=== PATIENT | male | born 1960 | race Caucasian/White ===

== ENCOUNTER → 2016-04-21 | Outpatient (CLI) | payer OTHER ==
[2016-04-21 07:26] LABS: EKG EKG PERFORMED
[2016-04-21 08:17] LABS: Basophils # (A) 0.2 k/uL (0-0.2); Basophils % (A) 2 %; CHCM 33.8; Eosinophils # (A) 0.2 k/uL (0-0.7); Eosinophils % (A) 2 %; HCT 49.3 % (39.0-53.0); HDW 2.19; HGB 16.2 gm/dL (13.0-17.5); Luc # (Auto) 0.16; Luc % (Auto) 2; Lymphocytes # (A) 2.9 k/uL (1.0-4.8); Lymphocytes % (A) 37 %; MCH 31.3 pg (25.0-35.0); MCHC 32.9 g/dL (31.0-37.0); MCV 95.2 fL (80.0-100.0); Mean Platelet Volume 7.8; Monocytes # (A) 0.5 k/uL (0-1.0); Monocytes % (A) 7 %; Neutrophils % (A) 51 %; RBC 5.18 m/uL (4.30-5.90); RDW 13.6 % (11.5-15.5); WBC 7.8 k/uL (3.8-10.6); WBC (Perox) 7.91
[2016-04-21 08:26] LABS: ALT 40 U/L (21-72); AST 30 U/L (17-59); Alkaline Phosphatase 86 U/L (38-126); Anion Gap 11 mmol/L; Blood Urea Nitrogen 9 mg/dL (9-20); Calcium 9.6 mg/dL (8.4-10.2); Carbon Dioxide 26 mmol/L (22-30); Chloride 100 mmol/L (98-107); Glucose 86 mg/dL (74-99); Non-African American GFR(MDRD) >60 (>60 ml/min/1.73 sqM); Potassium 5.2 mmol/L (3.5-5.1); Sodium 137 mmol/L (137-145); Total Bilirubin 0.8 mg/dL (0.2-1.3); Total Protein 7.4 g/dL (6.3-8.2)
[2016-04-21 08:29] LABS: INR 1.1 (<1.1); Partial Thromboplastin Time 26.1 sec (22.0-30.0); Prothrombin Time 10.7 sec (9.0-12.0)
== END | disposition home or self-care (01) ==
LOC: LABPAT 07:13
PROVIDERS: ATTEND Orthopaedic Surgery
DX: Z01.810 Encounter for preprocedural cardiovascular examination (principal); Z01.812 Encounter for preprocedural laboratory examination
CPT/HCPCS: 36415; 80053; 85025; 85610; 85730; 87070; 93005

== ENCOUNTER → 2016-04-22 | Outpatient (CLI) | payer OTHER ==
[2016-04-22 13:19] LABS: Appearance,Urine Clear (Clear); Bilirubin,Urine Negative (Negative); Glucose,Urine (UA) Negative (Negative); Ketones,Urine Negative (Negative); Leukocyte Esterase,Urine Negative (Negative); Nitrite,Urine Negative (Negative); PH, Urine 5.5 (5.0-8.0); Protein,Urine Negative (Negative); Specific Gravity,Urine 1.011 (1.001-1.035); UA Billing (MACRO vs. MICRO) CHEM
== END | disposition home or self-care (01) ==
LOC: EDSTATUS 09:19 → LABWHC1 12:46 → LABPAT 12:46
PROVIDERS: ATTEND Orthopaedic Surgery
DX: Z01.818 Encounter for other preprocedural examination (principal)
CPT/HCPCS: 81003

== ENCOUNTER 2016-05-01 07:54 | Inpatient (IN) | payer OTHER ==
[2016-04-21 14:17] VITALS: BMI 25.1
[~2016-05-01 07:54] MED LIST: ACETAMINOPHEN TAB 500 MG TAB PO ONE; CLINDAMYCIN 900 MG in DEXTROSE 5% IN WATER 50 ML IVPB ONE; DEXAMETHASONE SOD PHOSPHATE 10 MG/ML 1 ML VIAL IV ONE; HYDROmorphone 1 MG/ML 1 ML SYRINGE IVP PRN; LIDOCAINE 1% 20 ML VIAL (10MG/ML) FOR IV START INTRADERMA PRN; MELOXICAM 7.5 MG TAB PO ONE; MIDAZOLAM 2 MG/2 ML VIAL IV PRN; ONDANSETRON 4 MG/2 ML VIAL IVP ONE; SCOPOLAMINE 1.5MG/72HR PATCH TRANSDERM ONE; TRANEXAMIC ACID 1,000 MG in SODIUM CHLORIDE 0.9% 100 ML IVPB ONE
[2016-05-01] MEDS: LACTATED RINGERS 1,000 ML IV SCH ×3 (08:38→20:27)
[2016-05-01] MEDS ORDERED: ROPIVACAINE 246.25 MG, EPINEPHrine 0.5 MG, KETOROLAC 30 MG, cloNIDine HCL/PF 80 MCG, WA... MISCELLANE ONE ×5 (09:29)
[2016-05-01] MEDS ORDERED: MIDAZOLAM 2 MG/2 ML VIAL ONE (10:08)
[2016-05-01] MEDS ORDERED: fentaNYL (PF) 50 MCG/ML 2 ML AMP ONE (10:08)
[2016-05-01] MEDS ORDERED: SODIUM CHLORIDE 0.9% 100 ML BAG ONE (10:08)
[2016-05-01] MEDS ORDERED: TRANEXAMIC ACID 1,000 MG/10 ML VIAL ONE (10:08)
[2016-05-01] MEDS ORDERED: PROPOFOL 10 MG/ML 20 ML VIAL IV ONE (10:08)
[2016-05-01] MEDS ORDERED: LACTATED RINGERS 1,000 ML IV ONE (10:48)
[2016-05-01] MEDS ORDERED: CLINDAMYCIN 1,800 MG in SODIUM CHLORIDE 0.9% IRRIGATIO 3,000 ML IRRIGATION ONE (10:59)
[2016-05-01] MEDS ORDERED: HYDROcodone/APAP 5-325MG 1 EACH TAB PO PRN (12:02)
[2016-05-01] MEDS ORDERED: NALOXONE 0.4 MG/ML 1 ML VIAL IV PRN (12:02)
[2016-05-01] MEDS ORDERED: MAGNESIUM HYDROXIDE 2,400 MG/10 ML CUP PO PRN (12:02)
[2016-05-01] MEDS ORDERED: HYDROmorphone 1 MG/ML 1 ML SYRINGE IVP PRN ×3 (12:02)
[2016-05-01] MEDS ORDERED: TEMAZEPAM 15 MG CAP PO PRN (12:02)
--- NOTE | 2016-05-01 12:39 | XR ---
EXAMINATION TYPE: XR Hip Limited RT DATE OF EXAM: 05/01/2016 12:32 PM COMPARISON: NONE HISTORY: Postop There is a prosthetic hip in near anatomic alignment. There is soft tissue edema and emphysema. Vasc ular calcifications noted. IMPRESSION: 1. Postoperative change. Appears in near-anatomic alignment.
[2016-05-01] MEDS: HYDROcodone/APAP 5-325MG 1 EACH TAB PO PRN ×2 (15:32→20:34)
[2016-05-01] MEDS ORDERED: ceFAZolin 2 GM in SODIUM CHLORIDE 0.9% 100 ML IVPB SCH (16:00)
[2016-05-01] MEDS: CLINDAMYCIN 900 MG in DEXTROSE 5% IN WATER 50 ML IVPB SCH ×2 (17:56)
[2016-05-01] MEDS: ASPIRIN 325 MG TAB PO SCH (20:27)
[2016-05-01] MEDS: SENNOSIDES-DOCUSATE SODIUM 1 EACH TAB PO SCH (20:27)
[2016-05-02] MEDS: LACTATED RINGERS 1,000 ML IV SCH ×2 (01:03→10:18)
[2016-05-02] MEDS: CLINDAMYCIN 900 MG in DEXTROSE 5% IN WATER 50 ML IVPB SCH ×2 (01:06)
[2016-05-02] MEDS: HYDROcodone/APAP 5-325MG 1 EACH TAB PO PRN ×5 (01:36→22:33)
[2016-05-02] MEDS: MULTIVITAMINS, THERA 1 EACH TAB PO SCH (07:37)
[2016-05-02] MEDS: MELOXICAM 7.5 MG TAB PO SCH (07:37)
[2016-05-02] MEDS: ASPIRIN 325 MG TAB PO SCH ×2 (07:38→20:45)
--- NOTE | 2016-05-02 08:09 | P.OP ---
Date of Procedure: 05/01/16 Procedure(s) Performed: PREOPERATIVE DIAGNOSIS: Right hip severe osteoarthritis POSTOPERATIVE DIAGNOSIS: Right hip severe osteoarthritis OPERATION: Right hip total replacement arthroplasty (uncemented implantation with ceramic on polyethylene articulation). ANESTHESIA: Spinal ESTIMATED BLOOD LOSS: 200 ml. MILL MANAGER: Catrina Randle PA-C (assistance with: patient positioning, retraction, exposure, hemostasis, leg positioning, implantation, irrigation, closure, dressing) COMPLICATIONS: None apparent. COMPONENTS IMPLANTED: Mirna Continuum acetabular cup with cluster holes; Continuum longevity 15 elevated liner, 32 mm id; Mirna VerSys Fiber Metal stem ; VerSys 32 mm femoral head with +3.5 mm neck length extension INDICATIONS: Mr. Dudley is a 56-year-old male with significant end-stage osteoarthritis involving the right hip and commensurate severe symptoms. He presents to the operating room today for total hip replacement. I have discussed the steps of the operation as well as potential risks and complications as being inclusive of, but not limited to: Leading, infection, scarring, discomfort, or vessel and/or nerve damage, need for further surgery, loosening, dislocation, wear, osteolysis, limb length inequality, fracture, blood clot, pulmonary embolism, , persistent limp, and other risks. The patient is aware these risks and wishes to proceed with surgery and has signed a consent form. PROCEDURE: After appropriate consent was obtained, the patient was taken to the operating room and placed in supine position. Spinal anesthetic was administered and after confirmation of adequate anesthesia, the patient was placed into the lateral decubitus position with the right side up. Care was taken to make sure that all pressure points were adequately padded and he was stabilized to the table with a Marion hip positioner. The right hip was prepped and draped in the usual aseptic fashion using a combination of ChloraPrep and alcohol. Ioban drape was used for the case and the patient received intravenous antibiotics prior to the incision. "Time out" was called , confirming patient identity, side, procedure, availability of implants and administration of antibiotics. The incision was created directly over the greater trochanter and carried slightly posteriorly for a posterior approach to the hip. The incision was then deepened down to subcutaneous tissue and fascia rosie. Fascia rosie was split in line with the incision and split proximally along the fibers of the gluteus dot. The underlying fibers of the muscle were teased apart using finger dissection and bleeding vessels were picked up and coagulated. Retractor was then placed posteriorly consisting of a blunt Anita. The short external rotators and capsule were exposed using good visualization of the attachment of the external rotators to the femur was established. The short external rotators and capsule were released using electrocautery from their femoral attachments. A hockey stick shaped incision was created in the capsule. Joint fluid was evacuated and the patient's hip was able to be dislocated fairly easily. The patient's femoral head was severely arthritic with eburnated bone present and a 360 degrees park of osteophytes. The femoral neck cut was created approximately 1 cm superior to the lesser trochanter using a reciprocating saw. The femoral head and neck fragment was removed and attention was then directed to the acetabulum. An anterior acetabular retractor was applied followed by posterior retraction of the capsule with a Meyerding retractor. This afforded good visualization into the acetabular cavity. Soft tissue was removed and residual cartilage within the acetabular vault was removed using a curette. Labrum was removed using a long-handled knife. Attention was then directed to reaming. The size 44 reamer was used first, followed by increasing increments until the final size reamer was used. Please see the implantation sheet for exact sizes used for the components. Once the final reamer had been utilized to expand the socket it was noted that there was a good supportive bone around the acetabular socket and no further reaming needed to be performed. The trial the same size as the last reamer used was then impacted into the acetabular vault and found to have good fit. The acetabular component, one size (2mm) greater than the trial was then called for. The cluster holes were placed posteriorly and the component was impacted in a position of approximately 40 degrees abduction and 20 degrees anteversion. This matched this patient's ekwok anteversion and it was noted that the cup had excellent stability without need for additional screw fixation. Attention was then directed to the acetabular liner. The anteversion and abduction angle of the component was noted to be very good. A 15 elevated liner was used and locked into position with the elevation posterior superior. Osteophytes around the posterior and inferior aspect of the acetabulum were trimmed as necessary to prevent any impingement. Attention was then directed back to the proximal femur. Retractors were placed around the proximal femur and box osteotome was used followed by canal finder and trochanteric reamer. Cylindrical reaming was performed. Progressive broaching was then performed starting with a #10 broach and progressing final size, in a position of 15 degrees anteversion. [place] anteversion was within 5 degrees of stem position. The final size broach had excellent fit and fill of the patient's metaphysis and diaphysis. Trial reduction was then performed starting with size 32 mm femoral head and various neck combination of stability , limb length equality, and soft tissue tension. Trial components were then removed. The canal was lavaged and the final size femoral stem component was impacted into position. The implant fit very well and had excellent stability. The femoral head was then impacted onto the Turner taper. Blood and debris were removed from the acetabular component and the hip was then reduced and checked for stability, limb length and soft tissue tension. These parameters found to be satisfactory, the wound was then thoroughly irrigated with normal saline. Final hemostasis was obtained using electrocautery and IV tranexamic acid, 1 g given at the time of prepping and draping, and another 1 g given at the time of closure. Local anesthetic solution consisting of ropivacaine with epinephrine, clonidine, and ketorolac was also used throughout the case targeting the capsule , fascia, and skin. Closure of the capsule was performed meticulously using #3 Vicryl suture. Four [id number] sutures were placed in the posterior capsule along with repair of the external rotators. The fascia rosie was then repaired using combination of #3 Vicryl suture in interrupted fashion and Quill and running fashion. 2-0 Vicryl suture was used for the subcutaneous tissues and 3-0 Quill for the skin. Dermabond or Steri-Strips were then applied. The patient tolerated the procedure well. There were no complications and the wound bed was dry and there was no need for drain placement. Sterile dressing was then applied and the patient was carefully removed from the operating room table , placed on the stretcher and was taken to the recovery room in stable condition. Sponge and needle counts were correct.
[2016-05-02 08:10] LABS: Basophils % (A) 0 %; CHCM 34.3; Eosinophils % (A) 1 %; HCT 35.6 % (39.0-53.0); HDW 2.32; Luc # (Auto) 0.07; Luc % (Auto) 1; Lymphocytes # (A) 1.9 k/uL (1.0-4.8); Lymphocytes % (A) 21 %; MCH 31.6 pg (25.0-35.0); MCHC 33.7 g/dL (31.0-37.0); MCV 93.6 fL (80.0-100.0); Mean Platelet Volume 8.3; Monocytes # (A) 0.7 k/uL (0-1.0); Monocytes % (A) 8 %; Neutrophils # (A) 6.3 k/uL (1.3-7.7); Neutrophils % (A) 69 %; RDW 13.2 % (11.5-15.5); WBC (Perox) 8.97
--- NOTE | 2016-05-02 09:03 | P.CONS ---
History of Present Illness - Reason for Consult Consult date: 05/01/16 Heterotopic ossification prophylaxis Requesting physician: Ben Baugh - Chief Complaint right hip osteoarthritis - History of Present Illness 56 year old male with history of severe right hip osteoarthritis. He has required a cane for ambulation and has not been working recently secondary to this problem. The patient elected to undergo a right ZENIA under the care of Dr. Baugh. He underwent surgery on 05/01/2016 and tolerated the operation without difficulty. Intraoperatively, Dr. Baugh noted that the femoral head had intra- operative eburnated bone and [address] Baugh discussed with the patient that he may be at risk for heterotopic ossification post- operatively and requested our consultation. At the time of our consultation the patient was sitting in a chair and notes his pain is well controlled. Review of Systems All systems: negative Constitutional: Denies chills, Denies fever Eyes: denies blurred vision, denies pain Ears, nose, mouth and throat: Denies headache, Denies sore throat Cardiovascular: Denies chest pain, Denies shortness of breath Respiratory: Denies cough Gastrointestinal: Denies abdominal pain, Denies diarrhea, Denies nausea, Denies vomiting Musculoskeletal: Denies myalgias Integumentary: Denies pruritus, Denies rash Neurological: Denies numbness, Denies weakness Psychiatric: Denies anxiety, Denies depression Endocrine: Denies fatigue, Denies weight change Past Medical History Past Medical History: Osteoarthritis (OA) History of Any Multi-Drug Resistant Organisms: None Reported Past Surgical History: Appendectomy Additional Past Surgical History / Comment(s): ORIF RT HAND, right hip replacement. Past Anesthesia/Blood Transfusion Reactions: No Reported Reaction Past Psychological History: No Psychological Hx Reported Smoking Status: Former smoker Past Alcohol Use History: Daily Additional Past Alcohol Use History / Comment(s): QUIT SMOKING 2014 Past Drug Use History: None Reported - Past Family History Brother(s) Family Medical History: Cancer Medications and Allergies Allergies Allergy/AdvReac Type Severity Reaction Status Date / Time venom-honey bee Allergy Anaphylaxis Verified 05/01/16 08:06 Penicillins AdvReac Swelling Verified 05/01/16 08:06 Physical Exam Vitals: Vital Signs Temp Pulse Pulse Resp BP Pulse Ox 05/02/16 07:34 98.7 F 59 L 16 109/65 99 05/02/16 03:28 16 05/02/16 02:32 97.9 F 55 L 16 131/69 96 05/02/16 00:00 16 05/01/16 20:00 97.4 F L 61 16 138/79 96 05/01/16 14:30 52 L 130/72 05/01/16 14:15 54 L 133/74 05/01/16 14:00 52 L 135/75 05/01/16 13:45 54 L 139/74 05/01/16 13:30 64 138/88 05/01/16 13:15 62 131/78 05/01/16 13:00 50 L 130/79 05/01/16 12:45 64 131/78 05/01/16 12:30 97.7 F 57 L 55 L 16 130/79 97 05/01/16 12:15 53 L 16 116/65 96 05/01/16 12:02 55 L 05/01/16 12:00 98.0 F 63 16 125/68 97 Intake and Output 05/01/16 05/02/16 05/02/16 22:59 06:59 14:59 Intake Total 240 Output Total 1500 2000 200 Balance -1260 -2000 -200 Intake: Oral 240 Output: Urine 1500 1999 200 Uretheral (Weinberg) 1500 2000 200 Other: Voiding Method Indwelling Catheter Indwelling Catheter - Constitutional General appearance: average body habitus - EENT Eyes: PERRLA - Neck Neck: no rigidity - Respiratory Respiratory: bilateral: CTA - Cardiovascular Rhythm: regular - Gastrointestinal General gastrointestinal: normal bowel sounds, no tenderness - Integumentary Integumentary: no cellulitis, no jaundiced - Neurologic Neurologic: CNII-XII intact - Psychiatric Psychiatric: A&O x's 3, appropriate affect Results CBC & Chem 7: 05/02/16 06:51 Labs: Abnormal Lab Results - Last 24 Hours (Table) 05/02/16 Range/Units 06:51 RBC 3.80 L (4.30-5.90) m/uL Hgb 12.0 L D (13.0-17.5) gm/dL Hct 35.6 L (39.0-53.0) % Assessment and Plan (1) Osteoarthritis of right hip Status: Acute Plan: I discussed with the patient that a single dose of radiotherapy within 72 hours after his ZENIA would decrease the risk of developing heterotopic ossification. Dr. Baugh expressed some concern that the patient would be at risk for this considering the advanced nature of his osteoarthritis at the time of treatment. I explained to the patient that this type of ossification is associated with decreased range of motion, pain and decreased life of the joint replacement. I recommended the patient undergo a single fraction of radiation directed to the right hip. I explained to the patient he would need a CT simulation for treatment planning which would be done tomorrow at 9 AM. I explained that the side effects of radiotherapy would likely be very minimal, but he may experience mild erythema of the skin, reversible azoospermia with no significant risk of secondary malignancy. The patient expressed understanding of these recommendations and will undergo treatment on post-operative day #1 as discussed above. Time with Patient: Greater than 30
--- NOTE | 2016-05-02 10:29 | P.PN ---
Subjective Principal diagnosis: Status post right total hip arthroplasty Patient is a pleasant 56-year-old male seen today where he is postop day #1 from a right total hip arthroplasty performed by Dr. Baugh. He has controlled postoperative pain at the surgical site as expected. He has no new complaints. He denies numbness, tingling or calf pain. Review of systems is negative for fever, chills, chest pain, shortness breath, nausea, vomiting, dizziness, headaches, slurred speech or other. Objective - Vital Signs Vital signs: Vital Signs Temp 98.7 F 05/02/16 07:34 Pulse 59 L 05/02/16 07:34 Resp 16 05/02/16 07:34 BP 109/65 05/02/16 07:34 Pulse Ox 99 05/02/16 07:34 Intake & Output 05/01/16 05/02/16 05/02/16 18:59 06:59 18:59 Intake Total 2297 Output Total 300 3500 200 Balance 1996 Weight 68.49 kg Intake: IV 1956 Intake, IV Titration 100 Amount Lactated Ringers 1,000 ml 100 @ 100 mls/hr IV .Q10H RANDY Rx#:[id number] Oral 240 Output: Urine 100 3500 200 Uretheral (Weinberg) 3500 200 Estimated Blood Loss 200 Other: Voiding Method Indwelling Catheter Indwelling Catheter - Exam Inspection of the surgical site we will reveals a benign intact surgical wound with no active bleeding, dehiscence or drainage. There is no erythema. His neurovascular status is intact with motor and sensation throughout the right lower extremity. His calf is soft and nontender. He has 2+ dorsalis pedis pulses and less than 2 second cap refill. - Constitutional General appearance: Present: no acute distress - Psychiatric Psychiatric: Present: A&O x's 3, appropriate affect, intact judgment & insight - Labs CBC & Chem 7: 05/02/16 06:51 Labs: Abnormal Lab Results - Last 24 Hours (Table) 05/02/16 Range/Units 06:51 RBC 3.80 L (4.30-5.90) m/uL Hgb 12.0 L D (13.0-17.5) gm/dL Hct 35.6 L (39.0-53.0) % Assessment and Plan (1) Osteoarthritis of right hip Narrative/Plan: He'll continue with routine postop orthopedic protocol including pain management , wound care, physical therapy, DVT prophylaxis and medical management. Expect that he'll discharge tomorrow 05/03/2016 to either an extended care facility or to home with home health services. Status: Acute Time with Patient: Less than 30
--- NOTE | 2016-05-02 17:10 | XR ---
EXAMINATION TYPE: XR chest 2V DATE OF EXAM: 05/02/2016 3:16 PM COMPARISON: Prior chest x-ray 04 February 2015 HISTORY: Extended-care facility placement TECHNIQUE: Frontal and lateral views of the chest are obtained. FINDINGS: There is no focal air space opacity, pleural effusion, or pneumothorax seen. The cardiac silhouette size is within normal limits. Prominent lung volume could be indicative of underlying COPD . The osseous structures are stable, old right-sided rib fractures are noted.. IMPRESSION: No acute cardiopulmonary process.
[2016-05-02] MEDS: SENNOSIDES-DOCUSATE SODIUM 1 EACH TAB PO SCH (20:45)
[2016-05-02] MEDS: hydrOXYzine PAMOATE 25 MG CAP PO PRN (22:33)
--- NOTE | 2016-05-02 23:21 | P.CONS ---
History of Present Illness - Reason for Consult Consult date: 05/02/16 Medical management Requesting physician: Ben Baugh - Chief Complaint Right total hip arthroplasty, osteoarthritis, BPH, GERD - History of Present Illness 56-year-old male [address] Evans patient with past medical history of severe osteoarthritis with severe arthritis in both hip worse in the right side than the left side for more than 3 years has become much worse in the last few months with failure to conservative management and not been able to function well. Patient ended up seen orthopedic and scheduled for elective total hip arthroplasty. Surgery was done yesterday successfully and and up having one dose of radiation afterward. Patient is very stable hemodynamically he lives at home alone and he will require help most likely need rehabilitation when he the hospital. Review of Systems Constitutional: Reports anorexia, Reports fatigue, Reports lethargy, Reports malaise, Reports weakness, Denies as per HPI, Denies chills, Denies chronic headaches, Denies chronic pain, Denies daytime sleepiness, Denies fever, Denies night sweats, Denies poor appetite, Denies sweats, Denies weight gain, Denies weight loss Eyes: bilateral as per HPI Ears: bilateral: decreased hearing Ears, nose, mouth and throat: Reports sinus pressure, Reports swelling in mouth , Reports swelling in throat, Reports sore throat, Denies as per HPI, Denies ant. neck pain, Denies bleeding gums, Denies dental pain, Denies dysphagia, Denies epistaxis, Denies headache, Denies hoarseness, Denies mouth pain, Denies nasal congestion, Denies nasal discharge, Denies neck fullness/pressure, Denies neck lump, Denies nose pain, Denies odynophagia, Denies post-nasal drip, Denies sinus pain, Denies vertigo, Denies voice changes Breasts: bilateral: as per HPI Cardiovascular: Reports chest pain, Reports dyspnea on exertion, Reports high blood pressure, Reports leg edema, Reports lightheadedness, Reports orthopnea, Denies as per HPI, Denies claudication, Denies decreased exercise tolerance, Denies edema, Denies irregular heart beat, Denies palpitations, Denies paroxysmal nocturnal dyspnea, Denies phlebitis, Denies rapid heart beat, Denies shortness of breath, Denies syncope Respiratory: Reports congestion, Reports cough with sputum, Reports dyspnea, Denies as per HPI, Denies cough, Denies excessive sputum, Denies hemoptysis, Denies home oxygen, Denies pain, Denies pain on inspiration, Denies pleurisy, Denies respiratory infections, Denies sleep apnea, Denies snoring, Denies wheezing Gastrointestinal: Reports abdominal pain, Reports bloating, Reports dyspepsia, Reports indigestion, Reports nausea, Denies as per HPI, Denies belching, Denies BRBPR, Denies change in bowel habits, Denies coffee ground emesis, Denies constipation, Denies diarrhea, Denies early satiety, Denies excessive gas, Denies heartburn, Denies hematemesis, Denies hematochezia, Denies jaundice, Denies lactose intolerance, Denies loss of appetite, Denies melena, Denies vomiting Genitourinary: Denies as per HPI, Denies decreased libido, Denies difficulties fathering child, Denies discharge, Denies dysuria, Denies erectile dysfunction, Denies flank pain, Denies genital pain, Denies genital sores, Denies hematuria, Denies impotence, Denies incontinence, Denies kidney stones, Denies nocturia, Denies polyuria, Denies testicular lump, Denies testicular pain, Denies urinary frequency, Denies urinary hesitancy, Denies urinary retention Musculoskeletal: Reports arm numbness/tingling, Reports leg numbness/tingling, Reports limitation of motion, Reports low back pain, Reports myalgias, Reports neck pain, Reports neck stiffness, Denies as per HPI, Denies atrophy, Denies fractures, Denies frequent falls, Denies gait dysfunction, Denies hot joints, Denies loss of height, Denies morning stiffness, Denies muscle cramps, Denies muscle weakness, Denies prior amputations, Denies redness of joints, Denies shooting arm pain, Denies shooting leg pain Musculoskeletal: bilateral: ankle pain, ankle stiffness Integumentary: Reports pruritus, Reports rash, Denies as per HPI, Denies acne, Denies boils, Denies brittle nails, Denies change in hair/nails, Denies color changes, Denies darkening of skin, Denies depigmentation, Denies dryness, Denies foot/leg ulcers, Denies growths, Denies hirsutism, Denies lesions, Denies onychomycosis, Denies sores, Denies striae, Denies unusual bruising, Denies wounds Neurological: Reports aphasia, Reports change in mentation, Reports confusion, Reports memory loss, Reports motor disturbance, Reports tingling, Reports tremors, Denies as per HPI, Denies ataxia, Denies balance difficulties, Denies burning pain, Denies change in smell/taste, Denies change in speech, Denies convulsions, Denies double vision, Denies gait dysfunction, Denies head injury, Denies headaches, Denies hearing difficulties, Denies lack of coordination, Denies loss of vision, Denies migraines, Denies numbness, Denies paralysis, Denies paresthesias, Denies seizures, Denies sensory deficit, Denies spasticity , Denies syncope, Denies tic, Denies transient paralysis, Denies vertigo, Denies weakness, Denies visual changes Psychiatric: Reports anhedonia, Reports anxiety attacks, Reports depression, Reports mood swings, Denies as per HPI, Denies anxiety, Denies change in appetite, Denies change in libido, Denies change in sleep habits, Denies confusion, Denies difficulty concentrating, Denies disorientation, Denies hallucinations, Denies hopelessness, Denies hypersomnia, Denies insomnia, Denies irritability, Denies memory loss, Denies paranoia, Denies sadness/ tearfulness, Denies sleep disturbances, Denies suicidal ideation Endocrine: Reports cold intolerance, Reports polyuria, Denies as per HPI, Denies deepening of the voice, Denies excessive sweating, Denies excessive thirst, Denies fatigue, Denies flushing, Denies heat intolerance, Denies high blood sugars, Denies increase in ring/shoe/hat size, Denies low blood sugars, Denies nocturia, Denies palpitations, Denies polydipsia, Denies polyphagia, Denies proptosis, Denies recent glucocorticoid use, Denies thyroid mass, Denies weight change Hematologic/Lymphatic: Reports easy bleeding, Reports easy bruising, Denies as per HPI, Denies lymphadenopathy, Denies lymphedema, Denies thrombophilia Allergic/Immunologic: Reports as per HPI, Denies allergic rhinitis, Denies anaphylaxis, Denies angioedema, Denies gluten intolerance, Denies persistent infections, Denies seasonal allergies, Denies urticaria, Denies wheezing Past Medical History Past Medical History: Osteoarthritis (OA) History of Any Multi-Drug Resistant Organisms: None Reported Past Surgical History: Appendectomy Additional Past Surgical History / Comment(s): ORIF RT HAND, right hip replacement. Past Anesthesia/Blood Transfusion Reactions: No Reported Reaction Past Psychological History: No Psychological Hx Reported Smoking Status: Former smoker Past Alcohol Use History: Daily Additional Past Alcohol Use History / Comment(s): QUIT SMOKING 2014 Past Drug Use History: None Reported - Past Family History Brother(s) Family Medical History: Cancer Medications and Allergies Allergies Allergy/AdvReac Type Severity Reaction Status Date / Time venom-honey bee Allergy Anaphylaxis Verified 05/01/16 08:06 Penicillins AdvReac Swelling Verified 05/01/16 08:06 Physical Exam Vitals: Vital Signs Temp Pulse Resp BP Pulse Ox 05/02/16 14:40 98.6 F 66 16 125/69 97 05/02/16 07:34 98.7 F 59 L 16 109/65 99 05/02/16 03:28 16 05/02/16 02:32 97.9 F 55 L 16 131/69 96 05/02/16 00:00 16 05/01/16 20:00 97.4 F L 61 16 138/79 96 Intake and Output 05/02/16 05/02/16 05/02/16 06:59 14:59 22:59 Intake Total 360 Output Total 1999 Balance -1999 - 360 Intake: Oral 360 Output: Urine 1999 200 Uretheral (Weinberg) 1999 200 Other: Voiding Method Indwelling Catheter # Voids 1 - Constitutional General appearance: no average body habitus, cooperative, no disheveled, no mild distress, no morbidly obese, no no acute distress, no obese, no severe distress, thin - EENT Eyes: no abnormal pupil, no anicteric sclerae, no disc margins sharp, no edentulous, no EOMI, no PERRLA, no fundus normal, no photophobia, no dentition normal, no poor dentition, no ptosis, no scleral icterus, normal appearance ENT: no hard of hearing, no hearing grossly normal, no NA/AT, normal oropharynx , no other, no pharyngeal erythema, no thrush, no tonsillar exudates, no tonsillar swelling Ears: bilateral: normal - Neck Neck: normal ROM Carotids: bilateral: upstroke normal Thyroid: bilateral: normal size - Respiratory Respiratory: bilateral: CTA, diminished - Cardiovascular Rhythm: regular Heart sounds: normal: S1, S2 Abnormal Heart Sounds: systolic murmur, S3 Gallop - Gastrointestinal General gastrointestinal: no absent bowel sounds, decreased bowel sounds, no distended, no hepatomegaly, no hyperactive bowel sounds, no normal bowel sounds , no organomegaly, no rigid, no scaphoid, soft, no splenomegaly, no tenderness, no umbilical hernia, no ventral hernia - Integumentary Integumentary: no calor, no cellulitis, cyanotic, no decreased turgor, no flushed, jaundiced, normal, no normal turgor, no pale, no rash, no ulcer - Neurologic Neurologic: CNII-XII intact - Musculoskeletal Musculoskeletal: gait normal, generalized weakness, strength equal bilaterally - Psychiatric Psychiatric: appropriate affect Results CBC & Chem 7: 05/02/16 06:51 Labs: Abnormal Lab Results - Last 24 Hours (Table) 05/02/16 Range/Units 06:51 RBC 3.80 L (4.30-5.90) m/uL Hgb 12.0 L D (13.0-17.5) gm/dL Hct 35.6 L (39.0-53.0) % Assessment and Plan Plan: 1 post right total hip arthroplasty: Stable doing well advanced physical therapy gradually continue anticoagulation, DVT and GI prophylaxis. 2 GERD: Patient will be on Pepcid 20 mg daily. 3 BPH: Watch for any urinary retention if need was start patient on Flomax. 4 pain management: Patient is on hydrocodone as needed. 5 DVT prophylaxis: Patient was started on aspirin 325 mg twice a day. CODE STATUS: Full code. Dr. Amauri renee for the consult psych and be any further help to please let me know thank you.
[2016-05-03] MEDS: HYDROcodone/APAP 5-325MG 1 EACH TAB PO PRN ×3 (07:18→21:33)
[2016-05-03] MEDS: hydrOXYzine PAMOATE 25 MG CAP PO PRN ×3 (07:18→21:32)
[2016-05-03] MEDS: ASPIRIN 325 MG TAB PO SCH ×2 (08:57→21:32)
[2016-05-03] MEDS: MELOXICAM 7.5 MG TAB PO SCH (08:57)
--- NOTE | 2016-05-03 09:27 | P.DS ---
Providers Date of admission: 05/01/16 07:54 Expected date of discharge: 05/03/16 Attending physician: Ben Baugh Consults: 05/01/16 12:02 Consult Physician Routine Consulting Provider: Alek Jones Consult Reason/Comments: medical management Do you want consulting provider notified?: Yes 05/01/16 12:15 Consult Physician Urgent Consulting Provider: Andrew Lemos Consult Reason/Comments: radiation tx right hip, s/p ZENIA Do you want consulting provider notified?: Yes Primary care physician: Marcial Evans - Discharge Diagnosis(es) (1) Status post total hip replacement, right Current Visit: Yes Status: Acute (2) Osteoarthritis of right hip Current Visit: Yes Status: Acute Priority: Medium Hospital Course: This is a 56-year-old male with known history of degenerative arthritis of the right hip. The patient presents for evaluation. After discussion and consideration patient elects to proceed with total hip arthroplasty. The patient is seen preoperatively by Dr. Evans and cleared for surgery. Patient is admitted to [facility] on 05/01/2016 for total hip arthroplasty. The procedures performed without complication or sequelae. The patient is doing well postoperatively. Labs and vital signs are stable on day of discharge. On day of discharge patient's hip incision is healing well. There is minimal erythema. There is no drainage noted at this time. There is minimal soft tissue swelling to the hip and thigh. Patient has full foot and ankle motion without difficulty or pain. Neurovascular status to the right lower extremity is intact. The patient would like to go to rehab because he is alone at home. However, he is walking independently without difficulty. Patient is discharged to home versus rehab in good condition. Plan - Discharge Summary New Discharge Prescriptions: Aspirin 325 mg PO BID #120 tab HYDROcodone/APAP 5-325MG [Hudson 5] 1 - 2 each PO Q4-6H PRN #90 tab PRN Reason: Pain Sennosides-Docusate Sodium [Senokot-S] 1 tab PO BID #60 tablet Discharge Medication List Aspirin 325 mg PO BID #120 tab 05/01/16 [Rx] HYDROcodone/APAP 5-325MG [Hudson 5] 1 - 2 each PO Q4-6H PRN #90 tab 05/01/16 [Rx] Sennosides-Docusate Sodium [Senokot-S] 1 tab PO BID #60 tablet 05/01/16 [Rx] Follow up Appointment(s)/Referral(s): Catrina Randle, PAC [[employer]YSIC[facility] [employer]] - 2 Weeks Activity/Diet/Wound Care/Special Instructions: May shower if no drainage from incision. 50% wt bearing RLE w walker. Discharge Disposition: HOME WITH HOME HEALTH SERVICES
[2016-05-03] MEDS: MULTIVITAMINS, THERA 1 EACH TAB PO SCH (11:59)
--- NOTE | 2016-05-03 15:15 | P.PN ---
Subjective 56-year-old male [address] Evans patient with past medical history of severe osteoarthritis with severe arthritis in both hip worse in the right side than the left side for more than 3 years has become much worse in the last few months with failure to conservative management and not been able to function well. Patient ended up seen orthopedic and scheduled for elective total hip arthroplasty. Surgery was done yesterday successfully and and up having one dose of radiation afterward. Patient is very stable hemodynamically he lives at home alone and he will require help most likely need rehabilitation when he the hospital. 05/03: Patient is scheduled for discharge today. Awaiting insurance authorization for discharge to subacute rehab at [facility]. Backup plan is home with homecare. Objective - Vital Signs Vital signs: Vital Signs Temp 98.9 F 05/03/16 07:00 Pulse 67 05/03/16 08:00 Resp 16 05/03/16 08:00 BP 141/74 05/03/16 07:00 Pulse Ox 100 05/03/16 07:00 Intake & Output 05/02/16 05/03/16 05/03/16 18:59 06:59 18:59 Intake Total 360 450 Output Total 200 50 Balance 160 450 -50 Weight 68.49 kg Intake: Oral 360 450 Output: Urine 200 50 Uretheral (Weinberg) 200 Other: Voiding Method Toilet Toilet # Voids 1 2 1 - Exam General appearance: no average body habitus, cooperative, no disheveled, no mild distress, no morbidly obese, no no acute distress, no obese, no severe distress, thin - EENT Eyes: no abnormal pupil, no anicteric sclerae, no disc margins sharp, no edentulous, no EOMI, no PERRLA, no fundus normal, no photophobia, no dentition normal, no poor dentition, no ptosis, no scleral icterus, normal appearance ENT: no hard of hearing, no hearing grossly normal, no NA/AT, normal oropharynx , no other, no pharyngeal erythema, no thrush, no tonsillar exudates, no tonsillar swelling Ears: bilateral: normal - Neck Neck: normal ROM Carotids: bilateral: upstroke normal Thyroid: bilateral: normal size - Respiratory Respiratory: bilateral: CTA, diminished - Cardiovascular Rhythm: regular Heart sounds: normal: S1, S2 Abnormal Heart Sounds: systolic murmur, S3 Gallop - Gastrointestinal General gastrointestinal: no absent bowel sounds, decreased bowel sounds, no distended, no hepatomegaly, no hyperactive bowel sounds, no normal bowel sounds , no organomegaly, no rigid, no scaphoid, soft, no splenomegaly, no tenderness, no umbilical hernia, no ventral hernia - Integumentary Integumentary: no calor, no cellulitis, cyanotic, no decreased turgor, no flushed, jaundiced, normal, no normal turgor, no pale, no rash, no ulcer - Neurologic Neurologic: CNII-XII intact - Musculoskeletal Musculoskeletal: gait normal, generalized weakness, strength equal bilaterally - Psychiatric Psychiatric: appropriate affect - Labs CBC & Chem 7: 05/02/16 06:51 Assessment and Plan Plan: 1 post right total hip arthroplasty: Stable doing well advanced physical therapy gradually continue anticoagulation, DVT and GI prophylaxis. 2 GERD: Patient will be on Pepcid 20 mg daily. 3 BPH: Watch for any urinary retention if need was start patient on Flomax. 4 pain management: Patient is on hydrocodone as needed. 5 DVT prophylaxis: Patient was started on aspirin 325 mg twice a day. CODE STATUS: Full code. Discharge plan: [facility] or home with home care Impression and plan of care have been directed as dictated by the signing physician. Shavon Hernandez nurse practitioner acting as scribe for signing physician. Cc: Dr. Marcial Evans Time with Patient: Greater than 30
[2016-05-03] MEDS: SENNOSIDES-DOCUSATE SODIUM 1 EACH TAB PO SCH (21:32)
[2016-05-04] MEDS: hydrOXYzine PAMOATE 25 MG CAP PO PRN (02:55)
[2016-05-04] MEDS: HYDROcodone/APAP 5-325MG 1 EACH TAB PO PRN ×2 (02:56→20:00)
--- NOTE | 2016-05-04 08:23 | P.PN ---
Subjective Principal diagnosis: Status post total right hip arthroplasty Is a 56-year-old male who is status post total hip arthroplasty. He was to be discharged to rehab versus home yesterday. There is some authorization still pending. The patient still would like to go to inpatient rehab. He is independent with ADLs. He is ambulating fairly independently. He does have some difficulty getting in and out of bed. Objective - Vital Signs Vital signs: Vital Signs Temp 97.4 F L 05/04/16 02:53 Pulse 72 05/04/16 02:53 Resp 16 05/04/16 02:53 BP 123/70 05/04/16 02:53 Pulse Ox 99 05/04/16 02:53 Intake & Output 05/03/16 05/04/16 05/04/16 18:59 06:59 18:59 Intake Total 480 400 Output Total 50 Balance 430 400 Weight 68.49 kg Intake: Oral 480 400 Output: Urine 50 Other: Voiding Method Toilet Toilet # Voids 2 2 - Exam This is a pleasant 56-year-old male in no acute distress. He is alert and oriented 3. Exam of the right lower extremity reveals that his resting is clean, dry and intact. He has full foot and ankle motion without difficulty or pain. Neurovascular status to the right lower extremity is intact. - Labs CBC & Chem 7: 05/02/16 06:51 Assessment and Plan (1) Status post total hip replacement, right Status: Acute (2) Osteoarthritis of right hip Status: Acute Plan: Patient may be discharged to home versus rehab today. Please see previous discharge summary.
[2016-05-04 08:33] LABS: Basophils % (A) 1 %; CH 31.4; CHCM 32.7; Eosinophils # (A) 0.1 k/uL (0-0.7); Eosinophils % (A) 2 %; HCT 36.8 % (39.0-53.0); HDW 2.15; HGB 12.4 gm/dL (13.0-17.5); Luc # (Auto) 0.11; Luc % (Auto) 2; Lymphocytes % (A) 30 %; MCH 32.4 pg (25.0-35.0); MCHC 33.6 g/dL (31.0-37.0); MCV 96.3 fL (80.0-100.0); Mean Platelet Volume 7.6; Monocytes # (A) 0.4 k/uL (0-1.0); Monocytes % (A) 6 %; Neutrophils # (A) 4.1 k/uL (1.3-7.7); Neutrophils % (A) 60 %; RBC 3.82 m/uL (4.30-5.90); RDW 13.2 % (11.5-15.5); WBC 6.8 k/uL (3.8-10.6); WBC (Perox) 7.28
[2016-05-04] MEDS: ASPIRIN 325 MG TAB PO SCH ×2 (09:30→20:01)
[2016-05-04] MEDS: MELOXICAM 7.5 MG TAB PO SCH (09:31)
[2016-05-04] MEDS: MULTIVITAMINS, THERA 1 EACH TAB PO SCH (12:44)
--- NOTE | 2016-05-04 14:22 | P.PN ---
Subjective 56-year-old male [address] Evans patient with past medical history of severe osteoarthritis with severe arthritis in both hip worse in the right side than the left side for more than 3 years has become much worse in the last few months with failure to conservative management and not been able to function well. Patient ended up seen orthopedic and scheduled for elective total hip arthroplasty. Surgery was done yesterday successfully and and up having one dose of radiation afterward. Patient is very stable hemodynamically he lives at home alone and he will require help most likely need rehabilitation when he the hospital. 05/03: Patient is scheduled for discharge today. Awaiting insurance authorization for discharge to subacute rehab at [facility]. Backup plan is home with homecare. 05/04: Patient denies any new complaints. Pain is well controlled. He is waiting for insurance authorization for subacute rehab. This may take up to 3 days. Objective - Vital Signs Vital signs: Vital Signs Temp 98.2 F 05/04/16 07:00 Pulse 70 05/04/16 07:00 Resp 16 05/04/16 07:00 BP 113/76 05/04/16 07:00 Pulse Ox 97 05/04/16 08:34 Intake & Output 05/03/16 05/04/16 05/04/16 18:59 06:59 18:59 Intake Total 480 400 480 Output Total 50 Balance 430 400 480 Weight 68.49 kg Intake: Oral 480 400 480 Output: Urine 50 Other: Voiding Method Toilet Toilet Toilet # Voids 2 2 - Exam General appearance: no average body habitus, cooperative, no disheveled, no mild distress, no morbidly obese, no no acute distress, no obese, no severe distress, thin - EENT Eyes: no abnormal pupil, no anicteric sclerae, no disc margins sharp, no edentulous, no EOMI, no PERRLA, no fundus normal, no photophobia, no dentition normal, no poor dentition, no ptosis, no scleral icterus, normal appearance ENT: no hard of hearing, no hearing grossly normal, no NA/AT, normal oropharynx , no other, no pharyngeal erythema, no thrush, no tonsillar exudates, no tonsillar swelling Ears: bilateral: normal - Neck Neck: normal ROM Carotids: bilateral: upstroke normal Thyroid: bilateral: normal size - Respiratory Respiratory: bilateral: CTA, diminished - Cardiovascular Rhythm: regular Heart sounds: normal: S1, S2 Abnormal Heart Sounds: systolic murmur, S3 Gallop - Gastrointestinal General gastrointestinal: no absent bowel sounds, decreased bowel sounds, no distended, no hepatomegaly, no hyperactive bowel sounds, no normal bowel sounds , no organomegaly, no rigid, no scaphoid, soft, no splenomegaly, no tenderness, no umbilical hernia, no ventral hernia - Integumentary Integumentary: no calor, no cellulitis, cyanotic, no decreased turgor, no flushed, jaundiced, normal, no normal turgor, no pale, no rash, no ulcer - Neurologic Neurologic: CNII-XII intact - Musculoskeletal Musculoskeletal: gait normal, generalized weakness, strength equal bilaterally - Psychiatric Psychiatric: appropriate affect - Labs CBC & Chem 7: 05/04/16 07:06 Labs: Abnormal Lab Results - Last 24 Hours (Table) 05/04/16 Range/Units 07:06 RBC 3.82 L (4.30-5.90) m/uL Hgb 12.4 L (13.0-17.5) gm/dL Hct 36.8 L (39.0-53.0) % Assessment and Plan Plan: 1 post right total hip arthroplasty: Stable doing well advanced physical therapy gradually continue anticoagulation, DVT and GI prophylaxis. 2 GERD: Patient will be on Pepcid 20 mg daily. 3 BPH: Watch for any urinary retention if need was start patient on Flomax. 4 pain management: Patient is on hydrocodone as needed. 5 DVT prophylaxis: Patient was started on aspirin 325 mg twice a day. CODE STATUS: Full code. Discharge plan: [facility] or home with home care Impression and plan of care have been directed as dictated by the signing physician. Shavon Hernandez nurse practitioner acting as scribe for signing physician. Time with Patient: Greater than 30
[2016-05-04] MEDS: SENNOSIDES-DOCUSATE SODIUM 1 EACH TAB PO SCH (20:01)
[2016-05-05] MEDS: HYDROcodone/APAP 5-325MG 1 EACH TAB PO PRN ×2 (03:01→11:08)
[2016-05-05 07:09] VITALS: BP 135/76; PULSE 65; RESP 16; TEMP 97.5
[2016-05-05] MEDS: ASPIRIN 325 MG TAB PO SCH (08:17)
[2016-05-05] MEDS: MELOXICAM 7.5 MG TAB PO SCH (08:17)
--- NOTE | 2016-05-05 09:05 | P.DS ---
Providers Date of admission: 05/01/16 07:54 Expected date of discharge: 05/05/16 Attending physician: Ben Baugh Consults: 05/01/16 12:02 Consult Physician Routine Consulting Provider: Alek Jones Consult Reason/Comments: medical management Do you want consulting provider notified?: Yes 05/01/16 12:15 Consult Physician Urgent Consulting Provider: Andrew Lemos Consult Reason/Comments: radiation tx right hip, s/p ZENIA Do you want consulting provider notified?: Yes Primary care physician: Marcial Evans - Discharge Diagnosis(es) (1) Osteoarthritis of right hip Current Visit: Yes Status: Acute Priority: Medium (2) Status post total hip replacement, right Current Visit: Yes Status: Acute Hospital Course: This is a 56-year-old male with known history of degenerative arthritis of the right hip. The patient presents for evaluation. After discussion and consideration patient elects to proceed with total hip arthroplasty. The patient is seen preoperatively by Dr. Evans and cleared for surgery. Patient is admitted to [facility] on 05/01/2016 for total hip arthroplasty. The procedures performed without complication or sequelae. The patient is doing well postoperatively. Labs and vital signs are stable on day of discharge. On day of discharge patient's hip incision is healing well. There is minimal erythema. There is no drainage noted at this time. There is minimal soft tissue swelling to the hip and thigh. Patient has full foot and ankle motion without difficulty or pain. Neurovascular status to the right lower extremity is intact. Patient is discharged to home or skilled rehab in stable condition. Pertinent Studies: Laboratory Tests 05/04/16 07:06 WBC 6.8 RBC 3.82 L Hgb 12.4 L Hct 36.8 L Patient Condition at Discharge: Stable Plan - Discharge Summary New Discharge Prescriptions: Aspirin 325 mg PO BID #120 tab HYDROcodone/APAP 5-325MG [[place] 5] 1 - 2 each PO Q4-6H PRN #90 tab PRN Reason: Pain Sennosides-Docusate Sodium [Senokot-S] 1 tab PO BID #60 tablet Discharge Medication List Aspirin 325 mg PO BID #120 tab 05/01/16 [Rx] HYDROcodone/APAP 5-325MG [[place] 5] 1 - 2 each PO Q4-6H PRN #90 tab 05/01/16 [Rx] Sennosides-Docusate Sodium [Senokot-S] 1 tab PO BID #60 tablet 05/01/16 [Rx] Follow up Appointment(s)/Referral(s): Catrina Randle PAC [PHYSICIAN STREAM CONTROL OFFICER] - 05/18/16 1:15 pm Activity/Diet/Wound Care/Special Instructions: May shower if no drainage from incision. 50% wt bearing RLE w walker. Discharge Disposition: HOME WITH HOME HEALTH SERVICES
[2016-05-05] MEDS: MULTIVITAMINS, THERA 1 EACH TAB PO SCH (11:08)
--- NOTE | 2016-05-05 14:50 | P.PN ---
Subjective 56-year-old male [address] Evans patient with past medical history of severe osteoarthritis with severe arthritis in both hip worse in the right side than the left side for more than 3 years has become much worse in the last few months with failure to conservative management and not been able to function well. Patient ended up seen orthopedic and scheduled for elective total hip arthroplasty. Surgery was done yesterday successfully and and up having one dose of radiation afterward. Patient is very stable hemodynamically he lives at home alone and he will require help most likely need rehabilitation when he the hospital. 05/03: Patient is scheduled for discharge today. Awaiting insurance authorization for discharge to subacute rehab at [facility]. Backup plan is home with homecare. 05/04: Patient denies any new complaints. Pain is well controlled. He is waiting for insurance authorization for subacute rehab. This may take up to 3 days. 05/05: Patient denies any new complaints. He is ambulating in the hallway with walker and appears to be doing well. He continues to wait for insurance authorization for subacute rehab. He is on aspirin for DVT prophylaxis. Objective - Vital Signs Vital signs: Vital Signs Temp 97.5 F L 05/05/16 07:08 Pulse 65 05/05/16 07:08 Resp 16 05/05/16 07:08 BP 135/76 05/05/16 07:08 Pulse Ox 97 05/05/16 07:08 Intake & Output 05/04/16 05/05/16 05/05/16 18:59 06:59 18:59 Intake Total 1320 720 Balance 1320 720 Intake: Oral 1320 720 Other: Voiding Method Toilet Toilet # Voids 3 2 - Exam General appearance: no average body habitus, cooperative, no disheveled, no mild distress, no morbidly obese, no no acute distress, no obese, no severe distress, thin - EENT Eyes: no abnormal pupil, no anicteric sclerae, no disc margins sharp, no edentulous, no EOMI, no PERRLA, no fundus normal, no photophobia, no dentition normal, no poor dentition, no ptosis, no scleral icterus, normal appearance ENT: no hard of hearing, no hearing grossly normal, no NA/AT, normal oropharynx , no other, no pharyngeal erythema, no thrush, no tonsillar exudates, no tonsillar swelling Ears: bilateral: normal - Neck Neck: normal ROM Carotids: bilateral: upstroke normal Thyroid: bilateral: normal size - Respiratory Respiratory: bilateral: CTA, diminished - Cardiovascular Rhythm: regular Heart sounds: normal: S1, S2 Abnormal Heart Sounds: systolic murmur, S3 Gallop - Gastrointestinal General gastrointestinal: no absent bowel sounds, decreased bowel sounds, no distended, no hepatomegaly, no hyperactive bowel sounds, no normal bowel sounds , no organomegaly, no rigid, no scaphoid, soft, no splenomegaly, no tenderness, no umbilical hernia, no ventral hernia - Integumentary Integumentary: no calor, no cellulitis, cyanotic, no decreased turgor, no flushed, jaundiced, normal, no normal turgor, no pale, no rash, no ulcer - Neurologic Neurologic: CNII-XII intact - Musculoskeletal Musculoskeletal: gait normal, generalized weakness, strength equal bilaterally - Psychiatric Psychiatric: appropriate affect - Labs CBC & Chem 7: 05/04/16 07:06 Assessment and Plan Plan: 1 post right total hip arthroplasty: Stable doing well advanced physical therapy gradually continue anticoagulation, DVT and GI prophylaxis. 2 GERD: Patient will be on Pepcid 20 mg daily. 3 BPH: Watch for any urinary retention if need was start patient on Flomax. 4 pain management: Patient is on hydrocodone as needed. 5 DVT prophylaxis: Patient was started on aspirin 325 mg twice a day. CODE STATUS: Full code. Discharge plan: [facility] or home with home care Impression and plan of care have been directed as dictated by the signing physician. Shavon Hernandez nurse practitioner acting as scribe for signing physician. Time with Patient: Greater than 30
== END 2016-05-05 14:30 | disposition home health service (06) | DRG 470 ==
LOC: 2ORMAIN 07:54 → 3SUR 11:57
PROVIDERS: ADMIT Orthopaedic Surgery; ATTEND Orthopaedic Surgery
PROC: 0SR904A Replacement of Right Hip Joint with Ceramic on Polyethylene Synthetic Substitute, Uncemented, Open Approach (ICD-10-PCS; principal; 2016-05-01 09:35)
DX: M16.11 Unilateral primary osteoarthritis, right hip (principal); M87.051 Idiopathic aseptic necrosis of right femur; M21.861 Other specified acquired deformities of right lower leg; Z88.0 Allergy status to penicillin; Z87.891 Personal history of nicotine dependence; K21.9 Gastro-esophageal reflux disease without esophagitis; N40.0 Benign prostatic hyperplasia without lower urinary tract symptoms
CPT/HCPCS: 71020; 73501; 77280; 77295; 77300; 77331; 77334; 77412; 77470; 85025; 86850; 86900; 86901; 88300; 94760

== ENCOUNTER → 2016-08-28 | Outpatient (CLI) | payer OTHER ==
--- NOTE | 2016-08-28 15:53 | US ---
EXAMINATION TYPE: US venous doppler duplex LE RT DATE OF EXAM: 08/28/2016 3:19 PM COMPARISON: NONE CLINICAL HISTORY: Right hip post op right lowe swelling Z47.1,M79.661,M54.5. Rt hip replacement on n 2016. No hx of blood clots or on blood thinners. Right leg swelling. SIDE PERFORMED: Right TECHNIQUE: The lower extremity deep venous system is examined utilizing real time linear array sonog crowin with graded compression, doppler sonography and color-flow sonography. VESSELS IMAGED: External Iliac Vein (EIV) Common Femoral Vein Deep Femoral Vein Greater Saphenous Vein * Femoral Vein Popliteal Vein Small Saphenous Vein * Proximal Calf Veins (* superficial vessels) Right Leg: Appears negative for DVT No popliteal fossa lesion is seen. IMPRESSION: THIS EXAMINATION IS NEGATIVE FOR DVT WITHIN THE RIGHT LEG.
== END | disposition home or self-care (01) ==
LOC: RADUSWWP 14:48
PROVIDERS: ATTEND Orthopaedic Surgery
DX: M79.661 Pain in right lower leg (principal); I80.9 Phlebitis and thrombophlebitis of unspecified site; M54.5 Low back pain; R60.0 Localized edema

== ENCOUNTER → 2016-11-11 | Outpatient (CLI) | payer OTHER ==
--- NOTE | 2016-11-11 08:40 | MR ---
MR lumbar spine wo con LBP, RLE radic x 6 mos Multiplanar, multiecho imaging of the lumbar spine was obtained without contrast on a 3 [place] magnet. REFERENCE:None. FINDINGS: Paraspinal soft tissues are normal. Vertebral body height and alignment are maintained. The cord ends above the level of the first slice of the study. At T12-L1, no definite abnormality is seen. At L1-2, there is capsulitis within the facets. At L2-3, there is disc space loss. There is a broad-based disc displacement. Intervertebral foramina appear well maintained. There is mild hypertrophic change and capsulitis within the facets. At L3-4, there is disc space loss. The intervertebral foramina are well maintained. There is a diffus e disc displacement. There are mild hypertrophic changes and capsulitis within the facets. At L4-5, there is disc space loss. There is a diffuse disc displacement. Intervertebral foramina are well maintained. There is hypertrophic change and capsulitis within the facets. At L5-S1, there is severe disc space loss. This hypertrophic spurring present both anteriorly and pos teriorly. Intervertebral foramina are well maintained. There is no definite neural compression. There is mild hypertrophic changes in the facets. IMPRESSION: 1. DIFFUSE DEGENERATIVE DISC DISEASE AND FACET ARTHROPATHY. 2. NO SIGNIFICANT COMPRESSIVE DISCOPATHY OR NEURAL COMPRESSION.
== END | disposition home or self-care (01) ==
LOC: RADMRIMAIN 07:39
PROVIDERS: ATTEND Psychiatry & Neurology Neurology
DX: M51.36 Other intervertebral disc degeneration, lumbar region (principal); M12.88 Other specific arthropathies, not elsewhere classified, other specified site
CPT/HCPCS: 72148

== ENCOUNTER → 2017-12-05 | Outpatient (CLI) | payer OTHER ==
--- NOTE | 2017-12-05 17:02 | US ---
EXAMINATION TYPE: US liver DATE OF EXAM: 12/05/2017 COMPARISON: NONE CLINICAL HISTORY: R94.5 Abnormal Liver Test. no symptoms EXAM MEASUREMENTS: Liver Length: 17.7 cm Gallbladder Wall: 0.3 cm CBD: 0.4 cm Right Kidney: 10.1 x 4.6 x 4.9 cm bowel gas limits exam Pancreas: limited views appear wnl Liver: difficult to penetrate and slightly heterogeneous Gallbladder: wnl Evidence for sonographic Bonner's sign: no CBD: wnl Right Kidney: wnl IMPRESSION: 1. Visualized portions of the right upper quadrant are unremarkable. 2. There is some limitation of the liver evaluation with suggestion of mild fatty infiltration.
== END | disposition home or self-care (01) ==
LOC: RADUSWWP 12:10
PROVIDERS: ATTEND Internal Medicine
DX: R94.5 Abnormal results of liver function studies (principal); Z88.0 Allergy status to penicillin
CPT/HCPCS: 76705

== ENCOUNTER 2018-10-22 05:49 | Day surgery (SDC) | payer OTHER ==
[~2018-10-22 05:49] MED LIST changes: -ACETAMINOPHEN TAB 500 MG TAB PO ONE; -DEXAMETHASONE SOD PHOSPHATE 10 MG/ML 1 ML VIAL IV ONE; +HYDROmorphone 0.5 MG/0.5 ML SYRINGE IVP PRN; -HYDROmorphone 1 MG/ML 1 ML SYRINGE IVP PRN; +KETOROLAC 30 MG/ML 1 ML VIAL IVP SCH; +LACTATED RINGERS 1,000 ML IV SCH; -MELOXICAM 7.5 MG TAB PO ONE; -MIDAZOLAM 2 MG/2 ML VIAL IV PRN; +ONDANSETRON 4 MG/2 ML VIAL IVP PRN; -TRANEXAMIC ACID 1,000 MG in SODIUM CHLORIDE 0.9% 100 ML IVPB ONE
[2018-10-22 06:34] VITALS: TEMP 97.9
[2018-10-22] MEDS ORDERED: DEXAMETHASONE SOD PHOSPHATE 10 MG/ML 1 ML VIAL IV ONE (06:41)
[2018-10-22] MEDS ORDERED: MIDAZOLAM (PF) 2 MG/2 ML VIAL IV ONE (06:49)
[2018-10-22] MEDS ORDERED: fentaNYL (PF) 50 MCG/ML 2 ML AMP ONE (07:25)
[2018-10-22] MEDS ORDERED: HYDROmorphone (PF) 1 MG/ML ONE (07:25)
[2018-10-22] MEDS ORDERED: ROPIVACAINE 5 MG/ML 30 ML VIAL ONE (07:25)
[2018-10-22] MEDS ORDERED: SUCCINYLCHOLINE CHLORIDE 100 MG/5 ML SYR IV ONE (07:25)
[2018-10-22] MEDS ORDERED: LIDOCAINE 1% INJ 10MG/ML (20 ML MDV) ONE (07:25)
[2018-10-22] MEDS ORDERED: DEXAMETHASONE SOD PHOSPHATE 4 MG/ML 1 ML VIAL ONE (07:25)
[2018-10-22] MEDS ORDERED: PROPOFOL 10 MG/ML 20 ML VIAL IV ONE (07:25)
[2018-10-22] MEDS ORDERED: MIDAZOLAM 2 MG/2 ML VIAL ONE (07:25)
[2018-10-22] MEDS ORDERED: ePHEDrine SULFATE/0.9% NACL/PF 50 MG/5 ML SYRINGE IV ONE (07:25)
[2018-10-22] MEDS ORDERED: LACTATED RINGERS 1,000 ML IV ONE ×2 (08:52→12:27)
--- NOTE | 2018-10-22 09:19 | P.ANPRN ---
Procedure Note - Anesthesia - Nerve Block Performed Left Infraclavicular Single Time Out Performed: Yes Date of Procedure: 10/22/18 Procedure Start Time: 06:50 Procedure Stop Time: 07:02 Location of Patient Procedure: PreOp Indication: Acute Post-Operative Pain, Requested by physician Sedation Type: Sedate with meaningful contact maintained Preparation: Sterile Prep, Sterile Dressing Position: Supine Needle Types: Pajunk Needle Gauge: 21 Technique: Ultrasound (ropi .5% 30 cc plus dexamethasone 4mg) Blood Aspirated: No Pain Paresthesia on Injection Noted: No Resistance on Injection: Normal Events: Uneventful and Well Tolerated
--- NOTE | 2018-10-22 11:48 | XR ---
EXAMINATION TYPE: XR wrist limited LT DATE OF EXAM: 10/22/2018 COMPARISON: NONE TECHNIQUE: One view submitted HISTORY: Post op FINDINGS: There is a limited resolution of the wrist. IMPRESSION: 1. Postoperative change
--- NOTE | 2018-10-22 11:49 | FL ---
EXAMINATION TYPE: FL guidance operating room DATE OF EXAM: 10/22/2018 HISTORY: Flouroscopy time 15 seconds of fluoroscopy provided. IMPRESSION: 1. Fluoroscopy time.
[2018-10-22] MEDS ORDERED: BUPIVACAINE (PF) 0.25% 30 ML VIAL SQ ONE (11:53)
[2018-10-22] MEDS ORDERED: LIDOCAINE 1%-EPI 1:100,000 20 ML VIAL SQ ONE (11:53)
[2018-10-22 12:44] VITALS: RESP 16
[2018-10-22] MEDS ORDERED: HYDROcodone/APAP 5-325MG 1 EACH TAB PO ONE (14:05)
[2018-10-22 15:06] VITALS: BP 139/82; PULSE 81
--- NOTE | 2018-10-24 07:57 | P.OP ---
Date of Procedure: 10/22/18 Preoperative Diagnosis: 1. 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 2. Spontaneous ruptures of the left middle, ring and small finger extensor tendons. Postoperative Diagnosis: 1. 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 2. Spontaneous ruptures of the left middle, ring and small finger extensor tendons, zone 7. Procedure(s) Performed: 1. Left distal ulna excision ([place]). 2. Stabilization of left distal ulna 3. Extensor tendon reconstruction of the left middle finger with tendon transfer of the extensor indicis proprius (EIP) 4. Extensor tendon reconstruction of the left ring and small fingers with tendon transfer of the flexor carpi radialis (FCR) with intercalary palmaris longus autograft. 5. PIN (posterior interosseous nerve) neurectomy Implants: Semitendinosis interposition allograft and 3 Arthrex micro-corkscrew anchors Anesthesia: GETA, regional, local Surgeon: Diego Manzano [employer] Consultant #1: Ivory Judd Estimated Blood Loss (ml): 35 Condition: stable Disposition: PACU Indications for Procedure: Mr. Dudley is a pleasant 58-year-old male who was diagnosed with attritional ruptures of his left middle, ring and small fingers secondary to advanced DRUJ arthritis. Treatment options were discussed in the office and he elected to proceed with surgical excision of the distal ulna followed by extensor tendon repair with tendon transfers. Risks and benefits were reviewed in the office and again preoperatively. The patient had no additional questions, expressed understanding with the surgical and postoperative plan and wished to proceed with surgery. The operative sites were confirmed and marked. Consent forms were signed. Description of Procedure: The patient was administered a regional nerve block by the anesthesia team and then was brought to the operating suite and positioned supine with the operative limb on an armboard. The tourniquet was placed on the left upper extremity, which was then prepped and draped in standard, sterile fashion. A time-out was performed, confirming patient identifiers, the operative side, sites and procedures to be performed: all team members expressed agreement. The limb was exsanguinated with an Esmarch and the tourniquet was inflated. A midline longitudinal dorsal incision was marked. The skin was sharply excised and full-thickness skin flaps were elevated. A large dorsal branch of the radial sensory nerve was identified and protected throughout the case. The extensor tendons of the middle, ring, and small fingers were identified at the level of the metacarpal bases. Attention was then turned to the distal ulna. Opposing radial and ulnar based flaps of the extensor retinaculum were outlined and sharply elevated. The fourth and fifth dorsal compartments were elevated to expose the DRUJ capsule. The PIN was identified in the floor the fourth compartment and a 1 cm section was sharply resected. A full-thickness longitudinal capsulotomy was made and extended to the edge of the dorsal radioulnar ligament. The ulnar head was circumferentially exposed subperiosteally. There were large osteophytes around the head and complete eburnation of the distal articular surface of the triquetrum. The osteotomy site was marked at the inferior edge of the sigmoid notch and confirmed with intraoperative imaging. A reciprocating saw was used to osteotomize the distal ulna. The remaining soft tissue attachments were sharply released and the ulnar head was excised. A semitendinosus allograft was used for an interposition. The graft was folded on itself and tied together with 2-0 Ethibond sutures. Two micro-corkscrew anchors were drilled into the radial shaft below the sigmoid notch with a third anchor into the radial border of the distal ulna. The graft was inserted between the distal radius and ulna and sutured in place with the 2-0 FiberWire sutures from the anchors. Stress testing with compression of the distal radius and ulna showed no impingement. There was no gross laxity with piano-almazan testing. The joint was thoroughly irrigated with normal saline. The capsule was repaired with 3-0 FiberWire sutures. The proximal limb of the extensor retinacular flap was sutured over the dorsal capsule to provide additional protection for the extensor tendons. Attention was turned to the tendon transfers. The EIP tendon was identified ulnar to the index EDC tendon. This was confirmed by identifying the distal muscle belly at the level of the distal forearm. The EIP and index EDC tendons were sutured together in a [id number]-il-[id number] fashion with 3-0 FiberWire sutures and the EIP tendon was transected just proximal to the extensor david. The distal tendinous attachments/adhesions were released. A small chevron incision was made over the FCR tendon at the wrist crease. The skin was incised and spreading dissection was used to expose the tendon. Two small transverse incisions were made in the mid and proximal forearm. The tendon was identified through these incisions and confirmed with traction on the tendon distally. The tendon was sharply transected near its insertion. The tendon was mobilized. A hemostat was used to create a subcutaneous tunnel around the radial side of the wrist, staying deep to the superficial radial sensory nerve. The tendon was routed around to the dorsal aspect of the hand. The FCR tendon did not have the excursion to reach the ruptured tendons and the decision was made to harvest a palmaris longus autograft. The tendon was identified at its insertion as well as proximally through the previously made incisions. This was sharply released at its insertion. Proximal attachments were released and the tendon was transected at the musculotendinous junction. A palmaris allograft was inserted through the end of the FCR tendon through a small split. It was folded in half and sutured together at each and with [id number] sutures of 2-0 Ethibond. The distal end of the graft was inserted through the stump of the ring and small finger EDC tendons. The EIP tendon was inserted into the stump of the middle finger EDC tendon through a small incision. Tension was set and the grafts were provisionally secured with 2-0 Vicryl. Appropriate tension was confirmed with motion testing. The transfers were secured in a [id number]-[id number] fashion with multiple interrupted 2-0 Ethibond bzmrls-el-pahir sutures at each junction, creating very strong repairs. Passive motion showed no gapping. Excellent passive motion with tenodesis was achieved and the fingers all rested in their normal positions within the casc devorah. The tourniquet was released after 121 minutes at 250 mmHg. Good hemostasis was obtained with pressure and electrocautery. The remaining flap of the extensor retinaculum was sutured over the EIP tendon without tension or tethering. The transferred FCR was left superficial. Subcutaneous tissues were reapproximated with interrupted 2-0 Vicryl sutures. The incisions were closed with interrupted 4-0 nylon sutures. Additional local anesthetic with epinephrine was injected for an adjunctive postoperative pain control and hemostasis. Sterile dressings were applied. The patient was placed in a sugar-tong plaster splint in a neutral rotation with the wrist and MCP joints in extension. All sponge, needle, and instrument counts were correct at the end of the case. The patient tolerated the procedure well and was transferred to recovery in stable condition.
== END 2018-10-22 15:20 | disposition home or self-care (01) ==
LOC: OR 05:49
PROVIDERS: ATTEND Orthopaedic Surgery
DX: M66.242 Spontaneous rupture of extensor tendons, left hand (principal); M25.732 Osteophyte, left wrist; M19.032 Primary osteoarthritis, left wrist; I10 Essential (primary) hypertension; E03.9 Hypothyroidism, unspecified; J44.9 Chronic obstructive pulmonary disease, unspecified; Z79.890 Hormone replacement therapy; Z82.49 Family history of ischemic heart disease and other diseases of the circulatory system; Z79.1 Long term (current) use of non-steroidal anti-inflammatories (NSAID); Z79.891 Long term (current) use of opiate analgesic; Z79.899 Other long term (current) drug therapy; Z88.0 Allergy status to penicillin; Z91.030 Bee allergy status
CPT/HCPCS: 25240; 25310 ×3; 64415; 73100; C1713; J2250 ×2; J1100 ×2; J2405; J2001; J3010; J1170; J2795; J0330; J2704

== ENCOUNTER 2019-12-05 09:55 | Day surgery (SDC) | payer OTHER ==
[2019-12-02 10:37] VITALS: BMI 36.9
[~2019-12-05 09:55] MED LIST changes: -CLINDAMYCIN 900 MG in DEXTROSE 5% IN WATER 50 ML IVPB ONE; +DEXAMETHASONE SOD PHOSPHATE 10 MG/ML 1 ML VIAL IV ONE; -KETOROLAC 30 MG/ML 1 ML VIAL IVP SCH; +LIDOCAINE 1% (10MG/ML) FOR IV START INTRADERMA PRN; -LIDOCAINE 1% 20 ML VIAL (10MG/ML) FOR IV START INTRADERMA PRN; +MIDAZOLAM 2 MG/2 ML VIAL IV PRN; -ONDANSETRON 4 MG/2 ML VIAL IVP PRN; +Pre Op ABX Message 1 EACH MISC MISCELLANE ONE; -SCOPOLAMINE 1.5MG/72HR PATCH TRANSDERM ONE
[2019-12-05 10:18] VITALS: RESP 16; TEMP 96.4
[2019-12-05] MEDS ORDERED: ONDANSETRON 4 MG/2 ML VIAL ONE (10:25)
[2019-12-05] MEDS ORDERED: SODIUM BICARB 8.4% 10 ML VIAL (1 MEQ/ML) ONE (10:46)
[2019-12-05] MEDS ORDERED: LIDOCAINE 1%-EPI 1:100,000 20 ML VIAL ONE (11:09)
[2019-12-05 12:08] VITALS: BP 124/76; PULSE 64
--- NOTE | 2019-12-15 17:04 | P.OP ---
Date of Procedure: 12/05/19 Preoperative Diagnosis: 1. Chronic, draining left hand wound. 2. Post-operative extensor tendon adhesions status post left distal ulna excision with tendon transfers. Postoperative Diagnosis: 1. Chronic, draining left hand wound. 2. Post-operative extensor tendon adhesions status post left distal ulna excision with tendon transfers. Procedure(s) Performed: 1. Sharp excisional debridement and closure of left hand wound. 2. Extensor tenolysis of the extensor digitorum comminus (EDC) tendons to the left index, middle, ring and small fingers. Anesthesia: local Surgeon: Diego Manzano Estimated Blood Loss (ml): 3 Condition: stable Disposition: same day Indications for Procedure: The patient is a 59-year-old male with a history of advanced DRUJ arthritis and resultant spontaneous extensor tendon ruptures. He previously underwent distal ulna excision and extensor tendon transfers. He had some wound healing difficulty initially, but these eventually closed with local wound care. Recently, he noticed a new wound with some protruding suture and intermittent drainage. On exam, he also had some residual extensor tendon adhesions. Treatment options were discussed in the office, along with associated risks and benefits; the patient elected surgical treatment. In preop, additional questions were addressed and the patient wished to proceed with surgery. Consent forms were signed. The operative site was confirmed and marked in preop. Description of Procedure: After consent was obtained, lidocaine with epinephrine was injected around the planned incision/surgical site in preop, using aseptic technique. After an appropriate interval of time, the patient was brought to the OR and positioned supine with the operative limb on a hand table. The left upper extremity was then prepped and draped in standard, sterile fashion. A time-out was performed, confirming patient identifiers, the operative side, the site and the procedure to be performed: all team members expressed agreement. Loupe magnification was utilized throughout the case for optimum visualization. There was a small piece of braided suture protruding from the central aspect of the prior incision. The skin surrounding this wound was incorporated into the planned incision in an elliptical fashion. The skin was sharply incised and skin flaps were developed proximally and distally. The skin was adherent to the subcutaneous tissues centrally, near the wound. This was sharply dissected off the underlying tendons and adjacent tissues. A full-thickness segment of skin and subcutaneous tissue (~6 mm x 11 mm) was resected, which included the entire wound tract and protruding suture fragment. There is no gross purulence or obvious sign of infection. Of note, two retained fragments of nylon suture were identified within the dermis on the proximal aspect of the incision. A sharp excisional debridement was performed, utilizing scalpels, scissors, curettes and rongeurs to resect potentially contaminated and/or unhealthy- appearing tissues: this included skin, subcutaneous tissue, fat and fascia. Resection proceeded until healthy-appearing tissues with bleeding edges were obtained. The total area of debridement measured ~4 cm x 6 cm. The repairs of the transferred tendons appeared completely healed but were somewhat scarred in (both to the skin and to the metacarpals). A tenolysis was performed, carefully releasing and mobilizing the digital extensor tendons to the index, middle, ring and small fingers. Preoperatively, there was visible tethering and subjective restriction to active motion. The patient was asked to actively flex and extend the fingers: He reported subjectively improved motion and he was no longer able to detect any discrete tendon restriction. Good hemostasis was maintained throughout the case without the need for a tourniquet. The wound was thoroughly irrigated with normal saline. The incision (including the excisional wound) was closed with interrupted non-absorbable sutures. A soft, sterile dressing was applied. All sponge, needle and instrument counts were correct at the end of the case. No complications were identified. The patient tolerated the procedure well and was transferred to recovery in stable condition.
== END 2019-12-05 12:33 | disposition home or self-care (01) ==
LOC: OR 09:55
PROVIDERS: ATTEND Orthopaedic Surgery
DX: K66.0 Peritoneal adhesions (postprocedural) (postinfection) (principal); L08.9 Local infection of the skin and subcutaneous tissue, unspecified; M25.642 Stiffness of left hand, not elsewhere classified; I10 Essential (primary) hypertension; E03.9 Hypothyroidism, unspecified; Z87.891 Personal history of nicotine dependence; Z79.1 Long term (current) use of non-steroidal anti-inflammatories (NSAID); Z79.890 Hormone replacement therapy; Z79.899 Other long term (current) drug therapy; Z88.0 Allergy status to penicillin; Z91.030 Bee allergy status; Z79.891 Long term (current) use of opiate analgesic
CPT/HCPCS: 11043; 11046; 26445 ×4; J1100; J2405

== ENCOUNTER 2021-10-24 13:02 | Emergency (ER) | payer OTHER ==
[2021-10-24 13:18] VITALS: TEMP 98.1
[2021-10-24] MEDS ORDERED: APIXABAN 5 MG TAB PO STA (14:02)
--- NOTE | 2021-10-24 14:02 | ED ---
Extremity Problem HPI - General Chief complaint: Extremity Problem,Nontraumatic Stated complaint: left leg blood blot per us today Time Seen by Provider: 10/24/21 13:22 Source: patient, RN notes reviewed Mode of arrival: ambulatory Limitations: no limitations - History of Present Illness Initial comments: 61-year-old male presented from chief complaint left leg pain. Patient was sent in from outpatient ultrasound. Patient states he's been having pain last couple weeks. Patient was sent for an ultrasound today which was positive for DVT patient has no history DVT denies any chest pain or shortness of breath. He states he only has small amount pain behind his left knee. Patient has no paresthesias patient offers no complaints. - Related Data Home Medications Medication Instructions Recorded Confirmed Ibuprofen [Motrin] 800 mg PO DAILY PRN 10/18/18 12/02/19 Ipratropium/Albuterol Sulfate 2 puff INHALATION Q6H PRN 10/18/18 12/02/19 [Combivent Respimat Inhaler] Levothyroxine Sodium 12.5 mcg PO QAM 10/18/18 12/02/19 amLODIPine BESYLATE/BENAZEPRIL 1 cap PO QAM 10/18/18 12/02/19 [amLODIPine BESYLATE/BENAZEPRIL 5-20 MG] Previous Rx's Medication Instructions Recorded Apixaban [Eliquis Starter Pack 0 mg PO DIRECTED 30 Days #1 10/24/21 (for VTE)] packet Allergies Allergy/AdvReac Type Severity Reaction Status Date / Time venom-honey bee Allergy Anaphylaxis Verified 10/24/21 13:18 Penicillins AdvReac Swelling Verified 10/24/21 13:18 Review of Systems ROS Statement: Those systems with pertinent positive or pertinent negative responses have been documented in the HPI. ROS Other: All systems not noted in ROS Statement are negative. Past Medical History Past Medical History: COPD, Hypertension, Osteoarthritis (OA), Thyroid Disorder History of Any Multi-Drug Resistant Organisms: None Reported Past Surgical History: Appendectomy, Joint Replacement Additional Past Surgical History / Comment(s): ORIF LT HAND, right hip replacement, Past Anesthesia/Blood Transfusion Reactions: No Reported Reaction Past Psychological History: No Psychological Hx Reported Smoking Status: Former smoker Past Alcohol Use History: Daily Past Drug Use History: Marijuana - Past Family History Brother(s) Family Medical History: Cancer General Exam Limitations: no limitations General appearance: alert, in no apparent distress Head exam: Present: atraumatic, normocephalic, normal inspection Eye exam: Present: normal appearance, PERRL, EOMI. Absent: scleral icterus, conjunctival injection, periorbital swelling Respiratory exam: Present: normal lung sounds bilaterally. Absent: respiratory distress, wheezes, rales, rhonchi, stridor Cardiovascular Exam: Present: regular rate, normal rhythm, normal heart sounds. Absent: systolic murmur, diastolic murmur, rubs, gallop, clicks Extremities exam: Present: other (There is mild swelling to the left leg mild erythema, there is some excoriations noted, tenderness the popliteal region is pulses.) Course Vital Signs 10/24/21 10/24/21 13:15 14:08 Temperature 98.1 F Pulse Rate 71 72 Respiratory 20 18 Rate Blood Pressure 134/78 132/81 O2 Sat by Pulse 96 96 Oximetry Medical Decision Making - Medical Decision Making IS POSITIVE FOR POPLITEAL VEIN DVT. PATIENT WAS STARTED ON eliquis INITIAL DOSES GIVEN WE DID GIVE THE PATIENT STRICT RETURN PARAMETERS AND PRECAUTIONS. PATIENT UNDERSTANDS ALONG WITH FAMILY. RETURN PARAMETERS WERE DISCUSSED. Disposition Clinical Impression: Left leg DVT Disposition: HOME SELF-CARE Condition: Stable Instructions (If sedation given, give patient instructions): Deep Vein Thrombosis (ED) Additional Instructions: Please return to the Emergency Department if symptoms worsen or any other concerns. Prescriptions: Apixaban [Eliquis Starter Pack (for VTE)] 0 mg PO DIRECTED 30 Days #1 packet Is patient prescribed a controlled substance at d/c from ED?: No Referrals: Dionne Herrera MD [Primary Care Provider] - 1-2 days Time of Disposition: 14:02
[2021-10-24 14:09] VITALS: BP 132/81; PULSE 72; RESP 18
== END 2021-10-24 14:10 | disposition home or self-care (01) ==
LOC: EC 13:02
DX: I82.402 Acute embolism and thrombosis of unspecified deep veins of left lower extremity (principal); I10 Essential (primary) hypertension; J44.9 Chronic obstructive pulmonary disease, unspecified; M19.90 Unspecified osteoarthritis, unspecified site; E07.9 Disorder of thyroid, unspecified; F12.90 Cannabis use, unspecified, uncomplicated; Z87.891 Personal history of nicotine dependence; Z79.890 Hormone replacement therapy; Z79.899 Other long term (current) drug therapy
CPT/HCPCS: 99283

== ENCOUNTER → 2021-10-24 | Outpatient (CLI) | payer OTHER ==
--- NOTE | 2021-10-24 13:50 | US ---
EXAMINATION TYPE: US venous doppler duplex LE DATE OF EXAM: 10/24/2021 12:46 PM COMPARISON: NONE CLINICAL HISTORY: M79.89 OTHER SPECIFIED SOFT TISSUE DISORDERS. edema SIDE PERFORMED: Bilateral TECHNIQUE: The lower extremity deep venous system is examined utilizing real time linear array sonog [place] with graded compression, doppler sonography and color-flow sonography. VESSELS IMAGED: Common Femoral Vein Deep Femoral Vein Greater Saphenous Vein * Femoral Vein Popliteal Vein Small Saphenous Vein * Proximal Calf Veins (* superficial vessels) Right Leg: Negative for DVT Left Leg: Positive for DVT Popliteal Vein. IMPRESSION: Findings are compatible with acute DVT left lower extremity In the region of the popliteal vein.
== END | disposition home or self-care (01) ==
LOC: RADUSWWP 12:21
PROVIDERS: ATTEND Family Medicine
DX: I82.432 Acute embolism and thrombosis of left popliteal vein (principal)
CPT/HCPCS: 93970

== ENCOUNTER → 2021-12-06 | Outpatient (CLI) | payer OTHER ==
[2021-12-06 20:38] LABS: Cardiolipin Ab IgG Interp NEGATIVE (NEGATIVE); Cardiolipin Ab IgM Interp NEGATIVE (NEGATIVE); Cardiolipin IgM Antibody <1.5 U/mL
[2021-12-07 12:06] LABS: APTT 57 Sec(s) (<43); APTT 1:1 Mix 46 Sec(s) (<43); DRVVT 1:1 Mix 54 Sec(s) (<44); DRVVT Confirmation Positive (Negative); Dilute Russell Viper Venom 81 Sec(s) (<44); Hexagonal Phase Neutralization Negative (Negative)
[2021-12-07 13:18] LABS: Prothrombin 20210A Mutation Negative
== END | disposition home or self-care (01) ==
LOC: LABWHC1 13:56
PROVIDERS: ATTEND Internal Medicine Hematology & Oncology
DX: I82.5Z9 Chronic embolism and thrombosis of unspecified deep veins of unspecified distal lower extremity (principal); D68.59 Other primary thrombophilia; M12.9 Arthropathy, unspecified; E78.5 Hyperlipidemia, unspecified
CPT/HCPCS: 36415; 81240; 82232; 85300; 85303; 85306; 85598; 85613; 85730; 85732; 86147

== ENCOUNTER → 2021-12-06 | Outpatient (CLI) | payer OTHER | LOC: CPPFTMAIN 12:44 | PROVIDERS: ATTEND Family Medicine | DX: Z72.0 Tobacco use (principal); I10 Essential (primary) hypertension; Z87.09 Personal history of other diseases of the respiratory system; Z88.0 Allergy status to penicillin; Z91.030 Bee allergy status | CPT/HCPCS: 94060; 94726; 94729 ==

== ENCOUNTER 2022-01-14 21:14 | Emergency (ER) | payer OTHER ==
[2022-01-14 21:51] VITALS: BP 179/83; PULSE 69; RESP 18; TEMP 97.6
[2022-01-14 22:13] LABS: Appearance,Urine Clear (Clear); Bilirubin,Urine Negative (Negative); Blood,Urine Negative (Negative); Color,Urine Colorless; Glucose,Urine (UA) Negative (Negative); Ketones,Urine Negative (Negative); Leukocyte Esterase,Urine Negative (Negative); Nitrite,Urine Negative (Negative); Protein,Urine Negative (Negative); Specific Gravity,Urine 1.004 (1.001-1.035); Urobilinogen,Urine <2.0 mg/dL (<2.0)
[2022-01-15] MEDS ORDERED: HYDROmorphone 1 MG/ML 1 ML SYRINGE IM STA (01:32)
[2022-01-15] MEDS ORDERED: IBUPROFEN 600 MG TAB PO STA (01:32)
--- NOTE | 2022-01-15 01:32 | ED ---
Back Pain HPI - General Chief Complaint: Back Pain/Injury Stated Complaint: lower back pain Time Seen by Provider: 01/15/22 01:31 Source: patient, RN notes reviewed, old records reviewed Limitations: no limitations - History of Present Illness Initial Comments: This is a 61-year-old male to the emergency department for evaluation. The patient resents for evaluation of back pain no history of trauma 3 days of back pain left-sided back pain no real radiation pain is severe severe worse with ambulation and movement. No improving factors for pain no dysuria blood in his urine, MD Complaint: back pain -: days(s) (3) Similar Symptoms Previously: Yes Place: home Radiation: buttocks Severity: severe Severity scale (1-10): 10 Quality: sharp Consistency: constant Improves With: none Worsens With: movement, walking Associated Symptoms: denies other symptoms Treatments Prior to Arrival: other (0) - Related Data Home Medications Medication Instructions Recorded Confirmed Ibuprofen [Motrin] 800 mg PO DAILY PRN 10/18/18 12/02/19 Ipratropium/Albuterol Sulfate 2 puff INHALATION Q6H PRN 10/18/18 12/02/19 [Combivent Respimat Inhaler] Levothyroxine Sodium 12.5 mcg PO QAM 10/18/18 12/02/19 amLODIPine BESYLATE/BENAZEPRIL 1 cap PO QAM 10/18/18 12/02/19 [amLODIPine BESYLATE/BENAZEPRIL 5-20 MG] Previous Rx's Medication Instructions Recorded Apixaban [Eliquis Starter Pack 0 mg PO DIRECTED 30 Days #1 10/24/21 (for VTE)] packet Allergies Allergy/AdvReac Type Severity Reaction Status Date / Time venom-honey bee Allergy Anaphylaxis Verified 01/14/22 21:51 Penicillins AdvReac Swelling Verified 01/14/22 21:51 Review of Systems ROS Statement: Those systems with pertinent positive or pertinent negative responses have been documented in the HPI. ROS Other: All systems not noted in ROS Statement are negative. Past Medical History Past Medical History: COPD, Hypertension, Osteoarthritis (OA), Thyroid Disorder History of Any Multi-Drug Resistant Organisms: None Reported Past Surgical History: Appendectomy, Joint Replacement Additional Past Surgical History / Comment(s): ORIF LT HAND, right hip replacement, Past Anesthesia/Blood Transfusion Reactions: No Reported Reaction Past Psychological History: No Psychological Hx Reported Smoking Status: Current every day smoker Past Alcohol Use History: Daily Past Drug Use History: Marijuana - Past Family History Brother(s) Family Medical History: Cancer General Exam Limitations: no limitations General appearance: alert, in no apparent distress Head exam: Present: atraumatic, normocephalic, normal inspection Eye exam: Present: normal appearance, PERRL, EOMI. Absent: scleral icterus, conjunctival injection, periorbital swelling ENT exam: Present: normal exam, mucous membranes moist Neck exam: Present: normal inspection. Absent: tenderness, meningismus, lymphadenopathy Respiratory exam: Present: normal lung sounds bilaterally. Absent: respiratory distress, wheezes, rales, rhonchi, stridor Cardiovascular Exam: Present: regular rate, normal rhythm, normal heart sounds. Absent: systolic murmur, diastolic murmur, rubs, gallop, clicks GI/Abdominal exam: Present: soft, normal bowel sounds. Absent: distended, tenderness, guarding, rebound, rigid Extremities exam: Present: normal inspection, full ROM, normal capillary refill. Absent: tenderness, pedal edema, joint swelling, calf tenderness Back exam: Present: tenderness, paraspinal tenderness, vertebral tenderness Neurological exam: Present: alert, oriented X3, CN II-XII intact Psychiatric exam: Present: normal affect, normal mood Skin exam: Present: warm, dry, intact, normal color. Absent: rash Course Vital Signs 01/14/22 21:48 Temperature 97.6 F Pulse Rate 69 Respiratory 18 Rate Blood Pressure 179/83 O2 Sat by Pulse 95 Oximetry - Reevaluation(s) Reevaluation #1: 01/15/22 03:09 Medical record is reviewed Reevaluation #2: 01/15/22 03:09 Patient's pain is well-controlled Reevaluation #3: 01/15/22 03:09 patient informed of results and questions answered Medical Decision Making - Medical Decision Making 61 male with acute on chronic back pain. Pain is resolved here in the ER he is able to ambulate with no functional neurological findings. Patient can be discharged home - Lab Data Lab Results 01/14/22 Range/Units 22:00 Urine Color Colorless Urine Appearance Clear (Clear) Urine pH 6.0 (5.0-8.0) Ur Specific Ackworth 1.004 (1.001-1.035) Urine Protein Negative (Negative) Urine Glucose (UA) Negative (Negative) Urine Ketones Negative (Negative) Urine Blood Negative (Negative) Urine Nitrite Negative (Negative) Urine Bilirubin Negative (Negative) Urine Urobilinogen <2.0 (<2.0) mg/dL Ur Leukocyte Esterase Negative (Negative) - Radiology Data Radiology results: report reviewed (CT is normal cycle spine does show L2-L3 compression fractures), image reviewed Disposition Clinical Impression: Strain of lumbar region, Mechanical back pain, Lumbar radiculopathy, Compression fracture Disposition: HOME SELF-CARE Condition: Good Instructions (If sedation given, give patient instructions): Acute Low Back Pain (ED) Is patient prescribed a controlled substance at d/c from ED?: No Referrals: Dionne Herrera MD [Primary Care Provider] - 1-2 days Steve Holloway DO [Doctor of Osteopathic Medicine] - 1-2 days Time of Disposition: 03:00
--- NOTE | 2022-01-15 02:26 | CT ---
EXAMINATION TYPE: CT abdomen pelvis wo con DATE OF EXAM: 01/14/2022 COMPARISON: 02/04/2015 HISTORY: LUQ PAIN LEFT [address] DLP: 1009 mGycm Automated exposure control for dose reduction was used. Images obtained from the diaphragm to the floor the pelvis with no contrast. The lung bases are clear of infiltrate. No pleural effusion. Heart size is normal. No pericardial eff usion. There is coronary artery calcification. Liver and spleen are intact. No pancreatic mass. The stomach is intact. There is no adrenal mass. Kidneys have normal size and contour. No hydronephrosis. Ureters are not di lated. There is vascular calcification. Abdominal aorta is atheromatous. No retroperitoneal adenopath y. Bladder distends smoothly. There is metal artifact from right hip prosthesis. No inguinal hernia. No pelvic mass. There are sigmoid diverticula. No diverticulitis. No evidence of free air. No sign of a bowel obstruc tion. The lumbar vertebrae have normal alignment. No compression fracture. There is anterior wedging of L2 and L3 vertebra 20% that is likely old. The bony pelvis is intact. IMPRESSION: There are compression fractures of L2 and L3 which are likely old. The fractures are a change compare d to old CT scan 7 years ago. Moderate atherosclerotic vascular disease. Colonic diverticulosis without diverticulitis.
[2022-01-15] MEDS ORDERED: IBUPROFEN 600 MG STARTER PACK 4 TAB BTL PO STA (03:07)
[2022-01-15] MEDS ORDERED: diazePAM 5 MG TAB PO STA (03:07)
[2022-01-15] MEDS ORDERED: traMADol 50 MG STARTER PACK 3 TAB BTL PO STA (03:07)
[2022-01-15] MEDS ORDERED: ACET/COD 300 MG/30 MG STARTER PACK 6 TAB BTL PO STA (03:07)
== END 2022-01-15 06:48 | disposition home or self-care (01) ==
LOC: SUPCPDRO 21:14 → EC 21:14
DX: S39.012A Strain of muscle, fascia and tendon of lower back, initial encounter (principal); J44.9 Chronic obstructive pulmonary disease, unspecified; I10 Essential (primary) hypertension; E07.9 Disorder of thyroid, unspecified; Z79.899 Other long term (current) drug therapy; F17.200 Nicotine dependence, unspecified, uncomplicated; Z91.030 Bee allergy status; Z88.0 Allergy status to penicillin; X58.XXXA Exposure to other specified factors, initial encounter
CPT/HCPCS: 74176; 81003; 96372; 99284

== ENCOUNTER → 2022-03-01 | Outpatient (CLI) | payer OTHER ==
--- NOTE | 2022-03-01 15:21 | MR ---
EXAMINATION TYPE: MR lumbar spine wo con DATE OF EXAM: 03/01/2022 2:48 PM COMPARISON: MR lumbar spine apex 17. CLINICAL INDICATION:Male, 61 years old with history of M48.061 Lumbar Stenosis M47.26 Lumbar Spondylo sis; TECHNIQUE: Multi planar, multi sequence imaging was performed utilizing: T1-weighted, T2-weighted, a nd turbo inversion recovery imaging of the lumbar spine. IV Contrast: None. FINDINGS: Alignment: The lumbar vertebral bodies have preserved heights and alignment. Cord: The conus medullaris and the distal spinal cord appear unremarkable with regards to their signa l intensity and morphology. Bones/Discs: Scattered Modic endplate changes throughout the spine. L1 vertebral body height T2 2/21 signal probable hemangioma. Multilevel degenerative disc disease is noted and most pronounced at the L5-S1. Multilevel disc desiccation is present. L1-L2: No evidence of significant spinal canal stenosis. Facet joint arthropathy with out significant spinal canal stenosis. L2-L3: Disc bulge and facet joint arthropathy with out significant spinal canal stenosis. Mild bilate ral neural foraminal stenosis. L3-L4: Disc bulge and facet joint arthropathy with out significant spinal canal stenosis. Mild bilate ral neural foraminal stenosis. L4-L5: Disc bulge and facet joint arthropathy with out significant spinal canal stenosis. Mild bilate ral neural foraminal stenosis. L5-S1: Disc bulge and facet joint arthropathy with out significant spinal canal stenosis. Epidural li pomatosis noted at this level with some narrowing of the thecal sac. Mild bilateral neural foraminal stenosis. Other findings: None. IMPRESSION: 1. No definitive evidence of disc herniation or significant spinal canal stenosis. Findings are not s ignificantly changed from 2017. 2. Epidural lipomatosis at the level of L5-S1. 3. Multilevel disc degeneration with associated osteoarthritic changes.
== END | disposition home or self-care (01) ==
LOC: RADMRIMAIN 13:27
PROVIDERS: ATTEND Orthopaedic Surgery
DX: M48.061 Spinal stenosis, lumbar region without neurogenic claudication (principal); M47.26 Other spondylosis with radiculopathy, lumbar region; M51.16 Intervertebral disc disorders with radiculopathy, lumbar region; E88.2 Lipomatosis, not elsewhere classified
CPT/HCPCS: 72148

== ENCOUNTER → 2022-03-31 | Outpatient (CLI) | payer OTHER ==
--- NOTE | 2022-04-01 06:44 | US ---
EXAMINATION TYPE: US arterial LE multi level DATE OF EXAM: 03/31/2022 2:55 PM CLINICAL HISTORY: R20.2 PARESTHESIA OF SKIN. Pins and needles feeling in the left leg. Inaudible left PT History of: Smoker: current Hypertension: yes Diabetic: no Hyperlipidemia: no TIA/CVA: no Previous Vascular Surgery: no AK: no Doppler Waveforms: Right: Monophasic Left: Monophasic Right Brachial Pressure: 174 Left Brachial Pressure: 171 Ankle-Brachial Indices: Right: 0.64 Left: 0.37 Toe Brachial Indices: Right: 0.19 Left: 0.06 IMPRESSION: Diminished phasicity and diminished SHERI and TBI values. There is elevation moderate ingrid pheral arterial disease in the right leg and foot. There is severe peripheral arterial disease in the left leg and foot. Further workup and follow-up advised.
== END | disposition home or self-care (01) ==
LOC: RADUSWWP 13:44
PROVIDERS: ATTEND Family Medicine
DX: I73.9 Peripheral vascular disease, unspecified (principal); I10 Essential (primary) hypertension; R20.2 Paresthesia of skin; Z87.891 Personal history of nicotine dependence
CPT/HCPCS: 93923

== ENCOUNTER → 2022-04-11 | Outpatient (CLI) | payer OTHER ==
--- NOTE | 2022-04-11 12:44 | CTL ---
EXAMINATION TYPE: CT Low Dose Lung DATE OF EXAM: 04/11/2022 12:32 PM CLINICAL INDICATION:Male, 61 years old with history of Z87.891; PERSONAL H/O TOBACCO USE, 1/2 PACK A DAY , history of tobacco use. COMPARISON: None. TECHNIQUE: Multiple axial non-contrast scans were obtained from approximately the lung apices through the upper abdomen. Coronal and sagittal reformatted images were obtained. Low dose technique was uti lized. CT DLP: 88.5 mGycm, Automated exposure control for dose reduction was used. CT Contrast: Contrast used: None Oral contrast used: None FINDINGS: ======== Lack of intravenous contrast and low dose technique limits the evaluation of the vascular and soft ti ssue structures. LUNGS: Mild centrilobular emphysema changes are seen most pronounced in the lung apices. Nodules: RUL: None. RML: None. RLL: None. HARJINDER: None. LLL: None. AIRWAY: Patent and unremarkable. HEART: Heart is mildly enlarged for size. There is coronary artery atherosclerosis. MEDIASTINUM: No gross evidence of adenopathy. VASCULATURE: No aortic aneurysm. Atherosclerosis of the arterial vasculature. MUSCULOSKELETAL: No acute osseous abnormalities, mild multilevel disc degeneration changes. Multiple left-sided remote rib fractures are present. SOFT TISSUES/LYMPH NODES: Unremarkable. LOWER NECK: No significant findings. UPPER ABDOMEN: Right nonobstructing renal calculus measuring 5 mm. IMPRESSION: 1. No clinically significant pulmonary nodules. 2. Mild emphysema changes. 3. Severe coronary artery atherosclerosis. CT LUNG RAD AND CT CHEST RECOMMENDATION: Lung-Rad 1 Negative: Continue annual screening with LDCT in 12 months. S Modifier (other clinically significant findings): Severe atherosclerosis of the coronary arteries. Recommend smoking cessation (if current smoker), or continuation of smoking cessation (if prior smoke r). Annual screening for lung cancer with low-dose computed tomography is recommended in adults ages 55 to 77 years who have a 30 pack-year smoking history and currently smoke or have quit within the pa st 15 years. Screening should be discontinued once a person has not smoked for 15 years or develops a health problem that substantially limits life expectancy or the ability or willingness to have curat antony lung surgery.
== END | disposition home or self-care (01) ==
LOC: RADCTMAIN 11:55
PROVIDERS: ATTEND Family Medicine
DX: Z12.2 Encounter for screening for malignant neoplasm of respiratory organs (principal); J43.9 Emphysema, unspecified; I25.10 Atherosclerotic heart disease of native coronary artery without angina pectoris; R20.2 Paresthesia of skin; Z87.891 Personal history of nicotine dependence
CPT/HCPCS: 71271

== ENCOUNTER → 2022-04-26 | Outpatient (CLI) | payer OTHER ==
[2022-04-26 09:51] VITALS: BP 150/81; PULSE 81; RESP 16; TEMP 98.2
--- NOTE | 2022-04-26 15:04 | P.PAINPG ---
PQRS Measure Charge Sheet Comment: HISTORY OF PRESENT ILLNESS: 62 yr old male w son at side as a referral from [facility] presents today w severe and chronic LBP secondary to DDD, spondylosis and facet arthropathy without myelopathy for evaluation. Pt states pain level is at 5 /10 in intensity, constant, localized in the L lower lumbar spine, sharp, shooting, stabbing in character w shooting pain towards BL hips (L>R) and LLE. Pain is provoked by overactivity. Pain is alleviated by meds (Tyl, Neurontin), use of a wheelchair for ambulation, repositioning and rest. Guided exercises have been too painful for patient. PMH: COPD, Hypertension, OA), Hypothyroidism PSH: Appendectomy, R Hip Replacement, L Hand ORIF SH: Daily tobacco user, Daily ETOH use, +Cannabis use FH: Bro- CA. All: See list Meds: See list REVIEW OF ORGAN SYSTEMS: CONSTITUTIONAL: No fevers or chills. No recent weight loss. NEUROLOGICAL: + numbness and tingling along the distal extremities. No seizure disorders or headaches. MUSCULOSKELETAL: + pain PSYCHIATRIC: Denies current depression or suicidal thoughts. Physical Examinations : Constitutional : Cooperative , not in acute distress . Neurologic : Cranial nerve II to XII intact. No focal neurological deficits. Psychiatric : alert & oriented x 3. Matching mood & appropriate affect. Judgment & insight intact. Musculoskeletal : Cervical Spine Motor strength in the deltoid and biceps: Normal right side. Normal Left side Motor strength biceps and the wrist extensors: Normal right side . Normal left side Motor strength in the triceps muscle: Normal right side. Normal left side Deep tendon reflexes: Normal at the biceps. Normal at Brachioradialis. Normal at triceps Vertebral body tenderness to deep palpation over Cervical facet loading test: positive bilaterally Spurling test: positive bilaterally Neck distraction test: positive bilaterally Amie sign: positive bilaterally Lumbar spine Motor strength lower extremities ,thigh and legs 5/5 Right side , 5/5 Left side Deep tendon reflexes : Normal Knee Jerk. Normal Ankle Jerk Vertebral body tenderness over L4 Lumbar facet Loading Test: positive Right / positive Left Range of motion of the lumbar spine Flexion 30 degrees, extension 10 degrees Straight Leg Raise test: Left/ Right positive at degree Luana test: positive right / positive left. Severe tenderness over the Sacroiliac joint on the Right / Left sides Gaenslen test: positive bilaterally Seated flexion test: positive bilaterally. Sacral spine : Severe tenderness over the Sacroiliac joint: right side / left side Range of motion: Flexion of the lumbar spine <60 degrees Range of motion: Extension of the lumbar spine <20 degrees Gaenslen's Test positive Marcial's Test positive Luana test: positive right side / left side Thigh Thrust Test Sacral Thrust Test Imaging: MRI without contrast of the lumbar spine from 03/01/22 reviewed Assessment/ Plan : Lumbar DDD Recommendation of R paramedian DARYL L4-L5 #1. May need a series for optimal pain relief. Risks, benefits of procedure discussed and patient verbalized understanding. Admits aspirin or anti- coagulant use or medical history of diabetes. Protocol for discontinuation/ continuation of medications ingrid procedure discussed. Obtaining medical clearance for [place] from Dr Dacosta, per pt. All questions answered. I have spent greater than 30 minutes on patient care today. Dr Welch was available by phone for the evaluation of this patient. The time was used to review the medical records including relevant urine studies and Prescription history (MAPs), review of the available imaging, evaluation and examination of the patient, coordination of care with the medical staff and if applicable referring physicians, as well as creation of the medical record PQRS Narrative: Smoking Status Never smoker Home Medications: Ambulatory Orders Ibuprofen [Motrin] 800 mg PO DAILY PRN 10/18/18 Ipratropium/Albuterol Sulfate [Combivent Respimat Inhaler] 2 puff INHALATION Q6H PRN 10/18/18 Levothyroxine Sodium 12.5 mcg PO QAM 10/18/18 amLODIPine BESYLATE/BENAZEPRIL [amLODIPine BESYLATE/BENAZEPRIL 5-20 MG] 1 cap PO QAM 10/18/18 Apixaban [Eliquis Starter Pack (for VTE)] 0 mg PO DIRECTED 30 Days #1 packet 10/24/21 Controlled Substance Measures - Controlled Substance Measures Is patient prescribed a controlled substance at discharge?: No
== END ==
LOC: PNWHC3 08:09
PROVIDERS: ATTEND Specialist
DX: M51.36 Other intervertebral disc degeneration, lumbar region (principal); J44.9 Chronic obstructive pulmonary disease, unspecified; I10 Essential (primary) hypertension; M19.90 Unspecified osteoarthritis, unspecified site; E03.9 Hypothyroidism, unspecified; F17.200 Nicotine dependence, unspecified, uncomplicated; Z79.890 Hormone replacement therapy; Z88.0 Allergy status to penicillin; Z91.030 Bee allergy status
CPT/HCPCS: 99211

== ENCOUNTER 2022-04-28 08:48 | Inpatient (IN) | payer OTHER ==
[2022-04-28] MEDS ORDERED: HYDROmorphone 1 MG/ML 1 ML SYRINGE IVP STA (09:06)
--- NOTE | 2022-04-28 09:09 | ED ---
General Adult HPI - General Chief complaint: Wound/Laceration Stated complaint: Wounds on leg Time Seen by Provider: 04/28/22 08:58 Source: patient, family, RN notes reviewed Mode of arrival: wheelchair Limitations: no limitations - History of Present Illness Initial comments: Patient is a pleasant 62-year-old male presenting to the emergency department with concern for left ankle pain. Patient does have history of DVT diagnosed a few months ago and is on FOR this. Patient was having itching of his leg and scratching left inner ankle. Patient has developed a wound. Patient has now developed redness extending to the mid pulido. Patient states pain is fairly severe and does request pain medication. No fever. Patient does have plans to see Dr. Morataya for vascular care. - Related Data Home Medications Medication Instructions Recorded Confirmed Levothyroxine Sodium 12.5 mcg PO QAM 10/18/18 04/26/22 amLODIPine BESYLATE/BENAZEPRIL 1 cap PO QAM 10/18/18 04/26/22 [amLODIPine BESYLATE/BENAZEPRIL 5-20 MG] Ergocalciferol [Vitamin D2 (1250 1,250 mcg PO WEEKLY 04/26/22 04/26/22 Mcg = 77301 Iu)] Furosemide [Lasix] 20 mg PO DAILY 04/26/22 04/26/22 Gabapentin 300 mg PO TID 04/26/22 04/26/22 Previous Rx's Medication Instructions Recorded Apixaban [Eliquis Starter Pack 0 mg PO DIRECTED 30 Days #1 10/24/21 (for VTE)] packet Allergies Allergy/AdvReac Type Severity Reaction Status Date / Time venom-honey bee Allergy Anaphylaxis Verified 04/28/22 08:53 Penicillins AdvReac Swelling Verified 04/28/22 08:53 Review of Systems ROS Statement: Those systems with pertinent positive or pertinent negative responses have been documented in the HPI. ROS Other: All systems not noted in ROS Statement are negative. Constitutional: Denies: fever Eyes: Denies: eye pain ENT: Denies: ear pain Respiratory: Denies: cough Cardiovascular: Denies: chest pain Gastrointestinal: Denies: abdominal pain Genitourinary: Denies: dysuria Musculoskeletal: Denies: back pain Skin: Reports: as per HPI, rash Past Medical History Past Medical History: COPD, Hypertension, Osteoarthritis (OA), Thyroid Disorder History of Any Multi-Drug Resistant Organisms: None Reported Past Surgical History: Appendectomy, Joint Replacement Additional Past Surgical History / Comment(s): ORIF LT HAND, right hip replacement, Past Anesthesia/Blood Transfusion Reactions: No Reported Reaction Past Psychological History: No Psychological Hx Reported Smoking Status: Current every day smoker - Past Family History Brother(s) Family Medical History: Cancer General Exam Limitations: no limitations General appearance: alert, in no apparent distress Head exam: Present: normocephalic Eye exam: Present: normal appearance Respiratory exam: Present: normal lung sounds bilaterally Cardiovascular Exam: Present: regular rate, normal rhythm Expanded Peripheral pulses: 2+: Dorsalis Pedis (L) GI/Abdominal exam: Present: soft. Absent: tenderness Extremities exam: Present: normal inspection Neurological exam: Present: alert Psychiatric exam: Present: normal affect, normal mood Skin exam: Present: erythema, other (Lower leg with erythema from the toes to the mid pulido. Left inner ankle with approximately 3 x 3 cm stage I ulcer. Central stage 2/3 ulcer. There is tenderness. Cap refill less than 2 seconds distally) Course Vital Signs 04/28/22 04/28/22 08:53 09:30 Temperature 98.4 F Pulse Rate 86 Respiratory 16 Rate Blood Pressure 182/71 158/78 O2 Sat by Pulse 94 L Oximetry Medical Decision Making - Medical Decision Making Was pt. sent in by a medical professional or institution ([facility], DEPARTMENT MGR, urgent care, hospital, or assisted...) When possible be specific @ -No Did you speak to anyone other than the patient for history (EMS, parent, family, police, friend...)? What history was obtained from this source @ -Family is present and helps provide history regarding patient and current symptoms. Did you review nursing and triage notes (agree or disagree)? Why? @ -I reviewed and agree with nursing and triage notes Were old charts reviewed (outside hosp., previous admission, EMS record, old EKG, old radiological studies, urgent care reports/EKG's, assisted records)? Report findings @ -No old charts were reviewed Differential Diagnosis (chest pain, altered mental status, abdominal pain women, abdominal pain men, vaginal bleeding, weakness, fever, dyspnea, syncope, headache, dizziness, GI bleed, back pain, seizure, CVA, palpatations, mental health)? @ -Differential Fever: Pneumonia, viral URI, endocarditis, myocarditis, pericarditis, otitis, sinusitis, peritonsillar Abscess, retropharyngeal Abscess, epiglottitis, peritonitis, appendicitis, Brunilda cystitis, diverticulitis, hepatitis, colitis, UTI, PID, TOA, pyelonephritis, prostatitis, epididymitis, meningitis, encephalitis, pulmonary embolism, CVA, thyroid storm, pancreatitis, adrenal crisis, cavernous sinus thrombosis, this is not meant to be an all-inclusive list. EKG interpreted by me (3pts min.). @ -As above X-rays interpreted by me (1pt min.). @ -X-ray left ankle shows no obvious osteomyelitis. Soft tissue changes CT interpreted by me (1pt min.). @ -None done U/S interpreted by me (1pt. min.). @ -None done What testing was considered but not performed or refused? (CT, X-rays, U/S, labs)? Why? @ -None What meds were considered but not given or refused? Why? @ -Patient will receive IV antibiotics, this will be ordered Did you discuss the management of the patient with other professionals (professionals i.e. , PA, DEPARTMENT MGR, lab, RT, psych nurse, manager social services, animal pathologist, teacher, navigating officer, caser)? Give summary @ -Case was discussed with Dr. Mcguire, who will admit covering Dr. Hart,-Lopez Was smoking cessation discussed for >3mins.? @ -No Was critical care preformed (if so, how long)? @ -No Were there social determinants of health that impacted care today? How? (Homelessness, low income, unemployed, alcoholism, drug addiction, transportation, low edu. Level, literacy, decrease access to med. care, fci, rehab)? @ -No Was there de-escalation of care discussed even if they declined (Discuss DNR or withdrawal of care, Hospice)? DNR status @ -No What co-morbidities impacted this encounter? (DM, HTN, Smoking, COPD, CAD, Cancer, CVA, ARF, Chemo, Hep., AIDS, mental health diagnosis, sleep apnea, morbid obesity)? @ -History of vascular disease Was patient admitted / discharged? Hospital course, mention meds given and route, prescriptions, significant lab abnormalities, going to OR and other pertinent info. @ -Patient reevaluated and still uncomfortable. Secondary to patient's discomfort and clinical evaluation patient will need admission with IV antibioti cs and specialty consults. Undiagnosed new problem with uncertain prognosis? @ -New diagnosis with ulcer and cellulitis with uncertain prognosis Drug Therapy requiring intensive monitoring for toxicity (Heparin, Nitro, Insulin, Cardizem)? @ -No Were any procedures done? @ -No Diagnosis/symptom? @ -Cellulitis left leg Acute, or Chronic, or Acute on Chronic? @ -Acute Uncomplicated (without systemic symptoms) or Complicated (systemic symptoms)? @ -Uncomplicated at this time Side effects of treatment? @ -No Exacerbation, Progression, or Severe Exacerbation? @ -No Poses a threat to life or bodily function? How? (Chest pain, [place], [place], pneumonia, PE, COPD, DKA, ARF, appy, cholecystitis, CVA, Diverticulitis, Homicidal, Suicidal, threat to staff... and all critical care pts) @ -Potential threat to bodily function. Proceeds to osteomyelitis or worsening ulcer requiring potential amputation - Lab Data Result diagrams: 04/28/22 09:26 Lab Results 04/28/22 04/28/22 04/28/22 Range/Units 09:26 09:26 09:26 WBC 10.2 (3.8-10.6) k/uL RBC 4.74 (4.30-5.90) m/uL Hgb 14.9 (13.0-17.5) gm/dL Hct 43.8 (39.0-53.0) % MCV 92.4 (80.0-100.0) fL MCH 31.4 (25.0-35.0) pg MCHC 34.0 (31.0-37.0) g/dL RDW 12.8 (11.5-15.5) % Plt Count 297 (150-450) k/uL MPV 8.5 Neutrophils % 72 % Lymphocytes % 19 % Monocytes % 6 % Eosinophils % 2 % Basophils % 1 % Neutrophils # 7.3 (1.3-7.7) k/uL Lymphocytes # 1.9 (1.0-4.8) k/uL Monocytes # 0.6 (0-1.0) k/uL Eosinophils # 0.2 (0-0.7) k/uL Basophils # 0.1 (0-0.2) k/uL PT 10.0 (9.0-12.0) sec INR 0.9 (<1.2) APTT 27.4 (22.0-30.0) sec Plasma Lactic Acid Reilly 1.3 (0.7-2.0) mmol/L Disposition Clinical Impression: Cellulitis of left leg, Foot ulcer Disposition: ADMITTED IP TO THIS HOSP Is patient prescribed a controlled substance at d/c from ED?: No Referrals: Dionne Herrera MD [Primary Care Provider] - 1-2 days Time of Disposition: 10:40
[2022-04-28 09:45] LABS: Basophils # (A) 0.1 k/uL (0-0.2); Basophils % (A) 1 %; Eosinophils # (A) 0.2 k/uL (0-0.7); Eosinophils % (A) 2 %; HCT 43.8 % (39.0-53.0); HGB 14.9 gm/dL (13.0-17.5); Lymphocytes # (A) 1.9 k/uL (1.0-4.8); Lymphocytes % (A) 19 %; MCH 31.4 pg (25.0-35.0); MCV 92.4 fL (80.0-100.0); Mean Platelet Volume 8.5; Monocytes # (A) 0.6 k/uL (0-1.0); Monocytes % (A) 6 %; Neutrophils # (A) 7.3 k/uL (1.3-7.7); Neutrophils % (A) 72 %; Platelet Count 297 k/uL (150-450); RBC 4.74 m/uL (4.30-5.90); RDW 12.8 % (11.5-15.5); WBC 10.2 k/uL (3.8-10.6)
[2022-04-28 09:50] LABS: INR 0.9 (<1.2); Partial Thromboplastin Time 27.4 sec (22.0-30.0)
--- NOTE | 2022-04-28 10:07 | XR ---
EXAMINATION TYPE: XR ankle complete LT DATE OF EXAM: 04/28/2022 COMPARISON: NONE HISTORY: Soft tissue ulcer FINDINGS: Three views of the ankle demonstrate the ankle mortise to be intact and symmetric. The joint spaces are preserved. The osseous structures are intact. Soft tissue ulcer adjacent to the medial malleolu s. No bony destruction. IMPRESSION: 1. No definite osseous abnormality. There is a soft tissue defect suggestive of an ulcer adjacent to the medial malleolus.
[2022-04-28] MEDS ORDERED: ACETAMINOPHEN TAB 500 MG TAB PO STA (10:29)
[2022-04-28] MEDS ORDERED: NALOXONE 0.4 MG/ML 1 ML VIAL IV PRN (10:40)
[2022-04-28] MEDS ORDERED: HYDROmorphone 0.5 MG/0.5 ML SYRINGE IVP PRN (10:40)
[2022-04-28] MEDS ORDERED: VANCOMYCIN IV PER PHARMACY 1 EACH MISC MISCELLANE PRN (10:42)
[2022-04-28 10:53] LABS: ALT 24 U/L (4-49); AST 23 U/L (17-59); African American GFR (CKD) >90 (>60 ml/min/1.73 sqM); Albumin 4.1 g/dL (3.5-5.0); Alkaline Phosphatase 113 U/L (38-126); Anion Gap 6 mmol/L; Blood Urea Nitrogen 12 mg/dL (9-20); Calcium 8.6 mg/dL (8.4-10.2); Carbon Dioxide 24 mmol/L (22-30); Chloride 104 mmol/L (98-107); Glucose 110 mg/dL (74-99); Non-African American GFR(CKD) >90 (>60 ml/min/1.73 sqM); Potassium 4.4 mmol/L (3.5-5.1); Sodium 134 mmol/L (137-145); Total Bilirubin 0.6 mg/dL (0.2-1.3); Total Protein 7.1 g/dL (6.3-8.2)
[2022-04-28] MEDS: SODIUM CHLORIDE 0.9% 1,000 ML IV SCH (11:20)
[2022-04-28] MEDS: HYDROmorphone 1 MG/ML 1 ML SYRINGE IVP PRN ×4 (11:55→21:04)
[2022-04-28] MEDS ORDERED: VANCOMYCIN 2,000 MG in SODIUM CHLORIDE 0.9% 500 ML 500 ML IVPB ONE (12:00)
[2022-04-28] MEDS: traMADol 50 MG TAB PO PRN (13:11)
[2022-04-28] MEDS ORDERED: NYSTATIN 100,000UNIT/GM CREAM 30 GM TUBE TOPICAL SCH (13:30)
[2022-04-28] MEDS ORDERED: NYSTAT-TRIAMCIN 100,000-0.1 UNIT/GM-% CREAM 30 GM TUBE TOPICAL SCH (13:30)
[2022-04-28] MEDS: NYSTATIN 100,000UNIT/GM CREAM 30 GM TUBE TOPICAL SCH ×3 (14:57→21:03)
[2022-04-28] MEDS: TRIAMCINOLONE 0.1% CREAM 80 GM TUBE TOPICAL SCH (14:57)
[2022-04-28] MEDS: GABAPENTIN 300 MG CAP PO SCH (16:42)
[2022-04-28] MEDS: FUROSEMIDE 20 MG TAB PO SCH (16:42)
--- NOTE | 2022-04-28 19:44 | P.HPIM ---
History of Present Illness H&P Date: 04/28/22 Chief Complaint: Left ankle wound 62-year-old male presenting to the emergency department with concern for left ankle pain. Patient does have history of DVT diagnosed a few months ago and is on FOR this. Patient was having itching of his leg and scratching left inner ankle. Patient has developed a wound. Patient has now developed redness extending to the mid pulido. Patient states pain is fairly severe and does request pain medication. No fever. Patient does have plans to see Dr. Morataya for vascular care. Blood work completed in ED reveals a WBC of 10.2, hemoglobin of 14.9, platelet count of 297 X-ray of left ankle completed reveals soft tissue inflammation suggestive off at bedtime and also to medial malleolus; no osteomyelitis Review of Systems REVIEW OF SYSTEMS: CONSTITUTIONAL: No fever, no malaise, no fatigue. HEENT: No recent visual problems or hearing problems. Denied any sore throat. CARDIOVASCULAR: No chest pain, orthopnea, PND, no palpitations, no syncope. PULMONARY: No shortness of breath, no cough, no hemoptysis. GASTROINTESTINAL: No diarrhea, no nausea, no vomiting, no abdominal pain. NEUROLOGICAL: No headaches, no weakness, no numbness. HEMATOLOGICAL: Denies any bleeding or petechiae. GENITOURINARY: Denies any burning micturition, frequency, or urgency. MUSCULOSKELETAL/RHEUMATOLOGICAL: Denies any joint pain, swelling, or any muscle pain. ENDOCRINE: Denies any polyuria or polydipsia. The rest of the 14-point review of systems is negative. Past Medical History Past Medical History: COPD, Hypertension, Osteoarthritis (OA), Thyroid Disorder History of Any Multi-Drug Resistant Organisms: None Reported Past Surgical History: Appendectomy, Joint Replacement Additional Past Surgical History / Comment(s): ORIF LT HAND, right hip replacement, Past Anesthesia/Blood Transfusion Reactions: No Reported Reaction Past Psychological History: No Psychological Hx Reported Smoking Status: Current every day smoker - Past Family History Brother(s) Family Medical History: Cancer Medications and Allergies Home Medications Medication Instructions Recorded Confirmed Type Levothyroxine Sodium 12.5 mcg PO DAILY 10/18/18 04/28/22 History amLODIPine BESYLATE/BENAZEPRIL 1 cap PO DAILY 10/18/18 04/28/22 History [amLODIPine BESYLATE/BENAZEPRIL 5-20 MG] Ergocalciferol [Vitamin D2 (1250 1,250 mcg PO BEASLEY 04/26/22 04/28/22 History Mcg = 46951 Iu)] Furosemide [Lasix] 20 mg PO BID 04/26/22 04/28/22 History Gabapentin 300 mg PO TID 04/26/22 04/28/22 History Apixaban [Eliquis] 5 mg PO BID 04/28/22 04/28/22 History Atorvastatin [Lipitor] 20 mg PO HS 04/28/22 04/28/22 History Ipratropium/Albuter 20-100Mcg 2 puff INHALATION RT-BID 04/28/22 04/28/22 History [Combivent Respimat 20-100Mcg Inhaler] rOPINIRole HCL [Requip] 0.5 mg PO HS 04/28/22 04/28/22 History Allergies Allergy/AdvReac Type Severity Reaction Status Date / Time venom-honey bee Allergy Anaphylaxis Verified 04/28/22 11:04 Penicillins AdvReac Unknown Verified 04/28/22 11:04 Childhood Physical Exam Vitals: Vital Signs Temp Pulse Resp BP Pulse Ox 04/28/22 12:03 72 18 147/85 96 04/28/22 09:30 158/78 04/28/22 08:53 98.4 F 86 16 182/71 94 L Intake and Output 04/27/22 04/28/22 04/28/22 22:59 06:59 14:59 Other: Weight 104.326 kg PHYSICAL EXAMINATION: GENERAL: The patient is alert and oriented x3, not in any acute distress. Well developed, well nourished. HEENT: Pupils are round and equally reacting to light. EOMI. No scleral icterus. No conjunctival pallor. Normocephalic, atraumatic. No pharyngeal erythema. No thyromegaly. CARDIOVASCULAR: S1 and S2 present. No murmurs, rubs, or gallops. PULMONARY: Chest is clear to auscultation, no wheezing or crackles. ABDOMEN: Soft, nontender, nondistended, normoactive bowel sounds. No palpable organomegaly. MUSCULOSKELETAL: No joint swelling or deformity. EXTREMITIES: No cyanosis, clubbing, or pedal edema. NEUROLOGICAL: Gross neurological examination did not reveal any focal deficits. SKIN: No rashes. Results CBC & Chem 7: 04/28/22 09:26 04/28/22 10:25 Labs: Abnormal Lab Results - Last 24 Hours (Table) 04/28/22 Range/Units 10:25 Sodium 134 L (137-145) mmol/L Glucose 110 H (74-99) mg/dL Assessment and Plan Assessment: 1. Infected left ankle ulcer - Patient has been placed on cefazolin 1 g IV every 8 hours along with IV vancomycin with pharmacy dosing service; x-rays completed and is negative for osteomyelitis - Wound culture and blood cultures are ordered - Wound care consult/ID 2. Cellulitis left lower extremity; currently on cefazolin 2 g IV every 8 hours; pharmacy to dose IV vancomycin 3. Hypertension; amlodipine 5 mg daily; lisinopril 20 g daily 4. Hypothyroidism; levothyroxin 12.5 MCG daily 5. COPD; not in exacerbation; continue with home inhaler therapy 6. Hyperlipidemia; Lipitor 20 mg by mouth daily at bedtime 7. History of DVT; continue anticoagulation with Ahlquist 5 mg twice a day 8. Restless leg syndrome/neuropathy; Requip 0.5 mg by mouth daily at bedtime, Neurontin 300 mg 3 times a day
[2022-04-28] MEDS: IPRATROPIUM-ALBUTEROL 3 ML NEB INHALATION SCH (20:30)
--- NOTE | 2022-04-28 20:34 | P.CONS ---
History of Present Illness - Reason for Consult Consult date: 04/28/22 Ankle ulcer, cellulitis Requesting physician: Juancarlos Kim - Chief Complaint Increasing swelling redness to the left ankle leg area x few days - History of Present Illness Patient is a 62 year old male with a past medical history significant for COPD hypertension prostatitis hypothyroidism presenting to the ER for evaluation of a wound on the medial aspect of the left ankle with associated swelling or redness to the left foot and lower leg area, patient mentions still having some dry skin irritation to the medial aspect of the left ankle area with the patient has been scratching. It is some superficial ulceration of told the patient noticed to have increasing swelling redness to the left foot and left lower leg area symptom has been getting worse for the last few days patient been complaining of pain which is mostly dull aching to sharp 4-5 out of 10 and no radiation with associated swelling redness but denies having any foul-smelling drainage, patient on presentation to the hospital was afebrile and no fever according subsequently patient did have a normal white count patient did have a normal kidney function and liver enzymes x-ray of the ankle area did not show any bony abnormality some soft tissue swelling patient was started on cefazolin and vancomycin. Local cultures were obtained, infectious disease was consulted for management of antibiotic therapy Review of Systems Positive point has been mentioned in the HPI rest of the systems are negative Past Medical History Past Medical History: COPD, Hypertension, Osteoarthritis (OA), Thyroid Disorder History of Any Multi-Drug Resistant Organisms: None Reported Past Surgical History: Appendectomy, Joint Replacement Additional Past Surgical History / Comment(s): ORIF LT HAND, right hip replacement, Past Anesthesia/Blood Transfusion Reactions: No Reported Reaction Past Psychological History: No Psychological Hx Reported Smoking Status: Current every day smoker - Past Family History Brother(s) Family Medical History: Cancer Medications and Allergies Home Medications Medication Instructions Recorded Confirmed Type Levothyroxine Sodium 12.5 mcg PO DAILY 10/18/18 04/28/22 History Ergocalciferol [Vitamin D2 (1250 1,250 mcg PO BEASLEY 04/26/22 04/28/22 History Mcg = 91091 Iu)] Furosemide [Lasix] 20 mg PO BID 04/26/22 04/28/22 History Gabapentin 300 mg PO TID 04/26/22 04/28/22 History Apixaban [Eliquis] 5 mg PO BID 04/28/22 04/28/22 History Ipratropium/Albuter 20-100Mcg 2 puff INHALATION RT-BID 04/28/22 04/28/22 History [Combivent Respimat 20-100Mcg Inhaler] rOPINIRole HCL [Requip] 0.5 mg PO HS 04/28/22 04/28/22 History Acetaminophen Tab [Tylenol] 650 mg PO Q6HR PRN #20 tab 05/03/22 Rx Atorvastatin [Lipitor] 40 mg PO HS #30 tab 05/03/22 Rx Cephalexin [Keflex] 500 mg PO Q6HR 10 Days #40 cap 05/03/22 Rx Diltiazem Oral [Cardizem*] 30 mg PO TID #90 tab 05/03/22 Rx Famotidine [Pepcid] 20 mg PO BID #60 tab 05/03/22 Rx Folic Acid 1 mg PO DAILY #30 tab 05/03/22 Rx Multivitamins, Thera [Multivitamin 1 each PO DAILY #30 tab 05/03/22 Rx (formulary)] Nicotine 21Mg/24Hr Patch [Habitrol] 1 patch TRANSDERM DAILY #3 patch 05/03/22 Rx Thiamine [Vitamin B-1] 100 mg PO DAILY #30 tablet 05/03/22 Rx lisinopriL [Zestril] 20 mg PO BID #60 tab 05/03/22 Rx traMADol HCl [Ultram] 50 mg PO Q6H PRN #10 tab 05/03/22 Rx Allergies Allergy/AdvReac Type Severity Reaction Status Date / Time venom-honey bee Allergy Anaphylaxis Verified 04/28/22 11:04 Penicillins AdvReac Unknown Verified 04/28/22 11:04 Childhood Physical Exam Vitals: Vital Signs Temp Pulse Resp BP Pulse Ox 04/28/22 09:30 158/78 04/28/22 08:53 98.4 F 86 16 182/71 94 L Intake and Output 04/27/22 04/28/22 04/28/22 22:59 06:59 14:59 Other: Weight 104.326 kg GENERAL DESCRIPTION: Middle-aged male lying in bed, no distress. No tachypnea or accessory muscle of respiration use. HEENT: Shows Pallor , no scleral icterus. Oral mucous membrane is dry. No pharyngeal erythema or thrush NECK: Trachea central, no thyromegaly. LUNGS: Unlabored breathing. Decreased intensity of breath sounds. No wheeze or crackle. HEART: S1, S2, regular rate and rhythm. No loud murmur ABDOMEN: Soft, no tenderness , guarding or rigidity, no organomegaly EXTREMITIES: Left medial ankle area with a dry scaly superficial ulceration some erythema to the foot no foul-smelling drainage did have extensive athlete's foot SKIN: No rash, no masses palpable. NEUROLOGICAL: The patient is awake, alert, oriented x3, mood and affect normal. Results CBC & Chem 7: 05/01/22 03:11 05/03/22 07:42 Labs: Abnormal Lab Results - Last 24 Hours (Table) 04/28/22 Range/Units 10:25 Sodium 134 L (137-145) mmol/L Glucose 110 H (74-99) mg/dL Assessment and Plan (1) Athletes foot Status: Acute Code(s): B35.3 - TINEA PEDIS SNOMED Code(s): 0488933 (2) Left leg cellulitis Status: Acute Code(s): L03.116 - CELLULITIS OF LEFT LOWER LIMB SNOMED C ode(s): [id number] Plan: 1patient with left medial ankle wound started with area of dryness itching scratching related to superficial ulceration now with evidence of cellulitis likely from gram-positive skin yuki patient has not been on any antibiotics recently and less risk of infection with MRSA. 2patient with a penicillin ALLERGY that would limit the number of antibiotic safety use 3patient continue with cefazolin 2 g every 8 hours we'll discontinue vancomycin 4we will apply Mycolog cream to the dry irritated area twice a day 5patient also have extensive athlete's foot will apply nystatin cream twice a day We will follow on clinical condition and cultures to further adjust medication if needed Thank you for this consultation will follow this patient with you Time with Patient: Greater than 30
[2022-04-28] MEDS: APIXABAN 5 MG TAB PO SCH (21:00)
[2022-04-28] MEDS: ATORVASTATIN 20 MG TAB PO SCH (21:00)
[2022-04-28] MEDS: FAMOTIDINE 20 MG TAB PO SCH (21:01)
[2022-04-28] MEDS ORDERED: VANCOMYCIN 2,000 MG in SODIUM CHLORIDE 0.9% 500 ML 500 ML IVPB SCH (22:00)
[2022-04-29] MEDS: IPRATROPIUM-ALBUTEROL 3 ML NEB INHALATION SCH ×4 (00:02→20:12)
[2022-04-29] MEDS: GABAPENTIN 300 MG CAP PO SCH ×4 (00:41→20:36)
[2022-04-29] MEDS: HYDROmorphone 1 MG/ML 1 ML SYRINGE IVP PRN ×4 (00:41→19:50)
[2022-04-29] MEDS: LEVOTHYROXINE 25 MCG TAB PO SCH (05:30)
[2022-04-29] MEDS: APIXABAN 5 MG TAB PO SCH ×2 (07:40→20:43)
[2022-04-29] MEDS: amLODIPine 5 MG TAB PO SCH (07:41)
[2022-04-29] MEDS: FUROSEMIDE 20 MG TAB PO SCH ×2 (07:42→15:19)
[2022-04-29] MEDS: FAMOTIDINE 20 MG TAB PO SCH ×2 (07:42→20:36)
[2022-04-29] MEDS: lisinopriL 20 MG TAB PO SCH (07:42)
--- NOTE | 2022-04-29 07:44 | P.CRDCN ---
History of Present Illness Consult date: 04/29/22 Chief complaint: Left lower extremity discomfort History of present illness: The patient is a pleasant 62-year-old gentleman with a past medical history significant for history of smoking and overweight and recent diagnosis of DVT of the left lower extremity. We consulted to see the patient for further evaluation regarding lower extremity PAD. The patient was diagnosed with DVT recently and he was started on oral anticoagulation. For the last week he has been experiencing severe left foot discomfort. Subsequently he developed nonhealing ulcer involving the medial aspect of the left foot. Beside that he developed severe pain. He presented to the hospital where he underwent further evaluation and he was seen by the infectious disease service and currently he was started on antibiotic. He reports no pain in the chest and no shortness of breath and no dizziness or lightheadedness or any feeling of heart racing or fluttering or any presyncope or syncope. He underwent vascular evaluation including an SHERI and that came in to be significantly abnormal showing an SHERI of 0.37 on the left. As a matter of fact on examination he does have diminished pedal pulse on the left and diminished popliteal pulse and diminished femoral pulse on the left as well. The rest of the workup including blood work came in to be unremarkable. I am concerned about severe PAD and with that being said going to schedule the patient to undergo an aortogram with runoff tomorrow. The procedure in details was explained to the patient. The physical examination is remarkable for regular rhythm with diminished breathing sounds bilaterally and left lower extremity nonhealing ulcer. The vascular examination is as described above Assessment Critical limb ischemia of the left foot Severe left lower extremity PAD History of deep venous thrombosis Significant history of smoking Multiple comorbid conditions Plan Continue the current medical regimen Proceed with an angiogram to be done tomorrow Hold anticoagulation for now Further recommendation to follow Follow-up with the patient Past Medical History Past Medical History: COPD, Hypertension, Osteoarthritis (OA), Thyroid Disorder Additional Past Medical History / Comment(s): DVT 01/2022, peripheral artery disease History of Any Multi-Drug Resistant Organisms: None Reported Past Surgical History: Appendectomy, Joint Replacement Additional Past Surgical History / Comment(s): ORIF LT HAND, right hip replacement, Past Anesthesia/Blood Transfusion Reactions: No Reported Reaction Past Psychological History: No Psychological Hx Reported Smoking Status: Current every day smoker - Past Family History Brother(s) Family Medical History: Cancer Medications and Allergies Home Medications Medication Instructions Recorded Confirmed Type Levothyroxine Sodium 12.5 mcg PO DAILY 10/18/18 04/28/22 History amLODIPine BESYLATE/BENAZEPRIL 1 cap PO DAILY 10/18/18 04/28/22 History [amLODIPine BESYLATE/BENAZEPRIL 5-20 MG] Ergocalciferol [Vitamin D2 (1250 1,250 mcg PO BEASLEY 04/26/22 04/28/22 History Mcg = 53244 Iu)] Furosemide [Lasix] 20 mg PO BID 04/26/22 04/28/22 History Gabapentin 300 mg PO TID 04/26/22 04/28/22 History Apixaban [Eliquis] 5 mg PO BID 04/28/22 04/28/22 History Atorvastatin [Lipitor] 20 mg PO HS 04/28/22 04/28/22 History Ipratropium/Albuter 20-100Mcg 2 puff INHALATION RT-BID 04/28/22 04/28/22 History [Combivent Respimat 20-100Mcg Inhaler] rOPINIRole HCL [Requip] 0.5 mg PO HS 04/28/22 04/28/22 History Allergies Allergy/AdvReac Type Severity Reaction Status Date / Time venom-honey bee Allergy Anaphylaxis Verified 04/28/22 11:04 Penicillins AdvReac Unknown Verified 04/28/22 11:04 Childhood Physical Exam Vitals: Vital Signs Temp Pulse Pulse Resp BP BP Pulse Ox 04/29/22 06:50 98.3 F 75 19 183/73 93 L 04/29/22 01:19 98.3 F 79 16 158/76 92 L 04/29/22 00:15 76 04/29/22 00:02 72 04/28/22 20:42 72 04/28/22 20:30 72 04/28/22 19:44 98.1 F 75 14 162/75 94 L 04/28/22 13:07 97.7 F 72 19 167/97 92 L 04/28/22 12:03 72 18 147/85 96 04/28/22 09:30 158/78 04/28/22 08:53 98.4 F 86 16 182/71 94 L Intake and Output 04/28/22 04/29/22 04/29/22 22:59 06:59 14:59 Output Total 225 200 Balance -225 -200 Output: Urine 225 200 Results 04/28/22 09:26 04/28/22 10:25 Cardiac Enzymes 04/28/22 Range/Units 10:25 AST 23 (17-59) U/L Coagulation 04/28/22 Range/Units 09:26 PT 10.0 (9.0-12.0) sec APTT 27.4 (22.0-30.0) sec CBC 04/28/22 Range/Units 09:26 WBC 10.2 (3.8-10.6) k/uL RBC 4.74 (4.30-5.90) m/uL Hgb 14.9 (13.0-17.5) gm/dL Hct 43.8 (39.0-53.0) % Plt Count 297 (150-450) k/uL Comprehensive Metabolic Panel 04/28/22 Range/Units 10:25 Sodium 134 L (137-145) mmol/L Potassium 4.4 (3.5-5.1) mmol/L Chloride 104 (98-107) mmol/L Carbon Dioxide 24 (22-30) mmol/L BUN 12 (9-20) mg/dL Creatinine 0.66 (0.66-1.25) mg/dL Glucose 110 H (74-99) mg/dL Calcium 8.6 (8.4-10.2) mg/dL AST 23 (17-59) U/L ALT 24 (4-49) U/L Alkaline Phosphatase 113 (38-126) U/L Total Protein 7.1 (6.3-8.2) g/dL Albumin 4.1 (3.5-5.0) g/dL Current Medications Generic Name Dose Route Start Last Admin Trade Name Freq PRN Reason Stop Dose Admin Acetaminophen 650 mg 04/28/22 10:40 Acetaminophen Tab 325 Mg Tab PO Q6HR PRN Mild Pain or Fever > 100.5 Albuterol/Ipratropium 3 ml 04/28/22 20:00 04/29/22 00:02 Ipratropium-Albuterol 3 Ml Neb INHALATION 3 ml RT-Q6H RANDY Administration Amlodipine Besylate 5 mg 04/29/22 09:00 Amlodipine 5 Mg Tab PO DAILY RANDY Apixaban 5 mg 04/28/22 21:00 04/28/22 21:00 Apixaban 5 Mg Tab PO 5 mg BID RANDY Administration Protocol Atorvastatin Calcium 20 mg 04/28/22 21:00 04/28/22 21:00 Atorvastatin 20 Mg Tab PO 20 mg HS RANDY Administration Ergocalciferol 1,250 mcg 04/30/22 09:00 Ergocalciferol 1,250 Mcg (50,000 Iu) Capsule PO BEASLEY RANDY Famotidine 20 mg 04/28/22 21:00 04/28/22 21:01 Famotidine 20 Mg Tab PO 20 mg BID RANDY Administration Furosemide 20 mg 04/28/22 16:00 04/28/22 16:42 Furosemide 20 Mg Tab PO 20 mg BID@0900,1600 RANDY Administration Gabapentin 300 mg 04/28/22 16:00 04/29/22 00:41 Gabapentin 300 Mg Cap PO 300 mg TID RANDY Administration Hydromorphone HCl 0.5 mg 04/28/22 10:40 Hydromorphone 0.5 Mg/0.5 Ml Syringe IVP Q3HR PRN Moderate Pain (Scale 4 to 6) Hydromorphone HCl 1 mg 04/28/22 10:40 04/29/22 07:28 Hydromorphone 1 Mg/Ml 1 Ml Syringe IVP 1 mg Q3HR PRN Administration Severe Pain (Scale 7 to 10) Sodium Chloride 1,000 mls @ 75 mls/hr 04/28/22 10:45 04/28/22 11:20 Saline 0.9% IV 75 mls/hr .[id number] RANDY Administration Cefazolin Sodium 2 gm/ Sodium 50 mls @ 100 mls/hr 04/28/22 20:00 04/28/22 20:59 Chloride IVPB 100 mls/hr Q8H RANDY Administration Protocol Levothyroxine Sodium 12.5 mcg 04/29/22 06:30 04/29/22 05:30 Levothyroxine 25 Mcg Tab PO 12.5 mcg DAILY@0630 RANDY Administration Lisinopril 20 mg 04/29/22 09:00 Lisinopril 20 Mg Tab PO DAILY RANDY Naloxone HCl 0.2 mg 04/28/22 10:40 Naloxone 0.4 Mg/Ml 1 Ml Vial IV Q2M PRN Opioid Reversal Nystatin 1 applic 04/28/22 13:45 04/28/22 21:03 Nystatin 100,000unit/Gm Cream 30 Gm Tube TOPICAL 1 applic BID RANDY Administration Nystatin 1 applic 04/28/22 21:00 04/28/22 21:01 Nystatin 100,000unit/Gm Cream 30 Gm Tube TOPICAL 1 applic BID RANDY Administration Protocol Ropinirole HCl 0.5 mg 04/28/22 21:00 04/28/22 21:01 Ropinirole Hcl 0.25 Mg Tab PO 0.5 mg HS RANDY Administration Tramadol HCl 50 mg 04/28/22 10:40 04/28/22 13:11 Tramadol 50 Mg Tab PO 50 mg Q6H PRN Administration Moderate Pain (Scale 4 to 6) Triamcinolone Acetonide 1 applic 04/28/22 13:45 04/28/22 14:57 Triamcinolone 0.1% Cream 80 Gm Tube TOPICAL 1 applic BID RANDY Administration Intake and Output 04/28/22 04/29/22 04/29/22 22:59 06:59 14:59 Output Total 225 200 Balance -225 -200 Output: Urine 225 200 04/28/22 09:26 04/28/22 10:25
[2022-04-29 09:16] LABS: Basophils # (A) 0.07 X 10*3/uL (0.00-0.10); Basophils % (A) 0.8 %; Eosinophils # (A) 0.05 X 10*3/uL (0.04-0.35); Eosinophils % (A) 0.6 %; HCT 37.8 % (39.6-50.0); HGB 12.4 g/dL (13.0-17.0); Immature Grans, Automated 0.7 %; Lymphocytes # (A) 1.61 X 10*3/uL (0.90-5.00); Lymphocytes % (A) 19.3 %; MCH 32.1 pg (27.0-32.0); MCHC 32.8 g/dL (32.0-37.0); MCV 97.9 fL (80.0-97.0); Mean Platelet Volume 11.4 fL (9.5-12.2); Monocytes # (A) 0.72 X 10*3/uL (0.20-1.00); Monocytes % (A) 8.6 %; NRBC Per 100 WBC 0 /100 WBCS (0.0-0.0); Neutrophils # (A) 5.82 X 10*3/uL (1.80-7.70); Platelet Count 244 X 10*3/uL (140-440); RBC 3.86 X 10*6/uL (4.40-5.60); WBC 8.33 X 10*3/uL (4.50-10.00)
[2022-04-29 09:30] LABS: Anion Gap 10.1 mmol/L (10.00-18.00); BUN/Creat Ratio 13.5 Ratio (12.00-20.00); Blood Urea Nitrogen 10.8 mg/dL (9.0-27.0); C Reactive Protein 2.2 mg/dL (0.00-0.80); Calcium 8.7 mg/dL (8.7-10.3); Carbon Dioxide 23.9 mmol/L (20.0-27.5); Non-African American GFR(CKD) 95.7 (60.0-200.0); Potassium 4.3 mmol/L (3.5-5.5)
[2022-04-29] MEDS: traMADol 50 MG TAB PO PRN ×2 (09:36→15:19)
[2022-04-29] MEDS: TRIAMCINOLONE 0.1% CREAM 80 GM TUBE TOPICAL SCH ×3 (11:51→20:44)
[2022-04-29] MEDS: NYSTATIN 100,000UNIT/GM CREAM 30 GM TUBE TOPICAL SCH ×4 (11:51→20:45)
[2022-04-29] MEDS: SODIUM CHLORIDE 0.9% 1,000 ML IV SCH ×2 (11:53→20:43)
--- NOTE | 2022-04-29 12:12 | P.PN ---
Subjective Progress Note Date: 04/29/22 Principal diagnosis: Left leg cellulitis and athlete's foot Patient is a 62 year old male with a past medical history significant for COPD hypertension prostatitis hypothyroidism presenting to the ER for evaluation of a wound on the medial aspect of the left ankle with associated swelling or redness to the left foot and lower leg area, patient did have a superficial ulceration and cellulitis to left leg and evidence of athlete's foot. On today's evaluation that is 04/29/2022, the patient denies having any fever and chills and complaining of pain to the left lower extremity no worsening though, denies any chest pain shortness of breath or cough no abdominal pain and no diarrhea Objective - Vital Signs Vital signs: Vital Signs Temp 98.3 F 04/29/22 06:50 Pulse 84 04/29/22 08:39 Resp 19 04/29/22 06:50 BP 183/73 04/29/22 06:50 Pulse Ox 93 L 04/29/22 06:50 FiO2 Intake & Output 04/28/22 04/29/22 04/29/22 18:59 06:59 18:59 Intake Total 118 Output Total 225 200 Balance -225 -200 118 Weight 104.326 kg Intake: Oral 118 Output: Urine 225 200 - Exam GENERAL DESCRIPTION: Middle-aged male lying in bed in no distress RESPIRATORY SYSTEM: Unlabored breathing , decreased breath sounds at bases HEART: S1 S2 regular rate and rhythm , ABDOMEN: Soft , no tenderness EXTREMITIES: Left lower extremity ankle area swelling redness slightly decreased no drainage - Labs CBC & Chem 7: 04/29/22 05:29 04/29/22 05:29 Labs: Abnormal Lab Results - Last 24 Hours (Table) 04/28/22 04/29/22 04/29/22 Range/Units 10:25 05:29 05:29 RBC 3.86 L (4.40-5.60) X 10*6/uL Hgb 12.4 L (13.0-17.0) g/dL Hct 37.8 L (39.6-50.0) % MCV 97.9 H (80.0-97.0) fL MCH 32.1 H (27.0-32.0) pg Immature Gran # 0.06 H (0.00-0.04) X 10*3/uL Sodium 134 L (137-145) mmol/L Glucose 110 H (74-99) mg/dL C-Reactive Protein 2.20 H (0.00-0.80) mg/dL Microbiology - Last 24 Hours (Table) 04/28/22 09:26 Gram Stain - Preliminary Ankle - Left Wound Culture - Preliminary Presumptive Staph aureus Assessment and Plan (1) Left leg cellulitis Current Visit: Yes Status: Acute Code(s): L03.116 - CELLULITIS OF LEFT LOWER LIMB SNOMED Code(s): 087246169 (2) Athletes foot Current Visit: Yes Status: Acute Code(s): B35.3 - TINEA PEDIS SNOMED Code(s): 1636160 Plan: 1patient with left medial ankle wound started with area of dryness itching scratching related to superficial ulceration now with evidence of cellulitis likely from gram-positive skin yuki patient has not been on any antibiotics recently and less risk of infection with MRSA. 2patient with a penicillin ALLERGY that would limit the number of antibiotic safety use 3we will apply Mycolog cream to the dry irritated area twice a day 4patient also have extensive athlete's foot will apply nystatin cream twice a d ay 5blood culture had been negative so for local cultures growing staph aureus sensitivities pending patient to continue with the cefazolin and monitor clinical course closely Time with Patient: Less than 30
--- NOTE | 2022-04-29 18:43 | P.PN ---
Subjective Progress Note Date: 04/29/22 62-year-old male presenting to the emergency department with concern for left ankle pain. Patient does have history of DVT diagnosed a few months ago and is on FOR this. Patient was having itching of his leg and scratching left inner ankle. Patient has developed a wound. Patient has now developed redness extending to the mid pulido. Patient states pain is fairly severe and does request pain medication. No fever. Patient does have plans to see Dr. Morataya for vascular care. Blood work completed in ED reveals a WBC of 10.2, hemoglobin of 14.9, platelet count of 297 X-ray of left ankle completed reveals soft tissue inflammation suggestive off at bedtime and also to medial malleolus; no osteomyelitis Objective - Vital Signs Vital signs: Vital Signs Temp 98.3 F 04/29/22 06:50 Pulse 84 04/29/22 08:39 Resp 19 04/29/22 06:50 BP 183/73 04/29/22 06:50 Pulse Ox 93 L 04/29/22 06:50 FiO2 Intake & Output 04/28/22 04/29/22 04/29/22 18:59 06:59 18:59 Intake Total 118 Output Total 225 200 Balance -225 -200 118 Weight 104.326 kg Intake: Oral 118 Output: Urine 225 200 - Exam GENERAL: The patient is alert and oriented x3, not in any acute distress. Well developed, well nourished. HEENT: Pupils are round and equally reacting to light. EOMI. No scleral icterus. No conjunctival pallor. Normocephalic, atraumatic. No pharyngeal erythema. No thyromegaly. CARDIOVASCULAR: S1 and S2 present. No murmurs, rubs, or gallops. PULMONARY: Chest is clear to auscultation, no wheezing or crackles. ABDOMEN: Soft, nontender, nondistended, normoactive bowel sounds. No palpable organomegaly. MUSCULOSKELETAL: No joint swelling or deformity. EXTREMITIES: No cyanosis, clubbing, or pedal edema. NEUROLOGICAL: Gross neurological examination did not reveal any focal deficits. SKIN: No rashes. - Labs CBC & Chem 7: 04/29/22 05:29 04/29/22 05:29 Labs: Abnormal Lab Results - Last 24 Hours (Table) 04/29/22 04/29/22 Range/Units 05:29 05:29 RBC 3.86 L (4.40-5.60) X 10*6/uL Hgb 12.4 L (13.0-17.0) g/dL Hct 37.8 L (39.6-50.0) % MCV 97.9 H (80.0-97.0) fL MCH 32.1 H (27.0-32.0) pg Immature Gran # 0.06 H (0.00-0.04) X 10*3/uL C-Reactive Protein 2.20 H (0.00-0.80) mg/dL Microbiology - Last 24 Hours (Table) 04/28/22 09:26 Blood Culture - Preliminary Blood No Growth after 24 hours 04/28/22 09:26 Blood Culture - Preliminary Blood No Growth after 24 hours 04/28/22 09:26 Gram Stain - Preliminary Ankle - Left Wound Culture - Preliminary Presumptive Staph aureus Assessment and Plan Assessment: 1. Infected left ankle ulcer - Patient has been placed on cefazolin 1 g IV every 8 hours along with IV vancomycin with pharmacy dosing service; x-rays completed and is negative for osteomyelitis - Wound culture and blood cultures are ordered - Wound care consult/ID 2. Cellulitis left lower extremity; currently on cefazolin 2 g IV every 8 hours; pharmacy to dose IV vancomycin 3. Hypertension; amlodipine 5 mg daily; lisinopril 20 g daily 4. Hypothyroidism; levothyroxin 12.5 MCG daily 5. COPD; not in exacerbation; continue with home inhaler therapy 6. Hyperlipidemia; Lipitor 20 mg by mouth daily at bedtime 7. History of DVT; continue anticoagulation with Ahlquist 5 mg twice a day 8. Restless leg syndrome/neuropathy; Requip 0.5 mg by mouth daily at bedtime, Neurontin 300 mg 3 times a day
[2022-04-29] MEDS: ATORVASTATIN 20 MG TAB PO SCH (20:36)
[2022-04-30] MEDS: IPRATROPIUM-ALBUTEROL 3 ML NEB INHALATION SCH ×4 (00:31→19:34)
[2022-04-30] MEDS: HYDROmorphone 1 MG/ML 1 ML SYRINGE IVP PRN ×5 (05:03→23:01)
[2022-04-30] MEDS: LEVOTHYROXINE 25 MCG TAB PO SCH (05:03)
[2022-04-30 06:48] LABS: African American GFR (CKD) >90 (>60 ml/min/1.73 sqM); Non-African American GFR(CKD) >90 (>60 ml/min/1.73 sqM)
--- NOTE | 2022-04-30 07:22 | P.PN ---
Subjective Progress Note Date: 04/30/22 Principal diagnosis: Critical limb ischemia The patient is a pleasant 62-year-old gentleman with a past medical history significant for history of smoking and overweight and recent diagnosis of DVT of the left lower extremity. We consulted to see the patient for further evaluat ion regarding lower extremity PAD. The patient was diagnosed with DVT recently and he was started on oral anticoagulation. For the last week he has been experiencing severe left foot discomfort. Subsequently he developed nonhealing ulcer involving the medial aspect of the left foot. Beside that he developed severe pain. He presented to the hospital where he underwent further evaluation and he was seen by the infectious disease service and currently he was started on antibiotic. He reports no pain in the chest and no shortness of breath and no dizziness or lightheadedness or any feeling of heart racing or fluttering or any presyncope or syncope. He underwent vascular evaluation including an SHERI and that came in to be significantly abnormal showing an SHERI of 0.37 on the left. As a matter of fact on examination he does have diminished pedal pulse on the left and diminished popliteal pulse and diminished femoral pulse on the left as well. The rest of the workup including blood work came in to be unremarkable. I am concerned about severe PAD and with that being said going to schedule the patient to undergo an aortogram with runoff tomorrow. The procedure in details was explained to the patient. The physical examination is remarkable for regular rhythm with diminished breathing sounds bilaterally and left lower extremity nonhealing ulcer. The vascular examination is as described above April [id number] The patient was seen and evaluated this morning. He remains asymptomatic in terms of chest pain or chest discomfort or shortness of breath. The plan is to pursue an aortogram with runoff this morning. The procedure in details was explained to the patient. Kidney function and electrolytes remained stable. Assessment Critical limb ischemia of the left foot Severe left lower extremity PAD History of deep venous thrombosis Significant history of smoking Multiple comorbid conditions Plan Continue the current medical regimen Proceed with an angiogram to be done tomorrow Hold anticoagulation for now Further recommendation to follow Follow-up with the patient Objective - Vital Signs Vital signs: Vital Signs Temp 98.5 F 04/30/22 01:28 Pulse 89 04/30/22 01:28 Resp 18 04/30/22 01:28 BP 135/73 04/30/22 01:28 Pulse Ox 93 L 04/30/22 01:28 FiO2 Intake & Output 04/29/22 04/30/22 04/30/22 18:59 06:59 18:59 Intake Total 118 Balance 118 Intake: Oral 118 Other: # Voids 1 # Bowel Movements 1 - Labs CBC & Chem 7: 04/29/22 05:29 04/30/22 06:02 Labs: Abnormal Lab Results - Last 24 Hours (Table) 04/29/22 04/29/22 Range/Units 05:29 05:29 RBC 3.86 L (4.40-5.60) X 10*6/uL Hgb 12.4 L (13.0-17.0) g/dL Hct 37.8 L (39.6-50.0) % MCV 97.9 H (80.0-97.0) fL MCH 32.1 H (27.0-32.0) pg Immature Gran # 0.06 H (0.00-0.04) X 10*3/uL C-Reactive Protein 2.20 H (0.00-0.80) mg/dL Microbiology - Last 24 Hours (Table) 04/28/22 09:26 Blood Culture - Preliminary Blood No Growth after 24 hours 04/28/22 09:26 Blood Culture - Preliminary Blood No Growth after 24 hours 04/28/22 09:26 Gram Stain - Preliminary Ankle - Left Wound Culture - Preliminary Presumptive Staph aureus
[2022-04-30] MEDS: APIXABAN 5 MG TAB PO SCH (07:48)
[2022-04-30] MEDS: amLODIPine 5 MG TAB PO SCH (08:42)
[2022-04-30] MEDS: FUROSEMIDE 20 MG TAB PO SCH ×2 (08:42→15:14)
[2022-04-30] MEDS: FAMOTIDINE 20 MG TAB PO SCH ×2 (08:42→19:59)
[2022-04-30] MEDS: lisinopriL 20 MG TAB PO SCH (08:42)
[2022-04-30] MEDS: GABAPENTIN 300 MG CAP PO SCH ×3 (08:42→21:23)
[2022-04-30] MEDS: TRIAMCINOLONE 0.1% CREAM 80 GM TUBE TOPICAL SCH ×2 (08:44→22:16)
[2022-04-30] MEDS: NYSTATIN 100,000UNIT/GM CREAM 30 GM TUBE TOPICAL SCH ×4 (08:44→22:16)
[2022-04-30] MEDS ORDERED: ERGOCALCIFEROL 1,250 MCG (50,000 IU) CAPSULE PO SCH (09:00)
[2022-04-30] MEDS: SODIUM CHLORIDE 0.9% 1,000 ML IV SCH ×2 (10:42→15:14)
[2022-04-30] MEDS ORDERED: DILTIAZEM 125 MG in SODIUM CHLORIDE 0.9% 100 ML IV SCH ×2 (11:30→23:45)
[2022-04-30 12:03] LABS: Basophils # (A) 0.1 k/uL (0-0.2); Basophils % (A) 1 %; Eosinophils # (A) 0.1 k/uL (0-0.7); Eosinophils % (A) 1 %; HCT 40.6 % (39.0-53.0); HGB 13.2 gm/dL (13.0-17.5); Lymphocytes # (A) 1.8 k/uL (1.0-4.8); Lymphocytes % (A) 17 %; MCH 31.2 pg (25.0-35.0); MCHC 32.4 g/dL (31.0-37.0); MCV 96.2 fL (80.0-100.0); Mean Platelet Volume 11.7; Monocytes # (A) 0.7 k/uL (0-1.0); Monocytes % (A) 6 %; Neutrophils % (A) 74 %; Platelet Count 193 k/uL (150-450); RBC 4.22 m/uL (4.30-5.90); WBC 10.8 k/uL (3.8-10.6)
[2022-04-30 12:12] LABS: African American GFR (CKD) >90 (>60 ml/min/1.73 sqM); Anion Gap 9 mmol/L; Blood Urea Nitrogen 10 mg/dL (9-20); Calcium 8.7 mg/dL (8.4-10.2); Carbon Dioxide 22 mmol/L (22-30); Chloride 104 mmol/L (98-107); Glucose 100 mg/dL (74-99); Non-African American GFR(CKD) >90 (>60 ml/min/1.73 sqM); Sodium 135 mmol/L (137-145)
[2022-04-30] MEDS ORDERED: IV FLUID CONTINUATION 1,000 ML IV ONE (12:45)
[2022-04-30] MEDS ORDERED: MIDAZOLAM 2 MG/2 ML VIAL IV ONE (13:07)
[2022-04-30] MEDS ORDERED: LIDOCAINE 1% INJ 10MG/ML (30 ML VIAL-PF) SQ ONE (13:09)
[2022-04-30] MEDS ORDERED: IOPAMIDOL-250 50ML BTL INTRAARTER ONE (13:27)
[2022-04-30] MEDS ORDERED: IOPAMIDOL-250 100ML BTL INTRAARTER ONE (13:27)
[2022-04-30] MEDS ORDERED: NALOXONE 0.4 MG/ML 1 ML VIAL IVP PRN (13:37)
[2022-04-30] MEDS ORDERED: SODIUM CHLORIDE 0.9% 1,000 ML in EMPTY BAG 1 BAG IV SCH (13:45)
--- NOTE | 2022-04-30 13:50 | P.PCN ---
Date of Procedure: 04/30/22 Operative Findings: AN ABDOMINAL AORTOGRAM AND BILATERAL LOWER EXTREMITIES RUNOFF PERFORMING PHYSICIAN: Johan Morataya MD PROCEDURE PERFORMED: 1. An abdominal aortogram 2. Bilateral lower extremities runoff 3. Ultrasound-guided access of the right common femoral artery INDICATION: This is a 62-year-old gentleman who was admitted to the hospital was a critical limb ischemia of the left foot. He underwent as an outpatient an SHERI and that came in to be critical on the left. In the light of that an angiogram was advised. COMPLICATION: None LEVEL OF SEDATION: Moderate was sedation length of right common femoral artery APPROACH: Right common femoral artery PROCEDURE DESCRIPTION: After obtaining informed consent and explaining the procedure benefits, risks, and complications, the patient was brought to the cardiac laboratory cureman. The right g roin was prepped and draped in sterile fashion. The right common femoral artery was cannulated using micropuncture technique, under ultrasound guidance. A micropuncture wire was advanced, and the micropuncture sheath was advanced over the wire, then the micropuncture sheath was exchanged over an 0.35 wire into a 5-Yi sheath dilator assembly then the wire and dilator were removed and sheath was flushed. We did an abdominal aortogram and bilateral lower extremities runoff using 5- Yi pigtail catheter using a power injection. The catheter was initially placed at the level of the renal arteries, and it was pulled into above the bifurcation of the aorta into right and left common iliac arteries. The procedure was completed and there was no complications. SELECTIVE PERIPHERAL ANGIOGRAM: The abdominal aorta: Is extremely calcified with no evidence of occlusive disease or aneurysmal formation The common iliac arteries: The right common iliac artery appeared to have mild disease only. The left common iliac arteries occluded The external iliac arteries: The right external iliac artery appeared to be angiographically normal. The left external iliac artery is occluded The internal iliac arteries: The right internal iliac artery is occluded. The left internal iliac artery was not opacified The common femoral arteries: The right common femoral artery is extremely calcified was a critical lesion. The left common femoral artery is occluded. Superficial femoral arteries: The right SFA has a critical disease and appeared to be diffusely diseased. The left SFA is occluded on long segment extends from the ostium all the way to the popliteal Popliteal arteries: The right popliteal is occluded at the Waylon canal. The left popliteal has a critical lesion just behind the left knee Below the knees: On the right side the arteries below the knee were not well-opacified. On the left side the patient has an anterior tibial appeared to be patent with peroneal and occluded posterior TPL CONCLUSION: 1. Extremely calcified lower extremities arterial system 2. 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 I am going to ask for a surgical opinion to assess if the patient will benefit from femoral endarterectomy on the left side with bypass surgery.
--- NOTE | 2022-04-30 16:38 | P.PN ---
Subjective Progress Note Date: 04/30/22 Principal diagnosis: Critical limb ischemia, left foot/severe left lower extremity PAD Cellulitis/wound left lower extremity 62-year-old male presenting to the emergency department with concern for left ankle pain. Patient does have history of DVT diagnosed a few months ago and is on FOR this. Patient was having itching of his leg and scratching left inner ankle. Patient has developed a wound. Patient has now developed redness extending to the mid pulido. Patient states pain is fairly severe and does request pain medication. No fever. Patient does have plans to see Dr. Morataya for vascular care. Blood work completed in ED reveals a WBC of 10.2, hemoglobin of 14.9, platelet count of 297 X-ray of left ankle completed reveals soft tissue inflammation suggestive off at bedtime and also to medial malleolus; no osteomyelitis 04/30/2022 Patient is seen and evaluated in selective care unit; patient was found to be in A. fib with RVR with heart rate from 140-160 Cardiology is consulted and patient is placed on Cardizem 5 mg per hour; anticoagulation was placed on hold until after the arteriogram was completed - Patient is scheduled for arteriogram and possible intervention, later in the day - Patient remains on IV antibiotics as recommended by ID Objective - Vital Signs Vital signs: Vital Signs Temp 98.5 F 04/30/22 11:02 Pulse 144 H 04/30/22 11:42 Resp 20 04/30/22 11:02 BP 127/70 04/30/22 11:42 Pulse Ox 94 L 04/30/22 11:02 FiO2 Intake & Output 04/29/22 04/30/22 04/30/22 18:59 06:59 18:59 Intake Total 118 Balance 118 Intake: Oral 118 Other: # Voids 1 # Bowel Movements 1 - Exam GENERAL: The patient is alert and oriented x3, not in any acute distress. Well developed, well nourished. HEENT: Pupils are round and equally reacting to light. EOMI. No scleral icterus. No conjunctival pallor. Normocephalic, atraumatic. No pharyngeal erythema. No thyromegaly. CARDIOVASCULAR: S1 and S2 present. No murmurs, rubs, or gallops. PULMONARY: Chest is clear to auscultation, no wheezing or crackles. ABDOMEN: Soft, nontender, nondistended, normoactive bowel sounds. No palpable organomegaly. MUSCULOSKELETAL: No joint swelling or deformity. EXTREMITIES: No cyanosis, clubbing, or pedal edema. NEUROLOGICAL: Gross neurological examination did not reveal any focal deficits. SKIN: No rashes. - Labs CBC & Chem 7: 04/30/22 06:02 04/30/22 06:02 Labs: Microbiology - Last 24 Hours (Table) 04/28/22 09:26 Blood Culture - Preliminary Blood No Growth after 48 hours 04/28/22 09:26 Blood Culture - Preliminary Blood No Growth after 48 hours 04/28/22 09:26 Gram Stain - Preliminary Ankle - Left Wound Culture - Preliminary Presumptive Staph aureus Assessment and Plan Assessment: 1. Infected left ankle ulcer - Patient has been placed on cefazolin 1 g IV every 8 hours along with IV vancomycin with pharmacy dosing service; x-rays completed and is negative for osteomyelitis - Wound culture and blood cultures are ordered - Wound care consult/ID 2. Cellulitis left lower extremity; currently on cefazolin 2 g IV every 8 hours; pharmacy to dose IV vancomycin 3. Hypertension; amlodipine 5 mg daily; lisinopril 20 g daily 4. Hypothyroidism; levothyroxin 12.5 MCG daily 5. COPD; not in exacerbation; continue with home inhaler therapy 6. Hyperlipidemia; Lipitor 20 mg by mouth daily at bedtime 7. History of DVT; continue anticoagulation with Ahlquist 5 mg twice a day 8. Restless leg syndrome/neuropathy; Requip 0.5 mg by mouth daily at bedtime, Neurontin 300 mg 3 times a day
--- NOTE | 2022-04-30 17:17 | P.PN ---
Subjective Progress Note Date: 04/30/22 Principal diagnosis: Left leg cellulitis and athlete's foot Patient is a 62 year old male with a past medical history significant for COPD hypertension prostatitis hypothyroidism presenting to the ER for evaluation of a wound on the medial aspect of the left ankle with associated swelling or redness to the left foot and lower leg area, patient did have a superficial ulceration and cellulitis to left leg and evidence of athlete's foot. Patient did have a angiogram completed by cardiology with a significant calcified left lower extremity arterial system On today's evaluation that is 04/30/2022, the patient remains to be afebrile, the patient denies any worsening pain to the left lower extremity , the patient denies any chest pain shortness of breath or cough no abdominal pain and no diarrhea Objective - Vital Signs Vital signs: Vital Signs Temp 98.3 F 04/30/22 15:22 Pulse 144 H 04/30/22 15:22 Resp 20 04/30/22 15:22 BP 113/63 04/30/22 15:22 Pulse Ox 97 04/30/22 15:22 FiO2 Intake & Output 04/29/22 04/30/22 04/30/22 18:59 06:59 18:59 Intake Total 118 125 Output Total 400 Balance 118 -275 Intake: IV 125 Oral 118 Output: Urine 400 Other: Voiding Method Toilet Urinal # Voids 1 # Bowel Movements 1 - Exam GENERAL DESCRIPTION: Middle-aged male lying in bed in no distress RESPIRATORY SYSTEM: Unlabored breathing , decreased breath sounds at bases HEART: S1 S2 regular rate and rhythm , ABDOMEN: Soft , no tenderness EXTREMITIES: Left lower extremity ankle area swelling redness slightly decreased no drainage - Labs CBC & Chem 7: 04/30/22 06:02 04/30/22 06:02 Labs: Abnormal Lab Results - Last 24 Hours (Table) 04/30/22 04/30/22 Range/Units 06:02 06:02 WBC 10.8 H (3.8-10.6) k/uL RBC 4.22 L (4.30-5.90) m/uL Neutrophils # 8.0 H (1.3-7.7) k/uL Sodium 135 L (137-145) mmol/L Glucose 100 H (74-99) mg/dL Microbiology - Last 24 Hours (Table) 04/28/22 09:26 Gram Stain - Final Ankle - Left Wound Culture - Final Staphylococcus aureus 04/28/22 09:26 Blood Culture - Preliminary Blood No Growth after 48 hours 04/28/22 09:26 Blood Culture - Preliminary Blood No Growth after 48 hours Assessment and Plan (1) Left leg cellulitis Current Visit: Yes Status: Acute Code(s): L03.116 - CELLULITIS OF LEFT LOWER LIMB SNOMED Code(s): 489858844 (2) Athletes foot Current Visit: Yes Status: Acute Code(s): B35.3 - TINEA PEDIS SNOMED Code(s): 9972702 Plan: 1patient with left medial ankle wound started with area of dryness itching scratching related to superficial ulceration now with evidence of cellulitis lik lubna from gram-positive skin yuki patient has not been on any antibiotics recently and less risk of infection with MRSA. 2patient with a penicillin ALLERGY that would limit the number of antibiotic s afety use 3we will apply Mycolog cream to the dry irritated area twice a day 4patient also have extensive athlete's foot will apply nystatin cream twice a day 5blood culture had been negative so for local cultures grew MSSA patient seemed to have shown some clinical improvement as for his cellulitis hence we'll continue the patient on cefazolin Family the bedside questions were answered Time with Patient: Less than 30
[2022-04-30 19:44] LABS: Basophils # (A) 0.1 k/uL (0-0.2); Basophils % (A) 1 %; Eosinophils # (A) 0.1 k/uL (0-0.7); Eosinophils % (A) 1 %; HCT 39.7 % (39.0-53.0); HGB 13.5 gm/dL (13.0-17.5); Lymphocytes # (A) 1.9 k/uL (1.0-4.8); Lymphocytes % (A) 18 %; MCH 31.7 pg (25.0-35.0); MCV 93.3 fL (80.0-100.0); Mean Platelet Volume 7.6; Monocytes # (A) 0.7 k/uL (0-1.0); Monocytes % (A) 6 %; Neutrophils # (A) 7.4 k/uL (1.3-7.7); Neutrophils % (A) 72 %; Platelet Count 257 k/uL (150-450); RBC 4.25 m/uL (4.30-5.90); RDW 12.9 % (11.5-15.5); WBC 10.2 k/uL (3.8-10.6)
[2022-04-30] MEDS: ATORVASTATIN 20 MG TAB PO SCH (19:59)
[2022-04-30] MEDS: traMADol 50 MG TAB PO PRN (19:59)
[2022-04-30 20:00] LABS: Partial Thromboplastin Time 26.8 sec (22.0-30.0); Prothrombin Time 10.5 sec (9.0-12.0)
[2022-04-30] MEDS ORDERED: IPRATROPIUM-ALBUTEROL 3 ML NEB INHALATION PRN (20:47)
[2022-04-30] MEDS: HEPARIN SOD,PORK IN 0.45% NACL 25,000 UNIT in 0.45% NACL 1 250ML.BAG IV SCH (21:22)
[2022-05-01] MEDS: SODIUM CHLORIDE 0.9% 1,000 ML IV SCH ×2 (02:12→17:02)
[2022-05-01] MEDS: traMADol 50 MG TAB PO PRN ×4 (02:17→22:45)
[2022-05-01 03:43] LABS: Basophils % (A) 0 %; Eosinophils # (A) 0.1 k/uL (0-0.7); Eosinophils % (A) 1 %; HCT 37.2 % (39.0-53.0); HGB 12.5 gm/dL (13.0-17.5); Lymphocytes # (A) 1.8 k/uL (1.0-4.8); Lymphocytes % (A) 20 %; MCH 31.7 pg (25.0-35.0); MCHC 33.6 g/dL (31.0-37.0); MCV 94.3 fL (80.0-100.0); Mean Platelet Volume 8.7; Monocytes # (A) 0.5 k/uL (0-1.0); Monocytes % (A) 6 %; Neutrophils # (A) 6.4 k/uL (1.3-7.7); Neutrophils % (A) 71 %; Platelet Count 247 k/uL (150-450); RBC 3.94 m/uL (4.30-5.90); RDW 13.3 % (11.5-15.5); WBC 9.1 k/uL (3.8-10.6)
[2022-05-01 04:01] LABS: African American GFR (CKD) >90 (>60 ml/min/1.73 sqM); Anion Gap 8 mmol/L; Blood Urea Nitrogen 9 mg/dL (9-20); Calcium 8.7 mg/dL (8.4-10.2); Carbon Dioxide 24 mmol/L (22-30); Chloride 101 mmol/L (98-107); Glucose 102 mg/dL (74-99); Non-African American GFR(CKD) >90 (>60 ml/min/1.73 sqM); Potassium 4.1 mmol/L (3.5-5.1); Sodium 133 mmol/L (137-145)
[2022-05-01 04:15] LABS: Prothrombin Time 10.6 sec (9.0-12.0)
[2022-05-01 04:16] LABS: Partial Thromboplastin Time 28.3 sec (22.0-30.0)
[2022-05-01] MEDS: HYDROmorphone 1 MG/ML 1 ML SYRINGE IVP PRN ×4 (05:08→17:00)
[2022-05-01] MEDS: LEVOTHYROXINE 25 MCG TAB PO SCH (05:45)
--- NOTE | 2022-05-01 06:48 | IR ---
EXAMINATION TYPE: IR angio abdominal w runoff DATE OF EXAM: 04/30/2022 CLINICAL HISTORY: Peripheral vascular disease. TECHNIQUE: Fluoroscopy. COMPARISON: None. FINDINGS: Fluoroscopic guidance was provided during abdominal angiogram with runoff procedure perfor med by Dr. Mroataya. A total of 3.3 minutes of fluoroscopic time was utilized during the procedure and 1 96 spot images was acquired. Please refer to procedure note for further details. IMPRESSION: As Above.
[2022-05-01] MEDS: IPRATROPIUM-ALBUTEROL 3 ML NEB INHALATION SCH ×3 (08:19→20:36)
--- NOTE | 2022-05-01 08:25 | P.PN ---
Subjective Progress Note Date: 05/01/22 PROGRESS NOTE The patient is a 62-year-old male with a history of DVT, hypertension and hyperlipidemia who presented with nonhealing ulcer of the left lower extremity underwent angiography and was found to have severe obstructive disease, not amenable to percutaneous revascularization. The patient continues to have discomfort in the left lower extremity. He denies any chest discomfort or dyspnea. He denies any dizziness or palpitations. He denies any nausea. He is in sinus mechanism. Surgical consultation was placed for evaluation of his left lower extremity. He went in atrial fibrillation yesterday but he is back in sinus mechanism. Medications: IV Cardizem, IV heparin, Lipitor 20 mg daily, Zestril 20 mg daily, Synthroid, Lasix 20 mg twice a day PHYSICAL EXAMINATION: Blood pressure 129/70 heart rate 70 LUNGS: Decreased air exchange HEART: Regular rate and rhythm, S1, S2. No S3. No systolic murmur ABDOMEN: Soft, nontender, no organomegaly EXTREMETIES: +1 edema on the left, dressing in place, right groin no hematoma LAB: Potassium 4.1, BUN 9, creatinine 0.73. IMPRESSION: 1. Nonhealing ulcer in the left lower extremity with critical limb ischemia with severe obstructive disease 2. Paroxysmal atrial fibrillation, back in sinus mechanism 3. History of hypertension 4. And history of hyperlipidemia PLAN: 1. Obtain an echocardiogram with Doppler 2. Changed to oral Cardizem 3. Continue IV heparin pending decision regarding revascularization 4. Obtain an echocardiogram with Doppler 5. Depending on his progress further recommendations will be made. Objective - Vital Signs Vital signs: Vital Signs Temp 98.2 F 05/01/22 04:00 Pulse 78 05/01/22 04:00 Resp 18 05/01/22 04:00 BP 129/70 05/01/22 04:00 Pulse Ox 93 L 05/01/22 04:00 FiO2 Intake & Output 04/30/22 05/01/22 05/01/22 18:59 06:59 18:59 Intake Total 682.5 104.834 Output Total 650 550 Balance 32.5 -445.166 Intake: IV 125 30 Invasive Line 6 10 Invasive Line 7 10 Invasive Line 8 10 Intake, IV Titration 23.5 74.834 Amount Diltiazem 125 mg In 23.5 Sodium Chloride 0.9% 100 ml @ 10 MG/HR 10 mls/hr IV .[id number] [facility] Rx#: [id number] Diltiazem 125 mg In 0.167 Sodium Chloride 0.9% 100 ml @ 10 MG/HR 10 mls/hr IV .[id number] [facility] Rx#: [id number] Heparin Sod,Pork in 0.45% 74.667 NaCl 25,000 unit In 0.45 % NaCl 1 250ml.bag @ 9. 585 UNITS/KG/HR 10 mls/hr IV .Q24H [facility] Rx#: [id number] Oral 534 Output: Urine 650 550 Other: Voiding Method Toilet Toilet Urinal Urinal # Voids 1 1 - Labs CBC & Chem 7: 05/01/22 03:11 05/01/22 03:11 Labs: Abnormal Lab Results - Last 24 Hours (Table) 04/30/22 04/30/22 04/30/22 Range/Units 06:02 06:02 19:34 WBC 10.8 H (3.8-10.6) k/uL RBC 4.22 L 4.25 L (4.30-5.90) m/uL Hgb (13.0-17.5) gm/dL Hct (39.0-53.0) % Neutrophils # 8.0 H (1.3-7.7) k/uL Sodium 135 L (137-145) mmol/L Glucose 100 H (74-99) mg/dL 05/01/22 05/01/22 Range/Units 03:11 03:11 WBC (3.8-10.6) k/uL RBC 3.94 L (4.30-5.90) m/uL Hgb 12.5 L (13.0-17.5) gm/dL Hct 37.2 L (39.0-53.0) % Neutrophils # (1.3-7.7) k/uL Sodium 133 L (137-145) mmol/L Glucose 102 H (74-99) mg/dL Microbiology - Last 24 Hours (Table) 04/28/22 09:26 Gram Stain - Final Ankle - Left Wound Culture - Final Staphylococcus aureus 04/28/22 09:26 Blood Culture - Preliminary Blood No Growth after 48 hours 04/28/22 09:26 Blood Culture - Preliminary Blood No Growth after 48 hours
[2022-05-01] MEDS: FUROSEMIDE 20 MG TAB PO SCH ×2 (08:55→17:01)
[2022-05-01] MEDS: lisinopriL 20 MG TAB PO SCH (08:55)
[2022-05-01] MEDS: FAMOTIDINE 20 MG TAB PO SCH ×2 (08:55→19:48)
[2022-05-01] MEDS: DILTIAZEM ORAL 30 MG TAB PO SCH ×3 (08:55→19:48)
[2022-05-01] MEDS: GABAPENTIN 300 MG CAP PO SCH ×3 (08:55→19:48)
--- NOTE | 2022-05-01 10:06 | P.GSCN ---
History of Present Illness Consult date: 05/01/22 Reason for Consult: Peripheral arterial disease possible Requesting physician: Johan Morataya History of present illness: This is a pleasant 62-year-old male who presented to the emergency department 3 days ago with complaints of left ankle pain. Patient apparently has a wound to left ankle. He states that his leg And swelling and he was getting really itchy and he had developed a wound that was not healing. Last 2 months duration. He now complaints of severe pain in the left medial ankle. He denies any pain down his left leg or in his toes. His past medical history includes every day smoker, pack per day he states for his whole life, hypertension, COPD, and hypothyroidism. He denied any fevers or chills. Denies any shortness of breath or chest pain. He has been afebrile. On admission he had an x-ray of the ankle that showed no definite osseous abnormality. Soft tissue defect suggestive of an ulcer adjacent to the medial malleolus. Infectious disease was consulted for cellulitis and ankle wound. Dr. Morataya from cardiology was consulted for vascular evaluation. Yesterday Dr. Morataya performed abdominal aortogram with bilateral lower extremity runoff. He reports extremely calcified lower extremity arterial system, occluded left common iliac artery and left external iliac artery as well as an occluded left common femoral artery and left superficial femoral artery and critical disease involving the left popliteal. Skin her surgery was consulted for a surgical opinion for intervention for peripheral arterial disease. Review of Systems A 14 point review systems was completed all pertinent positives and negatives as stated in the HPI. Past Medical History Past Medical History: COPD, Hypertension, Osteoarthritis (OA), Thyroid Disorder Additional Past Medical History / Comment(s): DVT 01/2022, peripheral artery disease History of Any Multi-Drug Resistant Organisms: None Reported Past Surgical History: Appendectomy, Joint Replacement Additional Past Surgical History / Comment(s): ORIF LT HAND, right hip replacement, Past Anesthesia/Blood Transfusion Reactions: No Reported Reaction Past Psychological History: No Psychological Hx Reported Smoking Status: Current every day smoker - Past Family History Brother(s) Family Medical History: Cancer Medications and Allergies Home Medications Medication Instructions Recorded Confirmed Type Levothyroxine Sodium 12.5 mcg PO DAILY 10/18/18 04/28/22 History amLODIPine BESYLATE/BENAZEPRIL 1 cap PO DAILY 10/18/18 04/28/22 History [amLODIPine BESYLATE/BENAZEPRIL 5-20 MG] Ergocalciferol [Vitamin D2 (1250 1,250 mcg PO BEASLEY 04/26/22 04/28/22 History Mcg = 57573 Iu)] Furosemide [Lasix] 20 mg PO BID 04/26/22 04/28/22 History Gabapentin 300 mg PO TID 04/26/22 04/28/22 History Apixaban [Eliquis] 5 mg PO BID 04/28/22 04/28/22 History Atorvastatin [Lipitor] 20 mg PO HS 04/28/22 04/28/22 History Ipratropium/Albuter 20-100Mcg 2 puff INHALATION RT-BID 04/28/22 04/28/22 History [Combivent Respimat 20-100Mcg Inhaler] rOPINIRole HCL [Requip] 0.5 mg PO HS 04/28/22 04/28/22 History Allergies Allergy/AdvReac Type Severity Reaction Status Date / Time venom-honey bee Allergy Anaphylaxis Verified 04/28/22 11:04 Penicillins AdvReac Unknown Verified 04/28/22 11:04 Childhood Surgical - Exam Vital Signs Temp Pulse Resp BP Pulse Ox 98.4 F 86 16 182/71 94 L 04/28/22 08:53 04/28/22 08:53 04/28/22 08:53 04/28/22 08:53 04/28/22 08:53 General appearance: The patient is alert, oriented, appears in no acute distress. HET: Head is normocephalic and atraumatic. Pupils are equal and reactive. Neck: Supple without lymphadenopathy. Trachea midline. Heart: Regular. Lungs: Equal expansion, normal respiratory effort. Abdomen: Soft, nontender, nondistended. Extremities: Left lower extremity with cellulitis along the pulido, dry scaly skin, superficial ulcer of the left medial ankle. Nonpalpable pulses. Bilateral femoral and popliteal Doppler signals, no PT or DP signals bilaterally. Patient has good capillary refill bilaterally, nontender in the calves foot or toes only at the ulcer site. Patient has good sensation and range of motion of left lower extremity. Neurological: No focal deficits. Strength and sensation are grossly intact. Results - Labs 05/01/22 03:11 05/01/22 03:11 Abnormal Lab Results - Last 24 Hours (Table) 04/30/22 04/30/22 04/30/22 Range/Units 06:02 06:02 19:34 WBC 10.8 H (3.8-10.6) k/uL RBC 4.22 L 4.25 L (4.30-5.90) m/uL Hgb (13.0-17.5) gm/dL Hct (39.0-53.0) % Neutrophils # 8.0 H (1.3-7.7) k/uL Sodium 135 L (137-145) mmol/L Glucose 100 H (74-99) mg/dL 05/01/22 05/01/22 Range/Units 03:11 03:11 WBC (3.8-10.6) k/uL RBC 3.94 L (4.30-5.90) m/uL Hgb 12.5 L (13.0-17.5) gm/dL Hct 37.2 L (39.0-53.0) % Neutrophils # (1.3-7.7) k/uL Sodium 133 L (137-145) mmol/L Glucose 102 H (74-99) mg/dL Microbiology - Last 24 Hours (Table) 04/28/22 09:26 Gram Stain - Final Ankle - Left Wound Culture - Final Staphylococcus aureus 04/28/22 09:26 Blood Culture - Preliminary Blood No Growth after 48 hours 04/28/22 09:26 Blood Culture - Preliminary Blood No Growth after 48 hours Diabetes panel 04/30/22 05/01/22 Range/Units 06:02 03:11 Sodium 135 L 133 L (137-145) mmol/L Potassium 4.0 4.1 (3.5-5.1) mmol/L Chloride 104 101 (98-107) mmol/L Carbon Dioxide 22 24 (22-30) mmol/L BUN 10 9 (9-20) mg/dL Creatinine 0.76 0.73 (0.66-1.25) mg/dL Glucose 100 H 102 H (74-99) mg/dL Calcium 8.7 8.7 (8.4-10.2) mg/dL Thyroid panel 04/30/22 Range/Units 06:02 TSH 3.710 (0.465-4.680) mIU/L Calcium panel 04/30/22 05/01/22 Range/Units 06:02 03:11 Calcium 8.7 8.7 (8.4-10.2) mg/dL Pituitary panel 04/30/22 05/01/22 Range/Units 06:02 03:11 Sodium 135 L 133 L (137-145) mmol/L Potassium 4.0 4.1 (3.5-5.1) mmol/L Chloride 104 101 (98-107) mmol/L Carbon Dioxide 22 24 (22-30) mmol/L BUN 10 9 (9-20) mg/dL Creatinine 0.76 0.73 (0.66-1.25) mg/dL Glucose 100 H 102 H (74-99) mg/dL Calcium 8.7 8.7 (8.4-10.2) mg/dL TSH 3.710 (0.465-4.680) mIU/L Adrenal panel 04/30/22 05/01/22 Range/Units 06:02 03:11 Sodium 135 L 133 L (137-145) mmol/L Potassium 4.0 4.1 (3.5-5.1) mmol/L Chloride 104 101 (98-107) mmol/L Carbon Dioxide 22 24 (22-30) mmol/L BUN 10 9 (9-20) mg/dL Creatinine 0.76 0.73 (0.66-1.25) mg/dL Glucose 100 H 102 H (74-99) mg/dL Calcium 8.7 8.7 (8.4-10.2) mg/dL Assessment and Plan Assessment: 1. Occlusive disease of the left lower extremity 2. Left medial ankle ulcer 3. Left Ankle pain 4. Nicotine dependence 5. COPD 6. Hypertension Plan: 1. Continue pain management 2. Continue local wound care 3. Continue antibiotics per recommendations from infectious disease 4. Lower extremity arterial ultrasound ordered 5. Await further recommendations from vascular surgeon Thank you for this consultation, we will continue to follow. The impression and plan of care has been dictated as directed. Dr. Bliss I performed a history and examination of this patient, discussed the same with the dictator. I agree with the dictator's note ,documented as a scribe. Any additional findings or plans will be noted.
[2022-05-01] MEDS: NICOTINE 21MG/24HR PATCH TRANSDERM SCH (11:07)
[2022-05-01] MEDS: NYSTATIN 100,000UNIT/GM CREAM 30 GM TUBE TOPICAL SCH ×4 (11:08→19:50)
[2022-05-01] MEDS: TRIAMCINOLONE 0.1% CREAM 80 GM TUBE TOPICAL SCH ×2 (11:08→19:49)
--- NOTE | 2022-05-01 11:36 | P.PN ---
Subjective 62-year-old male presenting to the emergency department with concern for left ankle pain. Patient does have history of DVT diagnosed a few months ago and is on FOR this. Patient was having itching of his leg and scratching left inner ankle. Patient has developed a wound. Patient has now developed redness extending to the mid pulido. Patient states pain is fairly severe and does request pain medication. No fever. Patient does have plans to see Dr. Morataya for vascular care. Blood work completed in ED reveals a WBC of 10.2, hemoglobin of 14.9, platelet count of 297 X-ray of left ankle completed reveals soft tissue inflammation suggestive off at bedtime and also to medial malleolus; no osteomyelitis 04/30/2022 Patient is seen and evaluated in selective care unit; patient was found to be in A. 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 No other new complaints Vascular surgery been consulted and will evaluation still pending. Hemoglobin is stable and keep monitoring. Check echocardiogram pending Objective - Vital Signs Vital signs: Vital Signs Temp 98 F 05/01/22 08:00 Pulse 81 05/01/22 11:25 Resp 16 05/01/22 11:25 BP 175/88 05/01/22 11:25 Pulse Ox 91 L 05/01/22 11:25 FiO2 Intake & Output 04/30/22 05/01/22 05/01/22 18:59 06:59 18:59 Intake Total 682.5 104.834 79.3 Output Total 650 550 Balance 32.5 -445.166 79.3 Intake: IV 125 30 Invasive Line 6 10 Invasive Line 7 10 Invasive Line 8 10 Intake, IV Titration 23.5 74.834 79.3 Amount Diltiazem 125 mg In 23.5 Sodium Chloride 0.9% 100 ml @ 10 MG/HR 10 mls/hr IV .[id number] [facility] Rx#: [id number] Diltiazem 125 mg In 0.167 Sodium Chloride 0.9% 100 ml @ 10 MG/HR 10 mls/hr IV .[id number] [facility] Rx#: [id number] Heparin Sod,Pork in 0.45% 74.667 79.3 NaCl 25,000 unit In 0.45 % NaCl 1 250ml.bag @ 9. 585 UNITS/KG/HR 10 mls/hr IV .Q24H [facility] Rx#: [id number] Oral 534 Output: Urine 650 550 Other: Voiding Method Toilet Toilet Urinal Urinal # Voids 1 1 - Exam GENERAL: The patient is alert and oriented x3, not in any acute distress. Obese HEENT: Pupils are round and equally reacting to light. EOMI. No scleral icterus. No conjunctival pallor. Normocephalic, atraumatic. No pharyngeal erythema. No thyromegaly. CARDIOVASCULAR: S1 and S2 present. No murmurs, rubs, or gallops. PULMONARY: Chest is clear to auscultation, no wheezing or crackles. ABDOMEN: Soft, nontender, nondistended, normoactive bowel sounds. No palpable organomegaly. MUSCULOSKELETAL: No joint swelling or deformity. -EXTREMITIES: No cyanosis, clubbing, or pedal edema. No foot erythema NEUROLOGICAL: Gross neurological examination did not reveal any focal deficits. SKIN: No rashes. no petechiae. - Labs CBC & Chem 7: 05/01/22 03:11 05/01/22 03:11 Labs: Abnormal Lab Results - Last 24 Hours (Table) 04/30/22 04/30/22 04/30/22 Range/Units 06:02 06:02 19:34 WBC 10.8 H (3.8-10.6) k/uL RBC 4.22 L 4.25 L (4.30-5.90) m/uL Hgb (13.0-17.5) gm/dL Hct (39.0-53.0) % Neutrophils # 8.0 H (1.3-7.7) k/uL APTT (22.0-30.0) sec Sodium 135 L (137-145) mmol/L Glucose 100 H (74-99) mg/dL 05/01/22 05/01/22 05/01/22 Range/Units 03:11 03:11 10:15 WBC (3.8-10.6) k/uL RBC 3.94 L (4.30-5.90) m/uL Hgb 12.5 L (13.0-17.5) gm/dL Hct 37.2 L (39.0-53.0) % Neutrophils # (1.3-7.7) k/uL APTT 31.6 H (22.0-30.0) sec Sodium 133 L (137-145) mmol/L Glucose 102 H (74-99) mg/dL Microbiology - Last 24 Hours (Table) 04/28/22 09:26 Blood Culture - Preliminary Blood No Growth after 72 hours 04/28/22 09:26 Blood Culture - Preliminary Blood No Growth after 72 hours 04/28/22 09:26 Gram Stain - Final Ankle - Left Wound Culture - Final Staphylococcus aureus Assessment and Plan Assessment: Diagnoses: 1. Left foot ischemic changes - Cardiology and vascular surgery team on the case - continue with heparin drip 2. Cellulitis left lower extremity; currently on cefazolin 2 g IV every 8 hours; pharmacy to dose IV vancomycin 3. Hypertension; amlodipine 5 mg daily; lisinopril 20 g daily 4. Hypothyroidism; levothyroxin 12.5 MCG daily 5. COPD; not in exacerbation; continue with home inhaler therapy 6. Hyperlipidemia; Lipitor 20 mg by mouth daily at bedtime 7. History of DVT; continue anticoagulation with Ahlquist 5 mg twice a day 8. Restless leg syndrome/neuropathy; Requip 0.5 mg by mouth daily at bedtime, Neurontin 300 mg 3 times a day
--- NOTE | 2022-05-01 12:32 | P.PN ---
Subjective Progress Note Date: 05/01/22 Principal diagnosis: Left leg cellulitis and athlete's foot Patient is a 62 year old male with a past medical history significant for COPD hypertension prostatitis hypothyroidism presenting to the ER for evaluation of a wound on the medial aspect of the left ankle with associated swelling or redness to the left foot and lower leg area, patient did have a superficial ulceration and cellulitis to left leg and evidence of athlete's foot. Patient did have a angiogram completed by cardiology with a significant calcified left lower extremity arterial system On today's evaluation that is 05/01/2022, the patient continues to be afebrile, the patient still complaining of pain to the left lower extremity but no worsening, the patient denies any chest pain shortness of breath or cough no abdominal pain and no diarrhea Objective - Vital Signs Vital signs: Vital Signs Temp 98 F 05/01/22 08:00 Pulse 82 05/01/22 08:28 Resp 18 05/01/22 08:28 BP 157/78 05/01/22 08:00 Pulse Ox 92 L 05/01/22 08:00 FiO2 Intake & Output 04/30/22 05/01/22 05/01/22 18:59 06:59 18:59 Intake Total 682.5 104.834 Output Total 650 550 Balance 32.5 -445.166 Intake: IV 125 30 Invasive Line 6 10 Invasive Line 7 10 Invasive Line 8 10 Intake, IV Titration 23.5 74.834 Amount Diltiazem 125 mg In 23.5 Sodium Chloride 0.9% 100 ml @ 10 MG/HR 10 mls/hr IV .[id number] [facility] Rx#: [id number] Diltiazem 125 mg In 0.167 Sodium Chloride 0.9% 100 ml @ 10 MG/HR 10 mls/hr IV .[id number] [facility] Rx#: [id number] Heparin Sod,Pork in 0.45% 74.667 NaCl 25,000 unit In 0.45 % NaCl 1 250ml.bag @ 9. 585 UNITS/KG/HR 10 mls/hr IV .Q24H [facility] Rx#: [id number] Oral 534 Output: Urine 650 550 Other: Voiding Method Toilet Toilet Urinal Urinal # Voids 1 1 - Exam GENERAL DESCRIPTION: Middle-aged male lying in bed in no distress RESPIRATORY SYSTEM: Unlabored breathing , decreased breath sounds at bases HEART: S1 S2 regular rate and rhythm , ABDOMEN: Soft , no tenderness EXTREMITIES: Left lower extremity medial ankle wound with some slough tissue surrounding redness has improved - Labs CBC & Chem 7: 05/01/22 03:11 05/01/22 03:11 Labs: Abnormal Lab Results - Last 24 Hours (Table) 04/30/22 04/30/22 04/30/22 Range/Units 06:02 06:02 19:34 WBC 10.8 H (3.8-10.6) k/uL RBC 4.22 L 4.25 L (4.30-5.90) m/uL Hgb (13.0-17.5) gm/dL Hct (39.0-53.0) % Neutrophils # 8.0 H (1.3-7.7) k/uL Sodium 135 L (137-145) mmol/L Glucose 100 H (74-99) mg/dL 05/01/22 05/01/22 Range/Units 03:11 03:11 WBC (3.8-10.6) k/uL RBC 3.94 L (4.30-5.90) m/uL Hgb 12.5 L (13.0-17.5) gm/dL Hct 37.2 L (39.0-53.0) % Neutrophils # (1.3-7.7) k/uL Sodium 133 L (137-145) mmol/L Glucose 102 H (74-99) mg/dL Microbiology - Last 24 Hours (Table) 04/28/22 09:26 Gram Stain - Final Ankle - Left Wound Culture - Final Staphylococcus aureus 04/28/22 09:26 Blood Culture - Preliminary Blood No Growth after 48 hours 04/28/22 09:26 Blood Culture - Preliminary Blood No Growth after 48 hours Assessment and Plan (1) Left leg cellulitis Current Visit: Yes Status: Acute Code(s): L03.116 - CELLULITIS OF LEFT LOWER LIMB SNOMED Code(s): 039489252 (2) Athletes foot Current Visit: Yes Status: Acute Code(s): B35.3 - TINEA PEDIS SNOMED Code(s): 4636725 Plan: 1patient with left medial ankle wound started with area of dryness itching scratching related to superficial ulceration now with evidence of cellulitis likely from gram-positive skin yuki patient has not been on any antibiotics recently and less risk of infection with MRSA. 2patient with a penicillin ALLERGY that would limit the number of antibiotic safety use 3patient also have extensive athlete's foot will apply nystatin cream twice a day 4blood culture had been negative so for local cultures grew MSSA, for which the patient is currently covered with cefazolin and awaiting vascular intervention per vascular surgery Time with Patient: Less than 30
[2022-05-01] MEDS: ATORVASTATIN 40 MG TAB PO SCH (19:48)
[2022-05-01 20:15] LABS: Glucose,Whole Blood 119 mg/dL (70-110)
[2022-05-02 02:34] LABS: African American GFR (CKD) >90 (>60 ml/min/1.73 sqM); Anion Gap 5 mmol/L; Blood Urea Nitrogen 6 mg/dL (9-20); Calcium 8.6 mg/dL (8.4-10.2); Carbon Dioxide 25 mmol/L (22-30); Chloride 101 mmol/L (98-107); Glucose 108 mg/dL (74-99); Non-African American GFR(CKD) >90 (>60 ml/min/1.73 sqM); Potassium 3.8 mmol/L (3.5-5.1); Sodium 131 mmol/L (137-145)
[2022-05-02] MEDS: HEPARIN SOD,PORK IN 0.45% NACL 25,000 UNIT in 0.45% NACL 1 250ML.BAG IV SCH ×2 (03:37→08:24)
[2022-05-02] MEDS: LEVOTHYROXINE 25 MCG TAB PO SCH (05:19)
[2022-05-02] MEDS: traMADol 50 MG TAB PO PRN (06:05)
[2022-05-02] MEDS: IPRATROPIUM-ALBUTEROL 3 ML NEB INHALATION SCH ×3 (07:18→20:24)
[2022-05-02] MEDS ORDERED: LORazepam 2 MG/ML INJ IV PRN ×2 (07:33)
[2022-05-02] MEDS ORDERED: LORazepam 1 MG TAB PO PRN (07:33)
[2022-05-02] MEDS ORDERED: THIAMINE 100 MG/ML 2 ML VIAL IM STA (07:33)
[2022-05-02] MEDS: DILTIAZEM ORAL 30 MG TAB PO SCH ×3 (08:22→20:30)
[2022-05-02] MEDS: MULTIVITAMINS, THERA 1 EACH TAB PO SCH (08:23)
[2022-05-02] MEDS: FAMOTIDINE 20 MG TAB PO SCH ×2 (08:23→20:31)
[2022-05-02] MEDS: lisinopriL 20 MG TAB PO SCH ×2 (08:23→20:31)
[2022-05-02] MEDS: FOLIC ACID 1 MG TAB PO SCH (08:23)
[2022-05-02] MEDS: GABAPENTIN 300 MG CAP PO SCH ×3 (08:23→20:30)
[2022-05-02] MEDS: NICOTINE 21MG/24HR PATCH TRANSDERM SCH (08:23)
[2022-05-02] MEDS: FUROSEMIDE 20 MG TAB PO SCH ×2 (08:23→16:47)
[2022-05-02] MEDS: TRIAMCINOLONE 0.1% CREAM 80 GM TUBE TOPICAL SCH ×2 (08:30→20:31)
[2022-05-02] MEDS: NYSTATIN 100,000UNIT/GM CREAM 30 GM TUBE TOPICAL SCH ×4 (08:30→20:31)
[2022-05-02] MEDS: SODIUM CHLORIDE 0.9% 1,000 ML IV SCH ×2 (09:14→20:31)
--- NOTE | 2022-05-02 10:11 | P.PN ---
Subjective 62-year-old male presenting to the emergency department with concern for left ankle pain. Patient does have history of DVT diagnosed a few months ago and is on FOR this. Patient was having itching of his leg and scratching left inner ankle. Patient has developed a wound. Patient has now developed redness extending to the mid pulido. Patient states pain is fairly severe and does request pain medication. No fever. Patient does have plans to see Dr. Morataya for vascular care. Blood work completed in ED reveals a WBC of 10.2, hemoglobin of 14.9, platelet count of 297 X-ray of left ankle completed reveals soft tissue inflammation suggestive off at bedtime and also to medial malleolus; no osteomyelitis 04/30/2022 Patient is seen and evaluated in selective care unit; patient was found to be in A. fib with RVR with heart rate from 140-160 Cardiology is consulted and patient is placed on Cardizem 5 mg per hour; anticoagulation was placed on hold until after the arteriogram was completed - Patient is scheduled for arteriogram and possible intervention, later in the day - Patient remains on IV antibiotics as recommended by ID 05/01/2022 Patient with left foot ischemic changes with some pain, currently followed by entertainment usher and kept on heparin drip. No other new complaints Vascular surgery been consulted and will evaluation still pending. Hemoglobin is stable and keep monitoring. Check echocardiogram pending 05/02/2022 Patient still with left foot pain, dressing in place, the left foot is painful and draped with no warmth, he remains on heparin drip. Vital signs stable. Creatinine normal 0.7. Measurements on heparin drip Current vascular surgeon on the case and pending their next step about management plan Today I called the son Liborio up on patient request and updated him and all questions answered to his satisfaction. Also patient developed mild alcohol withdrawal symptoms, he is awake and alert but slightly anxious and tremulous, started on CIWA protocol and vitamins Objective - Vital Signs Vital signs: Vital Signs Temp 98.1 F 05/02/22 07:20 Pulse 80 05/02/22 07:32 Resp 18 05/02/22 07:20 BP 154/83 05/02/22 07:20 Pulse Ox 100 05/02/22 07:20 FiO2 Intake & Output 05/01/22 05/02/22 05/02/22 18:59 06:59 18:59 Intake Total 79.3 96.033 Output Total 900 280 Balance 79.3 -803.967 -280 Intake: Intake, IV Titration 79.3 96.033 Amount Heparin Sod,Pork in 0.45% 79.3 96.033 NaCl 25,000 unit In 0.45 % NaCl 1 250ml.bag @ 9. 585 UNITS/KG/HR 10 mls/hr IV .Q24H [facility] Rx#: [id number] Output: Urine 900 280 Other: Voiding Method Toilet Toilet Toilet Urinal Urinal Urinal # Voids 2 1 - Exam GENERAL: The patient is alert and oriented x3, not in any acute distress. Obese HEENT: Pupils are round and equally reacting to light. EOMI. No scleral icterus. No conjunctival pallor. Normocephalic, atraumatic. No pharyngeal erythema. No thyromegaly. CARDIOVASCULAR: S1 and S2 present. No murmurs, rubs, or gallops. PULMONARY: Chest is clear to auscultation, no wheezing or crackles. ABDOMEN: Soft, nontender, nondistended, normoactive bowel sounds. No palpable organomegaly. MUSCULOSKELETAL: No joint swelling or deformity. -EXTREMITIES: No cyanosis, clubbing, or pedal edema. No foot erythema NEUROLOGICAL: Gross neurological examination did not reveal any focal deficits. SKIN: No rashes. no petechiae. - Labs CBC & Chem 7: 05/01/22 03:11 05/02/22 02:00 Labs: Abnormal Lab Results - Last 24 Hours (Table) 05/01/22 05/01/22 05/01/22 Range/Units 10:15 18:37 20:13 APTT 31.6 H 38.5 H (22.0-30.0) sec Sodium (137-145) mmol/L BUN (9-20) mg/dL Glucose (74-99) mg/dL POC Glucose (mg/dL) 119 H (70-110) mg/dL 05/02/22 05/02/22 Range/Units 01:55 02:00 APTT 52.9 H (22.0-30.0) sec Sodium 131 L (137-145) mmol/L BUN 6 L (9-20) mg/dL Glucose 108 H (74-99) mg/dL POC Glucose (mg/dL) (70-110) mg/dL Microbiology - Last 24 Hours (Table) 04/28/22 09:26 Blood Culture - Preliminary Blood No Growth after 72 hours 04/28/22 09:26 Blood Culture - Preliminary Blood No Growth after 72 hours Assessment and Plan Assessment: Diagnoses: 1. Left foot ischemic changes - Cardiology and vascular surgery team on the case - continue with heparin drip 2. Cellulitis left lower extremity; currently on cefazolin 2 g IV every 8 hours; pharmacy to dose IV vancomycin 3. Hypertension; amlodipine 5 mg daily; lisinopril 20 g daily 4. Hypothyroidism; levothyroxin 12.5 MCG daily 5. COPD; not in exacerbation; continue with home inhaler therapy 6. Hyperlipidemia; Lipitor 20 mg by mouth daily at bedtime 7. History of DVT; continue anticoagulation with Ahlquist 5 mg twice a day 8. Restless leg syndrome/neuropathy; Requip 0.5 mg by mouth daily at bedtime, Neurontin 300 mg 3 times a day
[2022-05-02] MEDS: ACETAMINOPHEN TAB 325 MG TAB PO PRN ×2 (11:15→16:47)
--- NOTE | 2022-05-02 11:25 | P.PN ---
Subjective Progress Note Date: 05/02/22 Principal diagnosis: Left lower extremity wound, peripheral arterial disease Patient was seen and examined today for follow-up. He continues to have pain in his ankle at the ulcer site. He's been afebrile. Does report pain with walking in the ankle and foot. Arterial duplex was completed in March 2022 that reported SHERI 0.34 left lower extremity and 0.6 for right lower extremity. Objective - Vital Signs Vital signs: Vital Signs Temp 98.1 F 05/02/22 07:20 Pulse 80 05/02/22 07:32 Resp 18 05/02/22 07:20 BP 154/83 05/02/22 07:20 Pulse Ox 100 05/02/22 07:20 FiO2 Intake & Output 05/01/22 05/02/22 05/02/22 18:59 06:59 18:59 Intake Total 79.3 96.033 Output Total 900 280 Balance 79.3 -803.967 -280 Intake: Intake, IV Titration 79.3 96.033 Amount Heparin Sod,Pork in 0.45% 79.3 96.033 NaCl 25,000 unit In 0.45 % NaCl 1 250ml.bag @ 9. 585 UNITS/KG/HR 10 mls/hr IV .Q24H [facility] Rx#: [id number] Output: Urine 900 280 Other: Voiding Method Toilet Toilet Toilet Urinal Urinal Urinal # Voids 2 1 - Exam General appearance: The patient is alert, oriented, appears in no acute distress. HET: Head is normocephalic and atraumati Neck: Supple without lymphadenopathy. Trachea midline. Heart: Regular. Lungs: Equal expansion, normal respiratory effort. Abdomen: Soft, nontender, nondistended. Extremities: Left lower extremity with cellulitis along the pulido, dry scaly skin, superficial ulcer of the left medial ankle. Nonpalpable pulses. Bilateral femoral and popliteal Doppler signals, no PT or DP signals bilaterally. Patient has good capillary refill bilaterally, nontender in the calves, foot or toes only at the ulcer site. Patient has good sensation and range of motion of left lower extremity. Neurological: No focal deficits. Strength and sensation are grossly intact. Patient has shakes/tremors. - Labs CBC & Chem 7: 05/01/22 03:11 05/02/22 02:00 Labs: Abnormal Lab Results - Last 24 Hours (Table) 05/01/22 05/01/22 05/01/22 Range/Units 10:15 18:37 20:13 APTT 31.6 H 38.5 H (22.0-30.0) sec Sodium (137-145) mmol/L BUN (9-20) mg/dL Glucose (74-99) mg/dL POC Glucose (mg/dL) 119 H (70-110) mg/dL 05/02/22 05/02/22 Range/Units 01:55 02:00 APTT 52.9 H (22.0-30.0) sec Sodium 131 L (137-145) mmol/L BUN 6 L (9-20) mg/dL Glucose 108 H (74-99) mg/dL POC Glucose (mg/dL) (70-110) mg/dL Microbiology - Last 24 Hours (Table) 04/28/22 09:26 Blood Culture - Preliminary Blood No Growth after 72 hours 04/28/22 09:26 Blood Culture - Preliminary Blood No Growth after 72 hours Assessment and Plan Assessment: 1. Occlusive disease of the left lower extremity, chronic 2. Left medial ankle ulcer, appears venous 3. Left Ankle pain 4. Nicotine dependence 5. COPD 6. Hypertension Plan: 1. Continue pain management 2. Continue local wound care 3. Recommend outpatient follow-up with Dr. Crawford and will plan to schedule surgical intervention next week Patient is cleared from vascular surgery for discharge Thank you for this consultation, we will continue to follow. The impression and plan of care has been dictated as directed. Dr Jonas I performed a history and examination of this patient, discussed the same with the dictator. I agree with the dictator's note ,documented as a scribe. Any additional findings or plans will be noted. Reviewed angiogram with patient which demonstrates severe occlusive disease invo lving the left common iliac artery and femoral artery with reconstitution at the above knee popliteal artery. There is significant calcified disease at the popliteal artery as well. He will need a left femoral endarterectomy with extension to the external iliac artery, attempt at stenting the common iliac artery, and possible femoral to below knee bypass due to the severity of calcification at the popliteal artery. If unable to stent the common iliac artery then patient will need femoral-femoral bypass as well. This was discussed with Dr. Bliss and patient will see him in the office this week so that we can schedule the surgery as soon as possible.
--- NOTE | 2022-05-02 12:05 | P.PN ---
Subjective Progress Note Date: 05/02/22 Principal diagnosis: Left leg cellulitis and athlete's foot Patient is a 62 year old male with a past medical history significant for COPD hypertension prostatitis hypothyroidism presenting to the ER for evaluation of a wound on the medial aspect of the left ankle with associated swelling or redness to the left foot and lower leg area, patient did have a superficial ulceration and cellulitis to left leg and evidence of athlete's foot. Patient did have a angiogram completed by cardiology with a significant calcified left lower extremity arterial system On today's evaluation that is 05/02/2022, the patient remains to be afebrile, the patient denies any worsening pain to the left lower extremity, the patient denies any chest pain shortness of breath or cough no abdominal pain and no diarrhea, no new symptoms Objective - Vital Signs Vital signs: Vital Signs Temp 98.1 F 05/02/22 07:20 Pulse 80 05/02/22 07:32 Resp 18 05/02/22 07:20 BP 154/83 05/02/22 07:20 Pulse Ox 100 05/02/22 07:20 FiO2 Intake & Output 05/01/22 05/02/22 05/02/22 18:59 06:59 18:59 Intake Total 79.3 96.033 660 Output Total 900 580 Balance 79.3 -803.967 80 Intake: Intake, IV Titration 79.3 96.033 Amount Heparin Sod,Pork in 0.45% 79.3 96.033 NaCl 25,000 unit In 0.45 % NaCl 1 250ml.bag @ 9. 585 UNITS/KG/HR 10 mls/hr IV .Q24H [facility] Rx#: [id number] Oral 660 Output: Urine 900 580 Other: Voiding Method Toilet Toilet Toilet Urinal Urinal Urinal # Voids 2 1 - Exam GENERAL DESCRIPTION: Middle-aged male lying in bed in no distress RESPIRATORY SYSTEM: Unlabored breathing , decreased breath sounds at bases HEART: S1 S2 regular rate and rhythm , ABDOMEN: Soft , no tenderness EXTREMITIES: Left lower extremity medial ankle wound is currently dressed - Labs CBC & Chem 7: 05/01/22 03:11 05/02/22 02:00 Labs: Abnormal Lab Results - Last 24 Hours (Table) 05/01/22 05/01/22 05/01/22 Range/Units 10:15 18:37 20:13 APTT 31.6 H 38.5 H (22.0-30.0) sec Sodium (137-145) mmol/L BUN (9-20) mg/dL Glucose (74-99) mg/dL POC Glucose (mg/dL) 119 H (70-110) mg/dL 05/02/22 05/02/22 Range/Units 01:55 02:00 APTT 52.9 H (22.0-30.0) sec Sodium 131 L (137-145) mmol/L BUN 6 L (9-20) mg/dL Glucose 108 H (74-99) mg/dL POC Glucose (mg/dL) (70-110) mg/dL Microbiology - Last 24 Hours (Table) 04/28/22 09:26 Blood Culture - Preliminary Blood No Growth after 72 hours 04/28/22 09:26 Blood Culture - Preliminary Blood No Growth after 72 hours Assessment and Plan (1) Left leg cellulitis Current Visit: Yes Status: Acute Code(s): L03.116 - CELLULITIS OF LEFT LOWER LIMB SNOMED Code(s): 265697869 (2) Athletes foot Current Visit: Yes Status: Acute Code(s): B35.3 - TINEA PEDIS SNOMED Code(s): 1376078 Plan: 1patient with left medial ankle wound started with area of dryness itching scratching related to superficial ulceration now with evidence of cellulitis likely from gram-positive skin yuki patient has not been on any antibiotics recently and less risk of infection with MRSA. 2patient with a penicillin ALLERGY that would limit the number of antibiotic safety use 3patient also have extensive athlete's foot for the patient will continue with nystatin cream twice a day 4blood culture had been negative, the patient local cultures grew MSSA, 5- patient to continue with cefazolin and vascular intervention per vascular surgery Time with Patient: Less than 30
--- NOTE | 2022-05-02 12:19 | P.PN ---
Subjective Progress Note Date: 05/02/22 HISTORY OF PRESENT ILLNESS: 05/01/2022 The patient is a 62-year-old male with a history of DVT, hypertension and hyperlipidemia who presented with nonhealing ulcer of the left lower extremity underwent angiography and was found to have severe obstructive disease, not amenable to percutaneous revascularization. The patient continues to have discomfort in the left lower extremity. He denies any chest discomfort or dyspnea. He denies any dizziness or palpitations. He denies any nausea. He is in sinus mechanism. Surgical consultation was placed for evaluation of his left lower extremity. He went in atrial fibrillation yesterday but he is back in sinus mechanism. 05/02/2022 Patient examined this morning at the bedside. Patient denies chest pain or pressure. He denies shortness of breath. He reports she is having discomfort of his left ankle. Vascular surgery is following and is planning for surgical intervention next week. Telemetry reveals sinus mechanism. PHYSICAL EXAM: VITAL SIGNS: Reviewed. GENERAL: Well-developed in no acute distress. NECK: Supple. No JVD or thyromegaly LUNGS: Respirations even and unlabored. Lungs essentially clear to auscultation bilaterally. HEART: Regular rate and rhythm. S1 and S2 heard. EXTREMITIES: Normal range of motion. No clubbing or cyanosis. Patient with erythema and mild edema on the left lower side. Dressing present. ASSESSMENT: Nonhealing ulcer in left lower extremity with critical limb ischemia with severe obstructive disease Paroxysmal atrial fibrillation Hypertension Hyperlipidemia History of DVT PLAN: Discontinue IV heparin. Resume Eliquis. Continue current cardiac medications Patient to undergo Lexiscan stress test in the morning. NPO at midnight Likely discharge home tomorrow Follow up scheduled with Dr. Morataya on 03/05/2023 at 1145 Nurse practitioner note has been reviewed by physician. Signing provider agrees with the documented findings, assessment, and plan of care. Objective - Vital Signs Vital signs: Vital Signs Temp 99.3 F 05/02/22 11:37 Pulse 80 05/02/22 11:37 Resp 16 05/02/22 11:37 BP 121/71 05/02/22 11:37 Pulse Ox 91 L 05/02/22 11:37 FiO2 Intake & Output 05/01/22 05/02/22 05/02/22 18:59 06:59 18:59 Intake Total 79.3 96.033 660 Output Total 900 580 Balance 79.3 -803.967 80 Intake: Intake, IV Titration 79.3 96.033 Amount Heparin Sod,Pork in 0.45% 79.3 96.033 NaCl 25,000 unit In 0.45 % NaCl 1 250ml.bag @ 9. 585 UNITS/KG/HR 10 mls/hr IV .Q24H [facility] Rx#: [id number] Oral 660 Output: Urine 900 580 Other: Voiding Method Toilet Toilet Toilet Urinal Urinal Urinal # Voids 2 1 - Labs CBC & Chem 7: 05/01/22 03:11 05/02/22 02:00 Labs: Abnormal Lab Results - Last 24 Hours (Table) 05/01/22 05/01/22 05/02/22 Range/Units 18:37 20:13 01:55 APTT 38.5 H 52.9 H (22.0-30.0) sec Sodium (137-145) mmol/L BUN (9-20) mg/dL Glucose (74-99) mg/dL POC Glucose (mg/dL) 119 H (70-110) mg/dL 05/02/22 Range/Units 02:00 APTT (22.0-30.0) sec Sodium 131 L (137-145) mmol/L BUN 6 L (9-20) mg/dL Glucose 108 H (74-99) mg/dL POC Glucose (mg/dL) (70-110) mg/dL Microbiology - Last 24 Hours (Table) 04/28/22 09:26 Blood Culture - Preliminary Blood No Growth after 96 hours 04/28/22 09:26 Blood Culture - Preliminary Blood No Growth after 96 hours
[2022-05-02] MEDS: APIXABAN 5 MG TAB PO SCH ×2 (12:41→20:31)
--- NOTE | 2022-05-02 17:40 | CA ---
Transthoracic Echo Report Name: Bernard Dudley Age: 62 Gender: M : 1960 Exam Date: 05/02/2022 13:53 Exam Location: [place] [facility] Ht (in): 66 Wt (lb): 230 Ordering Physician: Fabiola Young MD ([id number]) Attending/Referring Phys: Bat Person Raghav Martin RDCS Procedure CPT: Indications: atrial fibrillation Cardiac Hx: Technical Quality: Fair Contrast 1: Total Dose (mL): Contrast 2: Total Dose (mL): MEASUREMENTS (Male / Female) Normal Values 2D ECHO LV Diastolic Diameter PLAX 3.9 cm 4.2 - 5.9 / 3.9 - 5.3 cm LV Systolic Diameter PLAX 2.9 cm IVS Diastolic Thickness 1.9 cm 0.6 - 1.0 / 0.6 - 0.9 cm LVPW Diastolic Thickness 1.6 cm 0.6 - 1.0 / 0.6 - 0.9 cm LV Relative Wall Thickness 0.9 RV Internal Dim ED PLAX 2.8 cm M-MODE Aortic Root Diameter MM 3.5 cm LA Systolic Diameter MM 4.5 cm LA Ao Ratio MM 1.3 MV E Point Septal Separation 0.4 cm AV Cusp Separation MM 2.2 cm DOPPLER AV Peak Velocity 174.9 cm/s AV Peak Gradient 12.2 mmHg AI Peak Velocity 335.5 cm/s AI Peak Gradient 45.0 mmHg AI Pressure Half Time 670.0 ms LVOT Peak Velocity 132.0 cm/s LVOT Peak Gradient 7.0 mmHg MV Area PHT 2.9 cm??? MR Peak Velocity 465.8 cm/s MR Peak Gradient 86.8 mmHg Mitral E Point Velocity 68.3 cm/s Mitral A Point Velocity 95.7 cm/s Mitral E to A Ratio 0.7 MV Deceleration Time 259.3 ms TR Peak Velocity 272.6 cm/s TR Peak Gradient 29.7 mmHg PV Peak Velocity 82.4 cm/s PV Peak Gradient 2.7 mmHg FINDINGS Left Ventricle Severely increased septal wall thickness. Left ventricular ejection fraction is estimated at 55-60%. Right Ventricle Normal right ventricular size and function. Right Atrium Normal right atrial size. Left Atrium Mild left atrial dilatation. Mitral Valve Mild mitral regurgitation. Aortic Valve Trileaflet aortic valve. mild to Moderate aortic regurgitation. Tricuspid Valve Mild tricuspid regurgitation. Pulmonic Valve Pulmonic valve not well visualized. Pericardium No pericardial or pleural effusion. Aorta Ascending aorta aneurysm measuring at 4.0cm. Abdominal aorta measuring at 3.0cm. CONCLUSIONS Left ventricular systolic function is normal Mild mitral regurgitation Mild to moderate mitral regurgitation Aneurysmal dilatation of the ascending aorta Previewed by: Dr. Shakeel Lazar MD (Electronically Signed) Final Date: 02 May 2022 17:39
[2022-05-02] MEDS: ATORVASTATIN 40 MG TAB PO SCH (20:31)
[2022-05-03] MEDS: ACETAMINOPHEN TAB 325 MG TAB PO PRN (05:11)
[2022-05-03] MEDS: LEVOTHYROXINE 25 MCG TAB PO SCH (05:12)
[2022-05-03] MEDS ORDERED: REGADENOSON 0.4 MG/5 ML SYRINGE IV PRN (06:00)
[2022-05-03] MEDS: IPRATROPIUM-ALBUTEROL 3 ML NEB INHALATION SCH ×2 (07:30→11:10)
[2022-05-03] MEDS ORDERED: CAFFEINE CITRATE 60 MG/3 ML VIAL IV PRN (08:00)
[2022-05-03] MEDS ORDERED: AMINOPHYLLINE 500 MG/20 ML VIAL IV PRN (08:00)
[2022-05-03] MEDS: NICOTINE 21MG/24HR PATCH TRANSDERM SCH (08:47)
[2022-05-03] MEDS: HYDROmorphone 1 MG/ML 1 ML SYRINGE IVP PRN ×2 (08:47→11:56)
[2022-05-03] MEDS: lisinopriL 20 MG TAB PO SCH (08:48)
[2022-05-03] MEDS: FUROSEMIDE 20 MG TAB PO SCH (08:48)
[2022-05-03] MEDS: FOLIC ACID 1 MG TAB PO SCH (08:48)
[2022-05-03] MEDS: DILTIAZEM ORAL 30 MG TAB PO SCH (08:48)
[2022-05-03] MEDS: FAMOTIDINE 20 MG TAB PO SCH (08:48)
[2022-05-03] MEDS: MULTIVITAMINS, THERA 1 EACH TAB PO SCH (08:48)
[2022-05-03] MEDS: GABAPENTIN 300 MG CAP PO SCH (08:48)
[2022-05-03] MEDS: APIXABAN 5 MG TAB PO SCH (08:48)
[2022-05-03] MEDS: NYSTATIN 100,000UNIT/GM CREAM 30 GM TUBE TOPICAL SCH ×2 (08:52)
[2022-05-03] MEDS: TRIAMCINOLONE 0.1% CREAM 80 GM TUBE TOPICAL SCH (08:52)
[2022-05-03 08:53] LABS: African American GFR (CKD) >90 (>60 ml/min/1.73 sqM); Anion Gap 4 mmol/L; Blood Urea Nitrogen 8 mg/dL (9-20); Calcium 9.1 mg/dL (8.4-10.2); Carbon Dioxide 27 mmol/L (22-30); Chloride 103 mmol/L (98-107); Glucose 95 mg/dL (74-99); Non-African American GFR(CKD) >90 (>60 ml/min/1.73 sqM); Potassium 4.5 mmol/L (3.5-5.1); Sodium 134 mmol/L (137-145)
[2022-05-03 08:59] VITALS: TEMP 98
[2022-05-03] MEDS ORDERED: THIAMINE 100 MG TAB PO SCH (09:00)
[2022-05-03] MEDS ORDERED: THIAMINE 100 MG/ML 2 ML VIAL IVP SCH (09:00)
--- NOTE | 2022-05-03 11:08 | CA ---
Lexiscan Nuclear Stress Test Report Name: Bernard Dudley Exam Date: 05/03/2022 09:30 Exam Location: [place] Stress Ht (in): 66 Wt (lb): 230 BSA: 2.12 Ordering Phys: Fatimah Oliva Referring Phys: Halima,, Technologist: ANNETTE,, Age: 62 Gender: M : 1960 Procedure CPT: Indications: Reflex order-Stress test ICD-10 Codes: Patient History: Chest pain and hypertension Medications: Meds past 24 hrs: Pretest Chest Pain: STRESS TEST Lexiscan Protocol Exercise Duration (min:sec): 02:[address] Depressions (mm): Angina Score: Zepeda Score: Resting HR (bpm): 68 Peak HR (bpm): 83 Resting BP (mmHg): 130 / 72 Peak BP (mmHg): 143 / 75 MPHR: 158 Target HR: 134 % MPHR: 53 METS: 1.0 Total Dose: Peak Dose: Atropine: Double Product: 85183 BP Response: Stress Termination: infusion complete Stress Symptoms: No chest pain or symptoms Stress Summary: ECG ANALYSIS Resting ECG: Normal sinus rhythm normal axis normal intervals Stress ECG: Patient was given intravenous Lexiscan as a protocol did not have chest pain or diagnostic ST segment depression CONCLUSIONS Negative stress test by EKG criteria Cardiolite portion of the stress test will be reported separately Dr. Shakeel Lazar MD (Electronically Signed) Final Date: 03 May 2022 11:08
--- NOTE | 2022-05-03 11:23 | P.PN ---
Subjective Progress Note Date: 05/03/22 HISTORY OF PRESENT ILLNESS: 05/01/2022 The patient is a 62-year-old male with a history of DVT, hypertension and hyperlipidemia who presented with nonhealing ulcer of the left lower extremity underwent angiography and was found to have severe obstructive disease, not amenable to percutaneous revascularization. The patient continues to have discomfort in the left lower extremity. He denies any chest discomfort or dyspnea. He denies any dizziness or palpitations. He denies any nausea. He is in sinus mechanism. Surgical consultation was placed for evaluation of his left lower extremity. He went in atrial fibrillation yesterday but he is back in sinus mechanism. 05/02/2022 Patient examined this morning at the bedside. Patient denies chest pain or pressure. He denies shortness of breath. He reports she is having discomfort of his left ankle. Vascular surgery is following and is planning for surgical intervention next week. Telemetry reveals sinus mechanism. 05/03/2022 Patient examined this morning to bedside. Patient denies chest pain or pressure. He denies shortness of breath. Vital signs are stable. Patient underwent Lexiscan stress test this morning. Results are currently pending. PHYSICAL EXAM: VITAL SIGNS: Reviewed. GENERAL: Well-developed in no acute distress. NECK: Supple. No JVD or thyromegaly LUNGS: Respirations even and unlabored. Lungs essentially clear to auscultation bilaterally. HEART: Regular rate and rhythm. S1 and S2 heard. EXTREMITIES: Normal range of motion. No clubbing or cyanosis. Patient with erythema and mild edema on the left lower side. Dressing present. ASSESSMENT: Nonhealing ulcer in left lower extremity with critical limb ischemia with severe obstructive disease Paroxysmal atrial fibrillation Hypertension Hyperlipidemia History of DVT PLAN: Continue current cardiac medications Await results of Lexiscan stress test. If negative, the patient may be discharged home today from a cardiac standpoint Follow up scheduled with Dr. Morataya on 03/05/2023 at 1145 Nurse practitioner note has been reviewed by physician. Signing provider agrees with the documented findings, assessment, and plan of care. Objective - Vital Signs Vital signs: Vital Signs Temp 98.0 F 05/03/22 08:00 Pulse 80 05/03/22 11:10 Resp 18 05/03/22 08:00 BP 134/75 05/03/22 08:00 Pulse Ox 90 L 05/03/22 08:00 FiO2 Intake & Output 05/02/22 05/03/22 05/03/22 18:59 06:59 18:59 Intake Total 660 Output Total 580 300 Balance 80 -300 Intake: Oral 660 Output: Urine 580 300 Other: Voiding Method Toilet Toilet Toilet Urinal Urinal Urinal # Voids 2 2 - Labs CBC & Chem 7: 05/01/22 03:11 05/03/22 07:42 Labs: Abnormal Lab Results - Last 24 Hours (Table) 05/03/22 Range/Units 07:42 Sodium 134 L (137-145) mmol/L BUN 8 L (9-20) mg/dL Microbiology - Last 24 Hours (Table) 04/28/22 09:26 Blood Culture - Preliminary Blood No Growth after 96 hours 04/28/22 09:26 Blood Culture - Preliminary Blood No Growth after 96 hours
[2022-05-03] MEDS: SODIUM CHLORIDE 0.9% 1,000 ML IV SCH (11:27)
[2022-05-03 12:26] VITALS: BP 129/76; PULSE 83; RESP 20
--- NOTE | 2022-05-03 12:59 | NM ---
EXAMINATION TYPE: NM stress lexiscan cardiolite DATE OF EXAM: 05/03/2022 COMPARISON: None HISTORY: Chest pain TECHNIQUE: After the intravenous administration of 10.17 mCi Tc 99m Sestamibi - Cardiolite resting S PECT images acquired 70 minutes post injection. At peak stress 24.8 mCi Tc 99m Sestamibi - Stress images obtained 35 minutes post injection The patient was stressed with 0.4mg Lexiscan. FINDINGS: Color maps suggest a reversible defect along the distal lateral wall. This area was not leny ntified on the SPECT imaging May BE artifact. Correlate for any EKG changes Wall motion is normal Ejection fraction is calculated to be 40 % which is low, normal greater than 50%. IMPRESSION: 1. No definite stress-induced ischemic changes. Abnormality identified by polar maps may be artifact. Correlate for EKG changes lateral wall
[2022-05-03 13:14] VITALS: BMI 37.1
--- NOTE | 2022-05-03 16:15 | P.PN ---
Subjective Progress Note Date: 05/03/22 Principal diagnosis: Left leg cellulitis and athlete's foot Patient is a 62 year old male with a past medical history significant for COPD hypertension prostatitis hypothyroidism presenting to the ER for evaluation of a wound on the medial aspect of the left ankle with associated swelling or redness to the left foot and lower leg area, patient did have a superficial ulceration and cellulitis to left leg and evidence of athlete's foot. Patient did have a angiogram completed by cardiology with a significant calcified left lower extremity arterial system On today's evaluation that is 05/03/2022, the patient continues to be afebrile, the patient pain to the left lower extremity is currently controlled, the patient denies any chest pain shortness of breath or cough no abdominal pain and no diarrhea, patient scheduled for stress test this morning Objective - Vital Signs Vital signs: Vital Signs Temp 98.0 F 05/03/22 08:00 Pulse 76 05/03/22 08:00 Resp 18 05/03/22 08:00 BP 134/75 05/03/22 08:00 Pulse Ox 90 L 05/03/22 08:00 FiO2 Intake & Output 05/02/22 05/03/22 05/03/22 18:59 06:59 18:59 Intake Total 660 Output Total 580 300 Balance 80 -300 Intake: Oral 660 Output: Urine 580 300 Other: Voiding Method Toilet Toilet Toilet Urinal Urinal Urinal # Voids 2 2 - Exam GENERAL DESCRIPTION: Middle-aged male lying in bed in no distress RESPIRATORY SYSTEM: Unlabored breathing , decreased breath sounds at bases HEART: S1 S2 regular rate and rhythm , ABDOMEN: Soft , no tenderness EXTREMITIES: Left lower extremity medial ankle wound is currently dressed - Labs CBC & Chem 7: 05/01/22 03:11 05/03/22 07:42 Labs: Abnormal Lab Results - Last 24 Hours (Table) 05/03/22 Range/Units 07:42 Sodium 134 L (137-145) mmol/L BUN 8 L (9-20) mg/dL Microbiology - Last 24 Hours (Table) 04/28/22 09:26 Blood Culture - Preliminary Blood No Growth after 96 hours 04/28/22 09:26 Blood Culture - Preliminary Blood No Growth after 96 hours Assessment and Plan (1) Left leg cellulitis Status: Acute Code(s): L03.116 - CELLULITIS OF LEFT LOWER LIMB SNOMED Code(s): 794648212 (2) Athletes foot Status: Acute Code(s): B35.3 - TINEA PEDIS SNOMED Code(s): 7119930 Plan: 1patient with left medial ankle wound started with area of dryness itching scratching related to superficial ulceration now with evidence of cellulitis likely from gram-positive skin yuki 2patient with a penicillin ALLERGY that would limit the number of antibiotic safety use 3patient also have extensive athlete's foot for the patient will continue with nystatin cream twice a day 4blood culture had been negative, the patient local cultures grew MSSA, 5- patient has shown clinical improvement on cefazolin plan will be to finish therapy with oral Keflex and close outpatient follow-up
--- NOTE | 2022-05-04 00:49 | P.DS ---
Providers Date of admission: 04/28/22 10:42 Attending physician: Edgar Escobar MD Consults: 04/28/22 10:40 Consult Physician Routine Consulting Provider: Ceferino Shah Consult Reason/Comments: ankle ulcer, cellulitis Do you want consulting provider notified?: Yes Consult Physician Routine Consulting Provider: Johan Morataya Consult Reason/Comments: vascular eval and tx Do you want consulting provider notified?: Yes 05/01/22 06:25 Consult Physician Urgent Consulting Provider: Ted Jonas Consult Reason/Comments: PAD possible Do you want consulting provider notified?: Yes, Notify in am Primary care physician: [facility] [place]: Diagnoses: 1. Left foot ischemic changes, cleared for discharge by Cardiology and vascular surgery team on the case , follow-up on 05/04/2029 2. Cellulitis left lower extremity; improving 3. Hypertension; 4. Hypothyroidism; 5. COPD; not in exacerbation; 6. Hyperlipidemia; 7. History of DVT; 8. Restless leg syndrome/neuropathy; Hospital course: 62-year-old male presenting to the emergency department with concern for left ankle pain. Patient does have history of DVT diagnosed a few months ago and is on anticoagulation FOR this. Patient presents with cellulitis of the left foot with ischemic changes, evaluated by cardiology and vascular surgery team, CT with contrast showing peripheral artery disease with occluded left common iliac and left external iliac and other lower extremity arteries, patient has no stigmata of critical ischemia, vascular surgery evaluated the patient admitted him for discharge and follow-up tomorrow as an outpatient with the office for further management. Also patient was treated with IV cefazolin, ID team the case, a prescription for discharge on Keflex short oral antibiotic course. Cardiology team today recommended stress test which came back negative for ischemic changes and hence they cleared him for discharge as well. The patient awake and alert, denies chest pain or dyspnea. Actually his left foot looks this recipient today compared to last 2 days per My evaluation. Patient has Eliquis at home and he confirms this to me. Patient was cleared for discharge by cardiology and vascular surgery team and patient is willing to be going home today. Patient denies any other new symptoms. Problems and management plan were discussed with the patient and he verbalized understanding and acceptance Patient was found stable and can be discharged home in guarded prognosis however he needs follow-up as an outpatient. Patient was instructed to follow up with PCP Dr. goodwin one week and patient agrees Patient is aware of his appointment with vascular surgeon Dr. Crawford tomorrow 05/04 and with instructor product inspection Dr. Zhou on 05/05 and he told me he is willing to follow up Physical exam Gen: patient is a AAOx3, no distress CVS: S1-S2, RRR, no murmur Lungs: B/L CTA, no wheezing Abdomen: soft, no distention, no tenderness, positive bowel sounds -Extremity: no leg edema or induration. Left foot less erythematous Time spent more than 35 minutes Plan - Discharge Summary Discharge Rx Participant: Yes New Discharge Prescriptions: New Folic Acid 1 mg PO DAILY #30 tab Multivitamins, Thera [Multivitamin (formulary)] 1 each PO DAILY #30 tab Famotidine [Pepcid] 20 mg PO BID #60 tab Acetaminophen Tab [Tylenol] 650 mg PO Q6HR PRN #20 tab PRN Reason: Mild Pain Or Fever > 100.5 Cephalexin [Keflex] 500 mg PO Q6HR 10 Days #40 cap Diltiazem Oral [Cardizem*] 30 mg PO TID #90 tab Nicotine 21Mg/24Hr Patch [Habitrol] 1 patch TRANSDERM DAILY #3 patch Atorvastatin [Lipitor] 40 mg PO HS #30 tab traMADol HCl [Ultram] 50 mg PO Q6H PRN #10 tab PRN Reason: Moderate Pain (Scale 4 To 6) Thiamine [Vitamin B-1] 100 mg PO DAILY #30 tablet lisinopriL [Zestril] 20 mg PO BID #60 tab Continue Levothyroxine Sodium 12.5 mcg PO DAILY Apixaban [Eliquis] 5 mg PO BID rOPINIRole HCL [Requip] 0.5 mg PO HS Furosemide [Lasix] 20 mg PO BID Gabapentin 300 mg PO TID Ergocalciferol [Vitamin D2 (1250 Mcg = 77652 Iu)] 1,250 mcg PO BEASLEY Ipratropium/Albuter 20-100Mcg [Combivent Respimat 20-100Mcg Inhaler] 2 puff INHALATION RT-BID Discontinued amLODIPine BESYLATE/BENAZEPRIL [amLODIPine BESYLATE/BENAZEPRIL 5-20 MG] 1 cap PO DAILY Atorvastatin [Lipitor] 20 mg PO HS Discharge Medication List Levothyroxine Sodium 12.5 mcg PO DAILY 10/18/18 [History] Ergocalciferol [Vitamin D2 (1250 Mcg = 22546 Iu)] 1,250 mcg PO BEASLEY 04/26/22 [History] Furosemide [Lasix] 20 mg PO BID 04/26/22 [History] Gabapentin 300 mg PO TID 04/26/22 [History] Apixaban [Eliquis] 5 mg PO BID 04/28/22 [History] Ipratropium/Albuter 20-100Mcg [Combivent Respimat 20-100Mcg Inhaler] 2 puff INHALATION RT-BID 04/28/22 [History] rOPINIRole HCL [Requip] 0.5 mg PO HS 04/28/22 [History] Acetaminophen Tab [Tylenol] 650 mg PO Q6HR PRN #20 tab 05/03/22 [Rx] Atorvastatin [Lipitor] 40 mg PO HS #30 tab 05/03/22 [Rx] Cephalexin [Keflex] 500 mg PO Q6HR 10 Days #40 cap 05/03/22 [Rx] Diltiazem Oral [Cardizem*] 30 mg PO TID #90 tab 05/03/22 [Rx] Famotidine [Pepcid] 20 mg PO BID #60 tab 05/03/22 [Rx] Folic Acid 1 mg PO DAILY #30 tab 05/03/22 [Rx] Multivitamins, Thera [Multivitamin (formulary)] 1 each PO DAILY #30 tab 05/03/22 [Rx] Nicotine 21Mg/24Hr Patch [Habitrol] 1 patch TRANSDERM DAILY #3 patch 05/03/22 [Rx] Thiamine [Vitamin B-1] 100 mg PO DAILY #30 tablet 05/03/22 [Rx] lisinopriL [Zestril] 20 mg PO BID #60 tab 05/03/22 [Rx] traMADol HCl [Ultram] 50 mg PO Q6H PRN #10 tab 05/03/22 [Rx] Follow up Appointment(s)/Referral(s): Johan Morataya MD [STAFF PHYSICIAN] - 05/05/22 11:45 am Alejandro Bliss DO [Doctor of Osteopathic Medicine] - 05/04/22 11:30 am Dionne Herrera MD [Primary Care Provider] - 05/11/22 11:15 am [facility] Visiting Nurse, [NON-STAFF] - Patient Instructions/Handouts: How to Stop Smoking (DC), Cellulitis (ED), Peripheral Artery Disease (DC) Discharge/Stand Alone Forms: AA Meetings [place], Who Do I Call?, Community Resources, Outpatient Counseling Discharge Disposition: HOME SELF-CARE
== END 2022-05-03 15:53 | disposition home or self-care (01) | DRG 300 ==
LOC: EC 08:48 → 5NMEDONC 10:42 → 4SSUR 11:18 → 3SCARD 04-30 10:53
PROVIDERS: ADMIT Internal Medicine; ATTEND Internal Medicine
PROC: B41D1ZZ Fluoroscopy of Aorta and Bilateral Lower Extremity Arteries using Low Osmolar Contrast (ICD-10-PCS; principal; 2022-04-30 12:00)
DX: I70.245 Atherosclerosis of native arteries of left leg with ulceration of other part of foot (principal); L03.116 Cellulitis of left lower limb; L97.329 Non-pressure chronic ulcer of left ankle with unspecified severity; I70.243 Atherosclerosis of native arteries of left leg with ulceration of ankle; F17.210 Nicotine dependence, cigarettes, uncomplicated; E78.5 Hyperlipidemia, unspecified; G25.81 Restless legs syndrome; G62.9 Polyneuropathy, unspecified; I10 Essential (primary) hypertension; I48.0 Paroxysmal atrial fibrillation; J44.9 Chronic obstructive pulmonary disease, unspecified; M19.90 Unspecified osteoarthritis, unspecified site; Z71.3 Dietary counseling and surveillance; Z28.311 Partially vaccinated for COVID-19; Z28.21 Immunization not carried out because of patient refusal; Z86.718 Personal history of other venous thrombosis and embolism; Z79.01 Long term (current) use of anticoagulants; Z88.0 Allergy status to penicillin; L97.529 Non-pressure chronic ulcer of other part of left foot with unspecified severity; Z79.890 Hormone replacement therapy; Z79.899 Other long term (current) drug therapy; Z96.641 Presence of right artificial hip joint
CPT/HCPCS: 36200; 36415; 75625; 75716; 76937; 78452; 80048; 80053; 82565; 83605; 83735; 84145; 84443; 85025; 85610; 85730; 86140; 87040; 87070; 87077; 87186; 87205; 93017; 93306; 94640; 94760; 96365; 96367; 96375; 99285

== ENCOUNTER → 2022-05-19 | Outpatient (CLI) | payer OTHER ==
[2022-05-19 14:00] LABS: Partial Thromboplastin Time 27.5 sec (22.0-30.0); Prothrombin Time 10.3 sec (9.0-12.0)
== END | disposition home or self-care (01) ==
LOC: LABPAT 11:34
PROVIDERS: ATTEND Surgery
DX: Z01.812 Encounter for preprocedural laboratory examination (principal); I74.5 Embolism and thrombosis of iliac artery; Z79.01 Long term (current) use of anticoagulants
CPT/HCPCS: 36415; 85610; 85730

== ENCOUNTER 2022-06-29 12:28 | Emergency (ER) | payer OTHER ==
--- NOTE | 2022-06-29 12:55 | ED ---
General Adult HPI - General Chief complaint: Extremity Problem,Nontraumatic Stated complaint: bilat leg swelling Time Seen by Provider: 06/29/22 12:34 Source: patient, family, RN notes reviewed Mode of arrival: wheelchair Limitations: no limitations - History of Present Illness Initial comments: Patient is a pleasant 62-year-old male presenting to the emergency department with concerns for leg swelling. Patient did have recent bypass surgery left leg . Patient did see his vascular surgeon today who did evaluate it and did not have any concerns. Patient also saw his primary care physician following this. They did have some concerns regarding some redness and swelling to the right leg as well as a temperature of 99.7. Patient denies any chest pain. No dyspnea. Patient feels both his legs are little bit swollen. Patient states the discomfo rt is the right leg and diffuse below the knee. - Related Data Home Medications Medication Instructions Recorded Confirmed Levothyroxine Sodium 12.5 mcg PO QAM 10/18/18 05/22/22 Ergocalciferol [Vitamin D2 (1250 1,250 mcg PO BEASLEY 04/26/22 05/22/22 Mcg = 62937 Iu)] Furosemide [Lasix] 20 mg PO DAILY 04/26/22 05/22/22 Apixaban [Eliquis] 5 mg PO BID 04/28/22 05/22/22 Ipratropium/Albuter 20-100Mcg 2 puff INHALATION RT-BID PRN 04/28/22 05/22/22 [Combivent Respimat 20-100Mcg Inhaler] rOPINIRole HCL [Requip] 0.5 mg PO HS 04/28/22 05/22/22 Hydrocortisone [Cortisone 10%] 1 applic TOPICAL DAILY 05/19/22 05/19/22 Previous Rx's Medication Instructions Recorded Acetaminophen Tab [Tylenol] 650 mg PO Q6HR PRN #20 tab 05/03/22 Atorvastatin [Lipitor] 40 mg PO HS #30 tab 05/03/22 Diltiazem Oral [Cardizem*] 30 mg PO TID #90 tab 05/03/22 Famotidine [Pepcid] 20 mg PO BID #60 tab 05/03/22 Folic Acid 1 mg PO DAILY #30 tab 05/03/22 Multivitamins, Thera [Multivitamin 1 each PO DAILY #30 tab 05/03/22 (formulary)] Thiamine [Vitamin B-1] 100 mg PO DAILY #30 tablet 05/03/22 lisinopriL [Zestril] 20 mg PO BID #60 tab 05/03/22 Aspirin 81 mg PO DAILY tab 05/24/22 Gabapentin 300 mg PO TID #9 cap 05/24/22 HYDROcodone/APAP 5-325MG [[place] 1 each PO Q4HR PRN 3 Days #18 tab 05/24/22 5-325] traMADol HCl [Ultram] 50 mg PO Q6H PRN #10 tab 05/24/22 traMADol HCl [Ultram] 50 mg PO Q6H PRN 3 Days #12 tab 05/24/22 Furosemide [Lasix] 40 mg PO DAILY 7 Days #7 tablet 05/25/22 Cephalexin [Keflex] 500 mg PO QID #40 cap 06/29/22 Allergies Allergy/AdvReac Type Severity Reaction Status Date / Time venom-honey bee Allergy Anaphylaxis Verified 05/22/22 06:10 adhesive tape AdvReac skin Verified 05/22/22 06:10 irritation Penicillins AdvReac Unknown Verified 05/22/22 06:10 Childhood Review of Systems ROS Statement: Those systems with pertinent positive or pertinent negative responses have been documented in the HPI. ROS Other: All systems not noted in ROS Statement are negative. Constitutional: Reports: as per HPI Eyes: Denies: eye pain ENT: Denies: ear pain Respiratory: Denies: cough, dyspnea Cardiovascular: Denies: chest pain Endocrine: Denies: fatigue Gastrointestinal: Denies: abdominal pain Genitourinary: Denies: dysuria Musculoskeletal: Denies: back pain Skin: Reports: as per HPI, rash Past Medical History Past Medical History: Atrial Fibrillation, COPD, Hypertension, Osteoarthritis (OA), Thyroid Disorder, Vascular Disorder Additional Past Medical History / Comment(s): cellulitis left leg-improved, DVT 01/2022, peripheral artery disease History of Any Multi-Drug Resistant Organisms: None Reported Past Surgical History: Appendectomy, Joint Replacement Additional Past Surgical History / Comment(s): LT HAND, right hip replacement Past Anesthesia/Blood Transfusion Reactions: No Reported Reaction Additional Past Anesthesia/Blood Transfusion Reaction / Comment(s): no hx blood transfusion Past Psychological History: Anxiety, Depression Smoking Status: Current every day smoker - Past Family History Brother(s) Family Medical History: Cancer General Exam Limitations: no limitations General appearance: alert, in no apparent distress Head exam: Present: normocephalic Eye exam: Present: normal appearance ENT exam: Present: normal oropharynx Neck exam: Present: normal inspection Respiratory exam: Present: normal lung sounds bilaterally. Absent: respiratory distress, rales Cardiovascular Exam: Present: regular rate, normal rhythm Expanded Peripheral pulses: 1+: Posterior Tibialis (R), Posterior Tibialis (L), Dorsalis Pedis (R), Dorsalis Pedis (L) GI/Abdominal exam: Present: soft. Absent: tenderness Extremities exam: Present: tenderness (Right anterior and posterior lower leg), pedal edema (+3 bilateral) Neurological exam: Present: alert Psychiatric exam: Present: normal affect, normal mood Skin exam: Present: erythema (Mild erythema anterior right lower leg) Course Vital Signs 06/29/22 12:30 Temperature 98.3 F Pulse Rate 80 Respiratory 16 Rate Blood Pressure 133/73 O2 Sat by Pulse 97 Oximetry Medical Decision Making - Medical Decision Making Was pt. sent in by a medical professional or institution (SIENA Crump, STOCK BROK[employer] SUPERVISOR, urgent care, hospital, or snf...) When possible be specific @ -Patient was sent by primary care physician Did you speak to anyone other than the patient for history (EMS, parent, family, police, friend...)? What history was obtained from this source @ -Son is present to help provide history Did you review nursing and triage notes (agree or disagree)? Why? @ -I reviewed and agree with nursing and triage notes Were old charts reviewed (outside hosp., previous admission, EMS record, old EKG, old radiological studies, urgent care reports/EKG's, snf records)? Report findings @ -No old charts were reviewed Differential Diagnosis (chest pain, altered mental status, abdominal pain women, abdominal pain men, vaginal bleeding, weakness, fever, dyspnea, syncope, headache, dizziness, GI bleed, back pain, seizure, CVA, palpatations, mental health)? @ -not applicable EKG interpreted by me (3pts min.). @ -As above X-rays interpreted by me (1pt min.). @ -Chest x-ray shows no acute process CT interpreted by me (1pt min.). @ -None done U/S interpreted by me (1pt. min.). @ -Ultrasound report reviewed What testing was considered but not performed or refused? (CT, X-rays, U/S, labs)? Why? @ -None What meds were considered but not given or refused? Why? @ -None Did you discuss the management of the patient with other professionals (pr ofessionals i.e. , PA, STOCK BROKER SUPERVISOR, lab, RT, psych nurse, sexual assault social worker, endoscopy specialty technician, teacher, chief green officer, case folder)? Give summary @ -No Was smoking cessation discussed for >3mins.? @ -No Was critical care preformed (if so, how long)? @ -No Were there social determinants of health that impacted care today? How? (Homelessness, low income, unemployed, alcoholism, drug addiction, transport ation, low edu. Level, literacy, decrease access to med. care, skilled nursing, rehab)? @ -No Was there de-escalation of care discussed even if they declined (Discuss DNR or withdrawal of care, Hospice)? DNR status @ -No What co-morbidities impacted this encounter? (DM, HTN, Smoking, COPD, CAD, Cancer, CVA, ARF, Chemo, Hep., AIDS, mental health diagnosis, sleep apnea, morbid obesity)? @ -None Was patient admitted / discharged? Hospital course, mention meds given and route, prescriptions, significant lab abnormalities, going to OR and other pertinent info. @ -Patient reevaluated and resting comfortably in bed. Patient and family updated on results. Discussion regarding discharge and patient and family are both comfortable with this with trying oral medications and return for worsening symptoms. Undiagnosed new problem with uncertain prognosis? @ -No Drug Therapy requiring intensive monitoring for toxicity (Heparin, Nitro, Insulin, Cardizem)? @ -No Were any procedures done? @ -No Diagnosis/symptom? @ -Cellulitis Acute, or Chronic, or Acute on Chronic? @ -Acute Uncomplicated (without systemic symptoms) or Complicated (systemic symptoms)? @ -default Side effects of treatment? @ -No Exacerbation, Progression, or Severe Exacerbation? @ -No Poses a threat to life or bodily function? How? (Chest pain, USA, [place], pneumonia, PE, COPD, DKA, ARF, appy, cholecystitis, CVA, Diverticulitis, Homicidal, Suicidal, threat to staff... and all critical care pts) @ -No - Lab Data Result diagrams: 06/29/22 13:05 06/29/22 13:05 Lab Results 06/29/22 06/29/22 06/29/22 Range/Units 13:05 13:05 13:05 WBC 13.3 H (3.8-10.6) k/uL RBC 3.75 L (4.30-5.90) m/uL Hgb 11.3 L (13.0-17.5) gm/dL Hct 33.9 L (39.0-53.0) % MCV 90.5 D (80.0-100.0) fL MCH 30.2 (25.0-35.0) pg MCHC 33.4 (31.0-37.0) g/dL RDW 14.4 (11.5-15.5) % Plt Count 428 D (150-450) k/uL MPV 9.0 Neutrophils % 77 % Lymphocytes % 15 % Monocytes % 5 % Eosinophils % 1 % Basophils % 0 % Neutrophils # 10.3 H (1.3-7.7) k/uL Lymphocytes # 1.9 (1.0-4.8) k/uL Monocytes # 0.7 (0-1.0) k/uL Eosinophils # 0.2 (0-0.7) k/uL Basophils # 0.0 (0-0.2) k/uL PT 10.9 (9.0-12.0) sec INR 1.0 (<1.2) APTT 29.1 (22.0-30.0) sec Sodium 130 L (137-145) mmol/L Potassium 5.4 H (3.5-5.1) mmol/L Chloride 98 (98-107) mmol/L Carbon Dioxide 24 (22-30) mmol/L Anion Gap 8 mmol/L BUN 8 L (9-20) mg/dL Creatinine 0.50 L (0.66-1.25) mg/dL Est GFR (CKD-EPI)AfAm >90 (>60 ml/min/1.73 sqM) Est GFR (CKD-EPI)NonAf >90 (>60 ml/min/1.73 sqM) Glucose 97 (74-99) mg/dL Plasma Lactic Acid Reilly (0.7-2.0) mmol/L Calcium 9.0 (8.4-10.2) mg/dL Magnesium 1.9 (1.6-2.3) mg/dL Total Bilirubin 1.0 (0.2-1.3) mg/dL AST 36 (17-59) U/L ALT 24 (4-49) U/L Alkaline Phosphatase 107 (38-126) U/L NT-Pro-B Natriuret Pep pg/mL Total Protein 7.1 (6.3-8.2) g/dL Albumin 4.0 (3.5-5.0) g/dL 06/29/22 06/29/22 Range/Units 13:05 13:05 WBC (3.8-10.6) k/uL RBC (4.30-5.90) m/uL Hgb (13.0-17.5) gm/dL Hct (39.0-53.0) % MCV (80.0-100.0) fL MCH (25.0-35.0) pg MCHC (31.0-37.0) g/dL RDW (11.5-15.5) % Plt Count (150-450) k/uL MPV Neutrophils % % Lymphocytes % % Monocytes % % Eosinophils % % Basophils % % Neutrophils # (1.3-7.7) k/uL Lymphocytes # (1.0-4.8) k/uL Monocytes # (0-1.0) k/uL Eosinophils # (0-0.7) k/uL Basophils # (0-0.2) k/uL PT (9.0-12.0) sec INR (<1.2) APTT (22.0-30.0) sec Sodium (137-145) mmol/L Potassium (3.5-5.1) mmol/L Chloride (98-107) mmol/L Carbon Dioxide (22-30) mmol/L Anion Gap mmol/L BUN (9-20) mg/dL Creatinine (0.66-1.25) mg/dL Est GFR (CKD-EPI)AfAm (>60 ml/min/1.73 sqM) Est GFR (CKD-EPI)NonAf (>60 ml/min/1.73 sqM) Glucose (74-99) mg/dL Plasma Lactic Acid Reilly 1.2 (0.7-2.0) mmol/L Calcium (8.4-10.2) mg/dL Magnesium (1.6-2.3) mg/dL Total Bilirubin (0.2-1.3) mg/dL AST (17-59) U/L ALT (4-49) U/L Alkaline Phosphatase (38-126) U/L NT-Pro-B Natriuret Pep 252 pg/mL Total Protein (6.3-8.2) g/dL Albumin (3.5-5.0) g/dL Disposition Clinical Impression: Cellulitis Disposition: HOME SELF-CARE Condition: Stable Instructions (If sedation given, give patient instructions): Cellulitis (ED) Additional Instructions: Please do follow-up with primary care physician in the next one to 2 days for recheck. Turn for increased redness, pain, swelling, fevers, worsening or changing symptoms or any other concerns. Perception has been sent to your pharmacy. Prescriptions: Cephalexin [Keflex] 500 mg PO QID #40 cap Is patient prescribed a controlled substance at d/c from ED?: No Referrals: Dionne Herrera MD [Primary Care Provider] - 1-2 days Time of Disposition: 15:29
--- NOTE | 2022-06-29 13:40 | XR ---
EXAMINATION TYPE: XR chest 2V DATE OF EXAM: 06/29/2022 COMPARISON: 05/23/2022 HISTORY: Bilateral extremity swelling TECHNIQUE: Frontal and lateral views of the chest are obtained. FINDINGS: The heart is not enlarged and there is no pulmonary vascular congestion. There is minimal bandlike opacities at the left lung base which are stable. There is no pneumothorax. There is no acut e osseous abnormality. IMPRESSION: No acute cardiopulmonary process.
[2022-06-29 13:52] LABS: Basophils % (A) 0 %; Eosinophils # (A) 0.2 k/uL (0-0.7); Eosinophils % (A) 1 %; HCT 33.9 % (39.0-53.0); HGB 11.3 gm/dL (13.0-17.5); Lymphocytes # (A) 1.9 k/uL (1.0-4.8); Lymphocytes % (A) 15 %; MCH 30.2 pg (25.0-35.0); MCHC 33.4 g/dL (31.0-37.0); Monocytes # (A) 0.7 k/uL (0-1.0); Monocytes % (A) 5 %; Neutrophils # (A) 10.3 k/uL (1.3-7.7); Neutrophils % (A) 77 %; RBC 3.75 m/uL (4.30-5.90); RDW 14.4 % (11.5-15.5); WBC 13.3 k/uL (3.8-10.6)
[2022-06-29 14:05] LABS: Partial Thromboplastin Time 29.1 sec (22.0-30.0); Prothrombin Time 10.9 sec (9.0-12.0)
[2022-06-29 14:07] LABS: ALT 24 U/L (4-49); AST 36 U/L (17-59); African American GFR (CKD) >90 (>60 ml/min/1.73 sqM); Alkaline Phosphatase 107 U/L (38-126); Anion Gap 8 mmol/L; Blood Urea Nitrogen 8 mg/dL (9-20); Carbon Dioxide 24 mmol/L (22-30); Chloride 98 mmol/L (98-107); Glucose 97 mg/dL (74-99); Magnesium 1.9 mg/dL (1.6-2.3); Non-African American GFR(CKD) >90 (>60 ml/min/1.73 sqM); Sodium 130 mmol/L (137-145); Total Protein 7.1 g/dL (6.3-8.2)
--- NOTE | 2022-06-29 14:25 | US ---
EXAMINATION TYPE: US venous doppler duplex LE RT DATE OF EXAM: 06/29/2022 2:09 PM COMPARISON: Prior bilateral lower extremity ultrasound October 24, 2021 CLINICAL HISTORY: swelling. pain and swelling SIDE PERFORMED: Right TECHNIQUE: The lower extremity deep venous system is examined utilizing real time linear array sonog corwin with graded compression, doppler sonography and color-flow sonography. VESSELS IMAGED: Common Femoral Vein Deep Femoral Vein Greater Saphenous Vein * Femoral Vein Popliteal Vein Small Saphenous Vein * Proximal Calf Veins (* superficial vessels Right Leg: Negative for DVT Grayscale, color doppler, spectral doppler imaging performed of the deep veins of the right lower ext remity. There is normal flow, compressibility, vascular waveforms. IMPRESSION: No ultrasound evidence for acute DVT in the right lower extremity.
[2022-06-29 14:26] LABS: MCV 90.5 fL (80.0-100.0); Platelet Count 428 k/uL (150-450)
[2022-06-29 14:29] LABS: Potassium 5.4 mmol/L (3.5-5.1)
[2022-06-29] MEDS ORDERED: FUROSEMIDE 10 MG/ML 4 ML VIAL IV STA (14:45)
[2022-06-29] MEDS ORDERED: CEPHALEXIN 500 MG CAP PO STA (15:26)
[2022-06-29 16:18] VITALS: BP 132/78; PULSE 78; RESP 18; TEMP 98.4
== END 2022-06-29 16:16 | disposition home or self-care (01) ==
LOC: EC 12:28
DX: L03.115 Cellulitis of right lower limb (principal); I48.91 Unspecified atrial fibrillation; J44.9 Chronic obstructive pulmonary disease, unspecified; I10 Essential (primary) hypertension; M19.90 Unspecified osteoarthritis, unspecified site; E07.9 Disorder of thyroid, unspecified; Z86.718 Personal history of other venous thrombosis and embolism; F41.9 Anxiety disorder, unspecified; F32.A Depression, unspecified; F17.200 Nicotine dependence, unspecified, uncomplicated; Z88.0 Allergy status to penicillin; Z91.030 Bee allergy status; Z91.048 Other nonmedicinal substance allergy status; Z79.01 Long term (current) use of anticoagulants; Z79.890 Hormone replacement therapy; Z79.899 Other long term (current) drug therapy
CPT/HCPCS: 36415; 83880; 80053; 83605; 83735; 85025; 85610; 85730; 87040; 71046; 93971; 99284; 96374; J1940

== ENCOUNTER 2022-07-22 10:37 | Inpatient (IN) | payer OTHER ==
--- NOTE | 2022-07-22 11:30 | ED ---
General Adult HPI - General Chief complaint: Recheck/Abnormal Lab/Rx Stated complaint: Post surgical pain Time Seen by Provider: 07/22/22 11:06 Source: patient, RN notes reviewed Mode of arrival: ambulatory Limitations: no limitations - History of Present Illness Initial comments: 62-year-old male presents emergency Department with chief complaint of surgical site discharge. Patient states that he had surgery in May started having discharge from the surgical site on his left thigh 2 days ago. He states that he went and saw wound care yesterday and was prescribed levofloxacin. He has taken 2 doses. He states that he started having pain in the area yesterday. States that he had chills and nausea yesterday. Temperature of 100 reported in triage. Denies shortness of breath. - Related Data Home Medications Medication Instructions Recorded Confirmed Levothyroxine Sodium 12.5 mcg PO QAM 10/18/18 06/29/22 Ergocalciferol [Vitamin D2 (1250 1,250 mcg PO SA 04/26/22 06/29/22 Mcg = 70205 Iu)] Apixaban [Eliquis] 5 mg PO BID 04/28/22 06/29/22 Ipratropium/Albuter 20-100Mcg 2 puff INHALATION RT-BID PRN 04/28/22 06/29/22 [Combivent Respimat 20-100Mcg Inhaler] rOPINIRole HCL [Requip] 0.5 mg PO HS 04/28/22 06/29/22 Diltiazem Oral [Cardizem*] 30 mg PO TID@0600,1400,2200 06/29/22 06/29/22 Gabapentin 300 mg PO TID@0900,1300,2100 06/29/22 06/29/22 HYDROcodone/APAP 5-325MG [[place] 1 tab PO Q4HR PRN 06/29/22 06/29/22 5-325] Multivitamins, Thera [Multivitamin 1 tab PO DAILY 06/29/22 06/29/22 (formulary)] Sennosides [Senokot] 17.2 mg PO HS 06/29/22 06/29/22 Previous Rx's Medication Instructions Recorded Acetaminophen Tab [Tylenol] 650 mg PO Q6HR PRN #20 tab 05/03/22 Atorvastatin [Lipitor] 40 mg PO HS #30 tab 05/03/22 Famotidine [Pepcid] 20 mg PO BID #60 tab 05/03/22 Folic Acid 1 mg PO DAILY #30 tab 05/03/22 Thiamine [Vitamin B-1] 100 mg PO DAILY #30 tablet 05/03/22 lisinopriL [Zestril] 20 mg PO BID #60 tab 05/03/22 Aspirin 81 mg PO DAILY tab 05/24/22 traMADol HCl [Ultram] 50 mg PO Q6H PRN 3 Days #12 tab 05/24/22 Furosemide [Lasix] 40 mg PO DAILY 7 Days #7 tablet 05/25/22 Cephalexin [Keflex] 500 mg PO QID #40 cap 06/29/22 Allergies Allergy/AdvReac Type Severity Reaction Status Date / Time venom-honey bee Allergy Anaphylaxis Verified 07/22/22 10:43 adhesive tape AdvReac skin Verified 07/22/22 10:43 irritation Penicillins AdvReac Unknown Verified 07/22/22 10:43 Childhood Review of Systems ROS Statement: Those systems with pertinent positive or pertinent negative responses have been documented in the HPI. ROS Other: All systems not noted in ROS Statement are negative. Past Medical History Past Medical History: Atrial Fibrillation, COPD, Hypertension, Osteoarthritis (OA), Thyroid Disorder, Vascular Disorder Additional Past Medical History / Comment(s): cellulitis left leg-improved, DVT 01/2022, peripheral artery disease History of Any Multi-Drug Resistant Organisms: None Reported Past Surgical History: Appendectomy, Joint Replacement Additional Past Surgical History / Comment(s): LT HAND, right hip replacement Past Anesthesia/Blood Transfusion Reactions: No Reported Reaction Additional Past Anesthesia/Blood Transfusion Reaction / Comment(s): no hx blood transfusion Past Psychological History: Anxiety, Depression Smoking Status: Current every day smoker Past Alcohol Use History: None Reported Past Drug Use History: None Reported - Past Family History Brother(s) Family Medical History: Cancer General Exam Limitations: no limitations General appearance: alert, in no apparent distress Head exam: Present: atraumatic, normocephalic, normal inspection Eye exam: Present: normal appearance Respiratory exam: Present: normal lung sounds bilaterally. Absent: respiratory distress, wheezes, rales, rhonchi, stridor Cardiovascular Exam: Present: other (limited by body habitus) Extremities exam: Present: other (TTP of left medial thigh, purulent discharge from surgical site) Skin exam: Present: other (discoloration of right foot, wound on left foot ) Course Vital Signs 07/22/22 10:39 Temperature 100 F H Pulse Rate 103 H Respiratory 18 Rate Blood Pressure 112/63 O2 Sat by Pulse 98 Oximetry Medical Decision Making - Medical Decision Making Was pt. sent in by a medical professional or institution (, PA, COYOTE HUNTER, urgent care, hospital, or shelter...) When possible be specific @ -No Did you speak to anyone other than the patient for history (EMS, parent, family, police, friend...)? What history was obtained from this source @ -No Did you review nursing and triage notes (agree or disagree)? Why? @ -I reviewed and agree with nursing and triage notes Were old charts reviewed (outside hosp., previous admission, EMS record, old EKG, old radiological studies, urgent care reports/EKG's, shelter records)? Report findings @ -Prior labs were reviewed including previous white count Differential Diagnosis (chest pain, altered mental status, abdominal pain women, abdominal pain men, vaginal bleeding, weakness, fever, dyspnea, syncope, headache, dizziness, GI bleed, back pain, seizure, CVA, palpatations, mental health, musculoskeletal)? @ -Differential Fever: Pneumonia, viral URI, endocarditis, myocarditis, pericarditis, otitis, sinusitis, peritonsillar Abscess, retropharyngeal Abscess, epiglottitis, peritonitis, appendicitis, Brunilda cystitis, diverticulitis, hepatitis, colitis, UTI, PID, TOA, pyelonephritis, prostatitis, epididymitis, meningitis, encephalitis, pulmonary embolism, CVA, thyroid storm, pancreatitis, adrenal crisis, cavernous sinus thrombosis, this is not meant to be an all-inclusive list. EKG interpreted by me (3pts min.). @ -None X-rays interpreted by me (1pt min.). @ -None done CT interpreted by me (1pt min.). @ -None done U/S interpreted by me (1pt. min.). @ -Ultrasound left lower extremity showed no DVT What testing was considered but not performed or refused? (CT, X-rays, U/S, labs)? Why? @ -None What meds were considered but not given or refused? Why? @ -None Did you discuss the management of the patient with other professionals (professionals i.e. , PA, COYOTE HUNTER, lab, RT, psych nurse, social media director, policy officer, teacher, investigation officer, bilingual case manager)? Give summary @ -no Was smoking cessation discussed for >3mins.? @ -No Was critical care preformed (if so, how long)? @ -No Were there social determinants of health that impacted care today? How? (Homelessness, low income, unemployed, alcoholism, drug addiction, transportation, low edu. Level, literacy, decrease access to med. care, correction, rehab)? @ -No Was there de-escalation of care discussed even if they declined (Discuss DNR or withdrawal of care, Hospice)? DNR status @ -No What co-morbidities impacted this encounter? (DM, HTN, Smoking, COPD, CAD, Cancer, CVA, ARF, Chemo, Hep., AIDS, mental health diagnosis, sleep apnea, morbid obesity)? @ -None Was patient admitted / discharged? Hospital course, mention meds given and route, prescriptions, significant lab abnormalities, going to OR and other pertinent info. @ -Admitted. Patient presented to the emergency department for chief complaint of left thigh purulent surgical site discharge and pain. Patient febrile and tachycardic. CBC shows white blood cell count of 18. Na 128. Sepsis diagnosed at 1318. Antibiotics with MRSA coverage administered. Maintenance fluids given. Undiagnosed new problem with uncertain prognosis? @ -No Drug Therapy requiring intensive monitoring for toxicity (Heparin, Nitro, Insulin, Cardizem)? @ -No Were any procedures done? @ -No Diagnosis/symptom? @ -Sepsis Acute, or Chronic, or Acute on Chronic? @ -Acute Uncomplicated (without systemic symptoms) or Complicated (systemic symptoms)? @ -Complicated Side effects of treatment? @ -No Exacerbation, Progression, or Severe Exacerbation? @ -No Poses a threat to life or bodily function? How? (Chest pain, [place], [place], pneumonia, PE, COPD, DKA, ARF, appy, cholecystitis, CVA, Diverticulitis, Homicidal, Suicidal, threat to staff... and all critical care pts) @ -Yes patient meets sepsis criteria Diagnosis/symptom? @ -cellulitis Acute, or Chronic, or Acute on Chronic? @ -acute Uncomplicated (without systemic symptoms) or Complicated (systemic symptoms)? @ -complicated Side effects of treatment? @ -none Exacerbation, Progression, or Severe Exacerbation] @ -no Poses a threat to life or bodily function? @ -yes - Lab Data Result diagrams: 07/22/22 11:58 07/22/22 11:58 Lab Results 07/22/22 07/22/22 Range/Units 11:58 11:58 WBC 18.1 H (3.8-10.6) k/uL RBC 4.02 L (4.30-5.90) m/uL Hgb 12.2 L (13.0-17.5) gm/dL Hct 36.9 L (39.0-53.0) % MCV 91.9 (80.0-100.0) fL MCH 30.4 (25.0-35.0) pg MCHC 33.0 (31.0-37.0) g/dL RDW 14.9 (11.5-15.5) % Plt Count 336 (150-450) k/uL MPV 7.7 Neutrophils % 84 % Lymphocytes % 7 % Monocytes % 6 % Eosinophils % 2 % Basophils % 0 % Neutrophils # 15.2 H (1.3-7.7) k/uL Lymphocytes # 1.2 (1.0-4.8) k/uL Monocytes # 1.1 H (0-1.0) k/uL Eosinophils # 0.3 (0-0.7) k/uL Basophils # 0.1 (0-0.2) k/uL ESR 49 H (0-15) mm/hr Sodium 128 L (137-145) mmol/L Potassium 4.7 (3.5-5.1) mmol/L Chloride 96 L (98-107) mmol/L Carbon Dioxide 21 L (22-30) mmol/L Anion Gap 11 mmol/L BUN 15 (9-20) mg/dL Creatinine 0.65 L (0.66-1.25) mg/dL Est GFR (CKD-EPI)AfAm >90 (>60 ml/min/1.73 sqM) Est GFR (CKD-EPI)NonAf >90 (>60 ml/min/1.73 sqM) Glucose 106 H (74-99) mg/dL Calcium 8.9 (8.4-10.2) mg/dL Total Bilirubin 0.7 (0.2-1.3) mg/dL AST 22 (17-59) U/L ALT 19 (4-49) U/L Alkaline Phosphatase 110 (38-126) U/L Total Protein 6.9 (6.3-8.2) g/dL Albumin 3.9 (3.5-5.0) g/dL Disposition Clinical Impression: Cellulitis Disposition: ADMITTED IP TO THIS [facility] Condition: Stable Referrals: Dionne Herrera MD [Primary Care Provider] - 1-2 days Time of Disposition: 14:47 Decision Date: 07/22/22 Decision Time: 14:20
[2022-07-22 12:12] LABS: Basophils # (A) 0.1 k/uL (0-0.2); Basophils % (A) 0 %; Eosinophils # (A) 0.3 k/uL (0-0.7); Eosinophils % (A) 2 %; HCT 36.9 % (39.0-53.0); HGB 12.2 gm/dL (13.0-17.5); Lymphocytes # (A) 1.2 k/uL (1.0-4.8); Lymphocytes % (A) 7 %; MCH 30.4 pg (25.0-35.0); MCV 91.9 fL (80.0-100.0); Mean Platelet Volume 7.7; Monocytes # (A) 1.1 k/uL (0-1.0); Monocytes % (A) 6 %; Neutrophils # (A) 15.2 k/uL (1.3-7.7); Neutrophils % (A) 84 %; Platelet Count 336 k/uL (150-450); RBC 4.02 m/uL (4.30-5.90); RDW 14.9 % (11.5-15.5); WBC 18.1 k/uL (3.8-10.6)
[2022-07-22 12:26] LABS: ALT 19 U/L (4-49); AST 22 U/L (17-59); African American GFR (CKD) >90 (>60 ml/min/1.73 sqM); Albumin 3.9 g/dL (3.5-5.0); Alkaline Phosphatase 110 U/L (38-126); Anion Gap 11 mmol/L; Blood Urea Nitrogen 15 mg/dL (9-20); Calcium 8.9 mg/dL (8.4-10.2); Carbon Dioxide 21 mmol/L (22-30); Chloride 96 mmol/L (98-107); Glucose 106 mg/dL (74-99); Non-African American GFR(CKD) >90 (>60 ml/min/1.73 sqM); Potassium 4.7 mmol/L (3.5-5.1); Sodium 128 mmol/L (137-145); Total Bilirubin 0.7 mg/dL (0.2-1.3); Total Protein 6.9 g/dL (6.3-8.2)
--- NOTE | 2022-07-22 12:44 | US ---
EXAMINATION TYPE: US venous doppler duplex LE LT DATE OF EXAM: 07/22/2022 12:34 PM COMPARISON: US CLINICAL INDICATION: Male, 62 years old with history of LE swelling, hx of dvt; Left leg redness, adilia n, post op left leg bypass graft SIDE PERFORMED: Left TECHNIQUE: The lower extremity deep venous system is examined utilizing real time linear array sonog corwin with graded compression, doppler sonography and color-flow sonography. VESSELS IMAGED: Common Femoral Vein Deep Femoral Vein Greater Saphenous Vein * Femoral Vein Popliteal Vein Small Saphenous Vein * Proximal Calf Veins (* superficial vessels) Left Leg: Negative for DVT IMPRESSION: Grayscale, color doppler, spectral doppler imaging performed of the deep veins of the lo wer extremities. There is normal flow, compressibility, vascular waveforms.
[2022-07-22] MEDS ORDERED: SODIUM CHLORIDE 0.9% 1,000 ML IV SCH (13:30)
[2022-07-22] MEDS ORDERED: VANCOMYCIN 1,000 MG in SODIUM CHLORIDE 0.9% 250 ML IVPB STA (13:31)
[2022-07-22] MEDS ORDERED: VANCOMYCIN 1,750 MG in SODIUM CHLORIDE 0.9% 500 ML 500 ML IVPB STA (13:38)
[2022-07-22 14:01] LABS: Erythrocyte Sedimentation Rate 49 mm/hr (0-15)
[2022-07-22] MEDS ORDERED: VANCOMYCIN IV PER PHARMACY 1 EACH MISC MISCELLANE PRN (14:30)
[2022-07-22] MEDS ORDERED: NALOXONE 0.4 MG/ML 1 ML VIAL IV PRN (14:34)
[2022-07-22] MEDS ORDERED: ONDANSETRON 4 MG/2 ML VIAL IVP PRN (14:34)
[2022-07-22] MEDS ORDERED: ACETAMINOPHEN TAB 325 MG TAB PO PRN (14:34)
[2022-07-22] MEDS: LEVOTHYROXINE 25 MCG TAB PO SCH (16:40)
[2022-07-22] MEDS: IPRATROPIUM-ALBUTEROL 3 ML NEB INHALATION PRN ×2 (16:42→19:51)
[2022-07-22] MEDS: HYDROcodone/APAP 5-325MG 1 EACH TAB PO PRN ×2 (16:43→21:22)
[2022-07-22] MEDS: SODIUM CHLORIDE 0.9% 1,000 ML IV SCH (16:48)
--- NOTE | 2022-07-22 18:58 | US ---
EXAMINATION TYPE: US venous doppler duplex LE RT DATE OF EXAM: 07/22/2022 6:29 PM COMPARISON: RLEV 06/29/22 LLEV today 07/22/22 CLINICAL INDICATION: Male, 62 years old with history of pain/rule out blood clot; Pain x 1 day. Patie nt is on eliquis. SIDE PERFORMED: Right TECHNIQUE: The lower extremity deep venous system is examined utilizing real time linear array sonog corwin with graded compression, doppler sonography and color-flow sonography. VESSELS IMAGED: Common Femoral Vein Deep Femoral Vein Greater Saphenous Vein * Femoral Vein Popliteal Vein Small Saphenous Vein * Proximal Calf Veins (* superficial vessels) Right Leg: No evidence of DVT. IMPRESSION: No evidence of deep vein thrombosis of the right lower extremity.
[2022-07-22] MEDS: BUDESONIDE 0.5 MG/2 ML NEBU INHALATION SCH (19:51)
[2022-07-22] MEDS: APIXABAN 5 MG TAB PO SCH (21:22)
[2022-07-22] MEDS: FAMOTIDINE 20 MG TAB PO SCH (21:22)
[2022-07-22] MEDS: SENNOSIDES 8.6 MG TAB PO SCH (21:22)
[2022-07-22] MEDS: ATORVASTATIN 40 MG TAB PO SCH (21:22)
[2022-07-22] MEDS: GABAPENTIN 300 MG CAP PO SCH (21:22)
[2022-07-22] MEDS: DILTIAZEM ORAL 30 MG TAB PO SCH (21:22)
--- NOTE | 2022-07-22 23:11 | P.HPIM ---
History of Present Illness H&P Date: 07/22/22 Chief Complaint: Leg infection Patient is a 62-year-old male with a known history of DVT on anticoagulation with Eliquis, hypertension, COPD, hypothyroidism, peripheral vascular disease with recent left femoral angiogram, transluminal balloon angioplasty of the left common iliac and external iliac arteries, transluminal covered stent placement of the left common iliac and external iliac arteries and selective left lower extremity angiogram, open thrombectomy common femoral, profunda and external iliac arteries. Patient had procedure on 05/22/2022. Patient presents to ER with complaints of discharge from the surgical site. Patient has been having serous discharge and leg swelling bilaterally. Patient was seen in the clinic yesterday and was started on antibiotics in the form of Levaquin. He did take 2 doses of antibiotic. Patient started having pain and redness over the area and came to ER for evaluation. Otherwise patient denies any nausea or vomiting. No cough or sputum production. Denies any dysuria or hematuria. On admission patient was having low temperature 100 F, heart rate 103. Venous Doppler is negative for DVT Laboratory data showed WBC 18.1 hemoglobin 12.2 and platelets 336 Sodium 128, potassium 4.7 chloride 96 bicarb is 21 BUN 15 and creatinine 0.65 and blood sugar is 106. Review of Systems Constitutional: Patient denies any fever or chills . no Generalized weakness. Abdomen: Patient denied any nausea or vomiting or abd. pain Cardiovascular: Patient denies any chest pain or short of breath no palpitat ions. Leg swelling. Respiratory: patient denied any cough . no sputum production. No shortness of breath Neurologic: Patient denied any numbness or tingling headache. Musculoskeletal: Patient denies any complaints of joint swelling or deformity. Skin: Negative Psychiatric: Negative Endocrine: No heat or cold intolerance. No recent weight gain. Genitourinary: No dysuria or hematuria. All other 14 point ROS negative except the above Past Medical History Past Medical History: Atrial Fibrillation, COPD, Hypertension, Osteoarthritis (OA), Thyroid Disorder, Vascular Disorder Additional Past Medical History / Comment(s): cellulitis left leg-improved, DVT 01/2022, peripheral artery disease History of Any Multi-Drug Resistant Organisms: None Reported Past Surgical History: Appendectomy, Joint Replacement Additional Past Surgical History / Comment(s): LT HAND, right hip replacement Past Anesthesia/Blood Transfusion Reactions: No Reported Reaction Additional Past Anesthesia/Blood Transfusion Reaction / Comment(s): no hx blood transfusion Past Psychological History: Anxiety, Depression Smoking Status: Current every day smoker Past Alcohol Use History: None Reported Past Drug Use History: None Reported - Past Family History Brother(s) Family Medical History: Cancer Medications and Allergies Home Medications Medication Instructions Recorded Confirmed Type Levothyroxine Sodium 12.5 mcg PO DAILY 10/18/18 07/22/22 History Ergocalciferol [Vitamin D2 (1250 1,250 mcg PO SA 04/26/22 07/22/22 History Mcg = 50359 Iu)] Apixaban [Eliquis] 5 mg PO BID 04/28/22 07/22/22 History Ipratropium/Albuter 20-100Mcg 2 puff INHALATION RT-BID PRN 04/28/22 07/22/22 History [Combivent Respimat 20-100Mcg Inhaler] rOPINIRole HCL [Requip] 0.5 mg PO HS 04/28/22 07/22/22 History Acetaminophen Tab [Tylenol] 650 mg PO Q6HR PRN #20 tab 05/03/22 07/22/22 Rx Atorvastatin [Lipitor] 40 mg PO HS #30 tab 05/03/22 07/22/22 Rx Famotidine [Pepcid] 20 mg PO BID #60 tab 05/03/22 07/22/22 Rx Folic Acid 1 mg PO DAILY #30 tab 05/03/22 07/22/22 Rx Thiamine [Vitamin B-1] 100 mg PO DAILY #30 tablet 05/03/22 07/22/22 Rx lisinopriL [Zestril] 20 mg PO BID #60 tab 05/03/22 07/22/22 Rx Aspirin 81 mg PO DAILY tab 05/24/22 07/22/22 Rx traMADol HCl [Ultram] 50 mg PO Q6H PRN 3 Days #12 tab 05/24/22 07/22/22 Rx Furosemide [Lasix] 40 mg PO DAILY 7 Days #7 tablet 05/25/22 07/22/22 Rx Diltiazem Oral [Cardizem*] 30 mg PO TID@0600,1400,2200 06/29/22 07/22/22 History Gabapentin 300 mg PO TID@0900,1300,2100 06/29/22 07/22/22 History HYDROcodone/APAP 5-325MG [[place] 1 tab PO Q4HR PRN 06/29/22 07/22/22 History 5-325] Multivitamins, Thera [Multivitamin 1 tab PO DAILY 06/29/22 07/22/22 History (formulary)] Sennosides [Senokot] 17.2 mg PO HS 06/29/22 07/22/22 History Levofloxacin [Levaquin] 500 mg PO DAILY 07/22/22 07/22/22 History Allergies Allergy/AdvReac Type Severity Reaction Status Date / Time venom-honey bee Allergy Anaphylaxis Verified 07/22/22 15:27 adhesive tape AdvReac skin Verified 07/22/22 15:27 irritation Penicillins AdvReac Unknown Verified 07/22/22 15:27 Childhood Physical Exam Vitals: Vital Signs Temp Pulse Pulse Resp BP BP Pulse Ox 07/22/22 15:51 98.3 F 82 20 112/71 98 07/22/22 14:30 98.7 F 89 18 134/87 99 07/22/22 10:39 100 F H 103 H 18 112/63 98 Intake and Output 07/22/22 07/22/22 07/22/22 06:59 14:59 22:59 Other: Weight 105.233 kg PHYSICAL EXAMINATION: Patient is lying in the bed comfortably, no acute distress, awake alert and oriented.. HEENT: Normocephalic. Neck is supple. Pupils reactive. Nostrils clear. Oral cavity is moist. Neck reveals no JVD, carotid bruits, or thyromegaly. CHEST EXAMINATION: Trachea is central. Symmetrical expansion. Bibasilar diminished sounds.. CARDIAC: Normal S1, S2 with no gallops. No murmurs ABDOMEN: Soft. Bowel sounds present. Nontender. No organomegaly. No abdominal bruits. Extremities: Bilateral lower extremity swelling 3+. Right inner thigh redness and discharge from the surgical access site. Serosanguineous with surrounding redness. . No clubbing or cyanosis Neurologically awake, alert, oriented x3 with well-coordinated movements. No focal deficits noted Skin: No rash or skin lesions. Psychiatric: Coperative. Nonsuicidal, Musculoskeletal: No joint swelling or deformity. Normal range of motion. Results CBC & Chem 7: 07/23/22 06:59 07/23/22 06:59 Labs: Abnormal Lab Results - Last 24 Hours (Table) 07/22/22 07/22/22 Range/Units 11:58 11:58 WBC 18.1 H (3.8-10.6) k/uL RBC 4.02 L (4.30-5.90) m/uL Hgb 12.2 L (13.0-17.5) gm/dL Hct 36.9 L (39.0-53.0) % Neutrophils # 15.2 H (1.3-7.7) k/uL Monocytes # 1.1 H (0-1.0) k/uL ESR 49 H (0-15) mm/hr Sodium 128 L (137-145) mmol/L Chloride 96 L (98-107) mmol/L Carbon Dioxide 21 L (22-30) mmol/L Creatinine 0.65 L (0.66-1.25) mg/dL Glucose 106 H (74-99) mg/dL Thrombosis Risk Factor Assmnt - DVT/VTE Prophylaxis DVT/VTE Prophylaxis: Pharmacologic Prophylaxis ordered Assessment and Plan Assessment: Increasing left lower ext swelling and drainage from the left thigh incision with surrounding redness due to cellulitis. Sepsis secondary above. Leukocytosis and tachycardic on admission Peripheral vascular disease status post left common iliac and external iliac stent placement and balloon angioplasty on 05/22/2022 Hypertension Hypothyroidism Osteoarthritis History of DVT on anticoagulation with Eliquis Anxiety/depression Current everyday smoker Obesity with BMI 37.4 Plan: Patient will be continued on antibiotics and oral vancomycin. Duplex scan of the extremity showed no evidence of DVT. Continue with Lasix and follow-up cultures from the wound site. ID and vascular surgery was consulted. Prognosis guarded with multiple medical problems and comorbid conditions. Smoking cessation has been counseled. Time with Patient: Greater than 30
[2022-07-23] MEDS: VANCOMYCIN 1,750 MG in SODIUM CHLORIDE 0.9% 500 ML 500 ML IVPB SCH ×2 (02:22→14:42)
[2022-07-23] MEDS: DILTIAZEM ORAL 30 MG TAB PO SCH ×3 (06:08→21:41)
[2022-07-23] MEDS: LEVOTHYROXINE 25 MCG TAB PO SCH (06:08)
[2022-07-23] MEDS: HYDROcodone/APAP 5-325MG 1 EACH TAB PO PRN ×4 (07:03→21:41)
[2022-07-23] MEDS: GABAPENTIN 300 MG CAP PO SCH ×3 (08:23→21:41)
[2022-07-23] MEDS: ASPIRIN 81 MG PO SCH (08:23)
[2022-07-23] MEDS: APIXABAN 5 MG TAB PO SCH ×2 (08:23→21:41)
[2022-07-23] MEDS: FAMOTIDINE 20 MG TAB PO SCH ×2 (08:23→21:41)
[2022-07-23] MEDS: FOLIC ACID 1 MG TAB PO SCH (08:23)
[2022-07-23] MEDS: THIAMINE 100 MG TAB PO SCH (08:23)
[2022-07-23] MEDS: BUDESONIDE 0.5 MG/2 ML NEBU INHALATION SCH ×2 (08:34→19:53)
[2022-07-23] MEDS: IPRATROPIUM-ALBUTEROL 3 ML NEB INHALATION PRN ×4 (08:34→19:53)
[2022-07-23 08:50] LABS: Basophils % (A) 0 %; Eosinophils # (A) 0.2 k/uL (0-0.7); Eosinophils % (A) 2 %; HCT 32.2 % (39.0-53.0); HGB 10.7 gm/dL (13.0-17.5); Lymphocytes # (A) 1.5 k/uL (1.0-4.8); Lymphocytes % (A) 12 %; MCH 31.1 pg (25.0-35.0); MCHC 33.3 g/dL (31.0-37.0); MCV 93.3 fL (80.0-100.0); Mean Platelet Volume 9.2; Monocytes % (A) 8 %; Neutrophils # (A) 9.6 k/uL (1.3-7.7); Neutrophils % (A) 77 %; Platelet Count 312 k/uL (150-450); RBC 3.45 m/uL (4.30-5.90); RDW 14.8 % (11.5-15.5); WBC 12.5 k/uL (3.8-10.6)
[2022-07-23 09:03] LABS: African American GFR (CKD) >90 (>60 ml/min/1.73 sqM); Anion Gap 9 mmol/L; Blood Urea Nitrogen 16 mg/dL (9-20); Calcium 8.5 mg/dL (8.4-10.2); Carbon Dioxide 21 mmol/L (22-30); Chloride 99 mmol/L (98-107); Glucose 105 mg/dL (74-99); Non-African American GFR(CKD) >90 (>60 ml/min/1.73 sqM); Potassium 4.8 mmol/L (3.5-5.1); Sodium 129 mmol/L (137-145)
--- NOTE | 2022-07-23 10:18 | P.GSCN ---
History of Present Illness Consult date: 07/23/22 History of present illness: Bernard is a 62-year-old male who presented to the ER yesterday with concern of drainage from his left thigh. He previously underwent a femoral to tibial peroneal trunk bypass with in situ vein graft as well as iliac artery stenting back in May. He has been seen in our office a few times however missed his most recent appointment. He states that he has been having some swelling in both of his legs since the surgery, it is noted in our office visit notes that he typically sits in a chair without his legs elevated and multiple conversations have been had regarding elevated and lower extremities. Patient had gone to wound care initially when he began having drainage from the surgical site and was thought to have possible infection therefore he was initiated on oral antibiotic. He reportedly had some chills nausea along with a mild temperature therefore presents for evaluation and workup of this. Past Medical History Past Medical History: Atrial Fibrillation, COPD, Hypertension, Osteoarthritis (OA), Thyroid Disorder, Vascular Disorder Additional Past Medical History / Comment(s): cellulitis left leg-improved, DVT 01/2022, peripheral artery disease History of Any Multi-Drug Resistant Organisms: None Reported Past Surgical History: Appendectomy, Joint Replacement Additional Past Surgical History / Comment(s): LT HAND, right hip replacement Past Anesthesia/Blood Transfusion Reactions: No Reported Reaction Additional Past Anesthesia/Blood Transfusion Reaction / Comm: no hx blood transfusion Past Psychological History: Anxiety, Depression Smoking Status: Current every day smoker Past Alcohol Use History: None Reported Past Drug Use History: None Reported - Past Family History Brother(s) Family Medical History: Cancer Medications and Allergies Home Medications Medication Instructions Recorded Confirmed Type Levothyroxine Sodium 12.5 mcg PO DAILY 10/18/18 07/22/22 History Ergocalciferol [Vitamin D2 (1250 1,250 mcg PO SA 04/26/22 07/22/22 History Mcg = 57002 Iu)] Apixaban [Eliquis] 5 mg PO BID 04/28/22 07/22/22 History Ipratropium/Albuter 20-100Mcg 2 puff INHALATION RT-BID PRN 04/28/22 07/22/22 History [Combivent Respimat 20-100Mcg Inhaler] rOPINIRole HCL [Requip] 0.5 mg PO HS 04/28/22 07/22/22 History Acetaminophen Tab [Tylenol] 650 mg PO Q6HR PRN #20 tab 05/03/22 07/22/22 Rx Atorvastatin [Lipitor] 40 mg PO HS #30 tab 05/03/22 07/22/22 Rx Famotidine [Pepcid] 20 mg PO BID #60 tab 05/03/22 07/22/22 Rx Folic Acid 1 mg PO DAILY #30 tab 05/03/22 07/22/22 Rx Thiamine [Vitamin B-1] 100 mg PO DAILY #30 tablet 05/03/22 07/22/22 Rx lisinopriL [Zestril] 20 mg PO BID #60 tab 05/03/22 07/22/22 Rx Aspirin 81 mg PO DAILY tab 05/24/22 07/22/22 Rx traMADol HCl [Ultram] 50 mg PO Q6H PRN 3 Days #12 tab 05/24/22 07/22/22 Rx Furosemide [Lasix] 40 mg PO DAILY 7 Days #7 tablet 05/25/22 07/22/22 Rx Diltiazem Oral [Cardizem*] 30 mg PO TID@0600,1400,2200 06/29/22 07/22/22 History Gabapentin 300 mg PO TID@0900,1300,2100 06/29/22 07/22/22 History HYDROcodone/APAP 5-325MG [[place] 1 tab PO Q4HR PRN 06/29/22 07/22/22 History 5-325] Multivitamins, Thera [Multivitamin 1 tab PO DAILY 06/29/22 07/22/22 History (formulary)] Sennosides [Senokot] 17.2 mg PO HS 06/29/22 07/22/22 History Levofloxacin [Levaquin] 500 mg PO DAILY 07/22/22 07/22/22 History Allergies Allergy/AdvReac Type Severity Reaction Status Date / Time venom-honey bee Allergy Anaphylaxis Verified 07/22/22 15:27 adhesive tape AdvReac skin Verified 07/22/22 15:27 irritation Penicillins AdvReac Unknown Verified 07/22/22 15:27 Childhood Surgical - Exam Vital Signs Temp Pulse Resp BP Pulse Ox 100 F H 103 H 18 112/63 98 07/22/22 10:39 07/22/22 10:39 07/22/22 10:39 07/22/22 10:39 07/22/22 10:39 No acute distress sitting in the chair comfortably. HEENT is normocephalic, atraumatic, excellent motion intact. Heart appears regular at this time. Lungs are clear. Abdomen is soft obese. She may show no clubbing or cyanosis. He has moderate bilateral lower extremity edema. There is some mild increase of swelling at the mid thigh and incision site. Serous-appearing drainage. Difficult to palpate bypass graft due to edema. Results Venous duplex of the bilateral lower extremities were negative for DVT, no commentary or images in regard to the soft tissue edema - Labs 07/23/22 06:59 07/23/22 06:59 Abnormal Lab Results - Last 24 Hours (Table) 07/22/22 07/22/22 07/23/22 Range/Units 11:58 11:58 06:59 WBC 18.1 H (3.8-10.6) k/uL RBC 4.02 L (4.30-5.90) m/uL Hgb 12.2 L (13.0-17.5) gm/dL Hct 36.9 L (39.0-53.0) % Neutrophils # 15.2 H (1.3-7.7) k/uL Monocytes # 1.1 H (0-1.0) k/uL ESR 49 H (0-15) mm/hr Sodium 128 L 129 L (137-145) mmol/L Chloride 96 L (98-107) mmol/L Carbon Dioxide 21 L 21 L (22-30) mmol/L Creatinine 0.65 L 0.62 L (0.66-1.25) mg/dL Glucose 106 H 105 H (74-99) mg/dL 07/23/22 Range/Units 06:59 WBC 12.5 H (3.8-10.6) k/uL RBC 3.45 L (4.30-5.90) m/uL Hgb 10.7 L (13.0-17.5) gm/dL Hct 32.2 L (39.0-53.0) % Neutrophils # 9.6 H (1.3-7.7) k/uL Monocytes # (0-1.0) k/uL ESR (0-15) mm/hr Sodium (137-145) mmol/L Chloride (98-107) mmol/L Carbon Dioxide (22-30) mmol/L Creatinine (0.66-1.25) mg/dL Glucose (74-99) mg/dL Microbiology - Last 24 Hours (Table) 07/22/22 11:58 Wound Culture - Preliminary Incision Diabetes panel 07/22/22 07/23/22 Range/Units 11:58 06:59 Sodium 128 L 129 L (137-145) mmol/L Potassium 4.7 4.8 (3.5-5.1) mmol/L Chloride 96 L 99 (98-107) mmol/L Carbon Dioxide 21 L 21 L (22-30) mmol/L BUN 15 16 (9-20) mg/dL Creatinine 0.65 L 0.62 L (0.66-1.25) mg/dL Glucose 106 H 105 H (74-99) mg/dL Calcium 8.9 8.5 (8.4-10.2) mg/dL AST 22 (17-59) U/L ALT 19 (4-49) U/L Alkaline Phosphatase 110 (38-126) U/L Total Protein 6.9 (6.3-8.2) g/dL Albumin 3.9 (3.5-5.0) g/dL Calcium panel 07/22/22 07/23/22 Range/Units 11:58 06:59 Calcium 8.9 8.5 (8.4-10.2) mg/dL Albumin 3.9 (3.5-5.0) g/dL Pituitary panel 07/22/22 07/23/22 Range/Units 11:58 06:59 Sodium 128 L 129 L (137-145) mmol/L Potassium 4.7 4.8 (3.5-5.1) mmol/L Chloride 96 L 99 (98-107) mmol/L Carbon Dioxide 21 L 21 L (22-30) mmol/L BUN 15 16 (9-20) mg/dL Creatinine 0.65 L 0.62 L (0.66-1.25) mg/dL Glucose 106 H 105 H (74-99) mg/dL Calcium 8.9 8.5 (8.4-10.2) mg/dL Adrenal panel 07/22/22 07/23/22 Range/Units 11:58 06:59 Sodium 128 L 129 L (137-145) mmol/L Potassium 4.7 4.8 (3.5-5.1) mmol/L Chloride 96 L 99 (98-107) mmol/L Carbon Dioxide 21 L 21 L (22-30) mmol/L BUN 15 16 (9-20) mg/dL Creatinine 0.65 L 0.62 L (0.66-1.25) mg/dL Glucose 106 H 105 H (74-99) mg/dL Calcium 8.9 8.5 (8.4-10.2) mg/dL Total Bilirubin 0.7 (0.2-1.3) mg/dL AST 22 (17-59) U/L ALT 19 (4-49) U/L Alkaline Phosphatase 110 (38-126) U/L Total Protein 6.9 (6.3-8.2) g/dL Albumin 3.9 (3.5-5.0) g/dL Assessment and Plan Assessment: Bilateral lower extremity edema Peripheral arterial disease, status post left femoral to tibial bypass and iliac stenting Leukocytosis, significantly improved overnight Plan: This time we'll order further imaging to evaluate the area, there is a possibi lity and is just related to the edema through the extremity. If there is a significant fluid collection on imaging, will consider bedside drainage. At this time no emergent surgical intervention indicated.
--- NOTE | 2022-07-23 11:44 | US ---
EXAMINATION TYPE: US extremity nonvasc mass LT DATE OF EXAM: 07/23/2022 COMPARISON: NONE CLINICAL INDICATION: Male, 62 years old with history of left thigh mass/drainage/swelling; TECHNIQUE: Scanning was performed over raised red area upper left thigh. FINDINGS: There is edematous tissue noted. There is a superficial hematoma measuring 3.5 x 1.2 cm. D eeper , there is a larger area measuring 4.5 x 2.6 cm that appears as hematoma/edematous tissue. No d efinite drainable abscess seen. IMPRESSION: Moderate to severe diffuse subcutaneous edema with small 4.5 cm oval thin-walled fluid c ollection suspected hematoma. No thick walled drainable abscess clearly identified.
[2022-07-23] MEDS ORDERED: FUROSEMIDE 40 MG TAB PO SCH (14:45)
[2022-07-23] MEDS: SODIUM CHLORIDE 0.9% 1,000 ML IV SCH (16:46)
--- NOTE | 2022-07-23 21:38 | P.CONS ---
History of Present Illness - Reason for Consult Consult date: 07/23/22 Left thigh cellulitis Requesting physician: Brooks Lay - Chief Complaint Left thigh swelling and redness x days - History of Present Illness Patient is a 62-year-old male with a past medical history taken for atrial fibrillation COPD hypertension in this patient who recently did have a femoral to tibial peroneal trunk bypass with in situ vein graft as well as iliac artery stenting in May [address] Crawford patient is presenting to [facility] ER concerning for increasing drainage from his left thigh incision site mostly at the point of the incision that apparently has been getting worse for the last few days patient be complaining of pain to the left thigh to be sharp almost 10 out of 10 in severity without radiation with associated swelling redness and drainage patient mention some chills but denies any fever admission he did have a thermometer to take his temperature with the symptoms the patient presented to the hospital on arrival to the ER patient did have low-grade fever of 100 F patient did have white count of 18.1 with a left shift kidney function has been normal liver enzymes are normal blood cultures and local culture were obtained patient was started on vancomycin infectious disease was consulted for further management of antibiotic therapy Review of Systems Positive point and negatives has been mentioned in the HPI, complete review of systems was performed and all other systems are negative Past Medical History Past Medical History: Atrial Fibrillation, COPD, Hypertension, Osteoarthritis (OA), Thyroid Disorder, Vascular Disorder Additional Past Medical History / Comment(s): cellulitis left leg-improved, DVT 01/2022, peripheral artery disease History of Any Multi-Drug Resistant Organisms: None Reported Past Surgical History: Appendectomy, Joint Replacement Additional Past Surgical History / Comment(s): LT HAND, right hip replacement Past Anesthesia/Blood Transfusion Reactions: No Reported Reaction Additional Past Anesthesia/Blood Transfusion Reaction / Comm: no hx blood transf usion Past Psychological History: Anxiety, Depression Smoking Status: Current every day smoker Past Alcohol Use History: None Reported Past Drug Use History: None Reported - Past Family History Brother(s) Family Medical History: Cancer Medications and Allergies Home Medications Medication Instructions Recorded Confirmed Type Levothyroxine Sodium 12.5 mcg PO DAILY 10/18/18 07/22/22 History Ergocalciferol [Vitamin D2 (1250 1,250 mcg PO SA 04/26/22 07/22/22 History Mcg = 03884 Iu)] Apixaban [Eliquis] 5 mg PO BID 04/28/22 07/22/22 History rOPINIRole HCL [Requip] 0.5 mg PO HS 04/28/22 07/22/22 History Acetaminophen Tab [Tylenol] 650 mg PO Q6HR PRN #20 tab 05/03/22 07/22/22 Rx Atorvastatin [Lipitor] 40 mg PO HS #30 tab 05/03/22 07/22/22 Rx Famotidine [Pepcid] 20 mg PO BID #60 tab 05/03/22 07/22/22 Rx Folic Acid 1 mg PO DAILY #30 tab 05/03/22 07/22/22 Rx Thiamine [Vitamin B-1] 100 mg PO DAILY #30 tablet 05/03/22 07/22/22 Rx Aspirin 81 mg PO DAILY tab 05/24/22 07/22/22 Rx Diltiazem Oral [Cardizem*] 30 mg PO TID@0600,1400,2200 06/29/22 07/22/22 History Multivitamins, Thera [Multivitamin 1 tab PO DAILY 06/29/22 07/22/22 History (formulary)] Sennosides [Senokot] 17.2 mg PO HS 06/29/22 07/22/22 History Budesonide [Pulmicort] 0.5 mg INHALATION RT-BID ml 07/28/22 Rx Furosemide [Lasix] 40 mg PO DAILY tab 07/28/22 Rx Gabapentin 300 mg PO TID@0900,1300,2100 #9 cap 07/28/22 Rx HYDROcodone/APAP 5-325MG [[place] 1 tab PO Q4HR PRN #6 tab 07/28/22 Rx 5-325] Ipratropium-Albuterol Nebulize 3 ml INHALATION RT-QID PRN each 07/28/22 Rx [Duoneb 0.5 mg-3 mg/3 ml Soln] Ipratropium/Albuter 20-100Mcg 2 puff INHALATION RT-BID #0 07/28/22 07/22/22 Rx [Combivent Respimat 20-100Mcg Inhaler] Lactulose [Cephulac] 20 gm PO BID PRN ml 07/28/22 Rx bisacodyL [Dulcolax] 10 mg RECTAL DAILY PRN suppositor 07/28/22 Rx ceFAZolin [Kefzol] 2 gm IVP Q8HR 14 Days #42 each 07/28/22 Rx lisinopriL [Zestril] 20 mg PO DAILY #30 tab 07/28/22 07/22/22 Rx traMADol HCl [Ultram] 50 mg PO Q6H PRN 3 Days #12 tab 07/28/22 Rx Allergies Allergy/AdvReac Type Severity Reaction Status Date / Time venom-honey bee Allergy Anaphylaxis Verified 07/22/22 15:27 adhesive tape AdvReac skin Verified 07/22/22 15:27 irritation Penicillins AdvReac Unknown Verified 07/22/22 15:27 Childhood Physical Exam Vitals: Vital Signs Temp Pulse Pulse Resp BP Pulse Ox 07/23/22 11:54 76 07/23/22 11:43 76 07/23/22 08:54 76 07/23/22 08:34 72 07/23/22 07:35 98.4 F 73 18 115/68 94 L 07/23/22 02:45 98.5 F 76 16 113/67 96 07/22/22 21:27 62 109/64 07/22/22 20:10 76 07/22/22 19:51 64 07/22/22 19:14 98.1 F 77 16 96/60 95 07/22/22 16:53 80 07/22/22 16:44 78 07/22/22 15:51 98.3 F 82 20 112/71 98 Intake and Output 07/22/22 07/23/22 07/23/22 22:59 06:59 14:59 Other: Voiding Method Toilet Toilet # Voids 3 Weight 105.233 kg GENERAL DESCRIPTION: Middle-aged male lying in bed, no distress. No tachypnea or accessory muscle of respiration use. HEENT: Shows Pallor , no scleral icterus. Oral mucous membrane is dry. No pharyngeal erythema or thrush NECK: Trachea central, no thyromegaly. LUNGS: Unlabored breathing. Clear to auscultation anteriorly. No wheeze or crackle. HEART: S1, S2, regular rate and rhythm. No loud murmur ABDOMEN: Soft, no tenderness , guarding or rigidity, no organomegaly EXTREMITIES: Left medial thigh and he did have a swelling redness or induration and some drainage SKIN: No rash, no masses palpable. NEUROLOGICAL: The patient is awake, alert, oriented x3, mood and affect normal. Results CBC & Chem 7: 07/27/22 08:46 07/28/22 06:17 Labs: Abnormal Lab Results - Last 24 Hours (Table) 07/23/22 07/23/22 Range/Units 06:59 06:59 WBC 12.5 H (3.8-10.6) k/uL RBC 3.45 L (4.30-5.90) m/uL Hgb 10.7 L (13.0-17.5) gm/dL Hct 32.2 L (39.0-53.0) % Neutrophils # 9.6 H (1.3-7.7) k/uL Sodium 129 L (137-145) mmol/L Carbon Dioxide 21 L (22-30) mmol/L Creatinine 0.62 L (0.66-1.25) mg/dL Glucose 105 H (74-99) mg/dL Microbiology - Last 24 Hours (Table) 07/22/22 11:58 Blood Culture - Preliminary Blood No Growth after 24 hours 07/22/22 11:58 Wound Culture - Preliminary Incision Assessment and Plan (1) Cellulitis of left thigh Status: Acute Code(s): L03.116 - CELLULITIS OF LEFT LOWER LIMB SNOMED Code(s): 87733393993666868 Plan: 1patient with recent vascular bypass surgery to the left leg cannot present to the hospital with increasing pain swelling and drainage to the left thigh incision concerning for possible cellulitis or deep infection likely from a gram-positive skin yuki 2-patient has been evaluated by vascular surgery ultrasound has been ordered concerning for 4.5 cm oval fluid collection suspected hematoma patient will benefit from drainage and culture 3-for now continue with the vancomycin while watching his kidney function closely We will follow on clinical condition and cultures to further adjust medication if needed Thank you for this consultation we will follow the patient along with you Time with Patient: Greater than 30
[2022-07-23] MEDS: ATORVASTATIN 40 MG TAB PO SCH (21:41)
[2022-07-23] MEDS: SENNOSIDES 8.6 MG TAB PO SCH (21:41)
--- NOTE | 2022-07-24 00:17 | P.PN ---
Subjective Progress Note Date: 07/23/22 Patient is a 62-year-old male with a known history of DVT on anticoagulation with Eliquis, hypertension, COPD, hypothyroidism, peripheral vascular disease with recent left femoral angiogram, transluminal balloon angioplasty of the left common iliac and external iliac arteries, transluminal covered stent placement of the left common iliac and external iliac arteries and selective left lower extremity angiogram, open thrombectomy common femoral, profunda and external iliac arteries. Patient had procedure on 05/22/2022. Patient presents to ER with complaints of discharge from the surgical site. Patient has been having serous discharge and leg swelling bilaterally. Patient was seen in the clinic yesterday and was started on antibiotics in the form of Levaquin. He did take 2 doses of antibiotic. Patient started having pain and redness over the area and came to ER for evaluation. Otherwise patient denies any nausea or vomiting. No cough or sputum production. Denies any dysuria or hematuria. On admission patient was having low temperature 100 F, heart rate 103. Venous Doppler is negative for DVT Laboratory data showed WBC 18.1 hemoglobin 12.2 and platelets 336 Sodium 128, potassium 4.7 chloride 96 bicarb is 21 BUN 15 and creatinine 0.65 and blood sugar is 106. 07/23/2022 Patient is currently sitting in the chair. Awake alert and oriented. Currently on room air. No complaints of chest pain. Does have exertional dyspnea and also severe bilateral lower extremity swelling. Redness of the left inner thigh is better compared to yesterday. Serous discharge from the bilateral lower extremities. Significant edema. Patient has been afebrile. Currently on vancomycin. Vascular surgery and ID is on board. Patient will be continued on Lasix changed to IV 40 mg daily as blood pressure tolerates. Laboratory showed improvement in WBC count to 12.5, hemoglobin 10.7 and platelets 312 Sodium level is 129 potassium 4.8 chloride 99 bicarb is 21 BUN 16 and creatinine 0.62. Current medications reviewed. Objective - Vital Signs Vital signs: Vital Signs Temp 98.4 F 07/23/22 07:35 Pulse 76 07/23/22 11:54 Resp 18 07/23/22 07:35 BP 115/68 07/23/22 07:35 Pulse Ox 94 L 07/23/22 07:35 FiO2 Intake & Output 04/15/23 04/16/23 04/16/23 18:59 06:59 18:59 Weight 105.233 kg Other: Voiding Method Toilet Toilet Toilet # Voids 3 - Exam PHYSICAL EXAMINATION: Patient is lying in the bed comfortably, no acute distress, awake alert and oriented.. HEENT: Normocephalic. Neck is supple. Pupils reactive. Nostrils clear. Oral cavity is moist. Neck reveals no JVD, carotid bruits, or thyromegaly. CHEST EXAMINATION: Trachea is central. Symmetrical expansion. Bibasilar diminished sounds.. CARDIAC: Normal S1, S2 with no gallops. No murmurs ABDOMEN: Soft. Bowel sounds present. Nontender. No organomegaly. No abdominal bruits. Extremities: Bilateral lower extremity swelling 3+. Right inner thigh redness and discharge from the surgical access site. Serosanguineous with surrounding redness. . No clubbing or cyanosis Neurologically awake, alert, oriented x3 with well-coordinated movements. No focal deficits noted Skin: No rash or skin lesions. Psychiatric: Coperative. Nonsuicidal, Musculoskeletal: No joint swelling or deformity. Normal range of motion. - Labs CBC & Chem 7: 07/23/22 06:59 07/23/22 06:59 Labs: Abnormal Lab Results - Last 24 Hours (Table) 07/23/22 07/23/22 Range/Units 06:59 06:59 WBC 12.5 H (3.8-10.6) k/uL RBC 3.45 L (4.30-5.90) m/uL Hgb 10.7 L (13.0-17.5) gm/dL Hct 32.2 L (39.0-53.0) % Neutrophils # 9.6 H (1.3-7.7) k/uL Sodium 129 L (137-145) mmol/L Carbon Dioxide 21 L (22-30) mmol/L Creatinine 0.62 L (0.66-1.25) mg/dL Glucose 105 H (74-99) mg/dL Microbiology - Last 24 Hours (Table) 07/22/22 11:58 Blood Culture - Preliminary Blood No Growth after 24 hours 07/22/22 11:58 Wound Culture - Preliminary Incision Assessment and Plan Assessment: Increasing left lower ext swelling and drainage from the left thigh incision with surrounding redness due to cellulitis. Sepsis secondary above. Leukocytosis and tachycardic on admission Peripheral vascular disease status post left common iliac and external iliac stent placement and balloon angioplasty on 05/22/2022 Hypertension Hypothyroidism Osteoarthritis History of DVT on anticoagulation with Eliquis Anxiety/depression Current everyday smoker Obesity with BMI 37.4 Plan: Patient will be continued on antibiotics and oral vancomycin. Duplex scan of the extremity showed no evidence of DVT. Continue with Lasix and follow-up cultures from the wound site. ID and vascular surgery is on board.. Lasix will be changed to IV. Follow-up proBNP level and chest x-ray tomorrow. Prognosis guarded with multiple medical problems and comorbid conditions. Smoking cessation has been counseled. Time with Patient: Greater than 30
[2022-07-24] MEDS: VANCOMYCIN 1,750 MG in SODIUM CHLORIDE 0.9% 500 ML 500 ML IVPB SCH ×2 (02:55→15:29)
[2022-07-24] MEDS: HYDROcodone/APAP 5-325MG 1 EACH TAB PO PRN ×3 (05:21→21:12)
[2022-07-24] MEDS: LEVOTHYROXINE 25 MCG TAB PO SCH (06:25)
[2022-07-24] MEDS: DILTIAZEM ORAL 30 MG TAB PO SCH ×3 (06:26→21:12)
[2022-07-24] MEDS: FAMOTIDINE 20 MG TAB PO SCH ×2 (08:09→21:12)
[2022-07-24] MEDS: THIAMINE 100 MG TAB PO SCH (08:09)
[2022-07-24] MEDS: ASPIRIN 81 MG PO SCH (08:09)
[2022-07-24] MEDS: FOLIC ACID 1 MG TAB PO SCH (08:09)
[2022-07-24] MEDS: FUROSEMIDE 10 MG/ML 4 ML VIAL IV SCH (08:09)
[2022-07-24] MEDS: GABAPENTIN 300 MG CAP PO SCH ×3 (08:09→21:12)
[2022-07-24] MEDS: APIXABAN 5 MG TAB PO SCH ×2 (08:09→21:11)
[2022-07-24] MEDS: IPRATROPIUM-ALBUTEROL 3 ML NEB INHALATION PRN ×2 (08:27→18:16)
[2022-07-24] MEDS: BUDESONIDE 0.5 MG/2 ML NEBU INHALATION SCH ×2 (08:27→18:17)
--- NOTE | 2022-07-24 08:52 | XR ---
EXAMINATION TYPE: XR chest 1V DATE OF EXAM: 07/24/2022 COMPARISON: 06/29/2022 HISTORY: CHF TECHNIQUE: Single frontal view of the chest is obtained. FINDINGS: The heart size is normal. The pulmonary vasculature is within normal limits. There is a pa tchy opacity at the left lung base. There is no significant pleural effusion or pneumothorax. There i s slight elevation of the left hemidiaphragm, which is similar in appearance when compared to previou s examination. IMPRESSION: New patchy opacity at the left lung base. This finding may relate to atelectasis or a de veloping pneumonia. Recommend follow-up chest radiographs in 6-8 weeks to ensure resolution.
[2022-07-24 09:06] LABS: African American GFR (CKD) 117.2 (60.0-200.0); Anion Gap 11.7 mmol/L (10.00-18.00); BUN/Creat Ratio 16.29 Ratio (12.00-20.00); Blood Urea Nitrogen 11.4 mg/dL (9.0-27.0); Carbon Dioxide 22.3 mmol/L (20.0-27.5); Non-African American GFR(CKD) 101.1 (60.0-200.0); Potassium 4.7 mmol/L (3.5-5.5)
[2022-07-24 09:17] LABS: Basophils # (A) 0.07 X 10*3/uL (0.00-0.10); Basophils % (A) 0.6 %; Eosinophils # (A) 0.22 X 10*3/uL (0.04-0.35); HCT 33.5 % (39.6-50.0); HGB 10.7 g/dL (13.0-17.0); Immature Grans, Automated 1.5 %; Lymphocytes # (A) 1.44 X 10*3/uL (0.90-5.00); Lymphocytes % (A) 13.3 %; MCHC 31.9 g/dL (32.0-37.0); MCV 93.8 fL (80.0-97.0); Mean Platelet Volume 11.2 fL (9.5-12.2); Monocytes % (A) 10.2 %; NRBC Per 100 WBC 0 /100 WBCS (0.0-0.0); Neutrophils # (A) 7.81 X 10*3/uL (1.80-7.70); Neutrophils % (A) 72.4 %; Platelet Count 321 X 10*3/uL (140-440); RBC 3.57 X 10*6/uL (4.40-5.60); RDW 15.1 % (11.5-14.5)
--- NOTE | 2022-07-24 13:08 | P.PN ---
Subjective Progress Note Date: 07/24/22 She was seen and examined today as a follow-up. He states he still has redness and swelling on the left medial thigh with clear drainage. He has been afebrile. States otherwise lower extremities feel good. Denies any shortness of breath or chest pain, no abdominal pain, nausea or vomiting. Objective - Vital Signs Vital signs: Vital Signs Temp 98.5 F 07/24/22 07:07 Pulse 99 07/24/22 07:07 Resp 18 07/24/22 07:07 BP 131/71 07/24/22 07:07 Pulse Ox 94 L 07/24/22 07:07 FiO2 Intake & Output 07/23/22 07/24/22 07/24/22 18:59 06:59 18:59 Other: Voiding Method Toilet Toilet # Voids 1 3 - Exam General appearance: The patient is alert, oriented, appears in no acute distress. Obese. HET: Head is normocephalic and atraumatic. Neck: Supple. Trachea midline. Heart: Regular. Lungs: Equal expansion, normal respiratory effort. Abdomen: Soft, nontender, nondistended. Extremities: Left lower extremity medial thigh near incision with erythema and swelling, clear drainage. Bilateral lower extremities warm with good capillary refill. Neurological: No focal deficits. Strength and sensation are grossly intact. - Labs CBC & Chem 7: 07/24/22 03:17 07/24/22 03:17 Labs: Abnormal Lab Results - Last 24 Hours (Table) 07/23/22 07/23/22 Range/Units 06:59 06:59 WBC 12.5 H (3.8-10.6) k/uL RBC 3.45 L (4.30-5.90) m/uL Hgb 10.7 L (13.0-17.5) gm/dL Hct 32.2 L (39.0-53.0) % Neutrophils # 9.6 H (1.3-7.7) k/uL Sodium 129 L (137-145) mmol/L Carbon Dioxide 21 L (22-30) mmol/L Creatinine 0.62 L (0.66-1.25) mg/dL Glucose 105 H (74-99) mg/dL Microbiology - Last 24 Hours (Table) 07/22/22 11:58 Gram Stain - Preliminary Incision Wound Culture - Preliminary 07/22/22 11:58 Blood Culture - Preliminary Blood No Growth after 24 hours Assessment and Plan Assessment: 1. Bilateral lower extremity edema 2. Left lower extremity ultrasound reporting moderate to severe diffuse subcutaneous edema with fluid collection 3. He was toilet my jacket on peripheral arterial disease, status post left femoral to tibial bypass and iliac stenting Plan: Discussed with patient importance of elevating lower extremities. Recommend pa tient lay in bed with elevation of lower extremities. Patient sits primarily and sleeps in his recliner at home with dependent legs, increased swelling likely related to post revascularization and dependent extremities. Ultrasound reviewed, likely fluid collection again related to edema. No plans at this time for any surgical debridement or incision and drainage. 4 x 4 dressing to incision. Thank you for this consultation, we will continue to follow. The impression and plan of care has been dictated as directed. I performed a history and examination of this patient, discussed the same with the dictator. I agree with the dictator's note ,documented as a scribe. Any additional findings or plans will be noted.
[2022-07-24] MEDS ORDERED: bisacodyL 10 MG SUPP RECTAL PRN (13:12)
[2022-07-24] MEDS ORDERED: NA PHOS,M-B/NA PHOS,DI-BA 133 ML ENEMA RECTAL PRN (13:12)
[2022-07-24] MEDS: LACTULOSE 20 GM/30 ML CUP PO SCH ×2 (15:29→21:12)
--- NOTE | 2022-07-24 17:39 | CA ---
Transthoracic Echo Report Name: Bernard Dudley Age: 62 Gender: M : 1960 Exam Date: 07/24/2022 08:50 Exam Location: [facility] Ht (in): 66 Wt (lb): 232 Ordering Physician: Brooks Lay MD Attending/Referring Phys: Survey Worker Oumou Villareal RDCS Procedure CPT: Indications: chf Cardiac Hx: Technical Quality: Fair Contrast 1: Total Dose (mL): Contrast 2: Total Dose (mL): MEASUREMENTS (Male / Female) Normal Values 2D ECHO LV Diastolic Diameter PLAX 4.8 cm 4.2 - 5.9 / 3.9 - 5.3 cm LV Systolic Diameter PLAX 3.6 cm IVS Diastolic Thickness 1.4 cm 0.6 - 1.0 / 0.6 - 0.9 cm LVPW Diastolic Thickness 1.4 cm 0.6 - 1.0 / 0.6 - 0.9 cm LV Relative Wall Thickness 0.6 LA Volume 64.1 cm??? 18 - 58 / 22 - 52 cm??? M-MODE Aortic Root Diameter MM 3.1 cm LA Systolic Diameter MM 5.6 cm LA Ao Ratio MM 1.8 DOPPLER AV Peak Velocity 133.3 cm/s AV Peak Gradient 7.1 mmHg AV Mean Velocity 75.5 cm/s AV Mean Gradient 2.8 mmHg AV Velocity Time Integral 21.6 cm LVOT Peak Velocity 108.6 cm/s LVOT Peak Gradient 4.7 mmHg LVOT Velocity Time Integral 22.9 cm MV Area PHT 4.0 cm??? Mitral E Point Velocity 66.4 cm/s Mitral A Point Velocity 95.3 cm/s Mitral E to A Ratio 0.7 MV Deceleration Time 190.9 ms MV E' Velocity 8.1 cm/s Mitral E to MV E' Ratio 8.2 TR Peak Velocity 234.5 cm/s TR Peak Gradient 22.0 mmHg Right Ventricular Systolic Press 27.0 mmHg FINDINGS Left Ventricle Mildly increased left ventricular wall thickness. Normal left ventricular systolic function with no obvious regional wall motion abnormalities. Left ventricular ejection fraction is estimated at 55-60 %. Right Ventricle Normal right ventricular size and function. Right ventricular systolic pressure within normal limits. Right Atrium Normal right atrial size. Left Atrium Mildly increased left atrial volume. Mitral Valve Structurally normal mitral valve. Mild mitral regurgitation. Aortic Valve No aortic valve stenosis or regurgitation. Tricuspid Valve Structurally normal tricuspid valve. Mild tricuspid regurgitation. Pulmonic Valve Trace pulmonic regurgitation. Pericardium No pericardial effusion. Aorta Normal size aortic root and proximal ascending aorta. CONCLUSIONS Normal LV systolic function Mild mitral regurgitation Previewed by: Dr. Shakeel Lazar MD (Electronically Signed) Final Date: 24 July 2022 17:39
[2022-07-24] MEDS: SENNOSIDES 8.6 MG TAB PO SCH (21:12)
[2022-07-24] MEDS: ATORVASTATIN 40 MG TAB PO SCH (21:12)
[2022-07-25] MEDS: VANCOMYCIN 1,750 MG in SODIUM CHLORIDE 0.9% 500 ML 500 ML IVPB SCH ×2 (03:38→15:25)
--- NOTE | 2022-07-25 05:35 | P.PN ---
Subjective Progress Note Date: 07/24/22 Patient is a 62-year-old male with a known history of DVT on anticoagulation with Eliquis, hypertension, COPD, hypothyroidism, peripheral vascular disease with recent left femoral angiogram, transluminal balloon angioplasty of the left common iliac and external iliac arteries, transluminal covered stent placement of the left common iliac and external iliac arteries and selective left lower extremity angiogram, open thrombectomy common femoral, profunda and external iliac arteries. Patient had procedure on 05/22/2022. Patient presents to ER with complaints of discharge from the surgical site. Patient has been having serous discharge and leg swelling bilaterally. Patient was seen in the clinic yesterday and was started on antibiotics in the form of Levaquin. He did take 2 doses of antibiotic. Patient started having pain and redness over the area and came to ER for evaluation. Otherwise patient denies any nausea or vomiting. No cough or sputum production. Denies any dysuria or hematuria. On admission patient was having low temperature 100 F, heart rate 103. Venous Doppler is negative for DVT Laboratory data showed WBC 18.1 hemoglobin 12.2 and platelets 336 Sodium 128, potassium 4.7 chloride 96 bicarb is 21 BUN 15 and creatinine 0.65 and blood sugar is 106. 07/23/2022 Patient is currently sitting in the chair. Awake alert and oriented. Currently on room air. No complaints of chest pain. Does have exertional dyspnea and also severe bilateral lower extremity swelling. Redness of the left inner thigh is better compared to yesterday. Serous discharge from the bilateral lower extremities. Significant edema. Patient has been afebrile. Currently on vancomycin. Vascular surgery and ID is on board. Patient will be continued on Lasix changed to IV 40 mg daily as blood pressure tolerates. Laboratory showed improvement in WBC count to 12.5, hemoglobin 10.7 and platelets 312 Sodium level is 129 potassium 4.8 chloride 99 bicarb is 21 BUN 16 and creatinine 0.62. Current medications reviewed. 07/24/2022 Patient is seen and evaluated in follow-up today with infectious disease and vascular surgery following. Patient is status post left surgical intervention with vascular and May and has been having some significant swelling and sensitivity with drainage noted on the wound in the upper medial thigh and drainage is clear in nature. Patient was seen in wound care center in the outpatient setting and obtained a culture and those are showing pseudomonas aeruginosa with Staphylococcus aureus and is maintained on IV antibiotics with anxiety following closely. Awaiting cultures and recommending I&D although vascular has no plans for intervention at this time. Recommend elevating lower extremity. Patient is currently afebrile denies chest pain or shortness of breath. Will have PT/OT therapy evaluate the patient and discussed with case management about treatment plan moving forward and if patient will require rehab again. Family at bedside reports patient was at rehab for over a month. Review of systems: Constitutional: No reports of fatigue, fever, or chills Cardiovascular: No reports of chest pain or palpitations Respiratory: No reports of shortness of breath or cough GI: No reports of nausea, vomiting, or diarrhea : No reports of dysuria or retention Neurovascular: reports of weakness and left leg swelling with pain All medications have been reviewed Active Medications Acetaminophen (Acetaminophen Tab 325 Mg Tab) 650 mg PO Q6HR PRN PRN Reason: Mild Pain or Fever > 100.5 Hydrocodone Bitart/Acetaminophen (Hydrocodone/Apap 5-325mg 1 Each Tab) 1 each PO Q4HR PRN PRN Reason: Pain Scale 8 to 10 Last Admin: 07/24/22 05:21 Dose: 1 each Albuterol/Ipratropium (Ipratropium-Albuterol 3 Ml Neb) 3 ml INHALATION RT-QID PRN PRN Reason: Shortness Of Breath Or Wheezing Last Admin: 07/24/22 08:27 Dose: 3 ml Apixaban (Apixaban 5 Mg Tab) 5 mg PO BID [facility]; Protocol Last Admin: 07/24/22 08:09 Dose: 5 mg Aspirin (Aspirin 81 Mg) 81 mg PO DAILY [facility] Last Admin: 07/24/22 08:09 Dose: 81 mg Atorvastatin Calcium (Atorvastatin 40 Mg Tab) 40 mg PO HS [facility] Last Admin: 07/23/22 21:41 Dose: 40 mg Budesonide (Budesonide 0.5 Mg/2 Ml Nebu) 0.5 mg INHALATION RT-BID [facility] Last Admin: 07/24/22 08:27 Dose: 0.5 mg Diltiazem HCl (Diltiazem Oral 30 Mg Tab) 30 mg PO TID@0600,1400,2200 [facility] Last Admin: 07/24/22 06:26 Dose: 30 mg Famotidine (Famotidine 20 Mg Tab) 20 mg PO BID [facility] Last Admin: 07/24/22 08:09 Dose: 20 mg Folic Acid (Folic Acid 1 Mg Tab) 1 mg PO DAILY [facility] Last Admin: 07/24/22 08:09 Dose: 1 mg Furosemide (Furosemide 10 Mg/Ml 4 Ml Vial) 40 mg IV DAILY [facility] Last Admin: 07/24/22 08:09 Dose: 40 mg Gabapentin (Gabapentin 300 Mg Cap) 300 mg PO TID@0900,1300,2100 [facility] Last Admin: 07/24/22 08:09 Dose: 300 mg Vancomycin HCl 1,750 mg/ (Sodium Chloride) 500 mls @ 167 mls/hr IVPB Q12H [facility] Last Admin: 07/24/22 02:55 Dose: 167 mls/hr Levothyroxine Sodium (Levothyroxine 25 Mcg Tab) 12.5 mcg PO DAILY@0630 [facility] Last Admin: 07/24/22 06:25 Dose: 12.5 mcg Miscellaneous Information (Vancomycin Trough Due 1 Each Misc) 0 each MISCELLANE DIRECTED ONE Stop: 07/25/22 14:01 Naloxone HCl (Naloxone 0.4 Mg/Ml 1 Ml Vial) 0.2 mg IV Q2M PRN PRN Reason: Opioid Reversal Ondansetron HCl (Ondansetron 4 Mg/2 Ml Vial) 4 mg IVP Q8HR PRN PRN Reason: Nausea And Vomiting Ropinirole HCl (Ropinirole Hcl 0.25 Mg Tab) 0.5 mg PO [facility] Last Admin: 07/23/22 21:41 Dose: 0.5 mg Senna (Sennosides 8.6 Mg Tab) 17.2 mg PO [facility] Last Admin: 07/23/22 21:41 Dose: 17.2 mg Thiamine HCl (Thiamine 100 Mg Tab) 100 mg PO DAILY [facility] Last Admin: 07/24/22 08:09 Dose: 100 mg Physical exam: Patient is lying in the bed comfortably, no acute distress, awake alert and oriented.. HEENT: Normocephalic. Neck is supple. Pupils reactive. Nostrils clear. Oral cavity is moist. Neck reveals no JVD, carotid bruits, or thyromegaly. CHEST EXAMINATION: Trachea is central. Symmetrical expansion. Bibasilar diminished sounds.. CARDIAC: Normal S1, S2 with no gallops. No murmurs ABDOMEN: Soft. Bowel sounds present. Nontender. No organomegaly. No abdominal bruits. Extremities: Bilateral lower extremity swelling 3+. left inner thigh redness and clear discharge from the surgical access site. Serosanguineous with surrounding redness. . No clubbing or cyanosis Neurologically awake, alert, oriented x3 with well-coordinated movements. No focal deficits noted Skin: No rash or skin lesions. Psychiatric: Cooperative. Non-suicidal, Musculoskeletal: No joint swelling or deformity. Normal range of motion. Assessment: Increasing left lower ext swelling and drainage from the left thigh incision with surrounding redness due to cellulitis. Sepsis secondary above. Leukocytosis and tachycardic on admission Peripheral vascular disease status post left common iliac and external iliac stent placement and balloon angioplasty on 05/22/2022 Hypertension Hypothyroidism Osteoarthritis History of DVT on anticoagulation with Eliquis Anxiety/depression Current everyday smoker Obesity with BMI 37.4 GI prophylaxis DVT prophylaxis Full code Plan: Patient will be continued on antibiotics and oral vancomycin. Duplex scan of the extremity showed no evidence of DVT. Continue with Lasix and antibiotics with ID following. Recommend lower extremity elevation while at rest Wound cultures were obtained at the wound care center showing Staphylococcus aureus with pseudomonas aeruginosa and anxiety following and will discuss further about discharge planning. Vascular surgery evaluated the patient with no plans for surgical intervention at this time Will follow-up with repeat labs in the a.m. Recommend PT/OT therapy evaluation along with case management to discuss discharge planning. Patient will likely require IV antibiotics on discharge although will discuss further with ID Smoking cessation has been counseled. The impression and plan of care has been dictated by Ashley Scott, Nurse Practitioner as directed. Dr. Herbert MD I have performed a history and examination and MDM of this patient, discussed the same with the dictator, and agree with the dictator's assessment and plan as written ,documented as a scribe. Based on total visit time, I have performed more than 50% of the visit. Objective - Vital Signs Vital signs: Vital Signs Temp 98.5 F 07/24/22 07:07 Pulse 99 07/24/22 07:07 Resp 18 07/24/22 07:07 BP 131/71 07/24/22 07:07 Pulse Ox 94 L 07/24/22 07:07 FiO2 Intake & Output 07/23/22 07/24/22 07/24/22 18:59 06:59 18:59 Other: Voiding Method Toilet Toilet # Voids 1 3 7 - Labs CBC & Chem 7: 07/24/22 03:17 07/24/22 03:17 Labs: Abnormal Lab Results - Last 24 Hours (Table) 07/24/22 07/24/22 Range/Units 03:17 03:17 WBC 10.80 H (4.50-10.00) X 10*3/uL RBC 3.57 L (4.40-5.60) X 10*6/uL Hgb 10.7 L (13.0-17.0) g/dL Hct 33.5 L (39.6-50.0) % MCHC 31.9 L (32.0-37.0) g/dL RDW 15.1 H (11.5-14.5) % Immature Gran # 0.16 H (0.00-0.04) X 10*3/uL Neutrophils # 7.81 H (1.80-7.70) X 10*3/uL Monocytes # 1.10 H (0.20-1.00) X 10*3/uL Sodium 130 L (135-145) mmol/L Glucose 123 H (70-110) mg/dL Microbiology - Last 24 Hours (Table) 07/22/22 11:58 Gram Stain - Preliminary Incision Wound Culture - Preliminary 07/22/22 11:58 Blood Culture - Preliminary Blood No Growth after 24 hours
[2022-07-25] MEDS: DILTIAZEM ORAL 30 MG TAB PO SCH ×3 (06:18→21:24)
[2022-07-25] MEDS: LEVOTHYROXINE 25 MCG TAB PO SCH (06:18)
[2022-07-25] MEDS: HYDROcodone/APAP 5-325MG 1 EACH TAB PO PRN ×3 (06:51→21:24)
[2022-07-25] MEDS: THIAMINE 100 MG TAB PO SCH (08:37)
[2022-07-25] MEDS: FAMOTIDINE 20 MG TAB PO SCH ×2 (08:37→21:24)
[2022-07-25] MEDS: APIXABAN 5 MG TAB PO SCH (08:37)
[2022-07-25] MEDS: GABAPENTIN 300 MG CAP PO SCH ×3 (08:37→21:24)
[2022-07-25] MEDS: FOLIC ACID 1 MG TAB PO SCH (08:37)
[2022-07-25] MEDS: ASPIRIN 81 MG PO SCH (08:38)
[2022-07-25] MEDS: FUROSEMIDE 10 MG/ML 4 ML VIAL IV SCH (08:38)
[2022-07-25] MEDS: LACTULOSE 20 GM/30 ML CUP PO SCH ×2 (08:38→21:24)
[2022-07-25] MEDS: BUDESONIDE 0.5 MG/2 ML NEBU INHALATION SCH ×2 (08:39→18:30)
[2022-07-25] MEDS: IPRATROPIUM-ALBUTEROL 3 ML NEB INHALATION PRN ×2 (08:39→18:30)
--- NOTE | 2022-07-25 13:37 | P.PN ---
Subjective Progress Note Date: 07/25/22 She was seen and examined today as a follow-up. He states he still has redness and swelling on the left medial thigh with clear drainage. He has been afebrile. States otherwise lower extremities feel good. Denies any shortness of breath or chest pain, no abdominal pain, nausea or vomiting. Objective - Vital Signs Vital signs: Vital Signs Temp 98.0 F 07/25/22 08:34 Pulse 70 07/25/22 08:51 Resp 18 07/25/22 08:34 BP 137/73 07/25/22 08:34 Pulse Ox 96 07/25/22 08:34 FiO2 Intake & Output 07/24/22 07/25/22 07/25/22 18:59 06:59 18:59 Output Total 800 Balance -800 Output: Urine 800 Other: Voiding Method Toilet # Voids 1 4 - Exam General appearance: The patient is alert, oriented, appears in no acute distress. Obese. HET: Head is normocephalic and atraumatic. Neck: Supple. Trachea midline. Heart: Regular. Lungs: Equal expansion, normal respiratory effort. Abdomen: Soft, nontender, nondistended. Extremities: Left lower extremity medial thigh near incision with erythema and swelling, clear drainage. Bilateral lower extremities warm with good capillary refill. Neurological: No focal deficits. Strength and sensation are grossly intact. - Labs CBC & Chem 7: 07/24/22 03:17 07/24/22 03:17 Labs: Microbiology - Last 24 Hours (Table) 07/22/22 11:58 Gram Stain - Final Incision Wound Culture - Final 07/22/22 11:58 Blood Culture - Preliminary Blood No Growth after 48 hours Assessment and Plan Assessment: 1. Bilateral lower extremity edema 2. Left lower extremity ultrasound reporting moderate to severe diffuse subcutaneous edema with fluid collection 3. History of chronic peripheral arterial disease, status post left femoral to tibial bypass and iliac stenting Plan: 1. Continue with antibiotics per recommendations from infectious disease 2. Keep bilateral lower extremities elevated 3. Plan for bedside I&D this afternoon 4. Rene ruff Thank you for this consultation, we will continue to follow. The impression and plan of care has been dictated as directed. I performed a history and examination of this patient, discussed the same with the dictator. I agree with the dictator's note ,documented as a scribe. Any additional findings or plans will be noted.
[2022-07-25] MEDS ORDERED: VANCOMYCIN TROUGH DUE 1 EACH MISC MISCELLANE ONE (14:00)
--- NOTE | 2022-07-25 18:58 | P.PN ---
Subjective Progress Note Date: 07/24/22 Principal diagnosis: Left thigh cellulitis Patient is a 62-year-old male with a past medical history taken for atrial fibrillation COPD hypertension in this patient who recently did have a femoral to tibial peroneal trunk bypass with in situ vein graft as well as iliac artery stenting in May [address] Crawford patient is presenting to [facility] ER concerning for increasing drainage from his left thigh incision site , admitted to the hospital with possible cellulitis On today's evaluation her that is 07/24/2022, patient denies having any fever or any chills his previous tiny comfortably no chest pain shortness with a cough the left thigh pain and discomfort has slightly decreased still have some drainage no abdominal pain or diarrhea Objective - Vital Signs Vital signs: Vital Signs Temp 97.7 F 07/24/22 11:30 Pulse 74 07/24/22 11:30 Resp 18 07/24/22 11:30 BP 149/73 07/24/22 11:30 Pulse Ox 98 07/24/22 11:30 FiO2 Intake & Output 07/23/22 07/24/22 07/24/22 18:59 06:59 18:59 Output Total 400 Balance -400 Output: Urine 400 Other: Voiding Method Toilet Toilet # Voids 1 3 1 - Exam GENERAL DESCRIPTION: A middle-age male up in the chair bed in no distress RESPIRATORY SYSTEM: Unlabored breathing , decreased breath sounds at bases HEART: S1 S2 regular rate and rhythm , ABDOMEN: Soft , no tenderness EXTREMITIES: Left medial thigh incision site did have some swelling redness slightly decreased did have minimal drainage - Labs CBC & Chem 7: 07/24/22 03:17 07/24/22 03:17 Labs: Abnormal Lab Results - Last 24 Hours (Table) 07/24/22 07/24/22 Range/Units 03:17 03:17 WBC 10.80 H (4.50-10.00) X 10*3/uL RBC 3.57 L (4.40-5.60) X 10*6/uL Hgb 10.7 L (13.0-17.0) g/dL Hct 33.5 L (39.6-50.0) % MCHC 31.9 L (32.0-37.0) g/dL RDW 15.1 H (11.5-14.5) % Immature Gran # 0.16 H (0.00-0.04) X 10*3/uL Neutrophils # 7.81 H (1.80-7.70) X 10*3/uL Monocytes # 1.10 H (0.20-1.00) X 10*3/uL Sodium 130 L (135-145) mmol/L Glucose 123 H (70-110) mg/dL Microbiology - Last 24 Hours (Table) 07/22/22 11:58 Blood Culture - Preliminary Blood No Growth after 48 hours 07/22/22 11:58 Gram Stain - Preliminary Incision Wound Culture - Preliminary Assessment and Plan (1) Cellulitis of left thigh Current Visit: Yes Status: Acute Code(s): L03.116 - CELLULITIS OF LEFT LOWER LIMB SNOMED Code(s): 26302415789497772 Plan: 1patient with recent vascular bypass surgery to the left leg cannot present to the hospital with increasing pain swelling and drainage to the left thigh incision concerning for possible cellulitis or deep infection likely from a gram-positive skin yuki 2-patient has been evaluated by vascular surgery ultrasound has been ordered concerning for 4.5 cm oval fluid collection suspected hematoma , however they're not recommending any drainage at this point 3Patient to continue with the vancomycin while waiting for the cultures to finalize Time with Patient: Less than 30
--- NOTE | 2022-07-25 19:01 | P.PN ---
Subjective Progress Note Date: 07/25/22 Principal diagnosis: Left thigh cellulitis Patient is a 62-year-old male with a past medical history taken for atrial fibrillation COPD hypertension in this patient who recently did have a femoral to tibial peroneal trunk bypass with in situ vein graft as well as iliac artery stenting in May [address] Crawford patient is presenting to [facility] ER concerning for increasing drainage from his left thigh incision site , admitted to the hospital with possible cellulitis On today's evaluation her that is 07/25/2022, patient continues to be afebrile, the patient is comfortably comfortably, the patient denies chest pain shortness with a cough the left thigh pain and discomfort has slightly decreased , however the patient noticed to have more swelling to the left medial thigh area and drainage Objective - Vital Signs Vital signs: Vital Signs Temp 98.0 F 07/25/22 08:34 Pulse 70 07/25/22 08:51 Resp 18 07/25/22 08:34 BP 137/73 07/25/22 08:34 Pulse Ox 96 07/25/22 08:34 FiO2 Intake & Output 07/24/22 07/25/22 07/25/22 18:59 06:59 18:59 Output Total 800 Balance -800 Output: Urine 800 Other: Voiding Method Toilet Toilet # Voids 1 4 - Exam GENERAL DESCRIPTION: A middle-age male up in the chair bed in no distress RESPIRATORY SYSTEM: Unlabored breathing , decreased breath sounds at bases HEART: S1 S2 regular rate and rhythm , ABDOMEN: Soft , no tenderness EXTREMITIES: Left medial thigh incision site did have more swelling redness today which was cultured - Labs CBC & Chem 7: 07/24/22 03:17 07/24/22 03:17 Labs: Microbiology - Last 24 Hours (Table) 07/22/22 11:58 Gram Stain - Final Incision Wound Culture - Final 07/22/22 11:58 Blood Culture - Preliminary Blood No Growth after 48 hours Assessment and Plan (1) Cellulitis of left thigh Current Visit: Yes Status: Acute Code(s): L03.116 - CELLULITIS OF LEFT LOWER LIMB SNOMED Code(s): 63327074081955759 Plan: 1patient with recent vascular bypass surgery to the left leg cannot present to the hospital with increasing pain swelling and drainage to the left thigh incisi on concerning for possible cellulitis or deep infection likely from a gram- positive skin yuki 2-patient has been evaluated by vascular surgery ultrasound has been ordered concerning for 4.5 cm oval fluid collection suspected hematoma , patient noticed to have more swelling today and will benefit from a surgical aspirate/ drainage discussed with the admitting team 3Patient to continue with the vancomycin while waiting for the repeat cultures to finalize and monitor clinical course closely Time with Patient: Less than 30
[2022-07-25] MEDS: SENNOSIDES 8.6 MG TAB PO SCH (21:24)
[2022-07-25] MEDS: ATORVASTATIN 40 MG TAB PO SCH (21:24)
[2022-07-26] MEDS: VANCOMYCIN 1,750 MG in SODIUM CHLORIDE 0.9% 500 ML 500 ML IVPB SCH ×2 (03:22→14:31)
[2022-07-26] MEDS: DILTIAZEM ORAL 30 MG TAB PO SCH ×3 (05:59→21:08)
[2022-07-26] MEDS: LEVOTHYROXINE 25 MCG TAB PO SCH (06:02)
--- NOTE | 2022-07-26 06:38 | P.PN ---
Subjective Progress Note Date: 07/25/22 Patient is a 62-year-old male with a known history of DVT on anticoagulation with Eliquis, hypertension, COPD, hypothyroidism, peripheral vascular disease with recent left femoral angiogram, transluminal balloon angioplasty of the left common iliac and external iliac arteries, transluminal covered stent placement of the left common iliac and external iliac arteries and selective left lower extremity angiogram, open thrombectomy common femoral, profunda and external iliac arteries. Patient had procedure on 05/22/2022. Patient presents to ER with complaints of discharge from the surgical site. Patient has been having serous discharge and leg swelling bilaterally. Patient was seen in the clinic yesterday and was started on antibiotics in the form of Levaquin. He did take 2 doses of antibiotic. Patient started having pain and redness over the area and came to ER for evaluation. Otherwise patient denies any nausea or vomiting. No cough or sputum production. Denies any dysuria or hematuria. On admission patient was having low temperature 100 F, heart rate 103. Venous Doppler is negative for DVT Laboratory data showed WBC 18.1 hemoglobin 12.2 and platelets 336 Sodium 128, potassium 4.7 chloride 96 bicarb is 21 BUN 15 and creatinine 0.65 and blood sugar is 106. 07/23/2022 Patient is currently sitting in the chair. Awake alert and oriented. Currently on room air. No complaints of chest pain. Does have exertional dyspnea and also severe bilateral lower extremity swelling. Redness of the left inner thigh is better compared to yesterday. Serous discharge from the bilateral lower extremities. Significant edema. Patient has been afebrile. Currently on vancomycin. Vascular surgery and ID is on board. Patient will be continued on Lasix changed to IV 40 mg daily as blood pressure tolerates. Laboratory showed improvement in WBC count to 12.5, hemoglobin 10.7 and platelets 312 Sodium level is 129 potassium 4.8 chloride 99 bicarb is 21 BUN 16 and creatinine 0.62. Current medications reviewed. 07/24/2022 Patient is seen and evaluated in follow-up today with infectious disease and vascular surgery following. Patient is status post left surgical intervention with vascular and May and has been having some significant swelling and sensitivity with drainage noted on the wound in the upper medial thigh and drainage is clear in nature. Patient was seen in wound care center in the outpatient setting and obtained a culture and those are showing pseudomonas aeruginosa with Staphylococcus aureus and is maintained on IV antibiotics with anxiety following closely. Awaiting cultures and recommending I&D although vascular has no plans for intervention at this time. Recommend elevating lower extremity. Patient is currently afebrile denies chest pain or shortness of breath. Will have PT/OT therapy evaluate the patient and discussed with case management about treatment plan moving forward and if patient will require rehab again. Family at bedside reports patient was at rehab for over a month. 07/25/2022 Patient is seen and evaluated today maintained on IV antibiotics in the form of vancomycin with anxiety following. Patient having increased redness and drainage with continued induration and swelling at the site of the left thigh and initially vascular surgery having no plans for surgical intervention although will perform bedside I&D with repeat cultures obtained. Cultures from wound care center showing staph aureus along with Pseudomonas and repeat cultures thus far showing no growth with anxiety following recommending I&D with follow-up cultures. Will need to wait finalized cultures to determine discharge antibiotics and recommendations. Patient is currently afebrile with no reports of chest pain or shortness of breath noted. Case management following and discussion of home with home care is being had. Review of systems: Constitutional: No reports of fatigue, fever, or chills Cardiovascular: No reports of chest pain or palpitations Respiratory: No reports of shortness of breath or cough GI: No reports of nausea, vomiting, or diarrhea : No reports of dysuria or retention Neurovascular: reports of weakness and left leg swelling with pain and increased drainage All medications have been reviewed Active Medications Acetaminophen (Acetaminophen Tab 325 Mg Tab) 650 mg PO Q6HR PRN PRN Reason: Mild Pain or Fever > 100.5 Hydrocodone Bitart/Acetaminophen (Hydrocodone/Apap 5-325mg 1 Each Tab) 1 each PO Q4HR PRN PRN Reason: Pain Scale 8 to 10 Last Admin: 07/25/22 06:51 Dose: 1 each Albuterol/Ipratropium (Ipratropium-Albuterol 3 Ml Neb) 3 ml INHALATION RT-QID PRN PRN Reason: Shortness Of Breath Or Wheezing Last Admin: 07/25/22 08:39 Dose: 3 ml Apixaban (Apixaban 5 Mg Tab) 5 mg PO BID [facility]; Protocol Last Admin: 07/25/22 08:37 Dose: 5 mg Aspirin (Aspirin 81 Mg) 81 mg PO DAILY [facility] Last Admin: 07/25/22 08:38 Dose: 81 mg Atorvastatin Calcium (Atorvastatin 40 Mg Tab) 40 mg PO HS [facility] Last Admin: 07/24/22 21:12 Dose: 40 mg Bisacodyl (Bisacodyl 10 Mg Supp) 10 mg RECTAL DAILY PRN PRN Reason: Constipation Budesonide (Budesonide 0.5 Mg/2 Ml Nebu) 0.5 mg INHALATION RT-BID [facility] Last Admin: 07/25/22 08:39 Dose: 0.5 mg Diltiazem HCl (Diltiazem Oral 30 Mg Tab) 30 mg PO TID@0600,1400,2200 [facility] Last Admin: 07/25/22 06:18 Dose: 30 mg Famotidine (Famotidine 20 Mg Tab) 20 mg PO BID [facility] Last Admin: 07/25/22 08:37 Dose: 20 mg Folic Acid (Folic Acid 1 Mg Tab) 1 mg PO DAILY [facility] Last Admin: 07/25/22 08:37 Dose: 1 mg Furosemide (Furosemide 10 Mg/Ml 4 Ml Vial) 40 mg IV DAILY [facility] Last Admin: 07/25/22 08:38 Dose: 40 mg Gabapentin (Gabapentin 300 Mg Cap) 300 mg PO TID@0900,1300,2100 [facility] Last Admin: 07/25/22 08:37 Dose: 300 mg Vancomycin HCl 1,750 mg/ (Sodium Chloride) 500 mls @ 167 mls/hr IVPB Q12H [facility] Last Admin: 07/25/22 03:38 Dose: 167 mls/hr Lactulose (Lactulose 20 Gm/30 Ml Cup) 20 gm PO BID [facility] Last Admin: 07/25/22 08:38 Dose: 20 gm Levothyroxine Sodium (Levothyroxine 25 Mcg Tab) 12.5 mcg PO DAILY@0630 [facility] Last Admin: 07/25/22 06:18 Dose: 12.5 mcg Miscellaneous Information (Vancomycin Trough Due 1 Each Misc) 0 each MISCELLANE DIRECTED ONE Stop: 07/25/22 14:01 Naloxone HCl (Naloxone 0.4 Mg/Ml 1 Ml Vial) 0.2 mg IV Q2M PRN PRN Reason: Opioid Reversal Ondansetron HCl (Ondansetron 4 Mg/2 Ml Vial) 4 mg IVP Q8HR PRN PRN Reason: Nausea And Vomiting Ropinirole HCl (Ropinirole Hcl 0.25 Mg Tab) 0.5 mg PO HS [facility] Last Admin: 07/24/22 21:12 Dose: 0.5 mg Senna (Sennosides 8.6 Mg Tab) 17.2 mg PO HS [facility] Last Admin: 07/24/22 21:12 Dose: 17.2 mg Sodium Biphosphate/Sodium Phosphate (Na Phos,M-B/Na Phos,Di-Ba 133 Ml Enema) 133 ml RECTAL ONCE PRN PRN Reason: Constipation Thiamine HCl (Thiamine 100 Mg Tab) 100 mg PO DAILY [facility] Last Admin: 07/25/22 08:37 Dose: 100 mg Physical exam: Patient is sitting up in the chair, no acute distress, awake alert and oriented.. HEENT: Normocephalic. Neck is supple. Pupils reactive. Nostrils clear. Oral cavity is moist. Neck reveals no JVD, carotid bruits, or thyromegaly. CHEST EXAMINATION: Trachea is central. Symmetrical expansion. Bibasilar diminished sounds.. CARDIAC: Normal S1, S2 with no gallops. No murmurs ABDOMEN: Soft. Bowel sounds present. Nontender. No organomegaly. No abdominal bruits. Extremities: Bilateral lower extremity swelling 3+. left inner thigh redness and clear discharge from the surgical access site. Serosanguineous with surr ounding redness that appears to have intensified. . No clubbing or cyanosis Neurologically awake, alert, oriented x3 with well-coordinated movements. No focal deficits noted Skin: No rash or skin lesions. Psychiatric: Cooperative. Non-suicidal, Musculoskeletal: No joint swelling or deformity. Normal range of motion. Assessment: Increasing left lower ext swelling and drainage from the left thigh incision with surrounding redness due to cellulitis. Sepsis secondary above. Leukocytosis and tachycardic on admission Peripheral vascular disease status post left common iliac and external iliac stent placement and balloon angioplasty on 05/22/2022 Hypertension Hypothyroidism Osteoarthritis History of DVT on anticoagulation with Eliquis, currently on hold Anxiety/depression Current everyday smoker Obesity with BMI 37.4 GI prophylaxis DVT prophylaxis Full code Plan: Patient will be continued on antibiotics in the form of vancomycin. Infectious disease following recommending incision and drainage with deep tissue cultures Recommend lower extremity elevation while at rest. Vascular surgery following and will attempt bedside I&D this afternoon. Recommend holding anticoagulation Wound cultures were obtained at the wound care center showing Staphylococcus aureus with pseudomonas aeruginosa with follow-up culture showing no growth although patient continues to have increased redness and swelling around the site with continued drainage and infectious disease strongly recommending I&D and this was discussed with vascular surgery. Recommend repeat labs in the a.m. Recommend PT/OT therapy evaluation along with case management to discuss discharge planning. Patient will likely require IV antibiotics on discharge although will discuss further with ID. Currently awaiting repeat cultures to determine discharge antibiotics. The impression and plan of care has been dictated by Ashley Scott, Nurse Practitioner as directed. Dr. Herbert MD I have performed a history and examination and MDM of this patient, discussed the same with the dictator, and agree with the dictator's assessment and plan as written ,documented as a scribe. Based on total visit time, I have performed more than 50% of the visit. Objective - Vital Signs Vital signs: Vital Signs Temp 98.0 F 07/25/22 08:34 Pulse 70 07/25/22 08:51 Resp 18 07/25/22 08:34 BP 137/73 07/25/22 08:34 Pulse Ox 96 07/25/22 08:34 FiO2 Intake & Output 07/24/22 07/25/22 07/25/22 18:59 06:59 18:59 Output Total 800 Balance -800 Output: Urine 800 Other: Voiding Method Toilet # Voids 1 4 - Labs CBC & Chem 7: 07/24/22 03:17 07/24/22 03:17 Labs: Microbiology - Last 24 Hours (Table) 07/22/22 11:58 Gram Stain - Final Incision Wound Culture - Final 07/22/22 11:58 Blood Culture - Preliminary Blood No Growth after 48 hours
[2022-07-26] MEDS: LACTULOSE 20 GM/30 ML CUP PO SCH ×3 (08:20→21:08)
[2022-07-26] MEDS: FAMOTIDINE 20 MG TAB PO SCH ×2 (08:20→21:08)
[2022-07-26] MEDS: FOLIC ACID 1 MG TAB PO SCH (08:20)
[2022-07-26] MEDS: FUROSEMIDE 10 MG/ML 4 ML VIAL IV SCH ×3 (08:20→21:12)
[2022-07-26] MEDS: ASPIRIN 81 MG PO SCH (08:20)
[2022-07-26] MEDS: GABAPENTIN 300 MG CAP PO SCH ×3 (08:20→21:07)
[2022-07-26] MEDS: THIAMINE 100 MG TAB PO SCH (08:20)
[2022-07-26] MEDS: HYDROcodone/APAP 5-325MG 1 EACH TAB PO PRN ×2 (08:22→14:31)
[2022-07-26 08:48] LABS: HCT 32.8 % (39.6-50.0); HGB 10.5 g/dL (13.0-17.0); MCH 29.9 pg (27.0-32.0); MCV 93.4 fL (80.0-97.0); Mean Platelet Volume 10.2 fL (9.5-12.2); NRBC Per 100 WBC 0 /100 WBCS (0.0-0.0); Platelet Count 364 X 10*3/uL (140-440); RBC 3.51 X 10*6/uL (4.40-5.60); RDW 15.2 % (11.5-14.5); WBC 14.62 X 10*3/uL (4.50-10.00)
[2022-07-26 09:01] LABS: Anion Gap 9.3 mmol/L (10.00-18.00); BUN/Creat Ratio 13.78 Ratio (12.00-20.00); Blood Urea Nitrogen 9.1 mg/dL (9.0-27.0); Calcium 8.8 mg/dL (8.7-10.3); Carbon Dioxide 23.3 mmol/L (20.0-27.5); Non-African American GFR(CKD) 103.6 (60.0-200.0); Potassium 4.6 mmol/L (3.5-5.5)
[2022-07-26] MEDS ORDERED: LIDOCAINE 4% CREAM 5 GM TUBE TOPICAL ONE (09:11)
[2022-07-26] MEDS: BUDESONIDE 0.5 MG/2 ML NEBU INHALATION SCH ×2 (11:35→18:13)
[2022-07-26] MEDS: IPRATROPIUM-ALBUTEROL 3 ML NEB INHALATION PRN ×2 (11:35→18:13)
[2022-07-26 11:58] LABS: Basophils # (A) 0.06 X 10*3/uL (0.00-0.10); Basophils % (A) 0.4 %; Eosinophils # (A) 0.25 X 10*3/uL (0.04-0.35); Eosinophils % (A) 1.7 %; Immature Grans, Automated 1.1 %; Lymphocytes # (A) 1.66 X 10*3/uL (0.90-5.00); Lymphocytes % (A) 11.4 %; Monocytes # (A) 1.64 X 10*3/uL (0.20-1.00); Monocytes % (A) 11.2 %; Neutrophils # (A) 10.85 X 10*3/uL (1.80-7.70); Neutrophils % (A) 74.2 %
--- NOTE | 2022-07-26 12:07 | P.PN ---
Subjective Progress Note Date: 07/26/22 Bernard was seen and examined today as a follow-up sitting up in the recliner with his legs up.. He states he still has redness and swelling on the left medial thigh with clear drainage along with bilateral lower extremity edema. He has been afebrile. States otherwise lower extremities feel good. Denies any shortness of breath or chest pain, no abdominal pain, nausea or vomiting. Yesterday plan was for possible bedside incision and drainage, however surgeon was in late case and unable to perform. Objective - Vital Signs Vital signs: Vital Signs Temp 98.1 F 07/26/22 07:25 Pulse 76 07/26/22 11:47 Resp 20 07/26/22 07:25 BP 149/81 07/26/22 07:25 Pulse Ox 96 07/26/22 07:25 FiO2 Intake & Output 07/25/22 07/26/22 07/26/22 18:59 06:59 18:59 Output Total 400 Balance -400 Output: Urine 400 Other: Voiding Method Toilet Toilet Toilet Urinal Urinal # Voids 4 2 - Exam General appearance: The patient is alert, oriented, appears in no acute distress. Obese. HET: Head is normocephalic and atraumatic. Neck: Supple. Trachea midline. Heart: Regular. Lungs: Equal expansion, normal respiratory effort. Abdomen: Soft, nontender, nondistended. Extremities: Left lower extremity medial thigh near incision with erythema and swelling, clear drainage. Bilateral lower extremities warm with good capillary refill. Neurological: No focal deficits. Strength and sensation are grossly intact. - Labs CBC & Chem 7: 07/26/22 05:52 07/26/22 05:52 Labs: Abnormal Lab Results - Last 24 Hours (Table) 07/26/22 07/26/22 Range/Units 05:52 05:52 WBC 14.62 H (4.50-10.00) X 10*3/uL RBC 3.51 L (4.40-5.60) X 10*6/uL Hgb 10.5 L (13.0-17.0) g/dL Hct 32.8 L (39.6-50.0) % RDW 15.2 H (11.5-14.5) % Immature Gran # 0.16 H (0.00-0.04) X 10*3/uL Neutrophils # 10.85 H (1.80-7.70) X 10*3/uL Monocytes # 1.64 H (0.20-1.00) X 10*3/uL Sodium 134 L (135-145) mmol/L Anion Gap 9.30 L (10.00-18.00) mmol/L Microbiology - Last 24 Hours (Table) 07/25/22 13:00 Gram Stain - Preliminary Leg - Left Wound Culture - Preliminary 07/25/22 13:00 Anaerobic Culture - Preliminary Leg - Left 07/22/22 11:58 Blood Culture - Preliminary Blood No Growth after 72 hours 07/22/22 11:58 Gram Stain - Final Incision Wound Culture - Final Assessment and Plan Assessment: 1. Bilateral lower extremity edema 2. Left lower extremity ultrasound reporting moderate to severe diffuse subcutaneous edema with fluid collection 3. History of chronic peripheral arterial disease, status post left femoral to tibial bypass and iliac stenting Plan: 1. Continue with antibiotics per recommendations from infectious disease 2. Keep bilateral lower extremities elevated 3. Plan for bedside I&D this afternoon with deep tissue culture 4. May resume eliquis Thank you for this consultation, we will continue to follow. The impression and plan of care has been dictated as directed. Dr Weinberg I performed a history and examination of this patient, discussed the same with the dictator. I agree with the dictator's note ,documented as a scribe. Any additional findings or plans will be noted.
--- NOTE | 2022-07-26 13:38 | P.PN ---
Progress Note - Text Progress Note Date: 07/26/22 Patient status post left lower extremity surgical revascularization with hematoma/seroma of the lower medial thigh area. Attempt is made to drain this at bedside. The patient was placed in the semirecumbent position. The incisional area was sterilely prepped. It was approximately a half centimeter opening along the superior aspect of the wound and through this area a Q-tip was placed sterilely into the subcutaneous tissues and attempt to drain any retained fluid collection. Some serosanguineous fluid was expressed however there is no evidence of purulence and I suspect the main fluid collection remains encapsulated and not accessible by bedside transcutaneous probing. I believe this should be addressed by percutaneous drainage and we'll ask IR to address this issue. Proper dressings were applied.
--- NOTE | 2022-07-26 16:38 | P.PN ---
Subjective Progress Note Date: 07/26/22 Principal diagnosis: Left thigh cellulitis Patient is a 62-year-old male with a past medical history taken for atrial fibrillation COPD hypertension in this patient who recently did have a femoral to tibial peroneal trunk bypass with in situ vein graft as well as iliac artery stenting in May [address] Crawford patient is presenting to [facility] ER concerning for increasing drainage from his left thigh incision site , admitted to the hospital with possible cellulitis On today's evaluation her that is 07/26/2022, patient remains to be afebrile, the patient is comfortably comfortably, the patient denies chest pain shortness with a cough the left thigh pain and discomfort has slightly decreased in intensity Objective - Vital Signs Vital signs: Vital Signs Temp 98.3 F 07/26/22 12:23 Pulse 84 07/26/22 12:23 Resp 18 07/26/22 12:23 BP 136/83 07/26/22 12:23 Pulse Ox 97 07/26/22 12:23 FiO2 Intake & Output 07/25/22 07/26/22 07/26/22 18:59 06:59 18:59 Output Total 400 Balance -400 Output: Urine 400 Other: Voiding Method Toilet Toilet Toilet Urinal Urinal # Voids 4 2 - Exam GENERAL DESCRIPTION: A middle-age male up in the chair bed in no distress RESPIRATORY SYSTEM: Unlabored breathing , decreased breath sounds at bases HEART: S1 S2 regular rate and rhythm , ABDOMEN: Soft , no tenderness EXTREMITIES: Left medial thigh incision site did have more swelling redness t aaron which was cultured - Labs CBC & Chem 7: 07/26/22 05:52 07/26/22 05:52 Labs: Abnormal Lab Results - Last 24 Hours (Table) 07/26/22 07/26/22 Range/Units 05:52 05:52 WBC 14.62 H (4.50-10.00) X 10*3/uL RBC 3.51 L (4.40-5.60) X 10*6/uL Hgb 10.5 L (13.0-17.0) g/dL Hct 32.8 L (39.6-50.0) % RDW 15.2 H (11.5-14.5) % Immature Gran # 0.16 H (0.00-0.04) X 10*3/uL Neutrophils # 10.85 H (1.80-7.70) X 10*3/uL Monocytes # 1.64 H (0.20-1.00) X 10*3/uL Sodium 134 L (135-145) mmol/L Anion Gap 9.30 L (10.00-18.00) mmol/L Microbiology - Last 24 Hours (Table) 07/22/22 11:58 Blood Culture - Preliminary Blood No Growth after 96 hours 07/25/22 13:00 Gram Stain - Preliminary Leg - Left Wound Culture - Preliminary Presumptive Staph aureus 07/25/22 13:00 Anaerobic Culture - Preliminary Leg - Left Assessment and Plan (1) Cellulitis of left thigh Current Visit: Yes Status: Acute Code(s): L03.116 - CELLULITIS OF LEFT LOWER LIMB SNOMED Code(s): 19724957646870645 Plan: 1patient with recent vascular bypass surgery to the left leg cannot present to the hospital with increasing pain swelling and drainage to the left thigh incision concerning for possible cellulitis or deep infection likely from a gram-positive skin yuki 2-patient has been evaluated by vascular surgery ultrasound has been ordered concerning for 4.5 cm oval fluid collection suspected hematoma , patient noticed to have more swelling today and will benefit from a surgical aspirate/ drainage, for which I am has been consulted 3cultures obtained 07/25/2022 is currently growing staph aureus for which the patient is covered with vancomycin to continue and monitor clinical course sheldon sely Time with Patient: Less than 30
--- NOTE | 2022-07-26 20:03 | P.PN ---
Subjective Progress Note Date: 07/26/22 Patient is a 62-year-old male with a known history of DVT on anticoagulation with Eliquis, hypertension, COPD, hypothyroidism, peripheral vascular disease with recent left femoral angiogram, transluminal balloon angioplasty of the left common iliac and external iliac arteries, transluminal covered stent placement of the left common iliac and external iliac arteries and selective left lower extremity angiogram, open thrombectomy common femoral, profunda and external iliac arteries. Patient had procedure on 05/22/2022. Patient presents to ER with complaints of discharge from the surgical site. Patient has been having serous discharge and leg swelling bilaterally. Patient was seen in the clinic yesterday and was started on antibiotics in the form of Levaquin. He did take 2 doses of antibiotic. Patient started having pain and redness over the area and came to ER for evaluation. Otherwise patient denies any nausea or vomiting. No cough or sputum production. Denies any dysuria or hematuria. On admission patient was having low temperature 100 F, heart rate 103. Venous Doppler is negative for DVT Laboratory data showed WBC 18.1 hemoglobin 12.2 and platelets 336 Sodium 128, potassium 4.7 chloride 96 bicarb is 21 BUN 15 and creatinine 0.65 and blood sugar is 106. 07/23/2022 Patient is currently sitting in the chair. Awake alert and oriented. Currently on room air. No complaints of chest pain. Does have exertional dyspnea and also severe bilateral lower extremity swelling. Redness of the left inner thigh is better compared to yesterday. Serous discharge from the bilateral lower extremities. Significant edema. Patient has been afebrile. Currently on vancomycin. Vascular surgery and ID is on board. Patient will be continued on Lasix changed to IV 40 mg daily as blood pressure tolerates. Laboratory showed improvement in WBC count to 12.5, hemoglobin 10.7 and platelets 312 Sodium level is 129 potassium 4.8 chloride 99 bicarb is 21 BUN 16 and creatinine 0.62. Current medications reviewed. 07/24/2022 Patient is seen and evaluated in follow-up today with infectious disease and vascular surgery following. Patient is status post left surgical intervention with vascular and May and has been having some significant swelling and sensitivity with drainage noted on the wound in the upper medial thigh and drainage is clear in nature. Patient was seen in wound care center in the outpatient setting and obtained a culture and those are showing pseudomonas aeruginosa with Staphylococcus aureus and is maintained on IV antibiotics with anxiety following closely. Awaiting cultures and recommending I&D although vascular has no plans for intervention at this time. Recommend elevating lower extremity. Patient is currently afebrile denies chest pain or shortness of breath. Will have PT/OT therapy evaluate the patient and discussed with case management about treatment plan moving forward and if patient will require rehab again. Family at bedside reports patient was at rehab for over a month. 07/25/2022 Patient is seen and evaluated today maintained on IV antibiotics in the form of vancomycin with anxiety following. Patient having increased redness and drainage with continued induration and swelling at the site of the left thigh and initially vascular surgery having no plans for surgical intervention although will perform bedside I&D with repeat cultures obtained. Cultures from wound care center showing staph aureus along with Pseudomonas and repeat cultures thus far showing no growth with anxiety following recommending I&D with follow-up cultures. Will need to wait finalized cultures to determine discharge antibiotics and recommendations. Patient is currently afebrile with no reports of chest pain or shortness of breath noted. Case management following and discussion of home with home care is being had. 07/26/2022 Patient is seen and evaluated today and vascular surgery following along with infectious disease and patient continues to have redness and induration with drainage noted of the left thigh and vascular surgery with attempted bedside drainage and recommending IR consultation for this. Patient will continue to hold anticoagulation and this was discussed with vascular surgery. Patient evaluated by IR tomorrow. Patient is currently afebrile with no reports of chest pain or shortness of breath. No reports of nausea or vomiting and patient is tolerating diet. Patient continues to have lower extremity swelling and kidney functions are stable will increase Lasix to IV Lasix twice daily and follow-up with labs. Review of systems: Constitutional: No reports of fatigue, fever, or chills Cardiovascular: No reports of chest pain or palpitations Respiratory: No reports of shortness of breath or cough GI: No reports of nausea, vomiting, or diarrhea : No reports of dysuria or retention Neurovascular: reports of weakness and left leg swelling with pain and increased drainage All medications have been reviewed Active Medications Acetaminophen (Acetaminophen Tab 325 Mg Tab) 650 mg PO Q6HR PRN PRN Reason: Mild Pain or Fever > 100.5 Hydrocodone Bitart/Acetaminophen (Hydrocodone/Apap 5-325mg 1 Each Tab) 1 each PO Q4HR PRN PRN Reason: Pain Scale 8 to 10 Last Admin: 07/26/22 14:31 Dose: 1 each Albuterol/Ipratropium (Ipratropium-Albuterol 3 Ml Neb) 3 ml INHALATION RT-QID PRN PRN Reason: Shortness Of Breath Or Wheezing Last Admin: 07/26/22 18:13 Dose: 3 ml Aspirin (Aspirin 81 Mg) 81 mg PO DAILY [facility] Last Admin: 07/26/22 08:20 Dose: 81 mg Atorvastatin Calcium (Atorvastatin 40 Mg Tab) 40 mg PO HS [facility] Last Admin: 07/25/22 21:24 Dose: 40 mg Bisacodyl (Bisacodyl 10 Mg Supp) 10 mg RECTAL DAILY PRN PRN Reason: Constipation Budesonide (Budesonide 0.5 Mg/2 Ml Nebu) 0.5 mg INHALATION RT-BID [facility] Last Admin: 07/26/22 18:13 Dose: 0.5 mg Diltiazem HCl (Diltiazem Oral 30 Mg Tab) 30 mg PO TID@0600,1400,2200 [facility] Last Admin: 07/26/22 14:31 Dose: 30 mg Famotidine (Famotidine 20 Mg Tab) 20 mg PO BID [facility] Last Admin: 07/26/22 08:20 Dose: 20 mg Folic Acid (Folic Acid 1 Mg Tab) 1 mg PO DAILY [facility] Last Admin: 07/26/22 08:20 Dose: 1 mg Furosemide (Furosemide 10 Mg/Ml 4 Ml Vial) 40 mg IV BID [facility] Last Admin: 07/26/22 17:41 Dose: 40 mg Gabapentin (Gabapentin 300 Mg Cap) 300 mg PO TID@0900,1300,2100 [facility] Last Admin: 07/26/22 14:31 Dose: 300 mg Vancomycin HCl 1,750 mg/ (Sodium Chloride) 500 mls @ 167 mls/hr IVPB Q12H [facility] Last Admin: 07/26/22 14:31 Dose: 167 mls/hr Lactulose (Lactulose 20 Gm/30 Ml Cup) 20 gm PO BID [facility] Last Admin: 07/26/22 08:23 Dose: Not Given Levothyroxine Sodium (Levothyroxine 25 Mcg Tab) 12.5 mcg PO DAILY@0630 [facility] Last Admin: 07/26/22 06:02 Dose: 12.5 mcg Naloxone HCl (Naloxone 0.4 Mg/Ml 1 Ml Vial) 0.2 mg IV Q2M PRN PRN Reason: Opioid Reversal Ondansetron HCl (Ondansetron 4 Mg/2 Ml Vial) 4 mg IVP Q8HR PRN PRN Reason: Nausea And Vomiting Ropinirole HCl (Ropinirole Hcl 0.25 Mg Tab) 0.5 mg PO HS [facility] Last Admin: 07/25/22 21:24 Dose: 0.5 mg Senna (Sennosides 8.6 Mg Tab) 17.2 mg PO HS [facility] Last Admin: 07/25/22 21:24 Dose: Not Given Sodium Biphosphate/Sodium Phosphate (Na Phos,M-B/Na Phos,Di-Ba 133 Ml Enema) 133 ml RECTAL ONCE PRN PRN Reason: Constipation Thiamine HCl (Thiamine 100 Mg Tab) 100 mg PO DAILY [facility] Last Admin: 07/26/22 08:20 Dose: 100 mg Physical exam: Patient is sitting up in the chair, no acute distress, awake alert and oriented.. HEENT: Normocephalic. Neck is supple. Pupils reactive. Nostrils clear. Oral cavity is moist. Neck reveals no JVD, carotid bruits, or thyromegaly. CHEST EXAMINATION: Trachea is central. Symmetrical expansion. Bibasilar dimi nished sounds.. CARDIAC: Normal S1, S2 with no gallops. No murmurs ABDOMEN: Soft. Bowel sounds present. Nontender. No organomegaly. No abdominal bruits. Extremities: Bilateral lower extremity swelling 2+. left inner thigh redness and clear discharge from the surgical access site. Serosanguineous with surrounding redness that appears to have intensified. . No clubbing or cyanosis Neurologically awake, alert, oriented x3 with well-coordinated movements. No focal deficits noted Skin: No rash or skin lesions. Psychiatric: Cooperative. Non-suicidal, Musculoskeletal: No joint swelling or deformity. Normal range of motion. Assessment: Increasing left lower extremity swelling and drainage from the left thigh incision with surrounding redness due to cellulitis. Sepsis secondary above. Leukocytosis and tachycardic on admission Peripheral vascular disease status post left common iliac and external iliac stent placement and balloon angioplasty on 05/22/2022 Hypertension Hypothyroidism Osteoarthritis History of DVT on anticoagulation with Eliquis, currently on hold Anxiety/depression Current everyday smoker Obesity with BMI 37.4 GI prophylaxis DVT prophylaxis Full code Plan: Patient will be continued on antibiotics in the form of vancomycin. Infectious disease following recommending incision and drainage with deep tissue cultures Recommend lower extremity elevation while at rest. Vascular surgery following and recommending IR consultation for possible incision and drainage of this area. Recommend holding anticoagulation Wound cultures were obtained at the wound care center showing Staphylococcus aureus with pseudomonas aeruginosa with follow-up culture showing no growth although patient continues to have increased redness and swelling around the site with continued drainage and infectious disease strongly recommending I&D and this was discussed with vascular surgery. Patient With continued swelling of the lower extremities and was maintained on IV Lasix daily and will increase to twice daily Recommend repeat labs in the a.m. Recommend PT/OT therapy evaluation along with case management to discuss discharge planning. Patient may require IV antibiotics extensive wound care on discharge although will discuss further with ID. Currently awaiting repeat cul tures to determine discharge antibiotics. Will Await interventional radiology report The impression and plan of care has been dictated by Ashley Scott, Nurse Practitioner as directed. Dr. Herbert MD I have performed a history and examination and MDM of this patient, discussed the same with the dictator, and agree with the dictator's assessment and plan as written ,documented as a scribe. Based on total visit time, I have performed more than 50% of the visit. Objective - Vital Signs Vital signs: Vital Signs Temp 98.1 F 07/26/22 07:25 Pulse 80 07/26/22 07:25 Resp 20 07/26/22 07:25 BP 149/81 07/26/22 07:25 Pulse Ox 96 07/26/22 07:25 FiO2 Intake & Output 07/25/22 07/26/22 07/26/22 18:59 06:59 18:59 Output Total 400 Balance -400 Output: Urine 400 Other: Voiding Method Toilet Toilet Urinal # Voids 4 - Labs CBC & Chem 7: 07/26/22 05:52 07/26/22 05:52 Labs: Abnormal Lab Results - Last 24 Hours (Table) 07/26/22 07/26/22 Range/Units 05:52 05:52 WBC 14.62 H (4.50-10.00) X 10*3/uL RBC 3.51 L (4.40-5.60) X 10*6/uL Hgb 10.5 L (13.0-17.0) g/dL Hct 32.8 L (39.6-50.0) % RDW 15.2 H (11.5-14.5) % Sodium 134 L (135-145) mmol/L Anion Gap 9.30 L (10.00-18.00) mmol/L Microbiology - Last 24 Hours (Table) 07/25/22 13:00 Gram Stain - Preliminary Leg - Left Wound Culture - Preliminary 07/25/22 13:00 Anaerobic Culture - Preliminary Leg - Left 07/22/22 11:58 Blood Culture - Preliminary Blood No Growth after 72 hours 07/22/22 11:58 Gram Stain - Final Incision Wound Culture - Final
[2022-07-26] MEDS ORDERED: APIXABAN 5 MG TAB PO SCH (21:00)
[2022-07-26] MEDS: SENNOSIDES 8.6 MG TAB PO SCH (21:07)
[2022-07-26] MEDS: ATORVASTATIN 40 MG TAB PO SCH (21:08)
[2022-07-27] MEDS: VANCOMYCIN 1,750 MG in SODIUM CHLORIDE 0.9% 500 ML 500 ML IVPB SCH ×2 (03:32→15:20)
[2022-07-27] MEDS: HYDROcodone/APAP 5-325MG 1 EACH TAB PO PRN ×3 (06:17→17:06)
[2022-07-27] MEDS: LEVOTHYROXINE 25 MCG TAB PO SCH (06:18)
[2022-07-27] MEDS: DILTIAZEM ORAL 30 MG TAB PO SCH ×3 (06:18→22:04)
[2022-07-27] MEDS: FOLIC ACID 1 MG TAB PO SCH (09:19)
[2022-07-27] MEDS: FAMOTIDINE 20 MG TAB PO SCH ×2 (09:19→22:05)
[2022-07-27] MEDS: THIAMINE 100 MG TAB PO SCH (09:19)
[2022-07-27] MEDS: GABAPENTIN 300 MG CAP PO SCH ×3 (09:19→22:05)
[2022-07-27] MEDS: ASPIRIN 81 MG PO SCH (09:19)
[2022-07-27] MEDS: LACTULOSE 20 GM/30 ML CUP PO SCH ×2 (09:20→22:15)
[2022-07-27 09:47] LABS: African American GFR (CKD) >90 (>60 ml/min/1.73 sqM); Anion Gap 8 mmol/L; Blood Urea Nitrogen 12 mg/dL (9-20); Calcium 8.6 mg/dL (8.4-10.2); Carbon Dioxide 26 mmol/L (22-30); Chloride 99 mmol/L (98-107); Glucose 102 mg/dL (74-99); Magnesium 1.8 mg/dL (1.6-2.3); Non-African American GFR(CKD) >90 (>60 ml/min/1.73 sqM); Potassium 4.2 mmol/L (3.5-5.1); Sodium 133 mmol/L (137-145)
[2022-07-27 09:53] LABS: Basophils # (A) 0.1 k/uL (0-0.2); Basophils % (A) 0 %; Eosinophils # (A) 0.3 k/uL (0-0.7); Eosinophils % (A) 2 %; HCT 33.5 % (39.0-53.0); Lymphocytes # (A) 1.7 k/uL (1.0-4.8); Lymphocytes % (A) 12 %; MCH 30.6 pg (25.0-35.0); MCV 92.6 fL (80.0-100.0); Monocytes # (A) 1.1 k/uL (0-1.0); Monocytes % (A) 8 %; Neutrophils # (A) 11.1 k/uL (1.3-7.7); Neutrophils % (A) 78 %; Platelet Count 419 k/uL (150-450); RBC 3.61 m/uL (4.30-5.90); RDW 14.8 % (11.5-15.5); WBC 14.3 k/uL (3.8-10.6)
[2022-07-27 10:01] LABS: Prothrombin Time 10.6 sec (9.0-12.0)
--- NOTE | 2022-07-27 11:06 | P.PN ---
Subjective Progress Note Date: 07/27/22 Seen and examined today in follow-up. He went down for drainage fluid pocket from the left medial thigh from interventional radiology. No other acute complaints. He's been afebrile. He remains on IV antibiotics. Objective - Vital Signs Vital signs: Vital Signs Temp 98.8 F 07/27/22 07:05 Pulse 70 07/27/22 10:10 Resp 16 07/27/22 10:10 BP 113/72 07/27/22 10:10 Pulse Ox 99 07/27/22 10:10 FiO2 Intake & Output 07/26/22 07/27/22 07/27/22 18:59 06:59 18:59 Intake Total 500 500 Output Total 400 200 100 Balance 100 300 -100 Intake: Intake, IV Titration 500 500 Amount Vancomycin 1,750 mg In 500 500 Sodium Chloride 0.9% 500 ml 500 ml @ 167 mls/hr IVPB Q12H [facility] Rx#: [id number] Output: Urine 400 200 100 Other: Voiding Method Toilet Toilet Urinal Urinal # Voids 2 - Exam General appearance: The patient is alert, oriented, appears in no acute distress. Obese. HET: Head is normocephalic and atraumatic. Neck: Supple. Trachea midline. Extremities: Left lower extremity medial thigh near incision with erythema and swelling, clear drainage. Bilateral lower extremities warm with good capillary refill. Neurological: No focal deficits. Strength and sensation are grossly intact. - Labs CBC & Chem 7: 07/27/22 08:46 07/27/22 08:46 Labs: Abnormal Lab Results - Last 24 Hours (Table) 07/26/22 07/27/22 07/27/22 Range/Units 05:52 08:46 08:46 WBC 14.3 H (3.8-10.6) k/uL RBC 3.61 L (4.30-5.90) m/uL Hgb 11.0 L (13.0-17.5) gm/dL Hct 33.5 L (39.0-53.0) % Immature Gran # 0.16 H (0.00-0.04) X 10*3/uL Neutrophils # 10.85 H 11.1 H (1.80-7.70) X 10*3/uL Monocytes # 1.64 H 1.1 H (0.20-1.00) X 10*3/uL Sodium 133 L (137-145) mmol/L Creatinine 0.64 L (0.66-1.25) mg/dL Glucose 102 H (74-99) mg/dL Microbiology - Last 24 Hours (Table) 07/22/22 11:58 Blood Culture - Preliminary Blood No Growth after 96 hours 07/25/22 13:00 Gram Stain - Preliminary Leg - Left Wound Culture - Preliminary Presumptive Staph aureus Assessment and Plan Assessment: 1. Bilateral lower extremity edema 2. Left lower extremity ultrasound reporting moderate to severe diffuse subcutaneous edema with fluid collection 3. History of chronic peripheral arterial disease, status post left femoral to tibial bypass and iliac stenting Plan: 1. Thigh-high BERNARDO hose to bilateral lower extremities 2. Keep bilateral lower extremities elevated 3. Interventional radiology consulted for fluid pocket drainage and cultures on the however there was no fluid pocket available for them to drain only old hematoma 4. No further surgical intervention per vascular surgery, hematoma will continue to absorb on its own. Patient is clear from vascular surgery for discharge. 5. Follow with wound care as scheduled, patient scheduled tomorrow Thank you for this consultation, we will sign off at this time. The impression and plan of care has been dictated as directed. Dr Bliss I performed a history and examination of this patient, discussed the same with the dictator. I agree with the dictator's note ,documented as a scribe. Any additional findings or plans will be noted.
[2022-07-27] MEDS: IPRATROPIUM-ALBUTEROL 3 ML NEB INHALATION PRN ×2 (11:27→18:23)
[2022-07-27] MEDS: BUDESONIDE 0.5 MG/2 ML NEBU INHALATION SCH ×2 (11:27→18:23)
--- NOTE | 2022-07-27 11:36 | US ---
PROCEDURE: Ultrasound-guided aspiration DATE: 07/27/2022 [employer] TE[employer]ER: Dr. Robin CLINICAL HISTORY: Left thigh hematoma with overlying cellulitis, concerning for deep infection COMPARISON: Ultrasound extremity 07/23/2022 ANESTHESIA: 1% local lidocaine PROCEDURE: The procedure, risks, and alternatives were discussed and all questions were answered. Written inform ed consent obtained. A complicating paperwork and verified for accuracy. Directed history and physica l exam performed prior to the procedure. Medication reconciliation performed by nursing personnel. Pr ocedure was performed using a cap, sterile gloves, hand hygiene, and chlorhexidine for cutaneous anti sepsis. A critical pause was performed with assisting personnel just prior to the procedure with the patient's identity confirmed using 2 identifiers, confirming site and side. Limited grayscale ultrasound of the palpable and erythematous area of swelling within the left medial thigh was performed which demonstrates a heterogeneous avascular collection, consistent with hematom a. An appropriate skin entry site which was devoid of inflammatory changes was marked and prepped, an d draped in usual sterile fashion. 1% lidocaine was administered into the skin and deeper soft tissue s. An 18-gauge needle was then advanced into slightly more anechoic foci under continuous ultrasound guidance and aspiration was attempted. No fluid could be returned. The needle was positioned into a f ew other foci again without any fluid returned on aspiration. The needle was then removed and a steri le dressing was placed. The patient tolerated the procedure well and there were no immediate complications. Blood loss was mi nimal. IMPRESSION: No fluid collected from ultrasound-guided left medial thigh aspiration, as above.
[2022-07-27] MEDS: FUROSEMIDE 10 MG/ML 4 ML VIAL IV SCH (12:00)
[2022-07-27 12:29] VITALS: RESP 18
[2022-07-27] MEDS ORDERED: LIDOCAINE 1% INJ 10MG/ML (5 ML VIAL-PF) SQ ONE (14:46)
--- NOTE | 2022-07-27 15:10 | IR ---
PICC LINE PLACEMENT: HISTORY: Infection requiring long-term antibiotic therapy PROCEDURE: Ultrasound and fluoroscopic guidance of PICC line placement. IMCU SPECIALIST: None COMPLICATIONS: None ANESTHESIA: 1. 1% Lidocaine locally. FINDINGS/TECHNIQUE: The procedure was explained to the patient. The risks, complications, benefits and alternatives were discussed and any questions were answered. Informed consent was obtained. The patient was placed supine on the fluoroscopic table and prepped and draped in the usual sterile fash ion. Utilizing a 21 gauge needle and sonographic and fluoroscopic guidance, access in the left basi lic vein was achieved and there is placement of a 0.018 guidewire. The vein is patent. A 4-F. sheat h was placed over the guidewire. The guidewire and dilator were removed and a single-lumen 4-F. 49 c m length PICC line was placed through the sheath with the tip at the level of the cavoatrial junction . The sheath was removed, the catheter was flushed and sutured into position. The patient was stabl e throughout the procedure and remained stable upon discharge from the Department of Radiology. The vein puncture was patent under ultrasound. A cardenas scale image was obtained to document patency of the vein punctured. All elements of the maximal barrier technique were utilized. FLUOROSCOPY TIME: 0.3 minutes with a total dose of 4.77 mGy IMPRESSION: Successful PICC line placement under ultrasound and fluoroscopic guidance.
--- NOTE | 2022-07-27 15:50 | P.PN ---
Subjective Progress Note Date: 07/27/22 Principal diagnosis: Left thigh cellulitis Patient is a 62-year-old male with a past medical history taken for atrial fibrillation COPD hypertension in this patient who recently did have a femoral to tibial peroneal trunk bypass with in situ vein graft as well as iliac artery stenting in May [address] Crawford patient is presenting to [facility] ER concerning for increasing drainage from his left thigh incision site , admitted to the hospital with possible cellulitis On today's evaluation her that is 07/27/2022, patient continues to be afebrile, the patient is comfortably comfortably on room air, the patient denies chest pain shortness with a cough the left thigh pain and discomfort has decreased in intensity Objective - Vital Signs Vital signs: Vital Signs Temp 98.2 F 07/27/22 12:02 Pulse 48 L 07/27/22 12:02 Resp 18 07/27/22 12:02 BP 131/70 07/27/22 12:02 Pulse Ox 95 07/27/22 12:02 FiO2 Intake & Output 07/26/22 07/27/22 07/27/22 18:59 06:59 18:59 Intake Total 500 500 Output Total 400 200 600 Balance 100 300 -600 Intake: Intake, IV Titration 500 500 Amount Vancomycin 1,750 mg In 500 500 Sodium Chloride 0.9% 500 ml 500 ml @ 167 mls/hr IVPB Q12H [facility] Rx#: [id number] Output: Urine 400 200 600 Other: Voiding Method Toilet Toilet Urinal Urinal # Voids 2 - Exam GENERAL DESCRIPTION: A middle-age male up in the chair bed in no distress RESPIRATORY SYSTEM: Unlabored breathing , decreased breath sounds at bases HEART: S1 S2 regular rate and rhythm , ABDOMEN: Soft , no tenderness EXTREMITIES: Left medial thigh incision site swelling redness has decreased no drainage on the dressing - Labs CBC & Chem 7: 07/27/22 08:46 07/27/22 08:46 Labs: Abnormal Lab Results - Last 24 Hours (Table) 07/27/22 07/27/22 Range/Units 08:46 08:46 WBC 14.3 H (3.8-10.6) k/uL RBC 3.61 L (4.30-5.90) m/uL Hgb 11.0 L (13.0-17.5) gm/dL Hct 33.5 L (39.0-53.0) % Neutrophils # 11.1 H (1.3-7.7) k/uL Monocytes # 1.1 H (0-1.0) k/uL Sodium 133 L (137-145) mmol/L Creatinine 0.64 L (0.66-1.25) mg/dL Glucose 102 H (74-99) mg/dL Microbiology - Last 24 Hours (Table) 07/22/22 11:58 Blood Culture - Preliminary Blood No Growth after 120 hours 07/25/22 13:00 Gram Stain - Preliminary Leg - Left Wound Culture - Preliminary Presumptive Staph aureus Assessment and Plan (1) Cellulitis of left thigh Current Visit: Yes Status: Acute Code(s): L03.116 - CELLULITIS OF LEFT LOWER LIMB SNOMED Code(s): 72165542374845543 Plan: 1patient with recent vascular bypass surgery to the left leg cannot present to the hospital with increasing pain swelling and drainage to the left thigh incision concerning for possible cellulitis or deep infection likely from a gram-positive skin yuki 2-patient has been evaluated by vascular surgery ultrasound has been ordered concerning for 4.5 cm oval fluid collection suspected hematoma , patient noticed to have more swelling today and will benefit from a surgical aspirate/ drainage, for which I am has been consulted 3cultures obtained 07/25/2022 is currently growing staph aureus with the sensitivities are currently pending, patient to continue with vancomycin will benefit from a short course of IV antibiotics on Discharge discuss with the CASTING AGENT for admitting team Time with Patient: Less than 30
[2022-07-27] MEDS ORDERED: Magnesium Replacement Protocol 1 EACH MISC MISCELLANE PRN (20:30)
[2022-07-27] MEDS ORDERED: MAGNESIUM SULFATE-D5W PMX 1 GM in DEXTROSE/WATER 1 100ML.BAG IVPB ONE (20:30)
--- NOTE | 2022-07-27 20:45 | P.PN ---
Subjective Progress Note Date: 07/27/22 Patient is a 62-year-old male with a known history of DVT on anticoagulation with Eliquis, hypertension, COPD, hypothyroidism, peripheral vascular disease with recent left femoral angiogram, transluminal balloon angioplasty of the left common iliac and external iliac arteries, transluminal covered stent placement of the left common iliac and external iliac arteries and selective left lower extremity angiogram, open thrombectomy common femoral, profunda and external iliac arteries. Patient had procedure on 05/22/2022. Patient presents to ER with complaints of discharge from the surgical site. Patient has been having serous discharge and leg swelling bilaterally. Patient was seen in the clinic yesterday and was started on antibiotics in the form of Levaquin. He did take 2 doses of antibiotic. Patient started having pain and redness over the area and came to ER for evaluation. Otherwise patient denies any nausea or vomiting. No cough or sputum production. Denies any dysuria or hematuria. On admission patient was having low temperature 100 F, heart rate 103. Venous Doppler is negative for DVT Laboratory data showed WBC 18.1 hemoglobin 12.2 and platelets 336 Sodium 128, potassium 4.7 chloride 96 bicarb is 21 BUN 15 and creatinine 0.65 and blood sugar is 106. 07/23/2022 Patient is currently sitting in the chair. Awake alert and oriented. Currently on room air. No complaints of chest pain. Does have exertional dyspnea and also severe bilateral lower extremity swelling. Redness of the left inner thigh is better compared to yesterday. Serous discharge from the bilateral lower extremities. Significant edema. Patient has been afebrile. Currently on vancomycin. Vascular surgery and ID is on board. Patient will be continued on Lasix changed to IV 40 mg daily as blood pressure tolerates. Laboratory showed improvement in WBC count to 12.5, hemoglobin 10.7 and platelets 312 Sodium level is 129 potassium 4.8 chloride 99 bicarb is 21 BUN 16 and creatinine 0.62. Current medications reviewed. 07/24/2022 Patient is seen and evaluated in follow-up today with infectious disease and vascular surgery following. Patient is status post left surgical intervention with vascular and May and has been having some significant swelling and sensitivity with drainage noted on the wound in the upper medial thigh and drainage is clear in nature. Patient was seen in wound care center in the outpatient setting and obtained a culture and those are showing pseudomonas aeruginosa with Staphylococcus aureus and is maintained on IV antibiotics with anxiety following closely. Awaiting cultures and recommending I&D although vascular has no plans for intervention at this time. Recommend elevating lower extremity. Patient is currently afebrile denies chest pain or shortness of breath. Will have PT/OT therapy evaluate the patient and discussed with case management about treatment plan moving forward and if patient will require rehab again. Family at bedside reports patient was at rehab for over a month. 07/25/2022 Patient is seen and evaluated today maintained on IV antibiotics in the form of vancomycin with anxiety following. Patient having increased redness and drainage with continued induration and swelling at the site of the left thigh and initially vascular surgery having no plans for surgical intervention although will perform bedside I&D with repeat cultures obtained. Cultures from wound care center showing staph aureus along with Pseudomonas and repeat cultures thus far showing no growth with anxiety following recommending I&D with follow-up cultures. Will need to wait finalized cultures to determine discharge antibiotics and recommendations. Patient is currently afebrile with no reports of chest pain or shortness of breath noted. Case management following and discussion of home with home care is being had. 07/26/2022 Patient is seen and evaluated today and vascular surgery following along with infectious disease and patient continues to have redness and induration with drainage noted of the left thigh and vascular surgery with attempted bedside drainage and recommending IR consultation for this. Patient will continue to hold anticoagulation and this was discussed with vascular surgery. Patient evaluated by IR tomorrow. Patient is currently afebrile with no reports of chest pain or shortness of breath. No reports of nausea or vomiting and patient is tolerating diet. Patient continues to have lower extremity swelling and kidney functions are stable will increase Lasix to IV Lasix twice daily and follow-up with labs. 07/27/2022 Patient is seen and evaluated this morning status post interventional radiology evaluating the left thigh via ultrasound-guided reporting no pockets or abscess noted for drainage thus no further fluid collection obtained with vascular surgery following. Patient's cultures are showing presumptive staph aureus and is maintained on antibiotics and will continue on vancomycin and is to receive a PICC line for outpatient IV antibiotics. Patient has been accepted at [facility] and will await insurance authorization. Patient will be going on IV antibiotics per ID recommendations. Patient to continue local wound care and will resume anticoagulation. Patient was maintained on IV Lasix twice daily and will transition to oral Lasix and follow-up with repeat labs. Patient is currently afebrile denies chest pain or shortness of breath and denies nausea or vomiting and has been tolerating diet. Recommend physical therapy daily and continued wound care. Review of systems: Constitutional: No reports of fatigue, fever, or chills Cardiovascular: No reports of chest pain or palpitations Respiratory: No reports of shortness of breath or cough GI: No reports of nausea, vomiting, or diarrhea : No reports of dysuria or retention Neurovascular: reports of weakness and left leg swelling with pain and increased drainage All medications have been reviewed Active Medications Acetaminophen (Acetaminophen Tab 325 Mg Tab) 650 mg PO Q6HR PRN PRN Reason: Mild Pain or Fever > 100.5 Hydrocodone Bitart/Acetaminophen (Hydrocodone/Apap 5-325mg 1 Each Tab) 1 each PO Q4HR PRN PRN Reason: Pain Scale 8 to 10 Last Admin: 07/27/22 17:06 Dose: 1 each Albuterol/Ipratropium (Ipratropium-Albuterol 3 Ml Neb) 3 ml INHALATION RT-QID PRN PRN Reason: Shortness Of Breath Or Wheezing Last Admin: 07/27/22 18:23 Dose: 3 ml Aspirin (Aspirin 81 Mg) 81 mg PO DAILY [facility] Last Admin: 07/27/22 09:19 Dose: 81 mg Atorvastatin Calcium (Atorvastatin 40 Mg Tab) 40 mg PO HS [facility] Last Admin: 07/26/22 21:08 Dose: 40 mg Bisacodyl (Bisacodyl 10 Mg Supp) 10 mg RECTAL DAILY PRN PRN Reason: Constipation Budesonide (Budesonide 0.5 Mg/2 Ml Nebu) 0.5 mg INHALATION RT-BID [facility] Last Admin: 07/27/22 18:23 Dose: 0.5 mg Diltiazem HCl (Diltiazem Oral 30 Mg Tab) 30 mg PO TID@0600,1400,2200 [facility] Last Admin: 07/27/22 13:29 Dose: 30 mg Famotidine (Famotidine 20 Mg Tab) 20 mg PO BID [facility] Last Admin: 07/27/22 09:19 Dose: 20 mg Folic Acid (Folic Acid 1 Mg Tab) 1 mg PO DAILY [facility] Last Admin: 07/27/22 09:19 Dose: 1 mg Furosemide (Furosemide 40 Mg Tab) 40 mg PO DAILY [facility] Gabapentin (Gabapentin 300 Mg Cap) 300 mg PO TID@0900,1300,2100 [facility] Last Admin: 07/27/22 13:29 Dose: 300 mg Vancomycin HCl 1,750 mg/ (Sodium Chloride) 500 mls @ 167 mls/hr IVPB Q12H [facility] Last Admin: 07/27/22 15:20 Dose: 167 mls/hr Magnesium Sulfate/Dextrose 1 (gm/ IV Solution) 100 mls @ 100 mls/hr IVPB ONCE ONE; Protocol Stop: 07/27/22 21:29 Lactulose (Lactulose 20 Gm/30 Ml Cup) 20 gm PO BID [facility] Last Admin: 07/27/22 09:20 Dose: Not Given Levothyroxine Sodium (Levothyroxine 25 Mcg Tab) 12.5 mcg PO DAILY@0630 [facility] Last Admin: 07/27/22 06:18 Dose: 12.5 mcg Miscellaneous Information (Vancomycin Trough Due 1 Each Misc) 1 each MISCELLANE ONCE ONE Stop: 07/28/22 14:01 Miscellaneous Information (Magnesium Replacement Protocol 1 Each Misc) 1 each MISCELLANE DAILY PRN; Protocol PRN Reason: Per Protocol Naloxone HCl (Naloxone 0.4 Mg/Ml 1 Ml Vial) 0.2 mg IV Q2M PRN PRN Reason: Opioid Reversal Ondansetron HCl (Ondansetron 4 Mg/2 Ml Vial) 4 mg IVP Q8HR PRN PRN Reason: Nausea And Vomiting Ropinirole HCl (Ropinirole Hcl 0.25 Mg Tab) 0.5 mg PO [facility] Last Admin: 07/26/22 21:08 Dose: 0.5 mg Senna (Sennosides 8.6 Mg Tab) 17.2 mg PO [facility] Last Admin: 07/26/22 21:07 Dose: 17.2 mg Sodium Biphosphate/Sodium Phosphate (Na Phos,M-B/Na Phos,Di-Ba 133 Ml Enema) 133 ml RECTAL ONCE PRN PRN Reason: Constipation Thiamine HCl (Thiamine 100 Mg Tab) 100 mg PO DAILY [facility] Last Admin: 07/27/22 09:19 Dose: 100 mg Physical exam: Patient is sitting up in the chair, no acute distress, awake alert and oriented.. HEENT: Normocephalic. Neck is supple. Pupils reactive. Nostrils clear. Oral cavity is moist. Neck reveals no JVD, carotid bruits, or thyromegaly. CHEST EXAMINATION: Trachea is central. Symmetrical expansion. Bibasilar diminished sounds.. CARDIAC: Normal S1, S2 with no gallops. No murmurs ABDOMEN: Soft. Bowel sounds present. Nontender. No organomegaly. No abdominal bruits. Extremities: Bilateral lower extremity swelling 2+. left inner thigh redness and clear discharge from the surgical access site. There is some mild drainage and new dressings noted from IR intervention. Neurologically awake, alert, oriented x3 with well-coordinated movements. No focal deficits noted Skin: No rash or skin lesions. Psychiatric: Cooperative. Non-suicidal, Musculoskeletal: No joint swelling or deformity. Normal range of motion. Assessment: Increasing left lower extremity swelling and drainage from the left thigh incision with surrounding redness due to cellulitis. Sepsis secondary above. Leukocytosis and tachycardic on admission Peripheral vascular disease status post left common iliac and external iliac stent placement and balloon angioplasty on 05/22/2022 Hypertension Hypothyroidism Osteoarthritis History of DVT on anticoagulation with Eliquis Anxiety/depression Current everyday smoker Obesity with BMI 37.4 GI prophylaxis DVT prophylaxis Full code Plan: Patient will be continued on antibiotics in the form of vancomycin. Infectious disease following recommending incision and drainage with deep tissue cultures. IR consulted and did not perform incision and drainage as ultrasound was done showing no fluid collection Recommend lower extremity elevation while at rest. Vascular surgery following and will sign off recommending outpatient follow-up as scheduled Wound cultures were obtained at the wound care center showing Staphylococcus aureus with pseudomonas aeruginosa with follow-up culture showing no growth although patient continues to have increased redness and swelling around the site with continued drainage and infectious disease strongly recommending I&D and this was discussed with vascular surgery. IR again evaluated with no plans of I&D Repeat culture showing staph aureus I discussed with ID and patient will receive a PICC line with outpatient IV antibiotics being arranged. Patient With continued swelling of the lower extremities with some slight improvement and was maintained on IV Lasix and will transition to oral Lasix daily Recommend resuming anticoagulation this evening Recommend repeat labs in the a.m. PT/OT therapy evaluation along with case management to discuss discharge plann ing. Patient will require IV antibiotics and extensive wound care on discharge Patient is scheduled to receive a PICC line today and discuss with case management and ECF liaison and will require insurance authorization which has been submitted today Possible discharge in 24-48 hours once insurance authorization is obtained The impression and plan of care has been dictated by Ashley Scott, Nurse Practitioner as directed. Dr. Herbert MD I have performed a history and examination and MDM of this patient, discussed the same with the dictator, and agree with the dictator's assessment and plan as written ,documented as a scribe. Based on total visit time, I have performed more than 50% of the visit. Objective - Vital Signs Vital signs: Vital Signs Temp 98.8 F 07/27/22 07:05 Pulse 79 07/27/22 07:05 Resp 18 07/27/22 07:05 BP 127/60 07/27/22 07:05 Pulse Ox 91 L 07/27/22 07:05 FiO2 Intake & Output 07/26/22 07/27/22 07/27/22 18:59 06:59 18:59 Intake Total 500 500 Output Total 400 200 100 Balance 100 300 -100 Intake: Intake, IV Titration 500 500 Amount Vancomycin 1,750 mg In 500 500 Sodium Chloride 0.9% 500 ml 500 ml @ 167 mls/hr IVPB Q12H [facility] Rx#: [id number] Output: Urine 400 200 100 Other: Voiding Method Toilet Toilet Urinal Urinal # Voids 2 - Labs CBC & Chem 7: 07/27/22 08:46 07/27/22 08:46 Labs: Abnormal Lab Results - Last 24 Hours (Table) 07/26/22 Range/Units 05:52 Immature Gran # 0.16 H (0.00-0.04) X 10*3/uL Neutrophils # 10.85 H (1.80-7.70) X 10*3/uL Monocytes # 1.64 H (0.20-1.00) X 10*3/uL Microbiology - Last 24 Hours (Table) 07/22/22 11:58 Blood Culture - Preliminary Blood No Growth after 96 hours 07/25/22 13:00 Gram Stain - Preliminary Leg - Left Wound Culture - Preliminary Presumptive Staph aureus
[2022-07-27] MEDS: SENNOSIDES 8.6 MG TAB PO SCH (22:04)
[2022-07-27] MEDS: ATORVASTATIN 40 MG TAB PO SCH (22:05)
[2022-07-28] MEDS: VANCOMYCIN 1,750 MG in SODIUM CHLORIDE 0.9% 500 ML 500 ML IVPB SCH (04:22)
[2022-07-28] MEDS: DILTIAZEM ORAL 30 MG TAB PO SCH ×2 (06:27→14:08)
[2022-07-28] MEDS: LEVOTHYROXINE 25 MCG TAB PO SCH (06:27)
[2022-07-28 07:42] VITALS: TEMP 98.5
[2022-07-28] MEDS: HYDROcodone/APAP 5-325MG 1 EACH TAB PO PRN ×2 (08:23→14:58)
[2022-07-28 08:25] VITALS: BMI 37.4
[2022-07-28] MEDS: IPRATROPIUM-ALBUTEROL 3 ML NEB INHALATION PRN (08:28)
[2022-07-28] MEDS: BUDESONIDE 0.5 MG/2 ML NEBU INHALATION SCH (08:28)
[2022-07-28] MEDS: THIAMINE 100 MG TAB PO SCH (08:44)
[2022-07-28] MEDS: FAMOTIDINE 20 MG TAB PO SCH (08:44)
[2022-07-28] MEDS: FOLIC ACID 1 MG TAB PO SCH (08:44)
[2022-07-28] MEDS: LACTULOSE 20 GM/30 ML CUP PO SCH ×2 (08:44→08:47)
[2022-07-28] MEDS: GABAPENTIN 300 MG CAP PO SCH ×2 (08:44→12:09)
[2022-07-28] MEDS: ASPIRIN 81 MG PO SCH (08:44)
[2022-07-28] MEDS ORDERED: FUROSEMIDE 40 MG TAB PO SCH (09:00)
[2022-07-28 11:09] LABS: African American GFR (CKD) 112.1 (60.0-200.0); Anion Gap 9.7 mmol/L (10.00-18.00); BUN/Creat Ratio 14.87 Ratio (12.00-20.00); Blood Urea Nitrogen 11.6 mg/dL (9.0-27.0); Calcium 8.6 mg/dL (8.7-10.3); Carbon Dioxide 24.4 mmol/L (20.0-27.5); Magnesium 2.1 mg/dL (1.5-2.4); Non-African American GFR(CKD) 96.7 (60.0-200.0); Potassium 4.6 mmol/L (3.5-5.5)
[2022-07-28] MEDS ORDERED: APIXABAN 5 MG TAB PO SCH (11:30)
--- NOTE | 2022-07-28 12:33 | CDI ---
Documentation Clarification Form Date: 07/28/2022 12:13:12 PM From: Debbie Ann RN, CCDS Email: [email or web address] Admit Date: 07/22/2022 1:18:00 PM Patient Name: Bernard Dudley Visit Number: [id number] Discharge Date: ATTENTION: The Clinical Documentation Specialists (CDI) and [facility] Coding Staff appreciate your assistance in clarifying documentation. Please respond to the clarification below the line at the bottom and electronically sign. The CDI & [facility] Coding staff will review the response and follow-up if needed. Please note: Queries are made part of the Legal Health Record. If you have any questions, please contact the author of this message via ITS. Dr. Brooks Lay Your patient had low sodium levels. Please clarify if there is an additional diagnosis and/or clinical significance related to this lab value. History/Risk Factors: Increasing LLE swelling and drainage from left thigh incision with surrounding redness d/t cellulitis. Admitted with sepsis. PVD. HTN, hypothyroidism, OA, DVT, current every day smoker. Clinical indicators: 07/22 Na: 128 07/23 Na: 129 07/24 Na: 130 07/26 Na: 134 07/28 Na: 135 Treatment: 0.9 NS @130/hr on 07/22 then 50/hr Is there an additional diagnosis and/or clinical significance related to the above lab result/information? [ x ] Hyponatremia [ ] Abnormal Lab Value, not clinically significant [ ] Other condition, please specify [ ] Unable to determine MTDD
--- NOTE | 2022-07-28 13:11 | P.PN ---
Subjective Progress Note Date: 07/28/22 Principal diagnosis: Left thigh cellulitis Patient is a 62-year-old male with a past medical history taken for atrial fibrillation COPD hypertension in this patient who recently did have a femoral to tibial peroneal trunk bypass with in situ vein graft as well as iliac artery stenting in May [address] Crawford patient is presenting to [facility] ER concerning for increasing drainage from his left thigh incision site , admitted to the hospital with possible cellulitis On today's evaluation her that is 07/28/2022, patient remains to be afebrile, the patient is comfortably comfortably on room air, the patient denies chest pain shortness breath and no significant cough , the patient left thigh pain and discomfort has decreased in intensity and less drainage Objective - Vital Signs Vital signs: Vital Signs Temp 98.5 F 07/28/22 06:55 Pulse 76 07/28/22 08:43 Resp 18 07/28/22 06:55 BP 130/76 07/28/22 06:55 Pulse Ox 95 07/28/22 06:55 FiO2 Intake & Output 07/27/22 07/28/22 07/28/22 18:59 06:59 18:59 Intake Total 600 Output Total 900 200 200 Balance -900 400 -200 Weight 105.233 kg Intake: Intake, IV Titration 600 Amount Magnesium Sulfate-D5w Pmx 100 1 gm In Dextrose/Water 1 100ml.bag @ 100 mls/hr IVPB ONCE ONE Rx#: [id number] Vancomycin 1,750 mg In 500 Sodium Chloride 0.9% 500 ml 500 ml @ 167 mls/hr IVPB Q12H [facility] Rx#: [id number] Output: Urine 900 200 200 Other: Voiding Method Toilet Toilet Toilet Urinal Urinal Urinal - Exam GENERAL DESCRIPTION: A middle-age male up in the chair bed in no distress RESPIRATORY SYSTEM: Unlabored breathing , decreased breath sounds at bases HEART: S1 S2 regular rate and rhythm , ABDOMEN: Soft , no tenderness EXTREMITIES: Left medial thigh incision site swelling redness has decreased no drainage on the dressing - Labs CBC & Chem 7: 07/27/22 08:46 07/28/22 06:17 Labs: Microbiology - Last 24 Hours (Table) 07/25/22 13:00 Anaerobic Culture - Preliminary Leg - Left 04/15/23 11:58 Blood Culture - Preliminary Blood No Growth after 120 hours Assessment and Plan (1) Cellulitis of left thigh Current Visit: Yes Status: Acute Code(s): L03.116 - CELLULITIS OF LEFT LOWER LIMB SNOMED Code(s): 68523603198626986 Plan: 1patient with recent vascular bypass surgery to the left leg cannot present to the hospital with increasing pain swelling and drainage to the left thigh incision concerning for possible cellulitis or deep infection likely from a gram-positive skin yuki 2-patient has been evaluated by vascular surgery ultrasound has been ordered concerning for 4.5 cm oval fluid collection suspected hematoma , patient noticed to have more swelling today and will benefit from a surgical aspirate/ drainage, for which I am has been consulted 3cultures obtained 07/25/2022 is currently growing staph aureus with the sensitivities are currently pending, patient did get a PICC line plan is for 2 weeks of antibiotics which could be either cefazolin or vancomycin depending upon final sensitivities of staph aureus Time with Patient: Less than 30
[2022-07-28] MEDS ORDERED: VANCOMYCIN TROUGH DUE 1 EACH MISC MISCELLANE ONE (14:00)
--- NOTE | 2022-07-28 14:00 | P.DS ---
Providers Date of admission: 07/22/22 13:18 Expected date of discharge: 07/28/22 Attending physician: Brooks Lay Consults: 07/22/22 16:17 Consult Physician Routine Consulting Provider: Ceferino Shah Consult Reason/Comments: Left thigh abscess/cellulitis. recent vascular procedure Do you want consulting provider notified?: Yes Primary care physician: Dionne Herrera Hospital Course: Final diagnosis Increasing left lower extremity swelling and drainage from the left thigh incision with surrounding redness due to cellulitis. Sepsis secondary above. Leukocytosis and tachycardic on admission Peripheral vascular disease status post left common iliac and external iliac stent placement and balloon angioplasty on 05/22/2022 Hyponatremia, likely secondary to diuretic use, improved Hypertension Hypothyroidism Osteoarthritis History of DVT on anticoagulation with Eliquis Anxiety/depression Current everyday smoker Obesity with BMI 37.4 GI prophylaxis DVT prophylaxis Full code Discharge disposition Patient is being discharged in a stable condition with guarded prognosis to [facility] . Patient will follow-up with Dr. Herrera in the outpatient setting upon discharge. Patient is to continue with IV antibiotics in the form of cefazolin 2 g every 8 hours for the next 2 weeks per infectious disease and close outpatient follow-up with vascular surgery as well as ID as scheduled. Total time taken is greater than 35 minutes. Hospital course This is a 62-year-old male who was recently admitted with left lower extremity cellulitis with increased swelling and drainage to the left thigh status post left common iliac and external iliac stent placement and balloon angioplasty back in May. Patient was at rehab and went home and has extreme noncompl iance to maintaining health and medications and ultimately returned here and was evaluated by vascular surgery as well as infectious disease and IR. There was drainage noted and most recent cultures showing MSSA staph aureus. Patient was following at the wound care center and had cultures taken there That were showing pseudomonas aeruginosa with staph aureus. IR evaluated the patient recommending continued antibiotics as there was a hematoma or swelling collection at this site although nothing able to be drained. Patient has received a PICC line and continues with weakness and will need extensive wound care as well as IV antibiotic therapy and will be going to [facility] for this. Patient instructed to follow-up with vascular surgery along with the wound care center and infectious disease outpatient. Currently no reports of chest pain, shortness of breath, or palpitations. Patient is afebrile. No reports of nausea or vomiting and patient is tolerating diet. Patient will be going to [facility] today. Physical exam: Gen: This is a 62-year-old male who is awake, alert and oriented 3, well- developed, well-nourished, obese HEENT: Head is atraumatic, normocephalic. Pupils equal, round. Sclerae is anicteric. NECK: Supple. No JVD. No lymphadenopathy. No thyromegaly. LUNGS: Clear to auscultation. No wheezes or rhonchi. No intercostal retractions. HEART: Regular rate and rhythm. No murmur. ABDOMEN: Soft. obese. Bowel sounds are present. No masses. No tenderness. EXTREMITIES:Generalized bilateral lower extremity swelling worse on the left thigh. No calf tenderness. NEUROLOGICAL: Patient is awake, alert and oriented x3. Cranial nerves 2 through 12 are grossly intact. Diffusely weak Please refer to medication reconciliation sheet for a list of medications. The impression and plan of care has been dictated by Ashley Scott, Nurse Practitioner as directed. Dr. Herbert MD I have performed a history and examination and MDM of this patient, discussed the same with the dictator, and agree with the dictator's assessment and plan as written ,documented as a scribe. Based on total visit time, I have performed more than 50% of the visit. Patient Condition at Discharge: Stable Plan - Discharge Summary Discharge Rx Participant: No New Discharge Prescriptions: New bisacodyL [Dulcolax] 10 mg RECTAL DAILY PRN suppositor PRN Reason: Constipation Ipratropium-Albuterol Nebulize [Duoneb 0.5 mg-3 mg/3 ml Soln] 3 ml INHALATION RT-QID PRN each PRN Reason: Shortness Of Breath Or Wheezing Furosemide [Lasix] 40 mg PO DAILY tab Budesonide [Pulmicort] 0.5 mg INHALATION RT-BID ml Lactulose [Cephulac] 20 gm PO BID PRN ml PRN Reason: Constipation ceFAZolin [Kefzol] 2 gm IVP Q8HR 14 Days #42 each Continue Levothyroxine Sodium 12.5 mcg PO DAILY Apixaban [Eliquis] 5 mg PO BID rOPINIRole HCL [Requip] 0.5 mg PO HS Folic Acid 1 mg PO DAILY #30 tab Famotidine [Pepcid] 20 mg PO BID #60 tab Acetaminophen Tab [Tylenol] 650 mg PO Q6HR PRN #20 tab PRN Reason: Mild Pain Or Fever > 100.5 Diltiazem Oral [Cardizem*] 30 mg PO TID@0600,1400,2200 Multivitamins, Thera [Multivitamin (formulary)] 1 tab PO DAILY Sennosides [Senokot] 17.2 mg PO HS traMADol HCl [Ultram] 50 mg PO Q6H PRN 3 Days #12 tab PRN Reason: Moderate Pain (Scale 4 To 6) Ergocalciferol [Vitamin D2 (1250 Mcg = 94444 Iu)] 1,250 mcg PO SA Atorvastatin [Lipitor] 40 mg PO HS #30 tab Thiamine [Vitamin B-1] 100 mg PO DAILY #30 tablet Aspirin 81 mg PO DAILY tab Gabapentin 300 mg PO TID@0900,1300,2100 #9 cap HYDROcodone/APAP 5-325MG [[place] 5-325] 1 tab PO Q4HR PRN #6 tab PRN Reason: Pain Scale 8 To 10 Changed lisinopriL [Zestril] 20 mg PO DAILY #30 tab Ipratropium/Albuter 20-100Mcg [Combivent Respimat 20-100Mcg Inhaler] 2 puff INHALATION RT-BID #0 Discontinued Furosemide [Lasix] 40 mg PO DAILY 7 Days #7 tablet Levofloxacin [Levaquin] 500 mg PO DAILY Discharge Medication List Levothyroxine Sodium 12.5 mcg PO DAILY 10/18/18 [History] Ergocalciferol [Vitamin D2 (1250 Mcg = 95149 Iu)] 1,250 mcg PO SA 04/26/22 [History] Apixaban [Eliquis] 5 mg PO BID 04/28/22 [History] rOPINIRole HCL [Requip] 0.5 mg PO HS 04/28/22 [History] Acetaminophen Tab [Tylenol] 650 mg PO Q6HR PRN #20 tab 05/03/22 [Rx] Atorvastatin [Lipitor] 40 mg PO HS #30 tab 05/03/22 [Rx] Famotidine [Pepcid] 20 mg PO BID #60 tab 05/03/22 [Rx] Folic Acid 1 mg PO DAILY #30 tab 05/03/22 [Rx] Thiamine [Vitamin B-1] 100 mg PO DAILY #30 tablet 05/03/22 [Rx] Aspirin 81 mg PO DAILY tab 05/24/22 [Rx] Diltiazem Oral [Cardizem*] 30 mg PO TID@0600,1400,2200 06/29/22 [History] Multivitamins, Thera [Multivitamin (formulary)] 1 tab PO DAILY 06/29/22 [History] Sennosides [Senokot] 17.2 mg PO HS 06/29/22 [History] Budesonide [Pulmicort] 0.5 mg INHALATION RT-BID ml 07/28/22 [Rx] Furosemide [Lasix] 40 mg PO DAILY tab 07/28/22 [Rx] Gabapentin 300 mg PO TID@0900,1300,2100 #9 cap 07/28/22 [Rx] HYDROcodone/APAP 5-325MG [[place] 5-325] 1 tab PO Q4HR PRN #6 tab 07/28/22 [Rx] Ipratropium-Albuterol Nebulize [Duoneb 0.5 mg-3 mg/3 ml Soln] 3 ml INHALATION RT-QID PRN each 07/28/22 [Rx] Ipratropium/Albuter 20-100Mcg [Combivent Respimat 20-100Mcg Inhaler] 2 puff INHALATION RT-BID #0 07/28/22 [Rx] Lactulose [Cephulac] 20 gm PO BID PRN ml 07/28/22 [Rx] bisacodyL [Dulcolax] 10 mg RECTAL DAILY PRN suppositor 07/28/22 [Rx] ceFAZolin [Kefzol] 2 gm IVP Q8HR 14 Days #42 each 07/28/22 [Rx] lisinopriL [Zestril] 20 mg PO DAILY #30 tab 07/28/22 [Rx] traMADol HCl [Ultram] 50 mg PO Q6H PRN 3 Days #12 tab 07/28/22 [Rx] Follow up Appointment(s)/Referral(s): Alejandro Bliss DO [Doctor of Osteopathic Medicine] - 2 Weeks Dionne Herrera MD [Primary Care Provider] - 1-2 days [facility] Visiting Nurse, [NON-STAFF] - 1 Week Activity/Diet/Wound Care/Special Instructions: Patient is going to [facility] as tolerated follow-up with primary care provider on discharge Follow-up with vascular surgery outpatient Follow-up with wound care center outpatient Continue with local wound care to the left lower extremity and elevate while at rest Continue with IV cefazolin 2 g every 8 hours for a minimum 2 weeks and follow-up with Dr. Shah infectious disease in one week to 10 days Recommend follow-up labs in 2-3 days of CBC, BMP Recommend continue with antibiotics per ID recommendations and patient has received a PICC line Continue with incentive spirometer at least 10 times every hour while awake Continue heart healthy diet Discharge Disposition: TRANSFER TO SNF/ECF
[2022-07-28 14:05] VITALS: BP 123/71; PULSE 81
== END 2022-07-28 15:25 | DRG 720 ==
LOC: EC 10:37 → 5NMEDONC 13:18
PROVIDERS: ADMIT Internal Medicine; ATTEND Internal Medicine
PROC: 0JJW3ZZ Inspection of Lower Extremity Subcutaneous Tissue and Fascia, Percutaneous Approach (ICD-10-PCS; 2022-07-27)
PROC: 02HV33Z Insertion of Infusion Device into Superior Vena Cava, Percutaneous Approach (ICD-10-PCS; principal; 2022-07-27 10:55)
DX: T81.44XA Sepsis following a procedure, initial encounter (principal); A41.01 Sepsis due to Methicillin susceptible Staphylococcus aureus; E03.9 Hypothyroidism, unspecified; E66.9 Obesity, unspecified; Z68.37 Body mass index [BMI] 37.0-37.9, adult; F17.210 Nicotine dependence, cigarettes, uncomplicated; I70.202 Unspecified atherosclerosis of native arteries of extremities, left leg; Z95.820 Peripheral vascular angioplasty status with implants and grafts; E87.1 Hypo-osmolality and hyponatremia; F32.A Depression, unspecified; F41.9 Anxiety disorder, unspecified; I97.89 Other postprocedural complications and disorders of the circulatory system, not elsewhere classified; T81.41XA Infection following a procedure, superficial incisional surgical site, initial encounter; B95.61 Methicillin susceptible Staphylococcus aureus infection as the cause of diseases classified elsewhere; L03.116 Cellulitis of left lower limb; I10 Essential (primary) hypertension; J44.9 Chronic obstructive pulmonary disease, unspecified; I48.91 Unspecified atrial fibrillation; L02.416 Cutaneous abscess of left lower limb; M19.90 Unspecified osteoarthritis, unspecified site; Z79.01 Long term (current) use of anticoagulants; Z79.2 Long term (current) use of antibiotics; Z79.82 Long term (current) use of aspirin; Z79.890 Hormone replacement therapy; Z79.899 Other long term (current) drug therapy; Z91.199 Patient's noncompliance with other medical treatment and regimen due to unspecified reason; Z96.641 Presence of right artificial hip joint; Z71.3 Dietary counseling and surveillance
CPT/HCPCS: 10030; 36415; 36573; 71045; 76942; 80048; 80053; 80202; 83605; 83735; 83880; 85025; 85610; 85652; 87040; 87070; 87075; 87077; 87186; 87205; 93306; 94640; 96365; 99285

== ENCOUNTER 2022-09-15 10:00 | Emergency (ER) | payer OTHER ==
[2022-09-15 10:06] VITALS: BP 115/64; PULSE 73; RESP 20; TEMP 98.2
[2022-09-15] MEDS ORDERED: diphenhydrAMINE 50 MG/ML 1 ML VIAL IM STA (10:39)
--- NOTE | 2022-09-15 10:50 | ED ---
General Adult HPI - General Chief complaint: Allergic Reaction Stated complaint: allergic dermatitis Time Seen by Provider: 09/15/22 10:32 Source: patient, RN notes reviewed Mode of arrival: ambulatory Limitations: no limitations - History of Present Illness Initial comments: This is a pleasant 62-year-old male who presents to the emergency department w ith possible ALLERGIC reaction. Patient has had a generalized rash for the last week affecting his torso, arms, legs. Patient states it is itching. Is not painful. Patient denying any new exposures or contacts. No new medications. No new detergents. She is living at the [facility] has been there for about 1 month. Patient states this rash started about a week ago. No shortness of breath or chest pain. No fever or chills. Patient being treated for chronic wounds on his left lower leg and was sent over from the wound clinic. - Related Data Home Medications Medication Instructions Recorded Confirmed Levothyroxine Sodium 12.5 mcg PO DAILY 10/18/18 07/22/22 Ergocalciferol [Vitamin D2 (1250 1,250 mcg PO SA 04/26/22 07/22/22 Mcg = 40340 Iu)] Apixaban [Eliquis] 5 mg PO BID 04/28/22 07/22/22 rOPINIRole HCL [Requip] 0.5 mg PO HS 04/28/22 07/22/22 Diltiazem Oral [Cardizem*] 30 mg PO TID@0600,1400,2200 06/29/22 07/22/22 Multivitamins, Thera [Multivitamin 1 tab PO DAILY 06/29/22 07/22/22 (formulary)] Sennosides [Senokot] 17.2 mg PO HS 06/29/22 07/22/22 Previous Rx's Medication Instructions Recorded Acetaminophen Tab [Tylenol] 650 mg PO Q6HR PRN #20 tab 05/03/22 Atorvastatin [Lipitor] 40 mg PO HS #30 tab 05/03/22 Famotidine [Pepcid] 20 mg PO BID #60 tab 05/03/22 Folic Acid 1 mg PO DAILY #30 tab 05/03/22 Thiamine [Vitamin B-1] 100 mg PO DAILY #30 tablet 05/03/22 Aspirin 81 mg PO DAILY tab 05/24/22 Budesonide [Pulmicort] 0.5 mg INHALATION RT-BID ml 07/28/22 Furosemide [Lasix] 40 mg PO DAILY tab 07/28/22 Gabapentin 300 mg PO TID@0900,1300,2100 #9 cap 07/28/22 HYDROcodone/APAP 5-325MG [[place] 1 tab PO Q4HR PRN #6 tab 07/28/22 5-325] Ipratropium-Albuterol Nebulize 3 ml INHALATION RT-QID PRN each 07/28/22 [Duoneb 0.5 mg-3 mg/3 ml Soln] Ipratropium/Albuter 20-100Mcg 2 puff INHALATION RT-BID #0 07/28/22 [Combivent Respimat 20-100Mcg Inhaler] Lactulose [Cephulac] 20 gm PO BID PRN ml 07/28/22 bisacodyL [Dulcolax] 10 mg RECTAL DAILY PRN suppositor 07/28/22 ceFAZolin [Kefzol] 2 gm IVP Q8HR 14 Days #42 each 07/28/22 lisinopriL [Zestril] 20 mg PO DAILY #30 tab 07/28/22 traMADol HCl [Ultram] 50 mg PO Q6H PRN 3 Days #12 tab 07/28/22 hydrOXYzine HCL 25 mg PO Q8HR PRN #24 tab 09/15/22 predniSONE 50 mg PO DAILY #5 tab 09/15/22 predniSONE 50 mg PO DAILY #6 tab 09/15/22 Allergies Allergy/AdvReac Type Severity Reaction Status Date / Time venom-honey bee Allergy Anaphylaxis Verified 09/15/22 10:06 adhesive tape AdvReac skin Verified 09/15/22 10:06 irritation Penicillins AdvReac Unknown Verified 09/15/22 10:06 Childhood Review of Systems ROS Statement: Those systems with pertinent positive or pertinent negative responses have been documented in the HPI. ROS Other: All systems not noted in ROS Statement are negative. Past Medical History Past Medical History: Atrial Fibrillation, COPD, Hypertension, Osteoarthritis (OA), Thyroid Disorder, Vascular Disorder Additional Past Medical History / Comment(s): cellulitis left leg-improved, DVT 01/2022, peripheral artery disease History of Any Multi-Drug Resistant Organisms: None Reported Past Surgical History: Appendectomy, Joint Replacement Additional Past Surgical History / Comment(s): LT HAND, right hip replacement Past Anesthesia/Blood Transfusion Reactions: No Reported Reaction Additional Past Anesthesia/Blood Transfusion Reaction / Comment(s): no hx blood transfusion Past Psychological History: Anxiety, Depression Smoking Status: Current every day smoker Past Alcohol Use History: None Reported Past Drug Use History: None Reported - Past Family History Brother(s) Family Medical History: Cancer General Exam - General Exam Comments Initial Comments: Patient does not appear to be systemically ill or toxic. Limitations: no limitations General appearance: alert, in no apparent distress Head exam: Present: atraumatic, normocephalic, normal inspection Eye exam: Present: normal appearance, PERRL, EOMI. Absent: scleral icterus, conjunctival injection, periorbital swelling ENT exam: Present: normal exam, normal oropharynx, mucous membranes dry, mucous membranes moist, normal external ear exam Neck exam: Present: normal inspection, full ROM. Absent: tenderness, meningismus, lymphadenopathy Respiratory exam: Present: normal lung sounds bilaterally. Absent: respiratory distress, wheezes, rales, rhonchi, stridor Cardiovascular Exam: Present: regular rate, normal rhythm, normal heart sounds. Absent: systolic murmur, diastolic murmur, rubs, gallop, clicks GI/Abdominal exam: Present: soft, normal bowel sounds. Absent: distended, tenderness, guarding, rebound, rigid Extremities exam: Present: normal inspection, full ROM, normal capillary refill. Absent: tenderness, pedal edema, joint swelling, calf tenderness Back exam: Present: normal inspection Neurological exam: Present: alert, oriented X3, CN II-XII intact Psychiatric exam: Present: normal affect, normal mood Skin exam: Present: warm, dry, intact, normal color, rash, other (Patient has a fairly excoriated maculopapular rash affecting his torso, anterior greater than posterior. Also effects the extremities, mainly proximal. No vesicles, no pustules. No evidence of secondary infectious process cellulitis. Nondermatomal). Absent: cyanosis, diaphoretic, urticaria, vesicles, mottled, abrasion Course Vital Signs 09/15/22 10:04 Temperature 98.2 F Pulse Rate 73 Respiratory 20 Rate Blood Pressure 115/64 O2 Sat by Pulse 98 Oximetry Medical Decision Making - Medical Decision Making Was pt. sent in by a medical professional or institution? @ -Sent by the wound care clinic, Dr. Martinez Did you speak to anyone other than the patient for history? @ -Patient's son in the room providing additional details of history Did you review nursing and triage notes? @ -Agree Were old charts reviewed? @ -Reviewed the charts from previous admissions, wound care clinic notes. Differential Diagnosis? @ -Differential diagnosis includes but is not limited to: Contact dermatitis, inflammatory dermatitis, does not appear to be consistent with herpes zoster, not consistent with cellulitis, not consistent with dangerous rashes such as Kelly-Hima syndrome, toxic epidermal necrolysis, erythema multiforme. EKG interpreted by me (3pts min.)? @ -[none] X-rays interpreted by me (1pt min.)? @ -[none] CT interpreted by me (1pt min.)? @ -[none] U/S interpreted by me (1pt. min.)? @ -[none] What testing was considered but not performed? (CT, X-rays, U/S, labs)? Why? @Laboratory investigations were considered to include CBC, CMP and inflammatory markers. However given the patient's well appearance and did not feel that this would change course of treatment or disposition. What meds were considered but not given? Why? @ -[none] Did you discuss the management of the patient with other professionals? @ -The case was discussed in detail with ED attending physician. Presentation, findings, treatment plan discussed in detail. Did you reconcile home meds? @ -[none] Was smoking cessation discussed for >3mins.? @ -[none] Was critical care preformed (if so, how long)? @ -[none] Were there social determinants of health that impacted care today? How? (Homelessness, low income, unemployed, alcoholism, drug addiction, transportation, low edu. Level, literacy, decrease access to med. care, senior living, rehab)? @ -Patient had an assisted living, does have his son here with him providing additional support. Was there de-escalation of care discussed even if they declined? (Discuss DNR or withdrawal of care, Hospice)? @ -[Discuss DNR or withdrawal of care, Hospice?] What co-morbidities impacted this encounter? (DM, HTN, Smoking, COPD, CAD, Cancer, CVA, Hep., AIDS, mental health diagnosis, sleep apnea, morbid obesity)? @ -[DM, HTN, Smoking, COPD, CAD, Cancer, CVA, Hep., AIDS, mental health diagnosis, sleep apnea, morbid obesity?] Was patient admitted / discharged? @ -Patient discharged, patient looks well, not systemically ill. I feel this is unlikely to develop into significant systemic symptoms. Unlikely to post to primary function life. Undiagnosed new problem with uncertain prognosis? @ -[none] Drug Therapy requiring intensive monitoring for toxicity (Heparin, Nitro, Insulin, Cardizem)? @ -[none] Were any procedures done? @ -[none] Diagnosis/symptom? @ -Dermatitis Acute, or Chronic, or Acute on Chronic? @ -Acute Uncomplicated (without systemic symptoms) or Complicated (systemic symptoms)? @ -Uncomplicated, new diagnosis, uncertain prognosis. Side effects of treatment? @ -[none] Exacerbation, Progression, or Severe Exacerbation] @ -[no] Poses a threat to life or bodily function? @ -Patient discharged, patient looks well, not systemically ill. I feel this is unlikely to develop into significant systemic symptoms. Unlikely to post to primary function life Patient was told to return to the ER for any signs or symptoms worsen. Told to return immediately if any other problems arise. All questions answered. Treatment plan discussed. Patient in agreement Every effort has been made to ensure accuracy of this dictation. However, due to the limitations of electronic medical records and dictation devices, errors in charting still occur. Treatment plan discussed with the patient and son. They voiced understanding Disposition Clinical Impression: Dermatitis, Allergic reaction Disposition: HOME SELF-CARE Condition: Good Instructions (If sedation given, give patient instructions): Dermatitis (ED) Additional Instructions: Call today to make a follow-up appointment with Dr. Garibay. Take the prednisone as directed. Follow-up with Dr. Martinez next as planned. Prednisone and hydroxyzine as directed. Follow-up with your regular physician as directed. Return to the ER immediately if any symptoms worsen, new symptoms arise, or any other problems develop. Is patient prescribed a controlled substance at d/c from ED?: No Referrals: Dionne Herrera MD [Primary Care Provider] - 1-2 days Time of Disposition: 10:47
== END 2022-09-15 11:07 | disposition home or self-care (01) ==
LOC: EC 10:00
DX: L30.9 Dermatitis, unspecified (principal); I48.91 Unspecified atrial fibrillation; J44.9 Chronic obstructive pulmonary disease, unspecified; M19.90 Unspecified osteoarthritis, unspecified site; I10 Essential (primary) hypertension; E07.9 Disorder of thyroid, unspecified; F41.9 Anxiety disorder, unspecified; F32.A Depression, unspecified; F17.200 Nicotine dependence, unspecified, uncomplicated; Z91.030 Bee allergy status; Z88.0 Allergy status to penicillin; Z91.048 Other nonmedicinal substance allergy status; Z79.890 Hormone replacement therapy; Z79.01 Long term (current) use of anticoagulants; Z79.899 Other long term (current) drug therapy
CPT/HCPCS: 99283; 96372; J1200

== ENCOUNTER 2022-09-19 09:38 | Inpatient (IN) | payer OTHER ==
[2022-09-19] MEDS ORDERED: DILTIAZEM DRIP BOLUS FROM BAG 1 MG SOLN IV ONE ×2 (09:45→10:50)
[2022-09-19 10:08] LABS: Basophils % (A) 0 %; Eosinophils # (A) 0.2 k/uL (0-0.7); Eosinophils % (A) 2 %; HCT 41.2 % (39.0-53.0); HGB 13.4 gm/dL (13.0-17.5); Hypochromasia Slight; Lymphocytes # (A) 1.8 k/uL (1.0-4.8); Lymphocytes % (A) 14 %; MCH 28.3 pg (25.0-35.0); MCHC 32.5 g/dL (31.0-37.0); Mean Platelet Volume 8.1; Monocytes # (A) 0.6 k/uL (0-1.0); Monocytes % (A) 5 %; Neutrophils # (A) 10.8 k/uL (1.3-7.7); Neutrophils % (A) 79 %; Platelet Count 449 k/uL (150-450); RBC 4.73 m/uL (4.30-5.90); RDW 15.1 % (11.5-15.5); WBC 13.6 k/uL (3.8-10.6)
[2022-09-19 10:20] LABS: ALT 32 U/L (4-49); AST 35 U/L (17-59); African American GFR (CKD) >90 (>60 ml/min/1.73 sqM); Albumin 4.2 g/dL (3.5-5.0); Alkaline Phosphatase 109 U/L (38-126); Anion Gap 13 mmol/L; Blood Urea Nitrogen 11 mg/dL (9-20); Calcium 9.3 mg/dL (8.4-10.2); Carbon Dioxide 21 mmol/L (22-30); Chloride 101 mmol/L (98-107); Glucose 156 mg/dL (74-99); Magnesium 2.3 mg/dL (1.6-2.3); Non-African American GFR(CKD) >90 (>60 ml/min/1.73 sqM); Sodium 135 mmol/L (137-145); Total Bilirubin 0.5 mg/dL (0.2-1.3); Total Protein 7.4 g/dL (6.3-8.2)
[2022-09-19 10:21] LABS: Partial Thromboplastin Time 23.8 sec (22.0-30.0); Prothrombin Time 10.2 sec (9.0-12.0)
[2022-09-19] MEDS ORDERED: DILTIAZEM 125 MG in SODIUM CHLORIDE 0.9% 100 ML IV SCH (10:30)
--- NOTE | 2022-09-19 10:39 | XR ---
EXAMINATION TYPE: XR chest 1V portable DATE OF EXAM: 09/19/2022 Comparison: 07/24/2022 Clinical History: 62-year-old male dysrhythmia Findings: Heart mildly enlarged. Interstitial prominence. Patchy left basilar opacity. No pleural effusion. Impression: 1. Mild cardiomegaly. Interstitial prominence could reflect bronchitis or asthma. 2. Mild patchy atelectasis or early infiltrate at the periphery of the left base.
[2022-09-19 10:44] LABS: Potassium 4.9 mmol/L (3.5-5.1)
[2022-09-19] MEDS ORDERED: NALOXONE 0.4 MG/ML 1 ML VIAL IV PRN (11:43)
--- NOTE | 2022-09-19 11:43 | ED ---
Arrhythmia/Palpitations HPI - General Chief Complaint: Arrhythmia/Palpitations Stated Complaint: AFib Time Seen by Provider: 09/19/22 09:45 Source: patient, EMS Mode of arrival: EMS Limitations: no limitations - History of Present Illness Initial Comments: 62-year-old male with past medical history of COPD, A. fib, hypertension who presents to the emergency department with reported rapid heart rate and chest pain. He does reside at [facility]. History is supplemented by EMS and the patient's son. He has had long-standing lower extremity wounds. He was recently hospitalized at [facility]. As of one month ago the patient was moved to [facility]. Since he has been residing there he has had issues with itching. Patient is unsure what his trigger is. He is currently on steroids and Benadryl. He was concerned that it may be his medications causing his symptoms and therefore he has not taken his Cardizem since the sixth. Patient also takes Eliquis for A. fib however has intermittently refused him of his doses. This morning the patient was reporting chest pain. EMS found the patient to have a significantly elevated heart rate. He denies coronary disease. No nausea or vomiting. EMS did provide the patient with 324 mg of chewable aspirin. No other alleviating, precipitating or modifying factors - Related Data Home Medications Medication Instructions Recorded Confirmed Levothyroxine Sodium 12.5 mcg PO DAILY@0700 10/18/18 09/19/22 Ergocalciferol [Vitamin D2 (1250 1,250 mcg PO SA 04/26/22 09/19/22 Mcg = 62199 Iu)] rOPINIRole HCL [Requip] 0.5 mg PO HS@199904/28/22 09/19/22 Multivitamins, Thera [Multivitamin 1 tab PO DAILY@0806/29/22 09/19/22 (formulary)] Sennosides [Senokot] 8.6 mg PO HS PRN 06/29/22 09/19/22 Aspirin 81 mg PO DAILY@79909/19/22 09/19/22 Atorvastatin [Lipitor] 40 mg PO HS@199909/19/22 09/19/22 Budesonide [Pulmicort] 0.5 mg INHALATION RT-BID@08,199909/19/22 09/19/22 Famotidine [Pepcid] 20 mg PO DAILY@0800 09/19/22 09/19/22 Folic Acid 1 mg PO DAILY@0800 09/19/22 09/19/22 Furosemide [Lasix] 40 mg PO DAILY@0809/19/22 09/19/22 Gabapentin 300 mg PO TID@0800,1400,199909/19/22 09/19/22 Ipratropium/Albuter 20-100Mcg 2 puff INHALATION RT-BID@08,199909/19/22 09/19/22 [Combivent Respimat 20-100Mcg Inhaler] dilTIAZem HCL [Cartia Xt] 120 mg PO DAILY@0809/19/22 09/19/22 lisinopriL [Zestril] 20 mg PO DAILY@0809/19/22 09/19/22 predniSONE 50 mg PO HS@199909/19/22 09/19/22 Previous Rx's Medication Instructions Recorded Acetaminophen Tab [Tylenol] 650 mg PO Q6HR PRN #20 tab 05/03/22 Ipratropium-Albuterol Nebulize 3 ml INHALATION RT-QID PRN each 07/28/22 [Duoneb 0.5 mg-3 mg/3 ml Soln] traMADol HCl [Ultram] 50 mg PO Q6H PRN 3 Days #12 tab 07/28/22 hydrOXYzine HCL 25 mg PO Q8HR PRN #24 tab 09/15/22 Apixaban [Eliquis] 2.5 mg PO BID #60 tab 09/21/22 Cephalexin [Keflex] 250 mg PO Q8HR 5 Days #15 capsule 09/21/22 Nitroglycerin Sl Tabs [Nitrostat] 0.4 mg SUBLINGUAL Q5M PRN #20 tab 09/21/22 Petrolatum, White [Aquaphor] 1 applic TOPICAL BID PRN each 09/21/22 Prasugrel [Effient] 10 mg PO DAILY #30 tab 09/21/22 Allergies Allergy/AdvReac Type Severity Reaction Status Date / Time venom-honey bee Allergy Anaphylaxis Verified 09/27/22 17:10 adhesive tape AdvReac skin Verified 09/27/22 17:10 irritation Penicillins AdvReac Unknown Verified 09/27/22 17:10 Childhood Review of Systems ROS Statement: Those systems with pertinent positive or pertinent negative responses have been documented in the HPI. ROS Other: All systems not noted in ROS Statement are negative. Past Medical History Past Medical History: Atrial Fibrillation, COPD, Hypertension, Osteoarthritis (OA), Thyroid Disorder, Vascular Disorder Additional Past Medical History / Comment(s): cellulitis left leg-improved, DVT 01/2022, peripheral artery disease History of Any Multi-Drug Resistant Organisms: None Reported Past Surgical History: Appendectomy, Joint Replacement Additional Past Surgical History / Comment(s): LT HAND, right hip replacement Past Anesthesia/Blood Transfusion Reactions: No Reported Reaction Additional Past Anesthesia/Blood Transfusion Reaction / Comment(s): no hx blood transfusion Past Psychological History: Anxiety, Depression Smoking Status: Current every day smoker Past Alcohol Use History: None Reported Past Drug Use History: None Reported - Past Family History Brother(s) Family Medical History: Cancer General Exam Limitations: no limitations General appearance: alert, in no apparent distress Head exam: Present: atraumatic, normocephalic, normal inspection Eye exam: Present: normal appearance, PERRL, EOMI. Absent: scleral icterus, conjunctival injection, periorbital swelling ENT exam: Present: normal exam, mucous membranes moist Neck exam: Present: normal inspection. Absent: tenderness, meningismus, lymphadenopathy Respiratory exam: Present: normal lung sounds bilaterally. Absent: respiratory distress, wheezes, rales, rhonchi, stridor Cardiovascular Exam: Present: tachycardia, irregular rhythm, normal heart sounds. Absent: systolic murmur, diastolic murmur, rubs, gallop, clicks GI/Abdominal exam: Present: soft, normal bowel sounds. Absent: distended, tenderness, guarding, rebound, rigid Extremities exam: Present: normal inspection, full ROM, normal capillary refill. Absent: tenderness, pedal edema, joint swelling, calf tenderness Back exam: Present: normal inspection Neurological exam: Present: alert, oriented X3, CN II-XII intact Psychiatric exam: Present: normal affect, normal mood Skin exam: Present: warm, dry, intact, normal color. Absent: rash Course Vital Signs 09/19/22 09/19/22 09/19/22 09:40 10:00 10:30 Temperature 96.7 F L Pulse Rate 178 H 163 H 165 H Respiratory 22 20 24 Rate Blood Pressure 146/101 153/114 135/117 O2 Sat by Pulse 97 96 97 Oximetry 09/19/22 09/19/22 09/19/22 11:00 11:30 11:31 Temperature Pulse Rate 71 70 70 Respiratory 18 22 20 Rate Blood Pressure 143/92 137/69 126/66 O2 Sat by Pulse 97 97 98 Oximetry 09/19/22 09/19/22 09/19/22 12:00 12:30 13:00 Temperature Pulse Rate 68 75 72 Respiratory 20 18 18 Rate Blood Pressure 124/94 123/67 121/70 O2 Sat by Pulse 97 97 97 Oximetry 09/19/22 09/19/22 09/19/22 13:30 14:00 14:30 Temperature Pulse Rate 74 76 75 Respiratory 18 18 16 Rate Blood Pressure 118/60 122/60 116/64 O2 Sat by Pulse 96 96 96 Oximetry 09/19/22 09/19/22 09/19/22 15:00 15:05 15:30 Temperature Pulse Rate 70 73 67 Respiratory 16 20 16 Rate Blood Pressure 107/60 125/59 122/65 O2 Sat by Pulse 92 L 96 92 L Oximetry 09/19/22 09/19/22 09/19/22 16:00 16:30 17:49 Temperature 98.0 F Pulse Rate 68 67 61 Respiratory 18 16 18 Rate Blood Pressure 121/65 128/69 117/63 O2 Sat by Pulse 93 L 93 L 96 Oximetry 09/19/22 09/19/22 09/19/22 18:30 18:52 20:04 Temperature Pulse Rate 71 70 65 Respiratory 16 18 Rate Blood Pressure 124/63 111/53 O2 Sat by Pulse 95 95 Oximetry 09/19/22 09/19/22 20:17 20:28 Temperature 97.9 F Pulse Rate 68 68 Respiratory 16 Rate Blood Pressure 118/76 O2 Sat by Pulse 97 Oximetry Medical Decision Making - Medical Decision Making Was pt. sent in by a medical professional or institution (, PA, EXAMINER RATING CLERK, urgent care, hospital, or long-term...) When possible be specific @ [facility] Did you speak to anyone other than the patient for history (EMS, parent, family, police, friend...)? What history was obtained from this source @ -yes, son provides history Did you review nursing and triage notes (agree or disagree)? Why? @ -I reviewed and agree with nursing and triage notes Were old charts reviewed (outside hosp., previous admission, EMS record, old EKG, old radiological studies, urgent care reports/EKG's, long-term records)? Report findings @ - old charts were reviewed- echo results from july 2022 Differential Diagnosis (chest pain, altered mental status, abdominal pain women, abdominal pain men, vaginal bleeding, weakness, fever, dyspnea, syncope, headache, dizziness, GI bleed, back pain, seizure, CVA, palpatations, mental health, musculoskeletal)? @ -svt, vtach. afib, aflutter, acs, stemi EKG interpreted by me (3pts min.). @ -Yes, completed at 9:45 AM and demonstrates A. fib with a rapid rate of 178. QRS 145. QTC of 344. ST depression 1, 2, aVL, V3 through V6. No ST elevation Repeat EKG at 1201 demonstrates sinus rhythm with a rate of 68. [place] 124. QRS 93. QTC of 440. No acute ST segment elevations or depressions X-rays interpreted by me (1pt min.). @ -yes, cardiomegaly CT interpreted by me (1pt min.). @ -None done U/S interpreted by me (1pt. min.). @ -None done What testing was considered but not performed or refused? (CT, X-rays, U/S, labs)? Why? @ -None What meds were considered but not given or refused? Why? @ -None Did you discuss the management of the patient with other professionals (professionals i.e. , PA, EXAMINER RATING CLERK, lab, RT, psych nurse, social sciences chair, tight cooper, teacher, flight deck officer, case management coordinator)? Give summary @ -dr pang who will admit patient Was smoking cessation discussed for >3mins.? @ -No Was critical care preformed (if so, how long)? @ -yes, 35 minutes Were there social determinants of health that impacted care today? How? (Homelessness, low income, unemployed, alcoholism, drug addiction, transportation, low edu. Level, literacy, decrease access to med. care, usp, rehab)? @ -lives at [facility] Was there de-escalation of care discussed even if they declined (Discuss DNR or withdrawal of care, Hospice)? DNR status @ -No What co-morbidities impacted this encounter? (DM, HTN, Smoking, COPD, CAD, Cancer, CVA, ARF, Chemo, Hep., AIDS, mental health diagnosis, sleep apnea, morbid obesity)? @ -afib Was patient admitted / discharged? Hospital course, mention meds given and route, prescriptions, significant lab abnormalities, going to OR and other pertinent info. @ -Upon arrival the patient is promptly placed in trauma bay 1. History and physical exam is performed. Patient has a 12-lead EKG obtained which demonstrates atrial fibrillation with a rapid ventricular rate. IV is established. Patient initiated on a Cardizem drip. His Eliquis is dosed. Laboratory studies are conducted. First troponin is undetectable. Patient does convert to a normal sinus rhythm for which a repeat EKG was performed and demonstrates no acute ST segment elevation. I discussed the results with Dr. Godinez. Patient was agreeable to overnight observation for A. fib with rapid ventricular response. Patient waiting about on the floor in stable condition Undiagnosed new problem with uncertain prognosis? @ -No Drug Therapy requiring intensive monitoring for toxicity (Heparin, Nitro, Insulin, Cardizem)? @ -cardiezem Were any procedures done? @ -No Diagnosis/symptom? @ -acute chest pain, afib with rvr Acute, or Chronic, or Acute on Chronic? @ -acute on chronic Uncomplicated (without systemic symptoms) or Complicated (systemic symptoms)? @ -complicated Side effects of treatment? @ -bradycardia, hypotension Exacerbation, Progression, or Severe Exacerbation? @ -No Poses a threat to life or bodily function? How? (Chest pain, [place], [place], pneumonia, PE, COPD, DKA, ARF, appy, cholecystitis, CVA, Diverticulitis, Homicidal, Suicidal, threat to staff... and all critical care pts) @ -yes - cp could signify acute cardiac event - Lab Data Result diagrams: 09/21/22 07:11 09/21/22 07:11 Lab Results 09/19/22 09/19/22 09/19/22 Range/Units 10:00 10:00 10:00 WBC 13.6 H (3.8-10.6) k/uL RBC 4.73 (4.30-5.90) m/uL Hgb 13.4 (13.0-17.5) gm/dL Hct 41.2 (39.0-53.0) % MCV 87.0 D (80.0-100.0) fL MCH 28.3 (25.0-35.0) pg MCHC 32.5 (31.0-37.0) g/dL RDW 15.1 (11.5-15.5) % Plt Count 449 (150-450) k/uL MPV 8.1 Neutrophils % 79 % Lymphocytes % 14 % Monocytes % 5 % Eosinophils % 2 % Basophils % 0 % Neutrophils # 10.8 H (1.3-7.7) k/uL Lymphocytes # 1.8 (1.0-4.8) k/uL Monocytes # 0.6 (0-1.0) k/uL Eosinophils # 0.2 (0-0.7) k/uL Basophils # 0.0 (0-0.2) k/uL Hypochromasia Slight PT 10.2 (9.0-12.0) sec INR 1.0 (<1.2) APTT 23.8 (22.0-30.0) sec Sodium 135 L (137-145) mmol/L Potassium 4.9 (3.5-5.1) mmol/L Chloride 101 (98-107) mmol/L Carbon Dioxide 21 L (22-30) mmol/L Anion Gap 13 mmol/L BUN 11 (9-20) mg/dL Creatinine 0.59 L (0.66-1.25) mg/dL Est GFR (CKD-EPI)AfAm >90 (>60 ml/min/1.73 sqM) Est GFR (CKD-EPI)NonAf >90 (>60 ml/min/1.73 sqM) Glucose 156 H (74-99) mg/dL Calcium 9.3 (8.4-10.2) mg/dL Magnesium 2.3 (1.6-2.3) mg/dL Total Bilirubin 0.5 (0.2-1.3) mg/dL AST 35 (17-59) U/L ALT 32 (4-49) U/L Alkaline Phosphatase 109 (38-126) U/L Troponin I (0.000-0.034) ng/mL NT-Pro-B Natriuret Pep pg/mL Total Protein 7.4 (6.3-8.2) g/dL Albumin 4.2 (3.5-5.0) g/dL TSH 1.720 (0.465-4.680) mIU/L 09/19/22 09/19/22 Range/Units 10:00 10:00 WBC (3.8-10.6) k/uL RBC (4.30-5.90) m/uL Hgb (13.0-17.5) gm/dL Hct (39.0-53.0) % MCV (80.0-100.0) fL MCH (25.0-35.0) pg MCHC (31.0-37.0) g/dL RDW (11.5-15.5) % Plt Count (150-450) k/uL MPV Neutrophils % % Lymphocytes % % Monocytes % % Eosinophils % % Basophils % % Neutrophils # (1.3-7.7) k/uL Lymphocytes # (1.0-4.8) k/uL Monocytes # (0-1.0) k/uL Eosinophils # (0-0.7) k/uL Basophils # (0-0.2) k/uL Hypochromasia PT (9.0-12.0) sec INR (<1.2) APTT (22.0-30.0) sec Sodium (137-145) mmol/L Potassium (3.5-5.1) mmol/L Chloride (98-107) mmol/L Carbon Dioxide (22-30) mmol/L Anion Gap mmol/L BUN (9-20) mg/dL Creatinine (0.66-1.25) mg/dL Est GFR (CKD-EPI)AfAm (>60 ml/min/1.73 sqM) Est GFR (CKD-EPI)NonAf (>60 ml/min/1.73 sqM) Glucose (74-99) mg/dL Calcium (8.4-10.2) mg/dL Magnesium (1.6-2.3) mg/dL Total Bilirubin (0.2-1.3) mg/dL AST (17-59) U/L ALT (4-49) U/L Alkaline Phosphatase (38-126) U/L Troponin I <0.012 (0.000-0.034) ng/mL NT-Pro-B Natriuret Pep 1710 pg/mL Total Protein (6.3-8.2) g/dL Albumin (3.5-5.0) g/dL TSH (0.465-4.680) mIU/L Disposition Clinical Impression: Atrial fibrillation with RVR, Chest pain Disposition: ADMITTED IP TO THIS HOSP Condition: Stable Is patient prescribed a controlled substance at d/c from ED?: No Time of Disposition: 11:42 Decision to Admit Reason: Admit from EC Decision Date: 09/19/22 Decision Time: 11:42
[2022-09-19] MEDS ORDERED: APIXABAN 5 MG TAB PO STA (11:44)
[2022-09-19] MEDS ORDERED: hydrOXYzine HCL 25 MG TAB PO PRN (12:17)
[2022-09-19] MEDS ORDERED: IPRATROPIUM-ALBUTEROL 3 ML NEB INHALATION PRN (12:17)
[2022-09-19] MEDS ORDERED: ACETAMINOPHEN TAB 325 MG TAB PO PRN (12:17)
[2022-09-19] MEDS ORDERED: SENNOSIDES 8.6 MG TAB PO PRN (12:17)
--- NOTE | 2022-09-19 12:28 | P.HPIM ---
History of Present Illness 62-year-old male came in with compensative severe chest pain found to be in atrial fibrillation with the heart rate going up to around 180. Patient does have history of A. fib stopped taking his Cardizem thinking Cardizem is a the r viviane why he was having ALLERGIC reaction. Patient the came to ER with rash and ALLERGIC reaction. 4 days ago was sent home on prednisone because of his continued symptoms he started taking his Cardizem went into atrial fibrillation patient was started on IV Cardizem after which his symptoms of premature controlled. Patient has left lower extremity venous stasis along with venous ulcerations for which patient Follows up with home care and the patient was told these wounds are not infected. Although his lungs are wrapped Because of which I'm unable to examine those. Patient presently cannot to sinus rhythm and a heart rate controlled. REVIEW OF SYSTEMS: CONSTITUTIONAL: No fever, no malaise, no fatigue. HEENT: No recent visual problems or hearing problems. Denied any sore throat. CARDIOVASCULAR: As mentioned in the interval history PULMONARY: No shortness of breath, no cough, no hemoptysis. GASTROINTESTINAL: No diarrhea, no nausea, no vomiting, no abdominal pain. NEUROLOGICAL: No headaches, no weakness, no numbness. HEMATOLOGICAL: Denies any bleeding or petechiae. GENITOURINARY: Denies any burning micturition, frequency, or urgency. MUSCULOSKELETAL/RHEUMATOLOGICAL: Denies any joint pain, swelling, or any muscle pain. ENDOCRINE: Denies any polyuria or polydipsia. The rest of the 14-point review of systems is negative. PHYSICAL EXAMINATION: GENERAL: The patient is alert and oriented x3, not in any acute distress. Well developed, well nourished. HEENT: Pupils are round and equally reacting to light. EOMI. No scleral icterus. No conjunctival pallor. Normocephalic, atraumatic. No pharyngeal erythema. No thyromegaly. CARDIOVASCULAR: S1 and S2 present. No murmurs, rubs, or gallops. PULMONARY: Chest is clear to auscultation, no wheezing or crackles. ABDOMEN: Soft, nontender, nondistended, normoactive bowel sounds. No palpable organomegaly. MUSCULOSKELETAL: No joint swelling or deformity. EXTREMITIES: No cyanosis, clubbing, bilateral lower extremity edema chronic venous stasis left lower extremity is wrapped and has wounds NEUROLOGICAL: Gross neurological examination did not reveal any focal deficits. SKIN: No rashes. Assessment and plan -Atrial fibrillation with rapid ventricular rate: Patient converted to sinus rhythm after Cardizem drip which will risk and urine patient was started on oral Cardizem and IV Cardizem will be discontinued. Patient will be continued on eliquis -left extremity(for which we'll consult wound care. -COPD without any acute exacerbation at -Peripheral vascular disease DVT prophylaxis: Patient on anticoagulation which will be continued which will be continued Past Medical History Past Medical History: Atrial Fibrillation, COPD, Hypertension, Osteoarthritis (OA), Thyroid Disorder, Vascular Disorder Additional Past Medical History / Comment(s): cellulitis left leg-improved, DVT 01/2022, peripheral artery disease History of Any Multi-Drug Resistant Organisms: None Reported Past Surgical History: Appendectomy, Joint Replacement Additional Past Surgical History / Comment(s): LT HAND, right hip replacement Past Anesthesia/Blood Transfusion Reactions: No Reported Reaction Additional Past Anesthesia/Blood Transfusion Reaction / Comment(s): no hx blood transfusion Past Psychological History: Anxiety, Depression Smoking Status: Current every day smoker Past Alcohol Use History: None Reported Past Drug Use History: None Reported - Past Family History Brother(s) Family Medical History: Cancer Medications and Allergies Home Medications Medication Instructions Recorded Confirmed Type Levothyroxine Sodium 12.5 mcg PO DAILY@0700 10/18/18 09/19/22 History Ergocalciferol [Vitamin D2 (1250 1,250 mcg PO SA 04/26/22 09/19/22 History Mcg = 85668 Iu)] Apixaban [Eliquis] 5 mg PO BID@0800,199904/28/22 09/19/22 History rOPINIRole HCL [Requip] 0.5 mg PO HS@199904/28/22 09/19/22 History Acetaminophen Tab [Tylenol] 650 mg PO Q6HR PRN #20 tab 05/03/22 09/19/22 Rx Multivitamins, Thera [Multivitamin 1 tab PO DAILY@0800 06/29/22 09/19/22 History (formulary)] Sennosides [Senokot] 8.6 mg PO HS PRN 06/29/22 09/19/22 History Ipratropium-Albuterol Nebulize 3 ml INHALATION RT-QID PRN each 07/28/22 09/19/22 Rx [Duoneb 0.5 mg-3 mg/3 ml Soln] traMADol HCl [Ultram] 50 mg PO Q6H PRN 3 Days #12 tab 07/28/22 09/19/22 Rx hydrOXYzine HCL 25 mg PO Q8HR PRN #24 tab 09/15/22 09/19/22 Rx Aspirin 81 mg PO DAILY@0800 09/19/22 09/19/22 History Atorvastatin [Lipitor] 40 mg PO HS@199909/19/22 09/19/22 History Budesonide [Pulmicort] 0.5 mg INHALATION RT-BID@0800,199909/19/22 09/19/22 History Famotidine [Pepcid] 20 mg PO DAILY@0809/19/22 09/19/22 History Folic Acid 1 mg PO DAILY@0800 09/19/22 09/19/22 History Furosemide [Lasix] 40 mg PO DAILY@0800 09/19/22 09/19/22 History Gabapentin 300 mg PO TID@0800,1400,199909/19/22 09/19/22 History Ipratropium/Albuter 20-100Mcg 2 puff INHALATION RT-BID@0800,199909/19/22 09/19/22 History [Combivent Respimat 20-100Mcg Inhaler] dilTIAZem HCL [Cartia Xt] 120 mg PO DAILY@0800 09/19/22 09/19/22 History lisinopriL [Zestril] 20 mg PO DAILY@0800 09/19/22 09/19/22 History predniSONE 50 mg PO HS@199909/19/22 09/19/22 History Allergies Allergy/AdvReac Type Severity Reaction Status Date / Time venom-honey bee Allergy Anaphylaxis Verified 09/19/22 11:38 adhesive tape AdvReac skin Verified 09/19/22 11:38 irritation Penicillins AdvReac Unknown Verified 09/19/22 11:38 Childhood Physical Exam Vitals: Vital Signs Temp Pulse Resp BP Pulse Ox 09/19/22 11:31 70 20 126/66 98 09/19/22 11:30 70 22 137/69 97 09/19/22 11:00 71 18 143/92 97 09/19/22 10:30 165 H 24 135/117 97 09/19/22 10:00 163 H 20 153/114 96 09/19/22 09:40 96.7 F L 178 H 22 146/101 97 Intake and Output 09/18/22 09/19/22 09/19/22 22:59 06:59 14:59 Intake Total 15.084 Balance 15.084 Intake: Intake, IV Titration 15.084 Amount Diltiazem 125 mg In 15.084 Sodium Chloride 0.9% 100 ml @ 5 MG/HR 5 mls/hr IV .Q24H [facility] Rx#:[id number] Other: Weight 102.965 kg Results CBC & Chem 7: 09/19/22 10:00 09/19/22 10:00 Labs: Abnormal Lab Results - Last 24 Hours (Table) 09/19/22 09/19/22 Range/Units 10:00 10:00 WBC 13.6 H (3.8-10.6) k/uL Neutrophils # 10.8 H (1.3-7.7) k/uL Sodium 135 L (137-145) mmol/L Carbon Dioxide 21 L (22-30) mmol/L Creatinine 0.59 L (0.66-1.25) mg/dL Glucose 156 H (74-99) mg/dL
[2022-09-19] MEDS: DILTIAZEM CD 120 MG CAP.ER.24H PO SCH (13:50)
--- NOTE | 2022-09-19 14:33 | P.CRDCN ---
History of Present Illness Consult date: 09/19/22 Consult reason: atrial fibrillation (With RVR) History of present illness: History of present illness: This is a 62 year old male patient of Dr. Morataya with past mental history of PAD status post revascularization of the left leg surgery, hypertension, dyslipidemia, paroxysmal atrial fibrillation on eliquis, valvular heart disease, aortic dilatation, history of DVT, active tobacco use and dependence. Patient states that he developed chest pain in the mid chest area with some pain in his right arm and between the shoulder blades. He denies having any shortness of breath, lightheadedness dizziness, no syncopal episodes, no palpitations, no cough fever or chills. He states he did become clammy and sweaty. Upon arrival to the emergency center, patient was found to be in A. fib with RVR. Patient was started on Cardizem drip and has subsequently converted to sinus rhythm. Patient denies having any chest pain at the time of evaluation. He states the onset of the pain was while he was sitting on the toilet. Patient is active tobacco user of a half a pack per day since he was 13 years of age. Patient is seen today in the emergency center waiting for a bed on the observation unit. Patient has active cellulitis to the left lower extremity. Patient denies having cardiac catheterization in the past. EKG atrial fibrillation at 178 bpm, telemetry sinus rhythm Chest x-ray: Bronchitis, atelectasis or early infiltrate left base WBC 13.6, hemoglobin 13.4, platelet count 449. Sodium 135, potassium 4.9, BUN 11 creatinine 0.59. Troponin 0.012 and 0.3-1. Magnesium 2.3. Liver function tests normal. TSH 1720. BNP 1710. Home cardiac medications: Eliquis 5 mg twice daily, aspirin 81 mg daily, Lipitor 40 mg at bedtime, Cardizem XT 120 mg daily, Lasix 40 mg daily, lisinopril 20 mg daily, levothyroxine 12.5 g daily. Echocardiogram 05/02/2022 revealed normal EF, mild to moderate MR, dilated aorta at 4 cm. Lexiscan stress test 05/03/2022: Normal Aortogram with runoff 04/2022 revealed occluded left common iliac and left external iliac arteries. Occluded left common femoral artery and left SVA and critical disease involving the left popliteal artery. Review Of Systems: At the time of my evaluation: Constitutional: No fever, no chills. No weakness, fatigue or lethargy. EENT: No headache. No dizziness. Lungs: No shortness of breath, cough, no sputum production. No wheezing. Cardiovascular: No chest pain, no lower extremity edema. No palpitations. No paroxysmal nocturnal dyspnea. No orthopnea. No lightheadedness or dizziness. No syncopal episodes. Abdominal: No abdominal pain. No nausea, vomiting. No diarrhea. No constipation. No bloody or tarry stools. Genitourinary: No dysuria.. No urinary retention. Musculoskeletal: No myalgias. No muscle weakness, no frequent falls. No back pain. No neck pain. Integumentary: Cellulitis left lower leg. No rash. No unusual bruising. Neurologic: No aphasia. No facial droop. No change in mentation. No head injury. No headache. Physical examination: Gen: This is a 62 year old male. He is resting on the ER stretcher and appears to be in no acute distress. VS: reviewed. Blood pressure 126/66, heart rate in the 70s HEENT: Head is atraumatic, normocephalic. Pupils equal, round. Sclerae is anicteric. NECK: Supple. No JVD. . LUNGS: Coarse breath sounds bilaterally. No intercostal retractions. HEART: Regular rate and rhythm. Systolic murmur. ABDOMEN: Soft No tenderness. EXTREMITIES: No pedal edema. Large dressing in place to the left lower extremity. NEUROLOGICAL: Patient is awake, alert and oriented x3. Assessment: Chest pain, resolved Abnormal troponins, rule out acute coronary syndrome Paroxysmal atrial fibrillation presenting with RVR, currently in sinus rhythm Severe PAD Hypertension Dyslipidemia Mild to moderate MR Dilated aorta History of DVT Plan: Resume patient's home cardiac medications Obtain third troponin No need to repeat echocardiogram as it was done in April Further recommendations to follow based upon clinical course Thank you kindly for this consultation. Nurse practitioner note has been reviewed, I agree with documented findings and plan of care. Patient was seen and examined. Past Medical History Past Medical History: Atrial Fibrillation, COPD, Hypertension, Osteoarthritis (OA), Thyroid Disorder, Vascular Disorder Additional Past Medical History / Comment(s): cellulitis left leg-improved, DVT 01/2022, peripheral artery disease History of Any Multi-Drug Resistant Organisms: None Reported Past Surgical History: Appendectomy, Joint Replacement Additional Past Surgical History / Comment(s): LT HAND, right hip replacement Past Anesthesia/Blood Transfusion Reactions: No Reported Reaction Additional Past Anesthesia/Blood Transfusion Reaction / Comment(s): no hx blood transfusion Past Psychological History: Anxiety, Depression Smoking Status: Current every day smoker Past Alcohol Use History: None Reported Past Drug Use History: None Reported - Past Family History Brother(s) Family Medical History: Cancer Medications and Allergies Home Medications Medication Instructions Recorded Confirmed Type Levothyroxine Sodium 12.5 mcg PO DAILY@0700 10/18/18 09/19/22 History Ergocalciferol [Vitamin D2 (1250 1,250 mcg PO SA 04/26/22 09/19/22 History Mcg = 97332 Iu)] Apixaban [Eliquis] 5 mg PO BID@0800,199904/28/22 09/19/22 History rOPINIRole HCL [Requip] 0.5 mg PO HS@199904/28/22 09/19/22 History Acetaminophen Tab [Tylenol] 650 mg PO Q6HR PRN #20 tab 05/03/22 09/19/22 Rx Multivitamins, Thera [Multivitamin 1 tab PO DAILY@0806/29/22 09/19/22 History (formulary)] Sennosides [Senokot] 8.6 mg PO HS PRN 06/29/22 09/19/22 History Ipratropium-Albuterol Nebulize 3 ml INHALATION RT-QID PRN each 07/28/22 09/19/22 Rx [Duoneb 0.5 mg-3 mg/3 ml Soln] traMADol HCl [Ultram] 50 mg PO Q6H PRN 3 Days #12 tab 07/28/22 09/19/22 Rx hydrOXYzine HCL 25 mg PO Q8HR PRN #24 tab 09/15/22 09/19/22 Rx Aspirin 81 mg PO DAILY@0809/19/22 09/19/22 History Atorvastatin [Lipitor] 40 mg PO HS@199909/19/22 09/19/22 History Budesonide [Pulmicort] 0.5 mg INHALATION RT-BID@0800,199909/19/22 09/19/22 History Famotidine [Pepcid] 20 mg PO DAILY@0800 09/19/22 09/19/22 History Folic Acid 1 mg PO DAILY@0800 09/19/22 09/19/22 History Furosemide [Lasix] 40 mg PO DAILY@0809/19/22 09/19/22 History Gabapentin 300 mg PO TID@0800,1400,199909/19/22 09/19/22 History Ipratropium/Albuter 20-100Mcg 2 puff INHALATION RT-BID@0800,199909/19/22 09/19/22 History [Combivent Respimat 20-100Mcg Inhaler] dilTIAZem HCL [Cartia Xt] 120 mg PO DAILY@0800 09/19/22 09/19/22 History lisinopriL [Zestril] 20 mg PO DAILY@0809/19/22 09/19/22 History predniSONE 50 mg PO HS@199909/19/22 09/19/22 History Allergies Allergy/AdvReac Type Severity Reaction Status Date / Time venom-honey bee Allergy Anaphylaxis Verified 09/19/22 11:38 adhesive tape AdvReac skin Verified 09/19/22 11:38 irritation Penicillins AdvReac Unknown Verified 09/19/22 11:38 Childhood Physical Exam Vitals: Vital Signs Temp Pulse Resp BP Pulse Ox 09/19/22 11:31 70 20 126/66 98 09/19/22 11:30 70 22 137/69 97 09/19/22 11:00 71 18 143/92 97 09/19/22 10:30 165 H 24 135/117 97 09/19/22 10:00 163 H 20 153/114 96 09/19/22 09:40 96.7 F L 178 H 22 146/101 97 Intake and Output 09/18/22 09/19/22 09/19/22 22:59 06:59 14:59 Intake Total 15.084 Balance 15.084 Intake: Intake, IV Titration 15.084 Amount Diltiazem 125 mg In 15.084 Sodium Chloride 0.9% 100 ml @ 5 MG/HR 5 mls/hr IV .Q24H [facility] Rx#:[id number] Other: Weight 102.965 kg Results 09/19/22 10:00 09/19/22 10:00 Cardiac Enzymes 09/19/22 09/19/2209/19/23 Range/Units 10:00 10:00 11:48 AST 35 (17-59) U/L Troponin I <0.012 0.321 H* (0.000-0.034) ng/mL Coagulation 09/19/22 Range/Units 10:00 PT 10.2 (9.0-12.0) sec APTT 23.8 (22.0-30.0) sec CBC 09/19/22 Range/Units 10:00 WBC 13.6 H (3.8-10.6) k/uL RBC 4.73 (4.30-5.90) m/uL Hgb 13.4 (13.0-17.5) gm/dL Hct 41.2 (39.0-53.0) % Plt Count 449 (150-450) k/uL Comprehensive Metabolic Panel 09/19/22 Range/Units 10:00 Sodium 135 L (137-145) mmol/L Potassium 4.9 (3.5-5.1) mmol/L Chloride 101 (98-107) mmol/L Carbon Dioxide 21 L (22-30) mmol/L BUN 11 (9-20) mg/dL Creatinine 0.59 L (0.66-1.25) mg/dL Glucose 156 H (74-99) mg/dL Calcium 9.3 (8.4-10.2) mg/dL AST 35 (17-59) U/L ALT 32 (4-49) U/L Alkaline Phosphatase 109 (38-126) U/L Total Protein 7.4 (6.3-8.2) g/dL Albumin 4.2 (3.5-5.0) g/dL Current Medications Generic Name Dose Route Start Last Admin Trade Name Freq PRN Reason Stop Dose Admin Acetaminophen 650 mg 09/19/22 12:17 Acetaminophen Tab 325 Mg Tab PO Q6HR PRN Mild Pain or Fever > 100.5 Albuterol/Ipratropium 3 ml 09/19/22 12:17 Ipratropium-Albuterol 3 Ml Neb INHALATION RT-QID PRN Shortness Of Breath Or Wheezing Albuterol/Ipratropium 3 ml 09/19/22 20:00 Ipratropium-Albuterol 3 Ml Neb INHALATION RT-BID@0800,2000 [facility] Apixaban 5 mg 09/19/22 20:00 Apixaban 5 Mg Tab PO BID@0800,1999 [facility] Protocol Aspirin 81 mg 09/20/22 08:00 Aspirin 81 Mg PO DAILY@0800 [facility] Atorvastatin Calcium 40 mg 09/19/22 20:00 Atorvastatin 40 Mg Tab PO HS@1999 [facility] Budesonide 0.5 mg 09/19/22 20:00 Budesonide 0.5 Mg/2 Ml Nebu INHALATION RT-BID@0800,1999 [facility] Diltiazem HCl 120 mg 09/19/22 13:00 09/19/22 13:50 Diltiazem Cd 120 Mg Cap.Er.24h PO 120 mg DAILY@0800 [facility] Administration Famotidine 20 mg 09/20/22 08:00 Famotidine 20 Mg Tab PO DAILY@0800 [facility] Furosemide 40 mg 09/20/22 08:00 Furosemide 40 Mg Tab PO DAILY@0800 [facility] Gabapentin 300 mg 09/19/22 14:00 Gabapentin 300 Mg Cap PO TID@0800,1400,1999 [facility] Hydroxyzine HCl 25 mg 09/19/22 12:17 Hydroxyzine Hcl 25 Mg Tab PO Q8HR PRN Itching Diltiazem HCl 125 mg/ Sodium 125 mls @ 5 mls/hr 09/19/22 10:30 09/19/22 12:00 Chloride IV 5 mg/hr .Q24H [facility] 5 mls/hr Infusion 5 MG/HR Levothyroxine Sodium 12.5 mcg 09/20/22 07:00 Levothyroxine 25 Mcg Tab PO DAILY@0700 [facility] Lisinopril 20 mg 09/20/22 08:00 Lisinopril 20 Mg Tab PO DAILY@0800 [facility] Naloxone HCl 0.2 mg 09/19/22 11:43 Naloxone 0.4 Mg/Ml 1 Ml Vial IV Q2M PRN Opioid Reversal Ropinirole HCl 0.5 mg 09/19/22 20:00 Ropinirole Hcl 0.25 Mg Tab PO HS@1999 [facility] Senna 8.6 mg 09/19/22 12:17 Sennosides 8.6 Mg Tab PO HS PRN Constipation Tramadol HCl 50 mg 09/19/22 12:17 Tramadol 50 Mg Tab PO Q6H PRN Moderate Pain (Scale 4 to 6) Intake and Output 09/18/22 09/19/22 09/19/22 22:59 06:59 14:59 Intake Total 15.084 Balance 15.084 Intake: Intake, IV Titration 15.084 Amount Diltiazem 125 mg In 15.084 Sodium Chloride 0.9% 100 ml @ 5 MG/HR 5 mls/hr IV .Q24H [facility] Rx#:[id number] Other: Weight 102.965 kg Patient Weight 09/20/22 06:59 Weight 102.965 kg 09/19/22 10:00 09/19/22 10:00
[2022-09-19] MEDS: GABAPENTIN 300 MG CAP PO SCH ×2 (15:06→19:47)
[2022-09-19] MEDS ORDERED: NITROGLYCERIN SL TABS 0.4 MG TAB SUBLINGUAL PRN (19:00)
[2022-09-19] MEDS ORDERED: ALPRAZolam 0.25 MG TAB PO PRN (19:00)
[2022-09-19] MEDS ORDERED: ALPRAZolam 0.5 MG TAB PO PRN (19:00)
[2022-09-19] MEDS: ATORVASTATIN 40 MG TAB PO SCH (19:47)
[2022-09-19] MEDS ORDERED: APIXABAN 5 MG TAB PO SCH (20:00)
[2022-09-19] MEDS: BUDESONIDE 0.5 MG/2 ML NEBU INHALATION SCH (20:04)
[2022-09-19] MEDS: IPRATROPIUM-ALBUTEROL 3 ML NEB INHALATION SCH (20:04)
[2022-09-20] MEDS ORDERED: ASPIRIN 325 MG TAB PO ONE (05:00)
[2022-09-20] MEDS ORDERED: ATORVASTATIN 80 MG TAB PO ONE (05:00)
[2022-09-20] MEDS: ASPIRIN 81 MG PO SCH (05:11)
[2022-09-20] MEDS: FAMOTIDINE 20 MG TAB PO SCH (05:14)
[2022-09-20] MEDS: LEVOTHYROXINE 25 MCG TAB PO SCH (05:14)
[2022-09-20] MEDS: lisinopriL 20 MG TAB PO SCH (05:14)
[2022-09-20] MEDS: GABAPENTIN 300 MG CAP PO SCH ×3 (05:14→17:49)
[2022-09-20] MEDS: DILTIAZEM CD 120 MG CAP.ER.24H PO SCH (05:14)
[2022-09-20] MEDS: traMADol 50 MG TAB PO PRN ×3 (05:14→22:06)
[2022-09-20 05:42] LABS: Glucose,Whole Blood 106 mg/dL (70-110)
[2022-09-20] MEDS ORDERED: HEPARIN SODIUM,PORCINE 10,000 UNIT in SODIUM CHLORIDE 0.9% 1,000 ML IRRIGATION PRN (07:00)
[2022-09-20] MEDS ORDERED: HEPARIN SODIUM,PORCINE 2,500 UNIT in SODIUM CHLORIDE 0.9% 250 ML IRRIGATION PRN (07:00)
[2022-09-20 08:55] LABS: Basophils % (A) 0 %; Eosinophils # (A) 0.6 k/uL (0-0.7); Eosinophils % (A) 5 %; HCT 35.1 % (39.0-53.0); Lymphocytes # (A) 2.2 k/uL (1.0-4.8); Lymphocytes % (A) 21 %; MCH 27.2 pg (25.0-35.0); MCHC 31.3 g/dL (31.0-37.0); MCV 86.9 fL (80.0-100.0); Mean Platelet Volume 7.4; Monocytes # (A) 0.7 k/uL (0-1.0); Monocytes % (A) 6 %; Neutrophils % (A) 66 %; Platelet Count 383 k/uL (150-450); RBC 4.04 m/uL (4.30-5.90); RDW 15.2 % (11.5-15.5); WBC 10.6 k/uL (3.8-10.6)
[2022-09-20] MEDS: IPRATROPIUM-ALBUTEROL 3 ML NEB INHALATION SCH ×2 (09:43→21:31)
[2022-09-20] MEDS: BUDESONIDE 0.5 MG/2 ML NEBU INHALATION SCH ×2 (09:43→21:31)
[2022-09-20 09:44] LABS: African American GFR (CKD) >90 (>60 ml/min/1.73 sqM); Anion Gap 6 mmol/L; Blood Urea Nitrogen 9 mg/dL (9-20); Calcium 8.5 mg/dL (8.4-10.2); Carbon Dioxide 26 mmol/L (22-30); Chloride 103 mmol/L (98-107); Glucose 83 mg/dL (74-99); Non-African American GFR(CKD) >90 (>60 ml/min/1.73 sqM); Potassium 4.3 mmol/L (3.5-5.1); Sodium 135 mmol/L (137-145)
[2022-09-20] MEDS ORDERED: VERAPAMIL 2.5 MG/ML 2 ML AMP ONE (10:10)
[2022-09-20] MEDS ORDERED: HEPARIN SODIUM 1,000 UN/ML (10ML VL) ONE ×3 (10:10→15:14)
[2022-09-20] MEDS ORDERED: IV FLUID CONTINUATION 800 ML IV ONE (10:12)
[2022-09-20] MEDS ORDERED: MIDAZOLAM 2 MG/2 ML VIAL IVP ONE ×2 (10:40→13:04)
[2022-09-20] MEDS ORDERED: LIDOCAINE 1% INJ 10MG/ML (5 ML VIAL-PF) SQ ONE (10:42)
[2022-09-20] MEDS ORDERED: LIDOCAINE 1% INJ 10MG/ML (20 ML MDV) ONE (10:47)
[2022-09-20] MEDS ORDERED: LIDOCAINE 1% INJ 10MG/ML (20 ML MDV) SQ ONE (10:48)
[2022-09-20] MEDS ORDERED: fentaNYL (PF) 50 MCG/ML 2 ML AMP ONE ×2 (10:51→14:41)
[2022-09-20] MEDS ORDERED: fentaNYL (PF) 50 MCG/ML 2 ML AMP IVP ONE (10:53)
[2022-09-20] MEDS ORDERED: HYDROmorphone 0.5 MG/0.5 ML SYRINGE IVP ONE ×2 (10:59→13:44)
[2022-09-20] MEDS ORDERED: IOPAMIDOL-300 100ML BTL INJ ONE (11:04)
[2022-09-20] MEDS ORDERED: RX INFO: IV CONTRAST WAS GIVEN 1 EACH MISC MISCELLANE PRN (11:21)
--- NOTE | 2022-09-20 11:26 | P.PCN ---
Date of Procedure: 09/20/22 Operative Findings: CARDIAC CATHETERIZATION PERFORMING PHYSICIAN: Johan Morataya MD, RPVI PROCEDURE PERFORMED: 1. Selective right and left coronary angiogram 2. Left heart catheterization 3. Selective left common femoral artery angiogram 4. Ultrasound-guided access of the left common femoral artery INDICATION: Acute non-ST elevation myocardial infarction COMPLICATION: None APPROACH: Right common femoral artery LEVEL OF SEDATION: Moderate with sedation in length of 23 minutes PROCEDURE DESCRIPTION: After obtaining an informed consent, the patient was brought to cardiac tag and label cutter. Local anesthesia was performed using lidocaine subcutaneously. The left common femoral artery was cannulated using Seldinger technique, the guidewire passed easily, following that we advanced a 6 Cymraes sheath dilator assembly, the wire and dilator were removed and sheath was flushed. Selective right and left coronary angiogram using a 6-Cymraes JR4 and JL catheters. Following that we did left heart catheterization using 6-Cymraes pigtail catheter. The procedure was completed there was no complication. SELECTIVE CORONARY ANGIOGRAM: The right coronary artery: Is a calcified vessel. Appeared to be chronic occluded. It fills by ipsilateral collaterals. Left main: Calcified was mild disease only. Bifurcates into an LCx and LAD The left circumflex: Large caliber vessel and appears to be codominant vessel as well. The proximal LCx appeared to be calcified with a lesion appeared to be in the range of 80- 90%. The left anterior descending artery: The proximal LAD appeared to be also calcified with eccentric lesion appeared to be in the range of 80-90%. The mid LAD has a lesion appeared to be in the range of 50%. HEMODYNAMICS: The LVEDP was 6 mmHg was no significant gradient across aortic valve CONCLUSION: 1. Severe triple-vessel coronary artery disease 2. Calcified right and left coronary system 3. Normal left-sided filling pressure POSTPROCEDURE MANAGEMENT: PCI of the LAD and LCx
[2022-09-20] MEDS ORDERED: SODIUM CHLORIDE 0.9% 1,000 ML IV SCH (11:30)
[2022-09-20] MEDS ORDERED: LIDOCAINE 2% URO-JET JELLY 5 ML KIT ONE (12:28)
[2022-09-20] MEDS ORDERED: IV FLUID CONTINUATION 1,000 ML IV ONE (12:42)
[2022-09-20] MEDS: HEPARIN SODIUM 1,000 UN/ML (10ML VL) IV ONE ×5 (13:14→14:34)
[2022-09-20] MEDS ORDERED: PRASUGREL 10 MG TAB ONE (13:41)
[2022-09-20] MEDS ORDERED: PRASUGREL 10 MG TAB PO ONE (13:44)
[2022-09-20] MEDS ORDERED: IOPAMIDOL-370 100ML BTL INJ ONE (14:13)
[2022-09-20] MEDS: MIDAZOLAM 2 MG/2 ML VIAL IV ONE ×2 (14:34→15:06)
[2022-09-20] MEDS: fentaNYL (PF) 50 MCG/ML 2 ML AMP IV ONE ×2 (14:43→15:10)
[2022-09-20] MEDS ORDERED: niCARdipine 25 MG/10 ML VIAL ONE (14:55)
[2022-09-20] MEDS ORDERED: HEPARIN SODIUM 1,000 UN/ML (10ML VL) IV ONE (15:15)
[2022-09-20] MEDS ORDERED: ATROPINE SULFATE 0.1 MG/ML 10ML SYRINGE IV PRN (15:37)
[2022-09-20] MEDS ORDERED: MAG HYDROX/AL HYDROX/SIMETH 30 ML CUP PO PRN (15:37)
[2022-09-20] MEDS ORDERED: ZOLPIDEM 5 MG TAB PO PRN (15:37)
--- NOTE | 2022-09-20 15:40 | P.PN ---
Subjective Progress Note Date: 09/20/22 62-year-old male came in with compensative severe chest pain found to be in atrial fibrillation with the heart rate going up to around 180. Patient does have history of A. fib stopped taking his Cardizem thinking Cardizem is a the reason why he was having ALLERGIC reaction. Patient the came to ER with rash and ALLERGIC reaction. 4 days ago was sent home on prednisone because of his continued symptoms he started taking his Cardizem went into atrial fibrillation patient was started on IV Cardizem after which his symptoms of premature controlled. Patient has left lower extremity venous stasis along with venous ulcerations for which patient Follows up with home care and the patient was told these wounds are not infected. Although his lungs are wrapped Because of which I'm unable to examine those. Patient presently cannot to sinus rhythm and a heart rate controlled. 09/20/2022 Third troponin came back at 2.040, Patient taken to the [facility] today underwent cardiac catheterization which reveals severe triple-vessel coronary artery disease, calcified right and left coronary system, normal left-sided filling pressures. Patient taken back to the [facility]. Decision made to proceed with angiography and patient is currently back in the [facility]. Multiple attempts to round on the patient today and patient has been in the CVL. Labs reviewed today, white count has normalized to 10.6, hgb 11.0, sodium 135. Unable to complete review of systems or physical exam patient in the CV[facility] after multiple attempts to round. Assessment and plan -Troponin elevation and non st elevation ID cardiac cath reveals severe triple vessel coronary artery disease -Atrial fibrillation with rapid ventricular rate converted to normal sinus rhythm with IV cardizem. -left extremity cellulitis recently treated with antibiotics -COPD without any acute exacerbation -Peripheral vascular disease -History of DVT 2021 -Anxiety/Depression -Chronic nicotine use recently quit DVT prophylaxis: IV heparin GI prophylaxis: Pepcid Full Code Plan Patient to be taken back to the CV[facility] for intervention Continues on IV heparin and eliquis on hold at this time Cardizem gtt is discontinued patient transitioned to oral cardizem. The impression and plan of care has been dictated by Nurse Darron Pr actitioner as directed. Dr. Herbert MD I have performed a history and physical examination and medical decision making of this patient, discussed the same with the dictator, and agree with the dicta tors assessment and plan as written, documented as a scribe. Based on total visit time, I have performed more than 50% of this visit. Objective - Vital Signs Vital signs: Vital Signs Temp 98.0 F 09/20/22 08:00 Pulse 63 09/20/22 09:53 Resp 16 09/20/22 08:00 BP 121/65 09/20/22 08:00 Pulse Ox 92 L 09/20/22 08:00 FiO2 Intake & Output 09/19/22 09/20/22 09/20/22 18:59 06:59 18:59 Intake Total 15.084 150 Balance 15.084 150 Weight 102.965 kg 102.965 kg Intake: IV 150 Intake, IV Titration 15.084 Amount Diltiazem 125 mg In 15.084 Sodium Chloride 0.9% 100 ml @ 5 MG/HR 5 mls/hr IV .Q24H [id number] Rx#:[id number] Other: Voiding Method Toilet Toilet # Voids 1 - Labs CBC & Chem 7: 09/20/22 08:04 09/20/22 08:04 Labs: Abnormal Lab Results - Last 24 Hours (Table) 09/19/22 09/20/22 09/20/22 Range/Units 14:36 08:04 08:04 RBC 4.04 L (4.30-5.90) m/uL Hgb 11.0 L (13.0-17.5) gm/dL Hct 35.1 L (39.0-53.0) % Sodium 135 L (137-145) mmol/L Creatinine 0.65 L (0.66-1.25) mg/dL Troponin I 2.040 H* (0.000-0.034) ng/mL Assessment and Plan Time with Patient: Less than 30
[2022-09-20] MEDS: FUROSEMIDE 40 MG TAB PO SCH (16:30)
--- NOTE | 2022-09-20 20:04 | P.PCN ---
Date of Procedure: 09/20/22 Operative Findings: Percutaneous coronary intervention Performing physician Johan Morataya MD Procedure performed 1. Successful stenting of the proximal LAD using 3.5 x 18 mm Xience JAIME with an excellent angiographic results and reduction of stenosis from 90% to 0% 2. Successful stenting of the proximal LCx using 3.5 x 38 mm Xience JAIME with an excellent angiographic results and reduction of stenosis from 99% to 0% 3. Adjunctive use of orbital atherectomy, lithotripsy, and intravascular ultrasound Indication Acute non-ST elevation myocardial infarction in this 62-year-old gentleman who presented to the hospital was chest discomfort. He underwent a heart catheterization and was found to have critical disease involving both the LAD and LCx. The decision was made toward percutaneous coronary intervention. Approach Left common femoral artery Complications None Level of sedation Moderate with sedation at length of 150 minutes Procedure description After obtaining an informed consent the patient was brought to the cardiac pathology laboratory technologist. This sheath was left in the left common femoral artery from the heart catheterization which was performed earlier. Anticoagulation was initiated using heparin with continuous ACT monitoring. Subsequently I did engage the left main using JL 4 short tip guiding catheter. The patient has very short left main and on the initial heart catheterization the diagnostic catheter was a sub-selecting the left and your descending artery and for that reason I decided to go with a short guiding catheter. At that point I did wire the LAD using running through wire. Intravascular ultrasound was performed and showed eccentric calcification involving the proximal LAD with a diameter around 3.5-4 mm. Initially I did predilatation using 3.0 mm semi-compliant balloon which was advanced under fluoroscopy guidance to the proximal left anterior descending artery where the balloon was positioned under fluoroscopy guidance and inflated but the balloon was not fully open. At that point I decided balloon angioplasty using lithotripsy balloon. I decided to go ahead and used 3.5 x 12 mm balloon. The balloon again was prepped and advanced over the wire to the proximal left anterior descending artery were dilated balloon inflation and therefore atmospheres before I delivered multiple runs of lithotripsy. The balloon was fully opened. At that point I decided to go ahead and used a 3.5 x 18 mm stent or the stent was positioned under fluoroscopy guidance and deployed under fluoroscopy guidance and a 14 cecil for 20 seconds. Intravascular ultrasound was performed again and showed that the distal edge of the stent and the distal portion of the stent appeared to be fully opposed and expanded. At the proximal portion of the stent did not seem that way and for that reason I decided to post dilate using 3.75 mm x 12 mm balloon which was inflated and there are 18 cecil with the following angiogram showing excellent angiographic results and the procedure on the LAD was completed at that point. Regarding the left circumflex coronary artery and because I needed more anchoring and support I decided to leave the wire in the left anterior descending artery and wire the left circumflex coronary artery using whisper wire. The whisper was advanced under fluoroscopy guidance to the PDA branch of the left circumflex coronary artery. Attempting advancing 2.5 x 15 mm was unsuccessful using 1 wire only and at that point I decided to use 2 wires including evaluate her. I was able to advance an 014 run through wire to the distal left circumflex coronary artery as a michael wire. I was able to advance 2.5 x 15 mm balloon to the proximal and mid left circumflex coronary artery. The balloon was inflated multiple times but the lesion in the proximal portion of the left circumflex was not fully opened. At that point I decided to use lithotripsy balloon. Attempting advancing the first lithotripsy balloon were used for the LAD over both wires to the left circumflex was unsuccessful. I decided to use a new balloon. So prepped 3.5 x 12 mm lithotripsy balloon or the balloon was advanced over fluoroscopy guidance over the whisper wire but the balloon did not cross all the way to the proximal portion of the circumflex but I decided to go ahead and deliver at that spot. I did lithotripsy balloon where the balloon was inflated under 4 cecil and the subsequently 6 cecil. Attempting advancing the balloon over the redness through wire was unsuccessful. Attempting bullying the redness through wire and advancing the guide liner was also not helpful. Attempting using a 3.0 noncompliant balloon was also unsuccessful. At that point and after exhaust all option I decided to go ahead and do atherectomy of the left circumflex coronary artery. Please note that before we started the balloon angioplasty I did intravascular ultrasound of the left circumflex and the catheter was only able to cross the proximal left circumflex coronary artery and showed extreme calcifications appeared to be central calcification with severe disease with a diameter of the left circumflex again about 3.5 mm. Please note before we decided to go ahead and use atherectomy I did exchange 1 of the wires into an iron man and attempting advancing regular balloon or noncompliant balloon or lithotripsy balloon over the whisper wire where the iron man was a michael wire was again and successful. At that point I decided to go ahead and do atherectomy. I did exchange the iron man over super cross catheter into the atherectomy wire. Subsequently I did advance to the orbital atherectomy catheter over the atherectomy wire were added atherectomy of the ostial and proximal and mid left circumflex coronary artery with low speed run at least 5 times. After that I was able to advance a 3.5 mm noncompliant balloon were added balloon angioplasty of the left circumflex and subsequently I was able to advance a 3.5 x 38 mm stent where the stent was positioned under fluoroscopy guidance and deployed under fluoroscopy guidance. Following angiogram was performed and showed an excellent angiographic results with MEGHA-3 flow and the procedure was completed with no complication Postprocedure management Dual antiplatelet therapy using aspirin and Effient for 12 month Aggressive cholesterol control Risk factors modification Standard groin care with manual pulling of the sheath
[2022-09-20] MEDS: ATORVASTATIN 40 MG TAB PO SCH (22:06)
[2022-09-21] MEDS ORDERED: HYDROmorphone 0.5 MG/0.5 ML SYRINGE IVP PRN (00:26)
[2022-09-21] MEDS: LEVOTHYROXINE 25 MCG TAB PO SCH (06:34)
[2022-09-21 07:32] LABS: Basophils % (A) 0 %; Eosinophils # (A) 0.4 k/uL (0-0.7); Eosinophils % (A) 2 %; HCT 36.3 % (39.0-53.0); HGB 11.7 gm/dL (13.0-17.5); Lymphocytes # (A) 1.3 k/uL (1.0-4.8); Lymphocytes % (A) 7 %; MCH 28.3 pg (25.0-35.0); MCHC 32.2 g/dL (31.0-37.0); MCV 88.1 fL (80.0-100.0); Mean Platelet Volume 7.2; Monocytes % (A) 5 %; Neutrophils # (A) 15.2 k/uL (1.3-7.7); Neutrophils % (A) 84 %; Platelet Count 407 k/uL (150-450); RBC 4.13 m/uL (4.30-5.90); RDW 15.4 % (11.5-15.5)
[2022-09-21] MEDS: ASPIRIN 81 MG PO SCH (07:43)
[2022-09-21] MEDS: lisinopriL 20 MG TAB PO SCH (07:43)
[2022-09-21] MEDS: GABAPENTIN 300 MG CAP PO SCH ×2 (07:43→13:14)
[2022-09-21] MEDS: DILTIAZEM CD 120 MG CAP.ER.24H PO SCH (07:43)
[2022-09-21] MEDS: FAMOTIDINE 20 MG TAB PO SCH (07:43)
[2022-09-21] MEDS: FUROSEMIDE 40 MG TAB PO SCH (07:43)
[2022-09-21 08:04] LABS: African American GFR (CKD) >90 (>60 ml/min/1.73 sqM); Anion Gap 10 mmol/L; Blood Urea Nitrogen 12 mg/dL (9-20); Calcium 8.3 mg/dL (8.4-10.2); Carbon Dioxide 19 mmol/L (22-30); Chloride 104 mmol/L (98-107); Glucose 111 mg/dL (74-99); Non-African American GFR(CKD) >90 (>60 ml/min/1.73 sqM); Sodium 133 mmol/L (137-145)
[2022-09-21] MEDS: BUDESONIDE 0.5 MG/2 ML NEBU INHALATION SCH (08:45)
[2022-09-21] MEDS: IPRATROPIUM-ALBUTEROL 3 ML NEB INHALATION SCH (08:45)
[2022-09-21] MEDS ORDERED: PRASUGREL 10 MG TAB PO SCH (09:00)
--- NOTE | 2022-09-21 09:40 | XR ---
EXAMINATION TYPE: XR chest 2V DATE OF EXAM: 09/21/2022 9:34 AM COMPARISON: Chest radiographs from 09/19/2022 TECHNIQUE: XR chest 2V Frontal and lateral views of the chest. CLINICAL INDICATION:Male, 62 years old with history of infiltrate; FINDINGS: Lungs/Pleura: There is no evidence of pleural effusion, focal consolidation, or pneumothorax. Simila r interstitial prominence. Less prominent appearance of previously seen airspace opacity within the l eft base. Heart/mediastinum: Cardiomediastinal silhouette is mildly prominent size. Atherosclerotic calcificat ions are seen in the aorta. Musculoskeletal: No acute osseous pathology. IMPRESSION: 1. Mild cardiomegaly with interstitial prominence. This could reflect bronchitis or asthma. 2. Less prominent appearance of previously seen airspace opacities within the left base.
[2022-09-21] MEDS ORDERED: APIXABAN 2.5 MG TABLET PO SCH (10:45)
[2022-09-21] MEDS ORDERED: PETROLATUM, WHITE OINT 50 GM TUBE TOPICAL PRN (11:08)
[2022-09-21 11:50] VITALS: BMI 36.6
[2022-09-21 15:55] VITALS: BP 114/59; PULSE 67; RESP 18; TEMP 97.9
--- NOTE | 2022-09-21 21:45 | PN ---
PROGRESS NOTE Mr. Dudley underwent cardiac catheterization by Dr. Morataya yesterday, a technically difficult procedure. He underwent PTCA and stenting of LAD as well as circumflex. Circumflex was difficult, required atherectomy; however, end result was good. He is resting comfortably. No chest pain or shortness of breath. Vitals are stable. EKG does not reveal any acute changes. I am recommending that he can be discharged today on dual-antiplatelet therapy, and also, I will add 2.5 mg of Eliquis b.i.d., and he will see Dr. Morataya in the office in 1 week. Advised not to do strenuous activity. His catheterization site is clean and dry with a good pulse. His laboratory data are good. Renal function is good, and EKG is stable. MMODL / IJN: [id number] /
--- NOTE | 2022-09-23 00:13 | P.DS ---
Providers Date of admission: 09/19/22 11:43 Attending physician: Mario oGdinez Consults: 09/19/22 11:43 Consult Physician Urgent Consulting Provider: Cardiology Joelle Consult Reason/Comments: afib with rvr Do you want consulting provider notified?: Yes 09/20/22 15:37 Consult Physician Routine Consulting Provider: Tiny Lai Consult Reason/Comments: Post Interventional Patient Do you want consulting provider notified?: Already Contacted Primary care physician: [facility] Course: Final Diagnosis -Troponin elevation and non st elevation MS cardiac cath reveals severe triple vessel coronary artery disease -Status post stenting to the LAD, stenting and arthrectomy of the left circumflex placed on dual antiplatelet therapy -Atrial fibrillation with rapid ventricular rate converted to normal sinus rhythm with IV cardizem. -Left extremity dry flaky skin recently treated with antibiotics for cellulitis of the left leg does not appear infected at this time -COPD without any acute exacerbation -Peripheral vascular disease -History of DVT 2021 -Anxiety/Depression -Chronic nicotine use recently quit Discharge Disposition Patient is stable for discharge back to [facility]. patient to follow up with Dr. Morataya in the office in 1 week. Discharged on triple antiplatelet therapy with aspirin 81 mg daily, effient 10 mg daily, eliquis 2.5 mg twice a day. Patient has converted from atrial fibrillation and is not maintaining sinus mechanism. Follow up with Dr. Martinez regarding the left leg scaling and the wound to inside of the left ankle. Continue eucerin lotion ankle to above as needed. Recommend to repeat labs BMP and CBC in 2 to 3 days and close follow up with PCP on discharge. Hospital Course 62-year-old male came in with compensative severe chest pain found to be in atrial fibrillation with the heart rate going up to around 180. Patient does have history of A. fib stopped taking his Cardizem thinking Cardizem is a the reason why he was having ALLERGIC reaction. Patient the came to ER with rash and ALLERGIC reaction. 4 days ago was sent home on prednisone because of his continued symptoms he started taking his Cardizem went into atrial fibrillation patient was started on IV Cardizem after which his symptoms are now controlled. Patient has left lower extremity venous stasis along with venous ulcerations for which patient Follows up with home care and the patient was told these wounds are not infected. He does follow with Dr Michelle outpatient and had also recently completed course of antibiotics with PICC line for cellulitis to the left leg. Patient does have any evidence of cellulitis his left lower leg is scaly an flaking there is a small wound on the inside aspect of the ankle patient states this is healing and told by his outside doctor not infected. There is no drainage. Patient presently converted to sinus rhythm and a heart rate controlled. He underwent cardiac catheterization which reveals severe triple- vessel coronary artery disease, calcified right and left coronary system, normal left-sided filling pressures. Patient taken back to the [facility]. Decision made to proceed with angiography and patient was taken for cath and had stent placed to the LAD and left circumflex. Per reports the cath was felt to be a technically difficult procedure and the circumflex required arthrectomy Echocardiogram not done patient recently had echocardiogram done reveals EF 55-60% with mild MR. Patient Discharged on triple antiplatelet therapy at the recommendation of cardiology, with aspirin 81 mg daily, effient 10 mg daily, eliquis 2.5 mg twice a day. Patient to follow up with Dr. Morataya in the officen in 1 week. Patient is currently denying chest pain, no shortness of breath. EKG is stable post cath. Patient has been up ambulating, lungs are clear, S1 S2 auscultated and abdomen is soft and nontender. He is hemodynamically stable and kidney function stable. Cleared for discharge back to [facility] Please see medication reconciliation for a list of current medication. Thank you for allowing us to participate in the care of this patient. The impression and plan of care has been dictated by Yaneth Galindo, Nurse Practitioner as directed. Dr. Herbert MD I have performed a history and physical examination and medical decision making of this patient, discussed the same with the dictator, and agree with the dictators assessment and plan as written, documented as a scribe. Based on total visit time, I have performed more than 50% of this visit. Patient Condition at Discharge: Stable Plan - Discharge Summary Discharge Rx Participant: No New Discharge Prescriptions: New Petrolatum, White [Aquaphor] 1 applic TOPICAL BID PRN each PRN Reason: Dry Skin Prasugrel [Effient] 10 mg PO DAILY #30 tab Apixaban [Eliquis] 2.5 mg PO BID #60 tab Nitroglycerin Sl Tabs [Nitrostat] 0.4 mg SUBLINGUAL Q5M PRN #20 tab PRN Reason: Chest Pain Cephalexin [Keflex] 250 mg PO Q8HR 5 Days #15 capsule Continue Levothyroxine Sodium 12.5 mcg PO DAILY@0700 rOPINIRole HCL [Requip] 0.5 mg PO HS@1999 Acetaminophen Tab [Tylenol] 650 mg PO Q6HR PRN #20 tab PRN Reason: Mild Pain Or Fever > 100.5 Multivitamins, Thera [Multivitamin (formulary)] 1 tab PO DAILY@0800 Sennosides [Senokot] 8.6 mg PO HS PRN PRN Reason: Constipation Ipratropium-Albuterol Nebulize [Duoneb 0.5 mg-3 mg/3 ml Soln] 3 ml INHALATION RT-QID PRN each PRN Reason: Shortness Of Breath Or Wheezing traMADol HCl [Ultram] 50 mg PO Q6H PRN 3 Days #12 tab PRN Reason: Moderate Pain (Scale 4 To 6) hydrOXYzine HCL 25 mg PO Q8HR PRN #24 tab PRN Reason: Itching predniSONE 50 mg PO HS@1999 Gabapentin 300 mg PO TID@0800,1400,1999 Furosemide [Lasix] 40 mg PO DAILY@0800 Folic Acid 1 mg PO DAILY@0800 dilTIAZem HCL [Cartia Xt] 120 mg PO DAILY@0800 Ipratropium/Albuter 20-100Mcg [Combivent Respimat 20-100Mcg Inhaler] 2 puff INHALATION RT-BID@08,1999 Budesonide [Pulmicort] 0.5 mg INHALATION RT-BID@08,1999 Atorvastatin [Lipitor] 40 mg PO HS@1999 Aspirin 81 mg PO DAILY@0800 Ergocalciferol [Vitamin D2 (1250 Mcg = 79646 Iu)] 1,250 mcg PO SA lisinopriL [Zestril] 20 mg PO DAILY@0800 Famotidine [Pepcid] 20 mg PO DAILY@0800 Discontinued Apixaban [Eliquis] 5 mg PO BID@0800,1999 Discharge Medication List Levothyroxine Sodium 12.5 mcg PO DAILY@0700 10/18/18 [History] Ergocalciferol [Vitamin D2 (1250 Mcg = 09198 Iu)] 1,250 mcg PO SA 04/26/22 [History] rOPINIRole HCL [Requip] 0.5 mg PO HS@199904/28/22 [History] Acetaminophen Tab [Tylenol] 650 mg PO Q6HR PRN #20 tab 05/03/22 [Rx] Multivitamins, Thera [Multivitamin (formulary)] 1 tab PO DAILY@0800 06/29/22 [History] Sennosides [Senokot] 8.6 mg PO HS PRN 06/29/22 [History] Ipratropium-Albuterol Nebulize [Duoneb 0.5 mg-3 mg/3 ml Soln] 3 ml INHALATION RT-QID PRN each 07/28/22 [Rx] traMADol HCl [Ultram] 50 mg PO Q6H PRN 3 Days #12 tab 07/28/22 [Rx] hydrOXYzine HCL 25 mg PO Q8HR PRN #24 tab 09/15/22 [Rx] Aspirin 81 mg PO DAILY@79909/19/22 [History] Atorvastatin [Lipitor] 40 mg PO HS@199909/19/22 [History] Budesonide [Pulmicort] 0.5 mg INHALATION RT-BID@08,199909/19/22 [History] Famotidine [Pepcid] 20 mg PO DAILY@79909/19/22 [History] Folic Acid 1 mg PO DAILY@79909/19/22 [History] Furosemide [Lasix] 40 mg PO DAILY@79909/19/22 [History] Gabapentin 300 mg PO TID@0800,1400,199909/19/22 [History] Ipratropium/Albuter 20-100Mcg [Combivent Respimat 20-100Mcg Inhaler] 2 puff INHALATION RT-BID@08,199909/19/22 [History] dilTIAZem HCL [Cartia Xt] 120 mg PO DAILY@0809/19/22 [History] lisinopriL [Zestril] 20 mg PO DAILY@79909/19/22 [History] predniSONE 50 mg PO HS@199909/19/22 [History] Apixaban [Eliquis] 2.5 mg PO BID #60 tab 09/21/22 [Rx] Cephalexin [Keflex] 250 mg PO Q8HR 5 Days #15 capsule 09/21/22 [Rx] Nitroglycerin Sl Tabs [Nitrostat] 0.4 mg SUBLINGUAL Q5M PRN #20 tab 09/21/22 [Rx] Petrolatum, White [Aquaphor] 1 applic TOPICAL BID PRN each 09/21/22 [Rx] Prasugrel [Effient] 10 mg PO DAILY #30 tab 09/21/22 [Rx] Follow up Appointment(s)/Referral(s): Fabiola Young MD [STAFF PHYSICIAN] - 1 Week (pt. to make own apps) Todd Martinez DPM [STAFF PHYSICIAN] - 1 Week (pt. to make own apps) Dionne Herrera MD [Primary Care Provider] - 1-2 days (pt. to make own apps) [facility] Visiting Nurse, [NON-STAFF] - 1 Week Ambulatory/Diagnostic Orders: Basic Metabolic Panel [LAB.AMB] Time Frame: 3 Days, Location: None Selected Complete Blood Count w/diff [LAB.AMB] Time Frame: 3 Days, Location: None Selected Patient Instructions/Handouts: Heart Attack (DC), A-fib (Atrial Fibrillation) (DC) Activity/Diet/Wound Care/Special Instructions: Follow up with Dr. Martinez regarding the left leg scaling and the wound to inside of the left ankle. Continue eucerin lotion ankle to above as needed. Discharged on triple antiplatelet therapy with aspirin 81 mg daily, effient 10 mg daily, eliquis 2.5 mg twice a day. -Monitor for blood in the stool, bright red or black, any signs of blood in the sputum or if you have any bloody or coffee ground appearing emesis. Recommend to repeat labs in 2 to 3 days Discharge Disposition: HOME WITH HOME HEALTH SERVICES
== END 2022-09-21 16:56 | disposition home health service (06) | DRG 174 ==
LOC: EC 09:38 → EEVIPCON 09:38 → 6NMEDSUR 11:43 → OBSVTOIN 11:43 → 6NMEDSUR 13:34 → 3SCARD 20:10
PROVIDERS: ADMIT Internal Medicine; ATTEND Internal Medicine
PROC: 027135Z Dilation of Coronary Artery, Two Arteries with Two Drug-eluting Intraluminal Devices, Percutaneous Approach (ICD-10-PCS; principal; 2022-09-20 07:30)
PROC: 02C13Z7 Extirpation of Matter from Coronary Artery, Two Arteries, Orbital Atherectomy Technique, Percutaneous Approach (ICD-10-PCS; 2022-09-20 07:30)
PROC: 02F13ZZ Fragmentation in Coronary Artery, Two Arteries, Percutaneous Approach (ICD-10-PCS; 2022-09-20 13:40)
PROC: B241ZZ3 Ultrasonography of Multiple Coronary Arteries, Intravascular (ICD-10-PCS; 2022-09-20 13:40)
PROC: 4A023N7 Measurement of Cardiac Sampling and Pressure, Left Heart, Percutaneous Approach (ICD-10-PCS; 2022-09-20 13:40)
PROC: B2111ZZ Fluoroscopy of Multiple Coronary Arteries using Low Osmolar Contrast (ICD-10-PCS; 2022-09-20 13:40)
DX: I21.4 Non-ST elevation (NSTEMI) myocardial infarction (principal); L03.116 Cellulitis of left lower limb; L97.929 Non-pressure chronic ulcer of unspecified part of left lower leg with unspecified severity; I11.9 Hypertensive heart disease without heart failure; I95.9 Hypotension, unspecified; I73.9 Peripheral vascular disease, unspecified; I77.819 Aortic ectasia, unspecified site; J44.9 Chronic obstructive pulmonary disease, unspecified; F32.A Depression, unspecified; I34.0 Nonrheumatic mitral (valve) insufficiency; L98.499 Non-pressure chronic ulcer of skin of other sites with unspecified severity; I48.0 Paroxysmal atrial fibrillation; I25.119 Atherosclerotic heart disease of native coronary artery with unspecified angina pectoris; L29.9 Pruritus, unspecified; T46.1X6A Underdosing of calcium-channel blockers, initial encounter; T45.516A Underdosing of anticoagulants, initial encounter; F41.9 Anxiety disorder, unspecified; R21 Rash and other nonspecific skin eruption; R00.1 Bradycardia, unspecified; I87.8 Other specified disorders of veins; R60.0 Localized edema; E78.5 Hyperlipidemia, unspecified; Z96.641 Presence of right artificial hip joint; Z91.128 Patient's intentional underdosing of medication regimen for other reason; Z86.718 Personal history of other venous thrombosis and embolism; Z79.51 Long term (current) use of inhaled steroids; Z79.82 Long term (current) use of aspirin; Z79.01 Long term (current) use of anticoagulants; Z87.891 Personal history of nicotine dependence; Z88.0 Allergy status to penicillin; Z79.890 Hormone replacement therapy; Z91.030 Bee allergy status; Z91.048 Other nonmedicinal substance allergy status; Z79.899 Other long term (current) drug therapy; Z79.02 Long term (current) use of antithrombotics/antiplatelets
CPT/HCPCS: 0715T; 33210; 36415; 71045; 71046; 76937; 80048; 80053; 83735; 83880; 84443; 84484; 85025; 85610; 85730; 92933; 92978; 92979; 93005; 93458; 94640; 94760; 96365; 96366; 99285

== ENCOUNTER 2022-09-27 16:51 | Emergency (ER) | payer OTHER ==
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
[2022-09-27 20:57] VITALS: BP 124/68; PULSE 80; RESP 20; TEMP 98.2
== END 2022-09-27 21:21 | disposition home or self-care (01) ==
LOC: EC 16:51
DX: S20.219A Contusion of unspecified front wall of thorax, initial encounter (principal); I48.91 Unspecified atrial fibrillation; I10 Essential (primary) hypertension; J44.9 Chronic obstructive pulmonary disease, unspecified; M19.90 Unspecified osteoarthritis, unspecified site; E07.9 Disorder of thyroid, unspecified; Z86.718 Personal history of other venous thrombosis and embolism; F41.9 Anxiety disorder, unspecified; F32.A Depression, unspecified; F17.200 Nicotine dependence, unspecified, uncomplicated; Z88.0 Allergy status to penicillin; Z91.030 Bee allergy status; Z91.041 Radiographic dye allergy status; Z79.890 Hormone replacement therapy; Z79.82 Long term (current) use of aspirin; Z79.899 Other long term (current) drug therapy; Z79.51 Long term (current) use of inhaled steroids; Y04.0XXA Assault by unarmed brawl or fight, initial encounter
CPT/HCPCS: 71250; 99285

== ENCOUNTER → 2023-03-21 | Outpatient (CLI) | payer OTHER ==
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
== END | disposition home or self-care (01) ==
LOC: RADUSWWP 09:27
PROVIDERS: ATTEND Internal Medicine Interventional Cardiology
DX: I65.23 Occlusion and stenosis of bilateral carotid arteries (principal)
CPT/HCPCS: 93880

== ENCOUNTER → 2023-05-22 | Outpatient (CLI) | payer OTHER ==
--- NOTE | 2023-05-25 09:30 | CT ---
EXAMINATION TYPE: CT angio abd aorta w/Runoff DATE OF EXAM: 05/22/2023 COMPARISON: 01/15/2022 INDICATION: PVD. hx of left femoral bypass. black toes and no feeling in the feet DLP: 2768.20 mGycm, Automated exposure control for dose reduction was used. CONTRAST: 110ml mL of Isovue 370. Study performed without Oral Contrast TECHNIQUE: Axial images were obtained from above the diaphragm to the pubic rami in the axial plane a t 2 mm thick sections. Reconstructed images are reviewed on the computer in the coronal plane. Runo ff images were extended through the lower extremities bilaterally. 2 mm thick sections. FINDINGS: Aorta: Vascular calcifications within the aorta. No aneurysmal dilatation is evident. No dissection i s evident. Common iliac vessels are patent. There appears to be a stent within the left distal common iliac erick ry. The internal left iliac vessel appears to be obstructed. Right internal iliac artery is patent. T he bilateral external iliac vessels are patent. Vascular calcifications at the distal common femoral artery may be causing some narrowing of the righ t distal common femoral artery. Profunda femoris and superficial femoral arteries are patent in their proximal portions. Some plaquin g is noted on the right superficial femoral artery midportion causing mild narrowing. Some mild narro wing of the distal right superficial femoral artery is likely present. Right superficial femoral erick ry at the obturator canal is somewhat narrowed. Right popliteal artery has plaquing with moderate irwin rowing. Anterior tibial artery origin has calcification. No definite contrast is identified. Peroneal artery and posterior tibial arteries contain contrast at the proximal trifurcation. Posterior tibial artery and peroneal artery are patent to the level of the ankle. The distal anterior tibial artery constitut ed distally. Anterior and posterior tibial arteries are patent at the level of the ankle. Left trifurcation vessels are patent at the level of the ankle. There is a bypass extending to the di stal popliteal artery which is patent on the left. The bypass graft is patent with some adjacent surg ical clips evident and appears to arise from the distal common femoral artery. Limited CT sections are obtained the lung bases. The lung bases are clear. CT ABDOMEN: Liver: Normal Spleen: Normal Pancreas: Normal Adrenal glands: The adrenal glands are normal. Gallbladder: Normal Kidneys: No masses are evident. No hydronephrosis is present. No cysts are present. Inferior vena cava: Normal. CT PELVIS: Loops of bowel within the abdomen and pelvis are normal. There are some diverticuli within the sigmo id colon. There are loops of bowel which are incompletely distended or lack oral contrast limiting their evaluation. Appendix: Not identified. No dilated tubular structure or inflammatory changes are evident Urinary bladder: Normal as visualized Genitourinary structures: Prostate appears unremarkable Osseous structures: No suspicious lytic or sclerotic lesions. IMPRESSION: 1. Left superficial femoral artery bypass appears patent to the popliteal artery. Popliteal artery i s patent into the trifurcation vessels which extend to the level of the ankle. 2. Right superficial femoral has atheromatous plaquing with mild to moderate narrowing. 3. Right anterior tibial artery appears occluded near its proximal portion but reconstituted at the a nkle. 4. Sigmoid diverticulosis.
== END | disposition home or self-care (01) ==
LOC: RADCTMAIN 11:40
PROVIDERS: ATTEND Surgery
DX: I70.201 Unspecified atherosclerosis of native arteries of extremities, right leg (principal); K57.30 Diverticulosis of large intestine without perforation or abscess without bleeding
CPT/HCPCS: 75635; Q9967

== ENCOUNTER 2023-06-13 11:55 | Day surgery (SDC) | payer OTHER ==
[2023-06-04 16:11] VITALS: BMI 37.1
[~2023-06-13 11:55] MED LIST changes: +ALPRAZolam 0.25 MG TAB PO PRN; +ALPRAZolam 0.5 MG TAB PO PRN; +ASPIRIN 325 MG TAB PO PRN; -DEXAMETHASONE SOD PHOSPHATE 10 MG/ML 1 ML VIAL IV ONE; +HEPARIN SODIUM,PORCINE (1 ML) 2,500 UNIT in SODIUM CHLORIDE 0.9% 250 ML IRRIGATION PRN; +HEPARIN SODIUM,PORCINE 10,000 UNIT in SODIUM CHLORIDE 0.9% 1,000 ML IRRIGATION PRN; -HYDROmorphone 0.5 MG/0.5 ML SYRINGE IVP PRN; -LACTATED RINGERS 1,000 ML IV SCH; -LIDOCAINE 1% (10MG/ML) FOR IV START INTRADERMA PRN; -MIDAZOLAM 2 MG/2 ML VIAL IV PRN; -ONDANSETRON 4 MG/2 ML VIAL IVP ONE; -Pre Op ABX Message 1 EACH MISC MISCELLANE ONE; +SODIUM CHLORIDE 0.9% 1,000 ML in EMPTY BAG 1 BAG IV ONE; +ZOLPIDEM 5 MG TAB PO PRN
[2023-06-13] MEDS: SODIUM CHLORIDE 0.9% 1,000 ML IV ONE (12:05)
[2023-06-13 12:30] LABS: Basophils # (A) 0.1 k/uL (0-0.2); Basophils % (A) 1 %; Eosinophils # (A) 0.1 k/uL (0-0.7); Eosinophils % (A) 1 %; HCT 46.6 % (39.0-53.0); HGB 15.5 gm/dL (13.0-17.5); Lymphocytes # (A) 2.3 k/uL (1.0-4.8); Lymphocytes % (A) 23 %; MCH 31.2 pg (25.0-35.0); MCHC 33.2 g/dL (31.0-37.0); Mean Platelet Volume 7.5; Monocytes # (A) 0.5 k/uL (0-1.0); Monocytes % (A) 5 %; Neutrophils # (A) 6.7 k/uL (1.3-7.7); Neutrophils % (A) 69 %; Platelet Count 235 k/uL (150-450); RBC 4.96 m/uL (4.30-5.90); RDW 12.9 % (11.5-15.5); WBC 9.8 k/uL (3.8-10.6)
[2023-06-13 12:40] LABS: African American GFR (CKD) >90 (>60 ml/min/1.73 sqM); Anion Gap 10 mmol/L; Blood Urea Nitrogen 9 mg/dL (9-20); Calcium 9.3 mg/dL (8.4-10.2); Carbon Dioxide 23 mmol/L (22-30); Chloride 101 mmol/L (98-107); Glucose 98 mg/dL (74-99); Non-African American GFR(CKD) >90 (>60 ml/min/1.73 sqM); Potassium 4.4 mmol/L (3.5-5.1); Sodium 134 mmol/L (137-145)
[2023-06-13 12:48] VITALS: RESP 16; TEMP 97.8
[2023-06-13] MEDS: MIDAZOLAM 2 MG/2 ML VIAL IVP ONE (13:23)
[2023-06-13] MEDS ORDERED: LIDOCAINE 1% INJ 10MG/ML (20 ML MDV) ONE (13:25)
[2023-06-13] MEDS: LIDOCAINE 1% INJ 10MG/ML (20 ML MDV) SQ ONE (13:28)
[2023-06-13] MEDS: IOPAMIDOL-370 200ML BTL INJ ONE (13:58)
--- NOTE | 2023-06-13 14:25 | P.OP ---
Date of Procedure: 06/13/23 Preoperative Diagnosis: 1: Recurrent left iliac artery stenosis. 2.: Status post left femoral to popliteal in situ vein bypass graft. Postoperative Diagnosis: Same plus subtotal occlusion right common femoral artery. Right SFA occlusion. 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 Procedure(s) Performed: 1: Ultrasound-guided cannulation right common femoral artery. 2: Abdominal aortogram 3: Selective left femoral angiography. 4: Balloon dilation left common and external iliac arterial segments (in-stent ). 5: Right femoral angiogram. Anesthesia: local (With 2% Xylocaine for local anesthesia and 1 mg of Versed intravenously for moderate conscious sedation purposes..) Surgeon: Alejandro Bliss Estimated Blood Loss (ml): 10 Pathology: none sent Condition: stable Disposition: no change Indications for Procedure: Patient is a 63 old male who experienced limb-threatening ischemia and status post left femoral to distal popliteal vein bypass graft. And surveillance his ankle-brachial index is decreased and CTA suggested left iliac artery stenosis. It is felt the vein graft is being threatened by decreased inflow and the patient is offered angiography and possible intervention. The procedure, risk and benefits were discussed with the patient. Patient wished to proceed. Description of Procedure: Patient was brought to the special procedure suite. Both groins were sterilely prepped and draped in usual manner. Patient did receive 1 mg of Versed intravenously for moderate conscious sedation purposes. Utilizing ultrasound the right femoral artery was identified. 2% Xylocaine was utilized for local anesthesia of the tissue overlying the femoral artery. With the aid of ultrasound a micropuncture needle was utilized to cannulate the very proximal portion of the common femoral artery. Guidewire was advanced. The needle was withdrawn and a micropuncture sheath and dilator were advanced over the guidewire. Guidewire and dilator was withdrawn and an 035 J-tip guidewire was advanced into the iliac system. The micropuncture sheath was then exchanged for a 6 Yoruba sheath. Guidewire and pigtail catheter advanced and abdominal aortogram was performed. This image the distal half of the aorta. The distal aorta was widely patent. The left iliac system demonstrated stents extending from the origin of the common iliac down through the distal iliac artery. The internal iliac on the left was occluded. The right common iliac was patent as is the internal iliac. There is a subtotal occlusion of the common femoral artery on the right. The pigtail was then advanced over the bifurcation and down into the proximal portion of the left lower extremity bypass graft. Left femoral angiogram was performed. This demonstrated the bypass graft to be widely patent with no flow- limiting lesion noted. There is an anastomosis at the popliteal artery which appears unremarkable the popliteal artery drains into the tibial system. The anterior tibial proximally as well as the tibial peroneal trunk are patent no further imaging of the tibials was performed. Because of the decrease in ankle-brachial index and findings on CTA suggesting left iliac artery stenosis it was decided to balloon dilate the stented segments of the iliac artery. As such a 9 mm in diameter balloon catheter was manipulated over the guidewire and balloon dilation of the left iliac system was performed. Completion angiogram demonstrated no flow-limiting lesion. During the balloon dilation significant wasting was identified suggesting stenosis being relieved. The guidewire and sheath were withdrawn and through the sideport of the sheath a right femoral angiogram was performed. This demonstrated the common femoral artery to be subtotally occluded. The profundus and proximal portion of the SFA patent. The SFA demonstrates multi areas of stenosis and then does occlude at the adductor canal. The popliteal artery does fill via collaterals. The posterior tibial artery is never visualized however the proximal portion of the anterior tibial and peroneal arteries are noted to be patent. With the above findings noted the sheath was withdrawn and pressure was held at the puncture site until all evidence of bleeding ceased. Patient tolerated procedure well was returned to his room in satisfactory and stable condition. Total fluoroscopy time: 7 minutes. Total conscious sedation time: 35 minutes Total contrast volume utilized: 60 mL of Isovue-370. Plan - Discharge Summary Discharge Rx Participant: No New Discharge Prescriptions: No Action Furosemide [Lasix] 40 mg PO DAILY Folic Acid 1 mg PO DAILY dilTIAZem HCL [Cartia Xt] 120 mg PO DAILY lisinopriL [Zestril] 20 mg PO DAILY Famotidine [Pepcid] 20 mg PO BID Apixaban [Eliquis] 2.5 mg PO BID #60 tab Prasugrel [Effient] 10 mg PO DAILY Discharge Medication List Famotidine [Pepcid] 20 mg PO BID 09/19/22 [History] Folic Acid 1 mg PO DAILY 09/19/22 [History] Furosemide [Lasix] 40 mg PO DAILY 09/19/22 [History] dilTIAZem HCL [Cartia Xt] 120 mg PO DAILY 09/19/22 [History] lisinopriL [Zestril] 20 mg PO DAILY 09/19/22 [History] Apixaban [Eliquis] 2.5 mg PO BID #60 tab 09/21/22 [Rx] Prasugrel [Effient] 10 mg PO DAILY 06/06/23 [History] Follow up Appointment(s)/Referral(s): Alejandro Bliss DO [Doctor of Osteopathic Medicine] - 06/21/23 10:30 am Patient Instructions/Handouts: Moderate Sedation (DC), Angiography (DC) Activity/Diet/Wound Care/Special Instructions: No driving for two days. Avoid heavy lifting greater than 10 lbs , pushing, pulling, straining, flights of stairs for three days. ok to shower tomorrow but no baths, pools, soaking in tubs for three days to avoid risk of infection. signs of infection ie: fever, rash, drainage from puncture site, swelling contact doctor or return to ER immediately. Heavy bleeding from puncture site apply firm direct pressure and return to ER. Do not attempt to drive self. low sodium/low fat diet Medications as directed by commissioner of internal revenue.
[2023-06-13] MEDS: ACETAMINOPHEN TAB 500 MG TAB PO ONE (17:05)
[2023-06-13 18:02] VITALS: BP 143/77; PULSE 67
== END 2023-06-13 17:47 | disposition home or self-care (01) ==
LOC: CATHCVL 11:55
PROVIDERS: ATTEND Surgery
DX: T82.858A Stenosis of other vascular prosthetic devices, implants and grafts, initial encounter (principal); I70.0 Atherosclerosis of aorta; I10 Essential (primary) hypertension; F17.210 Nicotine dependence, cigarettes, uncomplicated; Z79.01 Long term (current) use of anticoagulants; Z79.02 Long term (current) use of antithrombotics/antiplatelets; Z88.0 Allergy status to penicillin; Z79.899 Other long term (current) drug therapy; Y83.8 Other surgical procedures as the cause of abnormal reaction of the patient, or of later complication, without mention of misadventure at the time of the procedure
CPT/HCPCS: 36246; 37220; 75625; 75716; 76937; 80048; 85025; C1894; C1769 ×4; C1725; J2250; J2001; Q9967

== ENCOUNTER 2023-10-26 18:09 | Emergency (ER) | payer OTHER ==
[2023-10-26 18:20] VITALS: RESP 18; TEMP 97.9
--- NOTE | 2023-10-26 18:40 | ED ---
Lower Extremity Injury HPI - General Chief Complaint: Extremity Injury, Lower Stated Complaint: L leg swelling Time Seen by Provider: 10/26/23 18:30 Source: patient, RN notes reviewed Mode of arrival: ambulatory Limitations: no limitations - History of Present Illness Initial Comments: This is a 63-year-old male presents emergency department chief complaint of left lower extremity edema that has excerbated over the last 2 days. he does have a history of bilateral lower extremity edema and takes Lasix at home as prescribed. Patient is concerned that he does have a history of DVT in his left lower extremity which has been removed and there has been procedures completed of his lower veins. Patient denies chest pain, chest pressure, palpitations, d izziness, lightheadedness. He denies recent prolonged travel. Patient is on Eliquis. - Related Data Home Medications Medication Instructions Recorded Confirmed Famotidine [Pepcid] 20 mg PO BID 09/19/22 06/04/23 Folic Acid 1 mg PO DAILY 09/19/22 06/13/23 Furosemide [Lasix] 40 mg PO DAILY 09/19/22 06/13/23 dilTIAZem HCL [Cartia Xt] 120 mg PO DAILY 09/19/22 06/04/23 lisinopriL [Zestril] 20 mg PO DAILY 09/19/22 06/04/23 Prasugrel [Effient] 10 mg PO DAILY 06/06/23 06/06/23 Previous Rx's Medication Instructions Recorded Apixaban [Eliquis] 2.5 mg PO BID #60 tab 09/21/22 Allergies Allergy/AdvReac Type Severity Reaction Status Date / Time venom-honey bee Allergy Anaphylaxis Verified 10/26/23 18:20 adhesive tape AdvReac skin Verified 10/26/23 18:20 irritation Penicillins AdvReac Unknown Verified 10/26/23 18:20 Childhood Review of Systems ROS Statement: Those systems with pertinent positive or pertinent negative responses have been documented in the HPI. ROS Other: All systems not noted in ROS Statement are negative. Past Medical History Past Medical History: Atrial Fibrillation, COPD, Hearing Disorder / Deafness, Hypertension, Myocardial Infarction (DC), Osteoarthritis (OA), Thyroid Disorder, Vascular Disorder Additional Past Medical History / Comment(s): Minor hearing loss. Hx cellulitis left leg(now resolved) and DVT 01/2022. Peripheral artery disease. Has detached ligaments in hands. Mobility issues due to compressed and herniated discs and pinched nerves in back. Per Son "2nd toe on each foot is black, that's why he's having this procedure". Last Myocardial Infarction Date:: 09/2022 History of Any Multi-Drug Resistant Organisms: None Reported Past Surgical History: Appendectomy, Heart Catheterization With Stent, Joint Replacement Additional Past Surgical History / Comment(s): Left hand surgery, right hip replacement, balloon stent and bypass left leg. Past Anesthesia/Blood Transfusion Reactions: No Reported Reaction Additional Past Anesthesia/Blood Transfusion Reaction / Comment(s): No hx blood transfusion. Date of Last Stent Placement:: 09/20/2022 Past Psychological History: Depression Smoking Status: Current every day smoker Past Alcohol Use History: Daily, Heavy Past Drug Use History: Marijuana - Past Family History Brother(s) History Unknown: Yes Family Medical History: Cancer Father Family Medical History: Cancer Additional Family Medical History / Comment(s): Liver cancer. General Exam Limitations: no limitations General appearance: alert, in no apparent distress Head exam: Present: atraumatic, normocephalic, normal inspection Eye exam: Present: normal appearance, PERRL, EOMI. Absent: scleral icterus, conjunctival injection, periorbital swelling ENT exam: Present: normal exam, mucous membranes moist Neck exam: Present: normal inspection. Absent: tenderness, meningismus, lymphadenopathy Respiratory exam: Present: normal lung sounds bilaterally. Absent: respiratory distress, wheezes, rales, rhonchi, stridor Cardiovascular Exam: Present: regular rate, normal rhythm, normal heart sounds. Absent: systolic murmur, diastolic murmur, rubs, gallop, clicks GI/Abdominal exam: Present: soft, normal bowel sounds. Absent: distended, tenderness, guarding, rebound, rigid Extremities exam: Present: other (bilateral lower extremity 1+ pitting edema) Right Lower Leg exam: Present: full ROM, tenderness, swelling Back exam: Present: normal inspection Neurological exam: Present: alert, oriented X3, CN II-XII intact Psychiatric exam: Present: normal affect, normal mood Course Vital Signs 10/26/23 10/26/23 18:17 20:44 Temperature 97.9 F Pulse Rate 64 60 Respiratory 18 18 Rate Blood Pressure 157/81 154/78 O2 Sat by Pulse 98 100 Oximetry Medical Decision Making - Medical Decision Making Was pt. sent in by a medical professional or institution ([facility], [facility], urgent care, hospital, or [facility]...) When possible be specific @ -No Did you speak to anyone other than the patient for history (EMS, parent, family, police, friend...)? What history was obtained from this source @ -No Did you review nursing and triage notes (agree or disagree)? Why? @ -I reviewed and agree with nursing and triage notes Were old charts reviewed (outside hosp., previous admission, EMS record, old EKG, old radiological studies, urgent care reports/EKG's, [facility] records)? Report findings @ -No old charts were reviewed Differential Diagnosis (chest pain, altered mental status, abdominal pain women, abdominal pain men, vaginal bleeding, weakness, fever, dyspnea, syncope, headache, dizziness, GI bleed, back pain, seizure, CVA, palpatations, mental health, musculoskeletal)? @ -congestive heart failure, venous insufficiency, peripheral edema, this list is not all inclusive EKG interpreted by me (3pts min.). @ -None X-rays interpreted by me (1pt min.). @ -chest X-ray no acute cardiopulmonary process or disease. CT interpreted by me (1pt min.). @ -None done U/S interpreted by me (1pt. min.). @ -duplex ultrasound of the left lower extremity no evidence for DVT. What testing was considered but not performed or refused? (CT, X-rays, U/S, labs)? Why? @ -None What meds were considered but not given or refused? Why? @ -None Did you discuss the management of the patient with other professionals (professionals i.e. , [facility], PILING SETTER, lab, RT, psych nurse, oncology social work, telecommunication tower technician, teacher, customer service officer, transplant case manager)? Give summary @ -No Was smoking cessation discussed for >3mins.? @ -No Was critical care preformed (if so, how long)? @ -No Were there social determinants of health that impacted care today? How? (Homelessness, low income, unemployed, alcoholism, drug addiction, trans portation, low edu. Level, literacy, decrease access to med. care, half-way, rehab)? @ -No Was there de-escalation of care discussed even if they declined (Discuss DNR or withdrawal of care, Hospice)? DNR status @ -No What co-morbidities impacted this encounter? (DM, HTN, Smoking, COPD, CAD, Cancer, CVA, ARF, Chemo, Hep., AIDS, mental health diagnosis, sleep apnea, morbid obesity)? @ -None Was patient admitted / discharged? Hospital course, mention meds given and route, prescriptions, significant lab abnormalities, going to OR and other pertinent info. @ -Discharge. 62-year-old male with left lower extremity edema. On examination patient has bilateral 1+ pitting edema however there is more severe swelling of the left lower extremity. Patient was evaluated via laboratory studies including chest x-ray and ultrasound. Patient has a history of CHF therefore chest x-ray was ordered. CBC and CMP within normal limits, BNP not elevated at 407. Nonconcerning for acute process cardiopulmonary, ultrasound negative for DVT. Patient is provided with a dose of IV Lasix and is stable for discharge. Recommend the patient continue to use compression stockings at home and elevate legs when he is not ambulating. Continue to take medications as prescribed and follow-up with primary care provider next week for further evaluation. All questions answered at bedside and strict return parameters discussed with patient he is verbalized understanding. Case discussed with Dr. Dolan. Undiagnosed new problem with uncertain prognosis? @ -No Drug Therapy requiring intensive monitoring for toxicity (Heparin, Nitro, Insulin, Cardizem)? @ -No Were any procedures done? @ -No Diagnosis/symptom? @ -bilateral lower extremity pitting edema Acute, or Chronic, or Acute on Chronic? @ -acute Uncomplicated (without systemic symptoms) or Complicated (systemic symptoms)? @ -uncomplicated Side effects of treatment? @ -No Exacerbation, Progression, or Severe Exacerbation? @ -No Poses a threat to life or bodily function? How? (Chest pain, USA, DC, pneumonia, PE, COPD, DKA, ARF, appy, cholecystitis, CVA, Diverticulitis, Homicidal, Suicidal, threat to staff... and all critical care pts) @ -No - Lab Data Result diagrams: 10/26/23 19:40 10/26/23 19:40 Lab Results 10/26/23 10/26/23 Range/Units 19:40 19:40 WBC 9.8 (3.8-10.6) k/uL RBC 4.04 L (4.30-5.90) m/uL Hgb 12.9 L (13.0-17.5) gm/dL Hct 38.1 L (39.0-53.0) % MCV 94.3 (80.0-100.0) fL MCH 31.8 (25.0-35.0) pg MCHC 33.7 (31.0-37.0) g/dL RDW 14.5 (11.5-15.5) % Plt Count 252 (150-450) k/uL MPV 7.8 Neutrophils % 69 % Lymphocytes % 21 % Monocytes % 7 % Eosinophils % 2 % Basophils % 0 % Neutrophils # 6.8 (1.3-7.7) k/uL Lymphocytes # 2.1 (1.0-4.8) k/uL Monocytes # 0.7 (0-1.0) k/uL Eosinophils # 0.2 (0-0.7) k/uL Basophils # 0.0 (0-0.2) k/uL Sodium 136 L (137-145) mmol/L Potassium 4.3 (3.5-5.1) mmol/L Chloride 107 (98-107) mmol/L Carbon Dioxide 23 (22-30) mmol/L Anion Gap 6 mmol/L BUN 11 (9-20) mg/dL Creatinine 0.72 (0.66-1.25) mg/dL Est GFR (CKD-EPI)AfAm >90 (>60 ml/min/1.73 sqM) Est GFR (CKD-EPI)NonAf >90 (>60 ml/min/1.73 sqM) Glucose 91 (74-99) mg/dL Calcium 8.9 (8.4-10.2) mg/dL Total Bilirubin 0.3 (0.2-1.3) mg/dL AST 17 (17-59) U/L ALT 11 (4-49) U/L Alkaline Phosphatase 119 (38-126) U/L NT-Pro-B Natriuret Pep 470 pg/mL Total Protein 6.5 (6.3-8.2) g/dL Albumin 3.9 (3.5-5.0) g/dL Disposition Clinical Impression: Peripheral edema, Swelling of lower limb Disposition: HOME SELF-CARE Condition: Good Instructions (If sedation given, give patient instructions): Leg Edema (ED) Additional Instructions: Return to the emergency department if symptoms worsen or not improve. Use compression stockings and elevate legs while ambulating. follow up with primary Care provider in the next 3 to 5 days for further evaluation. Is patient prescribed a controlled substance at d/c from ED?: No Referrals: Dionne Herrera MD [Primary Care Provider] - 1-2 days Time of Disposition: 20:34
--- NOTE | 2023-10-26 18:54 | XR ---
EXAMINATION TYPE: XR chest 2V DATE OF EXAM: 10/26/2023 6:48 PM CLINICAL INDICATION:Male, 63 years old with history of bilateral pitting LE edema; [facility] COMPARISON: Chest radiographs from 09/21/2022 TECHNIQUE: XR chest 2V Frontal view of the chest. FINDINGS: Lungs/Pleura: There is no evidence of pleural effusion, focal consolidation, or pneumothorax. Pulmonary vascularity: Unremarkable. Heart/mediastinum: Cardiomediastinal silhouette is unremarkable. Musculoskeletal: No acute osseous pathology. IMPRESSION: No acute cardiopulmonary disease/process.
[2023-10-26 19:49] LABS: Basophils % (A) 0 %; Eosinophils # (A) 0.2 k/uL (0-0.7); Eosinophils % (A) 2 %; HCT 38.1 % (39.0-53.0); HGB 12.9 gm/dL (13.0-17.5); Lymphocytes # (A) 2.1 k/uL (1.0-4.8); Lymphocytes % (A) 21 %; MCH 31.8 pg (25.0-35.0); MCHC 33.7 g/dL (31.0-37.0); MCV 94.3 fL (80.0-100.0); Mean Platelet Volume 7.8; Monocytes # (A) 0.7 k/uL (0-1.0); Monocytes % (A) 7 %; Neutrophils # (A) 6.8 k/uL (1.3-7.7); Neutrophils % (A) 69 %; Platelet Count 252 k/uL (150-450); RBC 4.04 m/uL (4.30-5.90); RDW 14.5 % (11.5-15.5); WBC 9.8 k/uL (3.8-10.6)
[2023-10-26 19:59] LABS: ALT 11 U/L (4-49); AST 17 U/L (17-59); African American GFR (CKD) >90 (>60 ml/min/1.73 sqM); Albumin 3.9 g/dL (3.5-5.0); Alkaline Phosphatase 119 U/L (38-126); Anion Gap 6 mmol/L; Blood Urea Nitrogen 11 mg/dL (9-20); Calcium 8.9 mg/dL (8.4-10.2); Carbon Dioxide 23 mmol/L (22-30); Chloride 107 mmol/L (98-107); Glucose 91 mg/dL (74-99); Non-African American GFR(CKD) >90 (>60 ml/min/1.73 sqM); Potassium 4.3 mmol/L (3.5-5.1); Sodium 136 mmol/L (137-145); Total Bilirubin 0.3 mg/dL (0.2-1.3); Total Protein 6.5 g/dL (6.3-8.2)
--- NOTE | 2023-10-26 20:07 | US ---
EXAMINATION TYPE: US venous doppler duplex LE LT DATE OF EXAM: 10/26/2023 6:40 PM COMPARISON: US CLINICAL INDICATION: Male, 63 years old with history of LE edema, swelling, hx of clots; left leg swe lling SIDE PERFORMED: Left TECHNIQUE: The lower extremity deep venous system is examined utilizing real time linear array sonog corwin with graded compression, doppler sonography and color-flow sonography. VESSELS IMAGED: Common Femoral Vein Deep Femoral Vein Greater Saphenous Vein * Femoral Vein Popliteal Vein Small Saphenous Vein * Proximal Calf Veins (* superficial vessels) Left Leg: Negative for DVT, unable to visualize proximal calf veins due to edema IMPRESSION: Grayscale, color doppler, spectral doppler imaging performed of the deep veins of the lo wer extremities. There is normal flow, compressibility, vascular waveforms.
[2023-10-26 20:08] LABS: NT-Pro-B-Type Natriuretic Pept 470 pg/mL
[2023-10-26 20:46] VITALS: BP 154/78; PULSE 60
[2023-10-26] MEDS: FUROSEMIDE 10 MG/ML 4 ML VIAL IV STA (20:46)
== END 2023-10-26 20:54 | disposition home or self-care (01) ==
LOC: EC 18:09
DX: R22.42 Localized swelling, mass and lump, left lower limb (principal); F17.200 Nicotine dependence, unspecified, uncomplicated; Z88.0 Allergy status to penicillin; Z91.030 Bee allergy status; Z91.048 Other nonmedicinal substance allergy status
CPT/HCPCS: 36415; 83880; 80053; 85025; 71046; 93971; 99284; 96374; J1940

== ENCOUNTER 2024-01-17 13:13 | Emergency (ER) | payer OTHER ==
[2024-01-17 13:50] VITALS: RESP 20
--- NOTE | 2024-01-17 14:12 | ED ---
Extremity Problem HPI - General Chief complaint: Extremity Problem,Nontraumatic Stated complaint: leg pain Time Seen by Provider: 01/17/24 13:45 Source: patient, RN notes reviewed Mode of arrival: EMS Limitations: no limitations - History of Present Illness Initial comments: 63-year-old male presenting with right lower leg pain x 2 months. Describes an intermittent, crampy calf pain that is worsening in severity. Denies swelling, redness, injury or trauma. He was seen by PCP 2 days ago who instructed him to come to the ER for ultrasound if cramping did not improve. Patient does have a history of a DVT in the left thigh. Patient is on Eliquis. Denies chest pain, shortness of breath. He does have a history of CAD, atrial fibrillation, COPD, and hypertension. - Related Data Home Medications Medication Instructions Recorded Confirmed Famotidine [Pepcid] 20 mg PO BID 09/19/22 06/04/23 Folic Acid 1 mg PO DAILY 09/19/22 06/13/23 Furosemide [Lasix] 40 mg PO DAILY 09/19/22 06/13/23 dilTIAZem HCL [Cartia Xt] 120 mg PO DAILY 09/19/22 06/04/23 lisinopriL [Zestril] 20 mg PO DAILY 09/19/22 06/04/23 Prasugrel [Effient] 10 mg PO DAILY 06/06/23 06/06/23 Previous Rx's Medication Instructions Recorded Apixaban [Eliquis] 2.5 mg PO BID #60 tab 09/21/22 methocarbamoL [Robaxin] 500 mg PO TID PRN #15 tab 01/17/24 Allergies Allergy/AdvReac Type Severity Reaction Status Date / Time venom-honey bee Allergy Anaphylaxis Verified 10/26/23 18:20 adhesive tape AdvReac skin Verified 10/26/23 18:20 irritation Penicillins AdvReac Unknown Verified 10/26/23 18:20 Childhood Review of Systems ROS Statement: Those systems with pertinent positive or pertinent negative responses have been documented in the HPI. ROS Other: All systems not noted in ROS Statement are negative. Past Medical History Past Medical History: Atrial Fibrillation, COPD, Deep Vein Thrombosis (DVT), Hearing Disorder / Deafness, Hypertension, Myocardial Infarction ([place]), Osteoarthritis (OA), Thyroid Disorder, Vascular Disorder Additional Past Medical History / Comment(s): Minor hearing loss. Hx cellulitis left leg(now resolved) and DVT 01/2022. Peripheral artery disease. Has detached ligaments in hands. Mobility issues due to compressed and herniated discs and pinched nerves in back. Per Son "2nd toe on each foot is black, that's why he's having this procedure". Last Myocardial Infarction Date:: 09/2022 History of Any Multi-Drug Resistant Organisms: None Reported Past Surgical History: Appendectomy, Heart Catheterization With Stent, Joint Replacement Additional Past Surgical History / Comment(s): Left hand surgery, right hip replacement, balloon stent and bypass left leg. Past Anesthesia/Blood Transfusion Reactions: No Reported Reaction Additional Past Anesthesia/Blood Transfusion Reaction / Comment(s): No hx blood transfusion. Date of Last Stent Placement:: 09/20/2022 Past Psychological History: Depression Smoking Status: Current every day smoker Past Alcohol Use History: Daily, Heavy Past Drug Use History: Marijuana - Past Family History Brother(s) History Unknown: Yes Family Medical History: Cancer Father Family Medical History: Cancer Additional Family Medical History / Comment(s): Liver cancer. General Exam Limitations: no limitations General appearance: alert, in no apparent distress Head exam: Present: atraumatic, normocephalic, normal inspection Eye exam: Present: normal appearance, PERRL, EOMI. Absent: scleral icterus, conjunctival injection, periorbital swelling Respiratory exam: Present: normal lung sounds bilaterally. Absent: respiratory distress, wheezes, rales, rhonchi, stridor Cardiovascular Exam: Present: regular rate, normal rhythm, normal heart sounds. Absent: systolic murmur, diastolic murmur, rubs, gallop, clicks GI/Abdominal exam: Present: soft, normal bowel sounds. Absent: distended, tenderness, guarding, rebound, rigid Extremities exam: Present: normal inspection, full ROM, normal capillary refill, pedal edema (Mild edema in bilateral lower extremities, patient states this is chronic in nature). Absent: tenderness, joint swelling, calf tenderness Neurological exam: Present: alert, oriented X3 Psychiatric exam: Present: normal affect, normal mood Skin exam: Present: warm, dry, intact, normal color. Absent: rash Course Vital Signs 01/17/24 01/17/24 13:17 13:21 Temperature 97.4 F L Pulse Rate 80 60 Respiratory 24 20 Rate Blood Pressure 167/91 140/69 O2 Sat by Pulse 95 98 Oximetry Medical Decision Making - Medical Decision Making Was pt. sent in by a medical professional or institution (, [facility], [employer], urgent care, hospital, or alf...) When possible be specific @ -No Did you speak to anyone other than the patient for history (EMS, parent, family, police, friend...)? What history was obtained from this source @ -No Did you review nursing and triage notes (agree or disagree)? Why? @ -I reviewed and agree with nursing and triage notes Were old charts reviewed (outside hosp., previous admission, EMS record, old EKG, old radiological studies, urgent care reports/EKG's, alf records)? Report findings @ -No old charts were reviewed Differential Diagnosis (chest pain, altered mental status, abdominal pain women, abdominal pain men, vaginal bleeding, weakness, fever, dyspnea, syncope, headache, dizziness, GI bleed, back pain, seizure, CVA, palpatations, mental health, musculoskeletal)? @ -Differential Musculoskeletal Muscular strain, contusion, ligament sprain, fracture, arthritis, septic a rthritis, bursitis, cellulitis, muscle spasm, nerve compression, DVT, arterial occlusion, herpes zoster, electrolyte abnormality, tumor.... This is not meant to be in all inclusive list EKG interpreted by me (3pts min.). @ -None X-rays interpreted by me (1pt min.). @ -X-ray right tib-fib reveals mild distal leg soft tissue swelling, no acute process CT interpreted by me (1pt min.). @ -None done U/S interpreted by me (1pt. min.). @ -Ultrasound right lower extremity is negative for DVT What testing was considered but not performed or refused? (CT, X-rays, U/S, labs)? Why? @ -None What meds were considered but not given or refused? Why? @ -None Did you discuss the management of the patient with other professionals (professionals i.e. SIENA Crump, [employer], lab, RT, psych nurse, social media analyst, assignment agent, t eacher, correction officer, case briefer)? Give summary @ -No Was smoking cessation discussed for >3mins.? @ -No Was critical care preformed (if so, how long)? @ -No Were there social determinants of health that impacted care today? How? (Homelessness, low income, unemployed, alcoholism, drug addiction, transportation, low edu. Level, literacy, decrease access to med. care, custodial, rehab)? @ -No Was there de-escalation of care discussed even if they declined (Discuss DNR or withdrawal of care, Hospice)? DNR status @ -No What co-morbidities impacted this encounter? (DM, HTN, Smoking, COPD, CAD, Cance r, CVA, ARF, Chemo, Hep., AIDS, mental health diagnosis, sleep apnea, morbid obesity)? @ -None Was patient admitted / discharged? Hospital course, mention meds given and route, prescriptions, significant lab abnormalities, going to OR and other pertinent info. @ -Discharge. This is a 63-year-old male with history of DVT on Eliquis presenting with right calf pain x 2 months. Denies trauma or injury. Denies leg swelling, chest pain, shortness of breath. No red flag symptoms. He is able to weight-bear. Signs are within acceptable limits. Neurovascularly intact. No erythema or edema. No sign of bacterial infection. Ultrasound right lower extremity negative for DVT. X-ray of right tib-fib revealed mild distal leg soft tissue swelling, no acute process. Negative findings discussed with patient. Symptoms are likely due to to muscle spasm of the right lower leg. Prescribed muscle relaxer to use as needed for pain. Supportive care discussed. Advised to follow-up with PCP. Return precautions discussed, patient is agreeable. Case was discussed with my ED attending Dr. Lux. Patient discharged in stable condition. Undiagnosed new problem with uncertain prognosis? @ -No Drug Therapy requiring intensive monitoring for toxicity (Heparin, Nitro, Insulin, Cardizem)? @ -No Were any procedures done? @ -No Diagnosis/symptom? @ -Muscle spasm of right lower leg Acute, or Chronic, or Acute on Chronic? @ -Acute Uncomplicated (without systemic symptoms) or Complicated (systemic symptoms)? @ -Uncomplicated Side effects of treatment? @ -No Exacerbation, Progression, or Severe Exacerbation? @ -No Poses a threat to life or bodily function? How? (Chest pain, [place], [place], pneumonia, PE, COPD, DKA, ARF, appy, cholecystitis, CVA, Diverticulitis, Homicidal, Suicidal, threat to staff... and all critical care pts) @ -No Disposition Clinical Impression: Muscle spasm of right leg Disposition: HOME SELF-CARE Condition: Stable Instructions (If sedation given, give patient instructions): Muscle Spasm (ED) Additional Instructions: Take muscle relaxer as needed for muscle cramps. Please return to the Emergency Department if symptoms worsen or any other concerns. Prescriptions: methocarbamoL [Robaxin] 500 mg PO TID PRN #15 tab PRN Reason: muscle spasms Is patient prescribed a controlled substance at d/c from ED?: No Referrals: Dionne Herrera MD [Primary Care Provider] - 1-2 days Time of Disposition: 15:36
--- NOTE | 2024-01-17 14:36 | XR ---
EXAMINATION TYPE: XR tibia fibula RT DATE OF EXAM: 01/17/2024 COMPARISON: NONE HISTORY: 63-year-old male with right lower leg pain TECHNIQUE: 2 views FINDINGS: There are vascular calcifications throughout. The knee and ankle articulations appear gross ly intact. No periostitis or osteolysis. No acute fracture. Mild soft tissue swelling at the lower le g. IMPRESSION: Some mild distal leg soft tissue swelling. No acute osseous abnormality seen. [facility], , 01/17/2024 2:34 PM
[2024-01-17] MEDS: ACETAMINOPHEN TAB 500 MG TAB PO STA (14:47)
--- NOTE | 2024-01-17 14:58 | US ---
EXAMINATION TYPE: US venous doppler duplex LE RT DATE OF EXAM: 01/17/2024 2:35 PM COMPARISON: NONE CLINICAL INDICATION: Male, 63 years old with history of pain; Leg cramping, Hx DVT left leg - on Eliq uis TECHNIQUE: The lower extremity deep venous system is examined utilizing real time linear array sonog cowrin with graded compression, color doppler sonography, and spectral doppler. SIDE PERFORMED: Right FINDINGS: VESSELS IMAGED: Common Femoral Vein Deep Femoral Vein Greater Saphenous Vein * Femoral Vein Popliteal Vein Small Saphenous Vein * Proximal Calf Veins (* superficial vessels) Right Leg: Negative for DVT Grayscale, color doppler, spectral doppler imaging performed of the deep veins of the lower extremiti es. IMPRESSION: No evidence for DVT within the right lower extremity imaged from the groin to the upper calf. [facility], , 01/17/2024 2:55 PM
[2024-01-17 15:51] VITALS: BP 145/72; PULSE 65; TEMP 97.7
== END 2024-01-17 15:50 | disposition home or self-care (01) ==
LOC: EC 13:13
CPT/HCPCS: 99284